=== PATIENT | male | born 1945 | race Caucasian/White ===

== ENCOUNTER 2017-05-28 18:00 | Emergency (ER) | payer MEDICARE, OTHER ==
[2017-05-28 18:23] VITALS: BP 119/79
--- NOTE | 2017-06-05 17:17 | UC ---
Sravan Krueger Thomas, scribed for Vicky Ibrahim DO on 05/28/17 at 4 . Lower Extremity/Ankle HPI - HPI Summary HPI Summary: The pt is a 71 y/o M presenting to [facility] c/o left knee pain s/p an injury 3 weeks ago in which he twisted his knee. The pain is intermittent. At [facility], the pt denies any pain. The pain is aggravated by weight bearing. It is not aggravated by movement. 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 The pain is alleviated sometimes by these treatments. The patient also complains of left knee instability and he has used a cane in the last three days secondary to this instability. The patient has fallen twice due to knee instability. Before the patient fell, he did not have any pain and says my knee gave out. He denies head trauma and LOC from that fall. Pt denies swelling , F/S/C, abd pain, N/V, or any other complaints. 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 - History of Current Complaint Chief Complaint: UCLowerExtremity Stated Complaint: R KNEE INJURY Time Seen by Provider: 05/28/17 20:06 Hx Obtained From: Patient Onset/Duration: Still Present Pain Intensity: 0 Pain Scale Used: 0-10 Numeric Aggravating Factor(s): Other - Knee pain is Alleviating Factor(s): Other - Sometimes alleviated by heat, ice, and ibuprofen - Allergies/Home Medications Allergies/Adverse Reactions: Allergies Allergy/AdvReac Type Severity Reaction Status Date / Time No Known Allergies Allergy Verified 05/28/17 18:23 Home Medications: Home Medications NK [No Home Medications Reported] 05/28/17 [History Confirmed 05/28/17] PMH/Surg Hx/FS Hx/Imm Hx Previously Healthy: No - NEGATIVE: HTN, DM - Surgical History Surgical History: None - Family History Known Family History: Negative: Cardiac Disease, Hypertension, Diabetes - Social History Occupation: Employed Full-time - as a informatics pharmacist Alcohol Use: None Substance Use Type: None Smoking Status (MU): Never Smoked Tobacco Review of Systems Constitutional: Other - NEGATIVE: fever Musculoskeletal: Other: - Intermittent left knee pain, left knee instability, two falls Is Patient Immunocompromised?: No All Other Systems Reviewed And Are Negative: Yes Physical Exam Triage Information Reviewed: Yes Appearance: Well-Appearing, No Pain Distress, Well-Nourished Vital Signs: Initial Vital Signs Temp 98.4 F 05/28/17 18:20 Pulse 82 05/28/17 18:20 Resp 12 05/28/17 18:20 BP 119/79 05/28/17 18:20 Pulse Ox 99 05/28/17 18:20 Vital Signs Reviewed: Yes Eyes: Positive: Conjunctiva Clear. Negative: Discharge ENT: Positive: Hearing grossly normal. Negative: Muffled/hoarse voice Neck exam: Normal Neck: Positive: Supple Respiratory: Positive: Lungs clear, Normal breath sounds, No respiratory distress, No accessory muscle use Cardiovascular Exam: Normal Cardiovascular: Positive: RRR Musculoskeletal Exam: Normal Neurological: Positive: Alert, Muscle Tone Normal Psychological Exam: Normal Psychological: Positive: Age Appropriate Behavior Skin Exam: Normal Skin: Positive: Other - Warm, dry, normal color Lower Extremity Course/Dx - Differential Dx/Diagnosis Provider Diagnoses: knee pain Discharge - Discharge Plan Condition: Stable Disposition: HOME Patient Education Materials: Knee Pain (ED), Knee Immobilizer (ED) Forms: *Work Release Referrals: Lior Yousif MD [Medical Doctor] - As Soon As Possible No Primary Care Phys,NOPCP [Primary Care Provider] - Additional Instructions: Your history and exam is suspicous for possible internal derrangement of the knee. So, you will need follow up with an orthopedic provider to further evaluate your injury. The documentation as recorded by the Sravan hollis Thomas accurately reflects the service I personally performed and the decisions made by , Vicky Ibrahim DO.
== END 2017-05-28 20:40 | disposition home or self-care (01) ==
LOC: UCEAST 18:00
DX: M25.562 Pain in left knee (principal); M23.52 Chronic instability of knee, left knee
CPT/HCPCS: 99202; G0463

== ENCOUNTER 2018-11-20 15:05 | Inpatient (IN) | payer MEDICARE ==
[2018-11-20] MEDS ORDERED: Tetan/Diph/Pertus SYR(Tdap)* 0.5 ML SYR(BOOSTRIX) use SYR IM ONE (15:38)
[2018-11-20] MEDS ORDERED: ED Vancomycin 1 GM/250 ML 1 GM/250 ML PREMIX.SET IVPB ONE (15:38)
[2018-11-20] MEDS ORDERED: ED Piperacillin/Tazobac 3.375 3.375 GM/100 ML PREMIX.SET IVPB ONE (15:38)
--- NOTE | 2018-11-20 15:41 | ED ---
Lower Extremity - HPI Summary HPI Summary: Patient is a 73-year-old who presents emergency department for right ankle injury that occurred 3 weeks ago. Patient states wood fell on to right ankle 3 weeks ago and injured ankle. Patient states he had a cut on his ankle and was unable to walk. Patient believes he broke and made a homemade splint. Patient states he has a bed ridden at home and was unable to find somebody to look after her while he gets medical treatment until today. Patient denies fever, chills, nausea, vomiting or chest pain, shortness of breath. Patient unable to bear any weight on to right leg secondary to right ankle pain. Patient states that wound has progressively got larger. Symptoms are moderate in severity. Touching and moving affected area makes symptoms worse. Nothing makes symptoms better. Denies past medical history. - History of Current Complaint Chief Complaint: EDExtremityLower Stated Complaint: ANKLE PAIN PER EMS Time Seen by Provider: 11/20/18 15:23 Hx Obtained From: Patient Pain Intensity: 3 - Allergies/Home Medications Allergies/Adverse Reactions: Allergies Allergy/AdvReac Type Severity Reaction Status Date / Time No Known Allergies Allergy Verified 11/20/18 15:28 PMH/Surg Hx/FS Hx/Imm Hx Previously Healthy: Yes Endocrine/Hematology History: Denies: Hx Diabetes, Hx Thyroid Disease Cardiovascular History: Denies: Hx Hypertension, Hx Pacemaker/ICD Respiratory History: Denies: Hx Asthma, Hx Chronic Obstructive Pulmonary Disease (COPD) GI History: Denies: Hx Ulcer Sensory History: Denies: Hx Hearing Aid Psychiatric History: Denies: Hx Panic Disorder Infectious Disease History: No Infectious Disease History: Denies: Hx Hepatitis, Hx Human Immunodeficiency Virus (HIV), Traveled Outside the [place] in Last 30 Days - Family History Known Family History: Positive: Non-Contributory - Social History Occupation: Retired Lives: With Family Alcohol Use: None Substance Use Type: Reports: None Smoking Status (MU): Never Smoked Tobacco Review of Systems Constitutional: Negative Negative: Fever, Chills Cardiovascular: Negative Negative: Palpitations, Chest Pain Respiratory: Negative Negative: Shortness Of Breath Gastrointestinal: Negative Negative: Vomiting, Nausea Positive: Other - pain and wound to right ankle Positive: Other - wound right ankle Negative: Weakness, Paresthesia, Numbness All Other Systems Reviewed And Are Negative: Yes Physical Exam Triage Information Reviewed: Yes Vital Signs On Initial Exam: Initial Vitals Temp Pulse Resp BP Pulse Ox 99.4 F 84 18 104/59 97 11/20/18 15:16 11/20/18 15:16 11/20/18 15:16 11/20/18 15:16 11/20/18 15:16 Vital Signs Reviewed: Yes Appearance: Positive: Well-Appearing - Pt. lying in bed in NAD. Sister present. Skin: Positive: Warm, Dry Head/Face: Positive: Normal Head/Face Inspection Eyes: Positive: Normal, EOMI Neck: Positive: Supple Respiratory/Lung Sounds: Positive: Clear to Auscultation, Breath Sounds Present Cardiovascular: Positive: Normal, RRR Musculoskeletal: Positive: Other - Deformity noted to right ankle with roughly 6cm circular wound to medial ankle. Foot is profused with palpable pedial pulse. Neurological: Positive: Normal, CN Intact II-III Psychiatric: Positive: Affect/Mood Appropriate Diagnostics - Vital Signs Vital Signs Temp Pulse Resp BP Pulse Ox 11/20/18 15:16 99.4 F 84 18 104/59 97 - Laboratory Result Diagrams: 11/20/18 16:01 11/20/18 16:01 Lab Statement: Any lab studies that have been ordered have been reviewed, and results considered in the medical decision making process. Lower Extremity Course/Dx - Course Course Of Treatment: Pt. presenting with ankle injury and wound that occurred 3 weeks ago. Low grade fever. Pt. nontoxic appearing. Exam is very concerning for osteo, abscess, open fx. Labs and cultures ordered. Pt. started on IV fluids, vanc, zosyn and pain medication. Will update tetanus. Pending xrays. Xrays show fracture dislocation. 1614: Ortho, Dr. Milan, paged. 1635: Case discussed with Dr. Milan. 1750: Dr. Milan discussed case with Dr. Chapin who is willing to take case. He would like pt. admitted to hospitalist and will see pt. tomorrow. He would also like MRI at some point. Plan discussed with pt. and sister. He is resting more comfortably after pain medication. Case discussed with Dr. Washington and she accepts pt. for admission. - Diagnoses Differential Diagnosis/HQI/PQRI: Positive: Fracture (Open), Infection, Osteomyelitis Provider Diagnoses: Open fracture ankle, bimalleolar Discharge - Sign-Out/Discharge Documenting (check all that apply): Patient Departure Patient Received Moderate/Deep Sedation with Procedure: No - Discharge Plan Condition: Stable Disposition: ADMITTED TO [facility] Referrals: No Primary Care Phys,NOPCP [Primary Care Provider] - - Billing Disposition and Condition Condition: STABLE Disposition: Admitted to [facility]
[2018-11-20] MEDS ORDERED: Morphine 4 MG/ML VIAL (1 ml) 4 MG/ML VIAL IV ONE (15:42)
[2018-11-20] MEDS ORDERED: Ondansetron INJ* 2 MG/ML VIAL IV ONE (15:43)
[2018-11-20] MEDS: NS 0.9% 1000 ML** 1,000 ML IV ONE ×2 (16:08→16:27)
[2018-11-20 16:15] LABS: ABS Basophils 0.1 10^3/ul (0-0.2); ABS Eosinophils 0.1 10^3/ul (0-0.6); ABS Monocytes 0.7 10^3/ul (0-0.8); ABS Neutrophils 11.2 10^3/ul (1.5-7.7); ABS Nucleated RBC 0 10^3/ul; Eosinophil % 0.9 %; Hematocrit 34 % (36-46); Hemoglobin 11.2 g/dL (14.0-18.0); Lymphocyte % 7.3 %; Mean Corpuscular HGB Conc 34 g/dL (31-36); Mean Corpuscular Hemoglobin 34 pg (27-31); Mean Corpuscular Volume 100 fL (80-94); Mean Platelet Volume 7.1 fL (7.4-10.4); Nucleated Red Blood Cells % 0; Platelet Count 676 10^3/uL (150-450); Red Blood Count 3.34 10^6 /uL (4.18-5.48); Red Cell Distribution Width 14 % (10.5-15)
[2018-11-20] MEDS ORDERED: NS 0.9% 1000 ML** 1,000 ML IV ONE (16:15)
[2018-11-20] MEDS: NS 0.9% 1000 ML** 1,000 ML IV.FLUID IV ONE ×3 (16:28→18:07)
[2018-11-20 16:36] LABS: Albumin 3.1 g/dL (3.2-5.2); Albumin/Globulin Ratio 0.8 (1-3); BUN/Creatinine Ratio 26.7 (8-20); C Reactive Protein 91.37 mg/L (<8.01); Calcium 8.7 mg/dL (8.6-10.3); EGFR African American 105.2 (>60); EGFR Non-African American 86.9 (>60); Globulin 3.8 g/dL (2-4); Potassium 3.9 mmol/L (3.5-5.0); Total Bilirubin 0.4 mg/dL (0.2-1.0); Total Protein 6.9 g/dL (6.4-8.9)
[2018-11-20 17:00] LABS: Activated Partial Thrombo Time 32.9 seconds (26.0-36.3); INR 0.99 (0.77-1.02)
--- NOTE | 2018-11-20 18:10 | ADMNOTE ---
Subjective Date of Service: 11/20/18 Interval History: ADMISSION HISTORY AND PHYSICAL EXAM: Allergies Allergy/AdvReac Type Severity Reaction Status Date / Time No Known Allergies Allergy Verified 11/20/18 15:28 Home Medications Medication Instructions Recorded Confirmed Type NK [No Home Medications Reported] 05/28/17 11/20/18 History HPI: The patient was inhis usual state of health until 2-3 weeks ago when he was cutting wood and some wood fell on his R leg causing an open fracture. When later his sister called him and he did not answer the phone she went to see him. He could not get to the phone. She and another sister took care of the patient and his disabled for a while until they could convince the patient to come to the hospital. Family History: Findings - DM, heart disease. Social History: Findings - Never smoked, no alcohol abuse. 2 sons, 2 sisters nearby, one sister is his SDM. Past Medical History: Findings - negative, no surgery, no medical problems Review of Systems - Measurements Intake and Output: Intake and Output Last 24 Hours 11/18/18 11/19/18 11/20/18 11/21/18 06:59 06:59 06:59 06:59 Weight 188 lb - Review of Systems Constitutional Symptoms: Negative: Weight Gain, Weight Loss, Weakness, Fatigue, Fever, Night Sweats, Unexplained Falls, Other Dermatology: Positive: Normal HEENT: Positive: Normal Eyes: Positive: Normal Thyroid: Positive: Normal Pulmonary: Positive: Normal Cardiology: Positive: Normal Gastroenterology: Positive: Normal Genital - Urinary: Positive: Normal Musculoskeletal: Positive: Joint Pain - see hpi Endocrinology: Positive: Normal Hematologic/Lymphatic: Negative: Anemia, Easy Brusing, Hx Leukemia, Hx Lymphoma, Use of Anticoagulant, Use of Antiplatelet Drugs, Other Neurology: Positive: Normal Psychiatry: Positive: Normal Allergic/Immunologic: Negative: Hx Anaphylaxis, Hx Angioedema, Hx Environmental, Hx Seasonal, Athsma, Hx HIV, Immunocompromise, Swollen Glands LymphNodes, Other Objective Active Medications: Enoxaparin Sodium (Lovenox(*)) 40 mg SUBCUT Q24H HANS Piperacillin Sod/Tazobactam (Sod 3.375 gm/ Sodium Chloride) 100 mls @ 25 mls/ hr IVPB Q8H HANS Morphine Sulfate (Morphine 4 Mg/Ml Vial (1 Ml)) 2 mg IV Q2H PRN PRN Reason: PAIN Oxycodone HCl (Roxycodone Tab*) 5 mg PO Q3H PRN PRN Reason: PAIN Pharmacy Consult (Vancomycin Per Pharmacy*) 1 note FOLLOW UP .VANC PER PHARMACY [facility] Vital Signs - 8 hr 11/20/18 11/20/18 11/20/18 15:16 16:07 17:46 Temperature 99.4 F 98.9 F Pulse Rate 84 Respiratory 18 18 Rate Blood Pressure 104/59 (mmHg) O2 Sat by Pulse 97 Oximetry Oxygen Devices in Use Now: None Appearance: Alert, supine on ED stretcher. In fair spirits. Looks comfortable. Eyes: No Scleral Icterus Neck: NL Appearance and Movements; NL JVP, No Thyroid Enlargement, Masses Respiratory: Symmetrical Chest Expansion and Respiratory Effort, Clear to Auscultation, Clear to Percussion Cardiovascular: NL Sounds; No Murmurs; No JVD, RRR, No Edema, - Abdominal: NL Sounds; No Tenderness; No Distention, No Hepatosplenomegaly, - Extremities: No Edema, No Clubbing, Cyanosis, - - R ankjle swollen, 10 cm open wound Skin: No Nodules or Sclerosis Neurological: Alert and Oriented x 3, NL Sensation Result Diagrams: 11/20/18 16:01 11/20/18 16:01 Microbiology and Other Data: Microbiology 11/20/18 16:40 Gram Stain - Final Ankle Right Assess/Plan/Problems-Billing Assessment: - Patient Problems (1) Open fracture Current Visit: Yes Status: Acute Code(s): T14.8XXA - OTHER INJURY OF UNSPECIFIED BODY REGION, INITIAL ENCOUNTER SNOMED Code(s): 955049889 Comment: Right ankle. Dr. Del Toro to consult. Continue vanco, pip/rafi. (2) Macrocytosis Current Visit: Yes Status: Acute Code(s): D75.89 - OTHER SPECIFIED DISEASES OF BLOOD AND BLOOD-FORMING ORGANS SNOMED Code(s): 053702736 Comment: B12 in low normal range (231). Methylmalonic acid level, folate level. requested
[2018-11-20] MEDS ORDERED: Vancomycin per Pharmacy* NOTE FOLLOW UP SCH (19:00)
[2018-11-20] MEDS ORDERED: Piperacillin/Tazobac ADVAN(*) 3.375 GM in NS 0.9% 100 ML* 100 ML IVPB SCH (19:00)
[2018-11-20] MEDS: ZOSYN 3.375 GM Q8H per EXTENDED INFUSION IVPB SCH ×2 (20:57)
[2018-11-20] MEDS: oxyCODONE TAB* 5 MG TAB PO PRN (21:12)
[2018-11-20] MEDS: Enoxaparin(*) 40 MG/0.4 ML SYR SUBCUT SCH (21:13)
[2018-11-21] MEDS: Vancomycin(*) 1,250 MG in NS 0.9% 250 ML* 250 ML IVPB SCH ×2 (01:42→13:14)
[2018-11-21] MEDS: oxyCODONE TAB* 5 MG TAB PO PRN ×3 (02:30→17:00)
[2018-11-21] MEDS: ZOSYN 3.375 GM Q8H per EXTENDED INFUSION IVPB SCH ×6 (04:06→21:49)
[2018-11-21] MEDS: Morphine 4 MG/ML VIAL (1 ml) 4 MG/ML VIAL IV PRN ×2 (11:33→20:57)
[2018-11-21 11:58] LABS: Folate 18.41 ng/mL (>3.99)
--- NOTE | 2018-11-21 17:36 | CONS ---
CONSULTATION REPORT: DATE OF CONSULT: 11/21/18 PRIMARY CARE PROVIDER: None. PHYSICIAN REQUESTING CONSULTATION: Dr. Luis Felipe Putnam. CONSULTING SERVICE: Infectious Disease. ATTENDING PROVIDER: Dr. Jon Torres * (dictated by Shyla Coleman NP). REASON FOR CONSULT: Open fracture with wound culture that is Staph aureus positive by PCR. IMPRESSION: 1. Open right ankle fracture. PCR shows Staph aureus, MRSA negative. He is currently on vancomycin and Zosyn. I suspect this represents an acute osteomyelitis in the setting of an open fracture for a prolonged period of time. He received a tetanus booster in the emergency room. Plan is for external fixation later this week. 2. Macrocytosis. 3. Thrombocytosis. Suspect this could be in the setting of infection. PLAN: Discontinue vancomycin as the MRSA PCR is negative. Continue Zosyn until cultures can be obtained during surgery, at which time we will be able to further narrow his antibiotics. For now, I would like to continue with anaerobic coverage offered by the Zosyn. He will likely need a few weeks of IV antibiotics and further recommendations will be based off culture results. HISTORY OF PRESENT ILLNESS: Mr. Fenton is a 73-year-old male with no significant past medical history, who states that 2 to 3 weeks ago while cutting some wood, he had several large pieces of wood fall hitting the medial aspect of his right lower leg. He was able to get himself into the house, cleaned up the area and was using an ottoman on wheels to get around in his house. He has been unable to ambulate due to the pain. He stayed home to take care of his bedridden . He was finally convinced by family to present to the emergency room for evaluation. While in the emergency room, he was noted to have a wound to his right ankle and was found to have an open right ankle fracture. With concern for possible abscess and an open fracture, he was referred to the hospitalist service for admission. Mr. Fenton had an ankle MRI showing "bimalleolar fracture and posterior dislocation of the talus relative to the tibial plafond. Open wound at the medial aspect exposing the medial malleolus avulsion fracture site corresponding with history of compound fracture. The lateral malleolus and medial malleolus fracture fragments remained aligned with the talus. The anterior and posterior tibiofibular ligaments are torn. There is bone marrow edema at the talus most confluent at the neck without visualized fracture of the talus most consistent with osseous contusion. There is bone marrow edema at the proximal pole of the medial cuneiform without discrete fracture plane, which may represent osseous contusion or potentially reactive edema secondary to degenerative arthropathy. Talocrural joint effusion and extensive superficial and deep soft tissue edema including involvement of the skeletal musculature extending through the lower leg to the proximal segment. No loculated soft tissue plane hematoma or abscess identified". He denies fevers, chills, shortness of breath, muscle pain, rash, diarrhea, urinary symptoms, or recent travel. He reports right ankle discomfort. He describes pins and needles to his right toe since the accident, worse when the leg is touched. He finds that moving the leg or bearing weight makes the pain worse and when the leg is undisturbed, the pain improves. PAST MEDICAL HISTORY: None. PAST SURGICAL HISTORY: None. MEDICATIONS: Home medications: None. Hospital medications: 1. Lovenox 40 mg subcutaneous every 24 hours. 2. Morphine sulfate 2 mg IV every 2 hours as needed for pain. 3. Oxycodone 5 mg by mouth every 3 hours as needed for pain. 4. Zosyn 100 mg IV every 8 hours. 5. Vancomycin 1250 mg IV q.12 hours. ALLERGIES: No known drug allergies. FAMILY HISTORY: Denies family history of recurrent infections, coronary artery disease, diabetes, or cancer. SOCIAL HISTORY: Denies alcohol, tobacco, or recreational drug use. REVIEW OF SYSTEMS: I performed a 10-point review of systems. All the pertinent positives and negatives are mentioned in the history of present illness. The remaining review of systems are negative. PHYSICAL EXAM: Vital Signs: Temperature 98.4, heart rate 72, respiratory rate 16, O2 sat 99% on room air, blood pressure 125/57. General Appearance: Alert, appears to be in no acute distress. HEENT: Normocephalic, atraumatic. ENT: Pupils are equal and reactive to light. Extraocular movements are intact. Mucous membranes are moist. Neck is supple. There is no lymphadenopathy noted. Neurological: Cranial nerves II through XII are grossly intact. Alert and oriented x4. Cardiovascular: Heart rate regular. No murmurs, rubs, or gallops heard. Respiratory: No accessory muscle use. The lungs are clear to auscultation bilaterally. Abdomen: Bowel sounds present. Abdomen is soft, nontender, nondistended. Extremities: There is right dorsal foot edema. Pulses are 1+ and symmetric. Psychological: Calm and cooperative. Skin: No rashes or abnormalities seen on the exposed skin. He has a dressing to his right ankle that is clean, dry, and intact. DIAGNOSTIC STUDIES/LAB DATA: Sodium 138, potassium 3.9, chloride 107, CO2 of 26 , BUN 23, creatinine 0.86, glucose 117. White blood cell count 13, hemoglobin 11.2, hematocrit 34, platelet count 676. CRP 91.37. Right ankle wound culture shows Staph aureus positive, MRSA negative by PCR. Please see impression and recommendations outlined above. Thank you for asking us to see Mr. Fenton in consultation. TIME SPENT: Time spent for this consultation was approximately 30 minutes, greater than half of that was spent with the patient discussing medications, past medical history, the events leading to his arrival today, and performing a physical examination. The case has been reviewed with the attending, Dr. Torres, who agrees with the plan. Reviewed by SHYLA COLEMAN, YARN REWINDER-C 11/24/18 1135 Seen, examined, discussed with Manda Coleman UNEMPLOYMENT EXAMINER I agree with her full note above. Impression/Plan: 1. Open right ankle fracture with soft tissue and wound infection, MSSA by PCR, may be polymicrobial. Stop vancomycin, will continue zosyn, final antibiotics pending full culture results. [id number]/CPS #: [id number] MTDD
--- NOTE | 2018-11-21 18:34 | CONS ---
CONSULTATION REPORT: DATE OF CONSULT: 11/21/18 ATTENDING ORTHOPEDIC PROVIDER: Dr. Trae Del Toro. CHIEF COMPLAINT: Right open ankle fracture and infection. HISTORY OF PRESENT ILLNESS: Mr. Fenton is a 73-year-old male, who presented to the emergency room on 11/20/18 due to an open fracture to his right ankle which occurred 2 to 3 weeks ago. The patient states that he was cutting wood when wood struck his right leg causing an open laceration and fracture. The patient did not seek medical attention until yesterday, 11/20/18, due to needing to care for his bedridden without anyone to assist in care taking. He came in yesterday when he was able to find someone to help care for his . The patient did note that he has had drainage as well as redness around the ankle. He had severe pain of the ankle with inability to bear weight throughout this entire duration. Today, he reports pain of the right ankle with any movement of the right leg whatsoever, there is no radiation of pain. Reports no decrease in sensation distal to the injury with the ability to wiggle his toes. He is unable to move his ankle, however, due to pain. He is able to move both at the hip and knee without pain aside from associated ankle pain with this motion. The patient notes that he has not had any fever or chills. He has had redness and drainage from the ankle. At baseline, the patient walks without an assistive device. Since injury, he has been using a rolling ottoman as a form of knee scooter to get around his home to take care of his . He does not see a PCP and takes no home medications. No reported history of heart attack, stroke, blood clot or blood transfusion. PAST MEDICAL HISTORY: Negative. The patient does not see a primary care provider. PAST SURGICAL HISTORY: No past history of surgeries. FAMILY HISTORY: Significant for diabetes, heart disease. No adverse reactions from anesthesia in the family. SOCIAL HISTORY: Nonsmoker. No drug abuse. REVIEW OF SYSTEMS: General: No fever or chills. No recent illness. HEENT: No head trauma. The patient did not strike his head when he fell. No change in vision or hearing. Cardiac: No history of UT. No chest pain. Respiratory : No shortness of breath. No cough. No history of asthma, COPD, or sleep apnea. Abdomen: No abdominal pain. No nausea, vomiting, diarrhea. Musculoskeletal: Positive for right ankle open fracture. Denies any other orthopedic injuries. Denies any injury to his other extremities with the fall. Neuro: Sensation is noted to be normal in the right foot as well as left lower extremity and bilateral upper extremities. Hematology: No history of blood clot. PHYSICAL EXAM: Vital Signs: Temperature 98.4, pulse rate 74, respiratory rate 16, oxygen saturation 99%, blood pressure 125/57. General: No acute distress. HEENT: Head is normocephalic, atraumatic. Extraocular movements are intact. Mucous membranes are moist. Cardiac: S1, S2. No murmur. Respiratory: Clear to auscultation bilaterally. No wheezes, rales, or rhonchi. Abdomen: Bowel sounds normoactive in all 4 quadrants. Nondistended, soft, nontender. Musculoskeletal: Bilateral upper extremities with skin envelope intact. Flexion and extension of the elbows, wrists, digits intact without pain. Forward flexion of the shoulder intact without pain. Left lower extremity: Skin envelope intact. Flexion and extension of the hip, knee, ankle, and digits without pain. Right lower extremity: Deformity of the ankle. The patient has a 7 x 4 cm laceration over the medial malleolus with a large amount of foul smelling purulence as well as large amount of hair within the wound. There is erythema around this laceration without any streaking proximally. The patient is tender to palpation about the ankle. His foot is edematous, though compressible. He is able to flex and extend his MTPs without any severe pain. The patient is nontender to palpation of the hip, femur, knee, or lower leg until distally where he is tender about the ankle. Neuro: Sensation is intact to light touch distally throughout bilateral upper and lower extremities. Vascular: DP pulse 2+ bilaterally. Capillary refill less than 2 seconds distally on the right lower extremity as well as the left lower extremity. DIAGNOSTIC STUDIES/LAB DATA: Ankle MRI on the right: There is a bimalleolar fracture and posterior dislocation of the talus relative to the tibial plafond, open wound at the medial aspect exposing the medial malleolus avulsion fracture site corresponding with history of compound fracture. Lateral malleolus and medial malleolus fracture fragments remain aligned with the talus. ATFL, calcaneal, fibular, and posterior tibiofibular ligaments appear intact. Anterior and posterior tibiofibular ligaments are torn. Deltoid ligament appears grossly intact. There is some bone marrow edema at the talus most confluent at the neck without visualized fracture of the talus. There is bone marrow edema at the proximal pole of the medial cuneiform without discrete fracture plane. Talocrural joint effusion and extensive superficial and deep soft tissue edema. No loculated soft tissue plane hematoma or abscess is identified. No gross tendon entrapment evident. Microbiology: Right ankle is growing Staph aureus. Final culture results not yet reported. Lab studies: White blood cells 13.0, hemoglobin 11.2, hematocrit 34, platelet count 676. INR 0.99, aPTT 32.9. Sodium 138, potassium 3.9, GFR is 86.9. CRP is 91.37. ASSESSMENT: The patient has a right open ankle fracture dislocation, infected with Staphylococcus aureus and awaiting final wound culture results. PLAN: The patient will remain bedridden, nonweightbearing on the right lower extremity. He will be on a normal diet until night, at 00:01. He will be n.p.o. Tuesday after midnight. He is currently on Lovenox 40 mg subcu q.24 hours. This should be stopped Tuesday, so he does not receive a dose on . Preop labs morning are ordered, CBC, BMP, PT/INR. I have ordered a type and screen to be done non-urgently at his next lab draw. The patient and his family understand that the intended surgical plan is for I& D and ex fix though they understand that there is a possibility that he may need an amputation depending on extent of injury and infection. Case was reviewed with Dr. Trae Del Toro, who will be taking the patient to the OR on . MAI [place] [id number]/[facility] #: [id number] [facility] CENTERMiguel Ángel
--- NOTE | 2018-11-21 20:11 | PN ---
Subjective Date of Service: 11/21/18 Interval History: complains of increase pain. ortho consult pending. MRI ordered for today Family History: Findings - DM, heart disease. Social History: Findings - Never smoked, no alcohol abuse. 2 sons, 2 sisters nearby, one sister is his SDM. Past Medical History: Findings - negative, no surgery, no medical problems Objective Active Medications: Enoxaparin Sodium (Lovenox(*)) 40 mg SUBCUT Q24H [facility]ANS Last Admin: 11/20/18 21:13 Dose: 40 mg Piperacillin Sod/Tazobactam (Sod 3.375 gm/ Sodium Chloride) 100 mls @ 25 mls/ hr IVPB Q8H [facility]ANS Last Admin: 11/21/18 13:32 Dose: 25 mls/hr Morphine Sulfate (Morphine 4 Mg/Ml Vial (1 Ml)) 2 mg IV Q2H PRN PRN Reason: PAIN Last Admin: 11/21/18 11:33 Dose: 2 mg Oxycodone HCl (Roxycodone Tab*) 5 mg PO Q3H PRN PRN Reason: PAIN Last Admin: 11/21/18 17:00 Dose: 5 mg Vital Signs - 8 hr 11/21/18 11/21/18 13:00 17:00 Respiratory 16 16 Rate Oxygen Devices in Use Now: None Appearance: awake dischelved. mild distress from pain Eyes: No Scleral Icterus Respiratory: Symmetrical Chest Expansion and Respiratory Effort, Clear to Auscultation Cardiovascular: NL Sounds; No Murmurs; No JVD, RRR Abdominal: NL Sounds; No Tenderness; No Distention Extremities: - - right ankle in soft estefanía wrap Result Diagrams: 11/20/18 16:01 11/20/18 16:01 Microbiology and Other Data: Microbiology 11/20/18 16:40 Gram Stain - Final Ankle Right Assess/Plan/Problems-Billing Assessment: 73 y/o male admitted for right ankle fracture 2+ weeks old did not seek medical attention at the time of the injury - Patient Problems (1) Wound cellulitis Current Visit: Yes Status: Acute Code(s): L03.90 - CELLULITIS, UNSPECIFIED SNOMED Code(s): 003407741 Comment: - Zosyn Day # 2. Off vanco (2) Macrocytosis Current Visit: Yes Status: Acute Code(s): D75.89 - OTHER SPECIFIED DISEASES OF BLOOD AND BLOOD-FORMING ORGANS SNOMED Code(s): 133524074 Comment: B12 in low normal range (231). Methylmalonic acid level, folate level. requested (3) Open fracture Current Visit: Yes Status: Acute Code(s): T14.8XXA - OTHER INJURY OF UNSPECIFIED BODY REGION, INITIAL ENCOUNTER SNOMED Code(s): 075397022 Comment: - Right ankle. Dr. Del Toro to consult. Continue pip/rafi. - MRI of ankle today - He is a high risk for DVT already given his presentation of ankle fracture 2 weeks ago. I will get US tomorrow before surgery to establish the presence or not of a DVT before the procedure. I have a high suspicion that he may already have DVT (4) DVT prophylaxis Current Visit: Yes Status: Acute Code(s): BLZ8053 - SNOMED Code(s): 180421899 Comment: - lovenox 40 mg SQ daily
[2018-11-21 21:27] LABS: Influenza A Molecular NEGATIVE (Negative); Influenza B Molecular NEGATIVE (Negative)
[2018-11-21] MEDS: Enoxaparin(*) 40 MG/0.4 ML SYR SUBCUT SCH (21:52)
[2018-11-22] MEDS: ZOSYN 3.375 GM Q8H per EXTENDED INFUSION IVPB SCH ×6 (05:02→20:06)
[2018-11-22] MEDS: Morphine 4 MG/ML VIAL (1 ml) 4 MG/ML VIAL IV PRN (05:08)
[2018-11-22 06:16] LABS: ABS Basophils 0.1 10^3/ul (0-0.2); ABS Eosinophils 0.2 10^3/ul (0-0.6); ABS Lymphocytes 1.2 10^3/ul (1.0-4.8); ABS Neutrophils 7.2 10^3/ul (1.5-7.7); ABS Nucleated RBC 0 10^3/ul; Eosinophil % 1.6 %; Hematocrit 28 % (36-46); Hemoglobin 9.5 g/dL (14.0-18.0); Lymphocyte % 12.8 %; Mean Corpuscular HGB Conc 34 g/dL (31-36); Mean Corpuscular Hemoglobin 34 pg (27-31); Mean Corpuscular Volume 100 fL (80-94); Mean Platelet Volume 7.2 fL (7.4-10.4); Nucleated Red Blood Cells % 0; Platelet Count 440 10^3/uL (150-450); Red Blood Count 2.78 10^6 /uL (4.18-5.48); Red Cell Distribution Width 13 % (10.5-15); White Blood Count 9.7 10^3/uL (3.5-10.8)
[2018-11-22 06:37] LABS: BUN/Creatinine Ratio 22.2 (8-20); Calcium 8.3 mg/dL (8.6-10.3); EGFR African American 112.7 (>60); EGFR Non-African American 93.2 (>60); Magnesium 1.8 mg/dL (1.9-2.7); Phosphorus 3.7 mg/dL (2.5-5.0)
[2018-11-22] MEDS: Cyanocobalamin TAB* 500 MCG PO SCH ×2 (09:04→09:53)
[2018-11-22] MEDS: Multivitamins/Minerals TAB PO SCH ×2 (09:04→09:52)
[2018-11-22] MEDS: oxyCODONE TAB* 5 MG TAB PO PRN ×4 (09:55→21:58)
[2018-11-22] MEDS ORDERED: Vancomycin Trough Check NOTE FOLLOW UP ONE (11:30)
[2018-11-22] MEDS ORDERED: Buffered Lidocaine 1% SYRIN* 1 ML/SYRINGE INTRADERM ONE (12:35)
[2018-11-22 12:44] LABS: EGFR African American 108.1 (>60); EGFR Non-African American 89.3 (>60)
[2018-11-22 12:48] LABS: Vancomycin Trough 7.9 mcg/mL
--- NOTE | 2018-11-22 17:09 | PN ---
Subjective Date of Service: 11/22/18 Interval History: patient seen this morning. no events overnight. US of leg negative for DVT. Remains in severe pain with minimal movement of his leg. His MRI from 11/21/18 official report reviewed and bimaleollar fracture and posterior dislocations of the Talus, Open wound at the medial aspect of the maleolus... Scheduled for OR in am. Family History: Findings - DM, heart disease. Social History: Findings - Never smoked, no alcohol abuse. 2 sons, 2 sisters nearby, one sister is his SDM. Past Medical History: Unchanged from Admission - negative, no surgery, no medical problems Objective Active Medications: Cyanocobalamin (Vitamin B12 Tab*) 1,000 mcg PO DAILY [facility] Last Admin: 11/22/18 09:53 Dose: 1,000 mcg Piperacillin Sod/Tazobactam (Sod 3.375 gm/ Sodium Chloride) 100 mls @ 25 mls/ hr IVPB Q8H [facility] Last Admin: 11/22/18 13:17 Dose: 25 mls/hr Lactated Ringer's (Lactated Ringers 1000 Ml Bag*) 1,000 mls @ 125 mls/hr IV PER RATE [facility] Morphine Sulfate (Morphine 4 Mg/Ml Vial (1 Ml)) 2 mg IV Q2H PRN PRN Reason: PAIN Last Admin: 11/22/18 05:08 Dose: 2 mg Multivitamins/Minerals (Theragran/Minerals Tab*) 1 tab PO DAILY [facility] Last Admin: 11/22/18 09:52 Dose: 1 tab Oxycodone HCl (Roxycodone Tab*) 5 mg PO Q3H PRN PRN Reason: PAIN Last Admin: 11/22/18 13:22 Dose: 5 mg Vital Signs - 8 hr 11/22/18 11/22/18 11/22/18 09:55 11:25 13:17 Temperature 98.0 F Pulse Rate 76 Respiratory 17 17 17 Rate Blood Pressure 113/50 (mmHg) O2 Sat by Pulse 96 Oximetry 11/22/18 13:22 Temperature Pulse Rate Respiratory 16 Rate Blood Pressure (mmHg) O2 Sat by Pulse Oximetry Oxygen Devices in Use Now: None Appearance: awake. alert no acute distress Eyes: No Scleral Icterus, - - EOMI Ears/Nose/Mouth/Throat: NL Teeth, Lips, Gums, Mucous Membranes Moist Neck: NL Appearance and Movements; NL JVP, Trachea Midline Respiratory: Symmetrical Chest Expansion and Respiratory Effort, Clear to Auscultation Cardiovascular: NL Sounds; No Murmurs; No JVD, RRR Abdominal: NL Sounds; No Tenderness; No Distention Extremities: - - right lower extremety edema, right ankle in dressing. purulent discharge visible via his dressing. Result Diagrams: 11/22/18 05:41 11/22/18 12:04 Microbiology and Other Data: Microbiology 11/20/18 16:40 Gram Stain - Final Ankle Right Assess/Plan/Problems-Billing Assessment: 73 y/o male admitted for right ankle fracture 2+ weeks old did not seek medical attention at the time of the injury - Patient Problems (1) Wound cellulitis Current Visit: Yes Status: Acute Code(s): L03.90 - CELLULITIS, UNSPECIFIED SNOMED Code(s): 383280415 Comment: - Zosyn Day # 3. Off vanco - ID consult appreciated (2) Macrocytosis Current Visit: Yes Status: Acute Code(s): D75.89 - OTHER SPECIFIED DISEASES OF BLOOD AND BLOOD-FORMING ORGANS SNOMED Code(s): 763103486 Comment: - B12 in low normal range (231). Methylmalonic acid level, folate level. requested - Started B12 po and MVI (3) Open fracture Current Visit: Yes Status: Acute Code(s): T14.8XXA - OTHER INJURY OF UNSPECIFIED BODY REGION, INITIAL ENCOUNTER SNOMED Code(s): 887392904 Comment: - Right ankle. Dr. Del Toro consulted for OR in am. NPO after midnight. Continue pip/rafi. - Us of leg pre-op negative for DVT as I was concnered given his presentation of ankle fracture at home for greater than 2 weeks and sedantary that he could have DVT. however, Us of leg rule out DVT - DVT prophylaxis held today as he will be going to surgery in am (4) DVT prophylaxis Current Visit: Yes Status: Acute Code(s): ATH0299 - SNOMED Code(s): 012986787 Comment: - lovenox 40 mg SQ daily (held today 11/22/18)
[2018-11-22] MEDS ORDERED: NS 0.9% 100 ML* 100 ML ONE (20:25)
[2018-11-22] MEDS: Polyethylene Glycol 3350* 17 GM PACKET PO PRN (20:27)
[2018-11-22] MEDS: Senna TAB PO PRN (20:27)
[2018-11-23] MEDS: ZOSYN 3.375 GM Q8H per EXTENDED INFUSION IVPB SCH ×6 (04:41→20:27)
[2018-11-23] MEDS: Lactated Ringers 1000 ML Bag* 1,000 ML IV SCH ×3 (05:54→18:22)
[2018-11-23 06:17] LABS: ABS Basophils 0.1 10^3/ul (0-0.2); ABS Eosinophils 0.2 10^3/ul (0-0.6); ABS Lymphocytes 1.1 10^3/ul (1.0-4.8); ABS Neutrophils 8.1 10^3/ul (1.5-7.7); ABS Nucleated RBC 0 10^3/ul; Eosinophil % 1.4 %; Hematocrit 31 % (36-46); Hemoglobin 10.7 g/dL (14.0-18.0); Lymphocyte % 10.5 %; Mean Corpuscular HGB Conc 35 g/dL (31-36); Mean Corpuscular Hemoglobin 34 pg (27-31); Mean Corpuscular Volume 99 fL (80-94); Nucleated Red Blood Cells % 0; Platelet Count 435 10^3/uL (150-450); Red Cell Distribution Width 13 % (10.5-15); White Blood Count 10.5 10^3/uL (3.5-10.8)
[2018-11-23 06:23] LABS: INR 1.02 (0.77-1.02)
[2018-11-23 06:36] LABS: Calcium 8.7 mg/dL (8.6-10.3); EGFR Non-African American 95.9 (>60); Potassium 3.8 mmol/L (3.5-5.0)
[2018-11-23] MEDS: oxyCODONE TAB* 5 MG TAB PO PRN ×5 (07:14→23:27)
[2018-11-23] MEDS ORDERED: Bupivacaine 0.5%* 50 ML VIAL ONE (08:28)
[2018-11-23] MEDS ORDERED: Lidocaine 2% PF* 10 ML AMP ONE (08:28)
--- NOTE | 2018-11-23 08:31 | PN ---
Progress Note - Progress Note Date of Service: 11/22/18 SOAP: Subjective: []Pt seen at bedside, his pain is well controlled at rest, right ankle very painful with any movement of the right leg. Denies feeling of fever or chills. Objective: []General: NAD RLE: deformity of right ankle, dressing entirely soaked through with purulent discharge, new dressing placed. 7x4 cm laceration over the medial malleolus with a large amount of purulence, + erythema surrounding the wound. Sensation intact to light touch distally, dp2+. Assessment: []Open infected right ankle fracture dislocation Plan: []NWB NPO, hold chem DVT prophy for OR 11/23/18 Plan for I&D, ex fix, vac placement of right ankle. Patient understands and agreeable. Laboratory Last Values WBC 10.5 10^3/uL (3.5-10.8) 11/23/18 05:56 RBC 3.10 10^6 /uL (4.18-5.48) L 11/23/18 05:56 Hgb 10.7 g/dL (14.0-18.0) L 11/23/18 05:56 Hct 31 % (36-46) L 11/23/18 05:56 MCV 99 fL (80-94) H 11/23/18 05:56 MCH 34 pg (27-31) H 11/23/18 05:56 MCHC 35 g/dL (31-36) 11/23/18 05:56 RDW 13 % (10.5-15) 11/23/18 05:56 Plt Count 435 10^3/uL (150-450) 11/23/18 05:56 MPV 7.0 fL (7.4-10.4) L 11/23/18 05:56 Neut % (Auto) 77.5 % 11/23/18 05:56 Lymph % (Auto) 10.5 % 11/23/18 05:56 Hand % (Auto) 9.6 % 11/23/18 05:56 Eos % (Auto) 1.4 % 11/23/18 05:56 Baso % (Auto) 1.0 % 11/23/18 05:56 Absolute Neuts (auto) 8.1 10^3/ul (1.5-7.7) H 11/23/18 05:56 Absolute Lymphs (auto) 1.1 10^3/ul (1.0-4.8) 11/23/18 05:56 Absolute Monos (auto) 1.0 10^3/ul (0-0.8) H 11/23/18 05:56 Absolute Eos (auto) 0.2 10^3/ul (0-0.6) 11/23/18 05:56 Absolute Basos (auto) 0.1 10^3/ul (0-0.2) 11/23/18 05:56 Absolute Nucleated RBC 0 10^3/ul 11/23/18 05:56 Nucleated RBC % 0 11/23/18 05:56 INR (Anticoag Therapy) 1.02 (0.77-1.02) 11/23/18 05:56 APTT 32.9 seconds (26.0-36.3) 11/20/18 16:01 Sodium 135 mmol/L (135-145) 11/23/18 05:56 Potassium 3.8 mmol/L (3.5-5.0) 11/23/18 05:56 Chloride 103 mmol/L (101-111) 11/23/18 05:56 Carbon Dioxide 25 mmol/L (22-32) 11/23/18 05:56 Anion Gap 7 mmol/L (2-11) 11/23/18 05:56 BUN 15 mg/dL (6-24) 11/23/18 05:56 Creatinine 0.79 mg/dL (0.67-1.17) 11/23/18 05:56 Est GFR ( Amer) 116.0 (>60) 11/23/18 05:56 Est GFR (Non-Af Amer) 95.9 (>60) 11/23/18 05:56 BUN/Creatinine Ratio 19.0 (8-20) 11/23/18 05:56 Glucose 91 mg/dL (70-100) 11/23/18 05:56 Lactic Acid 0.8 mmol/L (0.5-2.0) 11/20/18 16:01 Calcium 8.7 mg/dL (8.6-10.3) 11/23/18 05:56 Phosphorus 3.7 mg/dL (2.5-5.0) 11/22/18 05:41 Magnesium 1.8 mg/dL (1.9-2.7) L 11/22/18 05:41 Total Bilirubin 0.40 mg/dL (0.2-1.0) 11/20/18 16:01 AST 14 U/L (13-39) 11/20/18 16:01 ALT 17 U/L (7-52) 11/20/18 16:01 Alkaline Phosphatase 69 U/L (34-104) 11/20/18 16:01 C-Reactive Protein 91.37 mg/L (<8.01) H 11/20/18 16:01 Total Protein 6.9 g/dL (6.4-8.9) 11/20/18 16:01 Albumin 3.1 g/dL (3.2-5.2) L 11/20/18 16:01 Globulin 3.8 g/dL (2-4) 11/20/18 16:01 Albumin/Globulin Ratio 0.8 (1-3) L 11/20/18 16:01 Vitamin B12 231 pg/mL (180-914) 11/20/18 16:01 Folate 18.41 ng/mL (>3.99) 11/20/18 16:01 Vancomycin Trough 7.9 mcg/mL 11/22/18 12:04 Influenza A (Rapid) Negative (Negative) 11/21/18 21:02 Influenza B (Rapid) Negative (Negative) 11/21/18 21:02 Blood Type A Positive 11/22/18 05:41 Antibody Screen Negative 11/22/18 05:41 Vital Signs Temp 98.3 F 11/23/18 07:38 Pulse 69 11/23/18 07:38 Resp 18 11/23/18 07:50 BP 123/56 11/23/18 07:38 Pulse Ox 95 11/23/18 07:38 Intake & Output 11/22/18 11/23/18 11/23/18 18:59 06:59 18:59 Intake Total 1695 550 Output Total 1650 800 200 Balance 45 -250 -200 Weight 185 lb Intake: IV Fluids 10 NS (0.9%) 10 IVPB 105 ABX - ZOSYN 105 Oral 1580 550 Output: Urine 1650 800 200
[2018-11-23] MEDS ORDERED: Midazolam* 1 MG/ML 2 ML VIAL (2 MG) ONE (08:39)
[2018-11-23] MEDS ORDERED: fentaNYL* 50 MCG/ML 2 ML VIAL (100 MCG VIAL) ONE ×3 (08:39→11:06)
[2018-11-23] MEDS ORDERED: EPHEDrine (Pressors)* 50 MG/ML VIAL ONE (09:48)
[2018-11-23] MEDS ORDERED: Dexamethasone IV* 4 MG/ML 1 ML (4 MG) ONE (09:49)
[2018-11-23] MEDS ORDERED: Lidocaine 2% PF * 5 ML VIAL ONE (09:49)
[2018-11-23] MEDS ORDERED: Propofol* 10 MG/ML 20 ML BTL ONE (09:49)
[2018-11-23] MEDS ORDERED: Ondansetron INJ* 2 MG/ML VIAL ONE (09:49)
[2018-11-23] MEDS ORDERED: ceFAZolin 2 GM in NS PREMIX(*) 2 GM/100 ML BAG IVPB ONE (10:04)
[2018-11-23] MEDS ORDERED: Naloxone* 0.4 MG/ML 1 ML VIAL IV PRN (10:21)
[2018-11-23] MEDS ORDERED: HYDROmorphone INJ1* 1 MG/ML SYRINGE ONE (11:07)
[2018-11-23] MEDS: fentaNYL* 50 MCG/ML 2 ML VIAL (100 MCG VIAL) IV PRN ×4 (11:08→11:25)
[2018-11-23] MEDS: HYDROmorphone INJ1* 1 MG/ML SYRINGE IV PRN ×5 (11:09→11:46)
[2018-11-23] MEDS: Cyanocobalamin TAB* 500 MCG PO SCH (12:36)
[2018-11-23] MEDS: Multivitamins/Minerals TAB PO SCH (12:36)
--- NOTE | 2018-11-23 14:08 | OP ---
Operative Report - Blank - Operative Report Date of Operation: 11/23/18 Note: PATIENT: Sreedhar Fenton DATE OF : 1945 DATE OF SURGERY: 11/23/2018 SURGEON: Trae Del Toro MD [employer]: [place], whos assistance was necessary for positioning, retraction, help with instrumentation, and closure. ANESTHESIOLOGIST: Dr. Saunders PREOPERATIVE DIAGNOSIS: Grade 2 open right ankle fracture-dislocation with infection POSTOPERATIVE DIAGNOSIS: Grade 2 open right ankle fracture-dislocation with infection OPERATION: 1. Right ankle irrigation and debridement 2. Open reduction of right ankle fracture dislocation 3. Placement of right ankle multiplane external fixator 4. Placement of wound VAC ANESTHESIA: General IMPLANTS: Synthes external fixator TOURNIQUET TIME: Less than 2 hours with a well-padded thigh tourniquet at 250mmHg SPECIMENS: Culture swabs to microbiology ESTIMATED BLOOD LOSS: minimal COMPLICATIONS: none STATUS: Stable from the operating room to the recovery room and then back to the hospital floor INDICATIONS FOR PROCEDURE: Sreedhar sustained a right open ankle fracture dislocation 3 weeks ago but did not present to the hospital until this week. The wound was grossly infected. I had a long discussion with him about options, and explained at length that he is at high risk for amputation. He would like to try to salvage the foot if possible. I explained to him that this will be a multistage procedure effort. This is just the first stage. Both operative and non-operative treatment alternatives were reviewed. Further, the nature and risks of surgery were reviewed in careful detail. Our discussions regarding the risks of surgery included, but were not limited to, persistent or worsening infection, wound problems, nerve injury, neuroma, RSD, persistent symptoms, blood clot, failure of the surgery, and even the remote chance of catastrophic complication. DESCRIPTION OF PROCEDURE: The patient was seen in the preoperative holding unit and informed written consent was obtained. The appropriate extremity was marked. The patient was then brought to the operating room and carefully positioned on the operating room table. Anesthesia was induced. All bony prominences were padded with great care. A well-padded thigh tourniquet was placed. A chlorhexidine based pre- scrub was performed followed by a Betadine prep and drape in standard sterile fashion. A surgical safety pause was then conducted in which we confirmed the appropriate patient, extremity, planned procedure, availability of equipment, indication and administration of prophylactic antibiotics, and DVT prophylaxis in the form of a compression boot on the non-surgical extremity. I began by performing a thorough irrigation and debridement of the wound. Prior to irrigating, culture swabs were taken from deep within the ankle joint. The wound measured 9 cm in length by 4 cm in width. It was 6 cm in depth. I sharply debrided grossly infected tissue with a 15 blade scalpel and [place]. As a good deal of infected appearing tissue in the wound, as well as hair. The wound traversed the entire ankle joint to the fibula. The layers debridement included skin, subcutaneous tissue, periosteum, and bone. I then explored the ankle joint. There was full-thickness loss of cartilage on the talar dome. I used a Camejo to shoehorn the talus back under the tibial plafond along with pulling traction, thus performing an open reduction. It was difficult to get this reduced, given that it had been dislocated for 3 weeks. I then placed pins for an external fixator. This included 2 pins along the tibial shaft, one pin through the calcaneus, and one pin into the first metatarsal shaft. The ankle was held manually reduced and the foot was dorsiflexed and the rods for the external fixator were placed and tightened. I then performed one last irrigation of the wound, and placed a wound VAC. This held good suction at 125 mmHg. The patient was then awakened from anesthesia and transferred to the recovery room in stable condition. There were no complications. All needle and sponge counts were correct at the end of the case. ATTESTATION: I attest I was present and scrubbed and performed the critical portions of the procedure myself. POSTOPERATIVE PLAN: The plan is to return to the OR on Tuesday for a repeat irrigation and debridement.
[2018-11-23] MEDS: Morphine 4 MG/ML VIAL (1 ml) 4 MG/ML VIAL IV PRN (15:06)
--- NOTE | 2018-11-23 19:17 | PN ---
Subjective Date of Service: 11/23/18 Interval History: Patient seen post operatively on short stay. He was taking clear liquid diet well. He underwent open reduction and external fixator. wound culture debridment and wound vac placed. Family History: Findings - DM, heart disease. Social History: Findings - Never smoked, no alcohol abuse. 2 sons, 2 sisters nearby, one sister is his SDM. Past Medical History: Unchanged from Admission - negative, no surgery, no medical problems Objective Active Medications: Cyanocobalamin (Vitamin B12 Tab*) 1,000 mcg PO DAILY [facility] Last Admin: 11/23/18 12:36 Dose: 1,000 mcg Piperacillin Sod/Tazobactam (Sod 3.375 gm/ Sodium Chloride) 100 mls @ 25 mls/ hr IVPB Q8H [facility] Last Admin: 11/23/18 12:35 Dose: 25 mls/hr Lactated Ringer's (Lactated Ringers 1000 Ml Bag*) 1,000 mls @ 125 mls/hr IV PER RATE [facility] Last Admin: 11/23/18 18:22 Dose: 125 mls/hr Morphine Sulfate (Morphine 4 Mg/Ml Vial (1 Ml)) 2 mg IV Q2H PRN PRN Reason: PAIN Last Admin: 11/23/18 15:06 Dose: 2 mg Multivitamins/Minerals (Theragran/Minerals Tab*) 1 tab PO DAILY [facility] Last Admin: 11/23/18 12:36 Dose: 1 tab Oxycodone HCl (Roxycodone Tab*) 5 mg PO Q3H PRN PRN Reason: PAIN Last Admin: 11/23/18 15:54 Dose: 5 mg Polyethylene Glycol/Electrolytes (Miralax*) 17 gm PO DAILY PRN PRN Reason: CONSTIPATION Last Admin: 11/22/18 20:27 Dose: 17 gm Senna (Senokot Tab*) 2 tab PO BEDTIME PRN PRN Reason: no DM during day Last Admin: 11/22/18 20:27 Dose: 2 tab Vital Signs - 8 hr 11/23/18 11/23/18 11/23/18 11:13 11:16 11:18 Temperature Pulse Rate 92 Respiratory 14 18 18 Rate Blood Pressure 151/104 (mmHg) O2 Sat by Pulse 96 Oximetry 11/23/18 11/23/18 11/23/18 11:20 11:25 11:26 Temperature Pulse Rate 82 90 Respiratory 14 16 16 Rate Blood Pressure 153/102 148/94 (mmHg) O2 Sat by Pulse 94 96 Oximetry 11/23/18 11/23/18 11/23/18 11:27 11:30 11:40 Temperature Pulse Rate 88 80 Respiratory 15 13 13 Rate Blood Pressure 157/93 (mmHg) O2 Sat by Pulse 98 95 Oximetry 11/23/18 11/23/18 11/23/18 11:45 11:46 12:05 Temperature Pulse Rate 77 92 Respiratory 12 16 Rate Blood Pressure 137/89 142/80 (mmHg) O2 Sat by Pulse 96 96 Oximetry 11/23/18 11/23/18 11/23/18 12:13 12:30 13:17 Temperature 98.6 F 97.6 F Pulse Rate 92 99 Respiratory 16 18 18 Rate Blood Pressure 142/80 143/69 (mmHg) O2 Sat by Pulse 96 97 Oximetry 11/23/18 11/23/18 11/23/18 14:13 15:06 15:10 Temperature 97.8 F Pulse Rate 102 Respiratory 18 18 18 Rate Blood Pressure 131/66 (mmHg) O2 Sat by Pulse 95 Oximetry 11/23/18 11/23/18 11/23/18 15:49 15:54 16:12 Temperature 98.1 F Pulse Rate 90 93 Respiratory 16 18 17 Rate Blood Pressure 140/69 146/82 (mmHg) O2 Sat by Pulse 96 97 Oximetry 11/23/18 11/23/18 11/23/18 16:14 18:24 18:26 Temperature 98.1 F Pulse Rate 89 Respiratory 18 17 18 Rate Blood Pressure 118/70 (mmHg) O2 Sat by Pulse 95 Oximetry Oxygen Devices in Use Now: Nasal Cannula Appearance: awake, alert. no distress Eyes: No Scleral Icterus Ears/Nose/Mouth/Throat: NL Teeth, Lips, Gums, Mucous Membranes Moist Neck: NL Appearance and Movements; NL JVP, Trachea Midline Respiratory: Symmetrical Chest Expansion and Respiratory Effort, Clear to Auscultation Cardiovascular: NL Sounds; No Murmurs; No JVD Abdominal: NL Sounds; No Tenderness; No Distention Lymphatic: No Cervical Adenopathy Result Diagrams: 11/23/18 05:56 11/23/18 05:56 Microbiology and Other Data: Microbiology 11/20/18 16:40 Gram Stain - Final Ankle Right Assess/Plan/Problems-Billing Assessment: 73 y/o male admitted for right ankle fracture 2+ weeks old did not seek medical attention at the time of the injury - Patient Problems (1) Wound cellulitis Current Visit: Yes Status: Acute Code(s): L03.90 - CELLULITIS, UNSPECIFIED SNOMED Code(s): 294467435 Comment: - Zosyn Day # 4. Off vanco - ID consult appreciated. - s/p OREF with repeat culture intra-operatively will continue abx and follow repeat wound culture (2) Macrocytosis Current Visit: Yes Status: Acute Code(s): D75.89 - OTHER SPECIFIED DISEASES OF BLOOD AND BLOOD-FORMING ORGANS SNOMED Code(s): 696363665 Comment: - B12 in low normal range (231). Methylmalonic acid level, folate level. requested - Started B12 po and MVI (3) Open fracture Current Visit: Yes Status: Acute Code(s): T14.8XXA - OTHER INJURY OF UNSPECIFIED BODY REGION, INITIAL ENCOUNTER SNOMED Code(s): 603721555 Comment: - Right ankle. Dr. Del Toro performed open reduction and external fixation - Recultured intraoperatively. I will continue pip/rafi day # 4 - Us of leg pre-op negative for DVT pre-op (4) DVT prophylaxis Current Visit: Yes Status: Acute Code(s): VEP2535 - SNOMED Code(s): 099766471 Comment: - lovenox 40 mg SQ daily (held today 11/22/18 and 11/23/18) - Will visit with Ortho if we can resume DVT prophyslaxis in am
[2018-11-23] MEDS: Senna TAB PO PRN (22:43)
[2018-11-23] MEDS: Polyethylene Glycol 3350* 17 GM PACKET PO PRN (22:43)
[2018-11-24] MEDS: Lactated Ringers 1000 ML Bag* 1,000 ML IV SCH ×3 (02:18→18:13)
[2018-11-24] MEDS: oxyCODONE TAB* 5 MG TAB PO PRN ×5 (02:57→20:29)
[2018-11-24] MEDS: Morphine 4 MG/ML VIAL (1 ml) 4 MG/ML VIAL IV PRN ×4 (03:30→15:39)
[2018-11-24] MEDS: ZOSYN 3.375 GM Q8H per EXTENDED INFUSION IVPB SCH ×6 (04:01→20:24)
[2018-11-24] MEDS: Senna TAB PO PRN (08:39)
[2018-11-24] MEDS: Multivitamins/Minerals TAB PO SCH (08:39)
[2018-11-24] MEDS: Cyanocobalamin TAB* 500 MCG PO SCH (08:40)
[2018-11-24] MEDS: Polyethylene Glycol 3350* 17 GM PACKET PO PRN (08:43)
--- NOTE | 2018-11-24 10:06 | PN ---
Progress Note - Progress Note Date of Service: 11/24/18 SOAP: Subjective: CC: Open right ankle fracture HPI: Mr. Fenton is a 73 yo male with no significant PMH who presented to the emergency room for an open right ankle fracture that occurred 2-3 weeks prior to his presentation. Denies fever, chills, shortness of breath, nausea, vomiting or diarrhea. He is constipated and reports no BM in 7 days. He states that the pain has improved since the ankle was stabilized. He reports "pins and needles" only if the foot is touched. Objective: Vital Signs 11/24/18 11/24/18 11/24/18 07:23 08:00 08:41 Temperature 97.5 F Pulse Rate 67 Respiratory 16 18 18 Rate Blood Pressure 143/56 (mmHg) O2 Sat by Pulse 91 91 Oximetry Physical Exam: General: NAD, sitting up in a chair Neurological: Alert and Oriented x 4 Cardiovascular: Heart rate regular Respiratory: Lung sounds clear bilateral Abdominal: Bowel sounds , ABD slightly firm, generalized tender with palpation and non distended Skin: No rashes seen on the exposed skin, external fixation with KAYLEEN wrap in place Microbiology 11/20/18 16:40 Skin and Soft Tissue MRSA/MSSA (PCR - Final Ankle Right Mrsa Negative S.aureus Positive Gram Stain - Final Wound Culture - Preliminary Staphylococcus Aureus Strep Agalactiae - (Group B) 11/23/18 10:06 Gram Stain - Final Ankle Right 11/20/18 16:01 Aerobic Blood Culture - Preliminary Blood Venous No Growth Day 3 Anaerobic Blood Culture - Preliminary No Growth Day 3 11/20/18 15:36 Aerobic Blood Culture - Preliminary Blood Venous No Growth Day 3 Anaerobic Blood Culture - Preliminary No Growth Day 3 Assessment: 1. Open right ankle fracture. S/P wound debridement, open reduction and external fixation, POD #1. Suspect he has an acute osteomyrlitis based on the length of time he had an open fracture and MRI findings. Wound cultures obtained on admission showing MSSA and Strep Agalactiae (Group B). Preliminary cultures obtained while in the OR showing no organisms in preliminary results. Afebrile and leukocytosis has resolved. Blood cultures with no growth on day 3. 2. Thrombocytosis. Resolved 3. Constipation. Reports no BM for 7 days. 4. Macrocytosis. Started on Vit B12 and multivitamin Plan: Continue Zosyn. Further ABX recommendations pending based on the cultures obtained during surgery 11/23/18. Patient should be placed on a bowel regimen for his constipation.
[2018-11-24] MEDS: Magnesium Hydroxide LIQ* 30 ML UDC PO PRN (10:35)
--- NOTE | 2018-11-24 11:40 | PN ---
Progress Note - Progress Note Date of Service: 11/24/18 SOAP: Subjective: []Patient seen OOB with leg elevated on step stool. Pain is tolerable but at times moderate to severe when up and moving. +constipation. Objective: [] Microbiology 11/23/18 10:06 Anaerobic Culture - Preliminary Wound - Ankle Right 11/20/18 16:40 Skin and Soft Tissue MRSA/MSSA (PCR - Final Ankle Right Mrsa Negative S.aureus Positive Gram Stain - Final Wound Culture - Preliminary Staphylococcus Aureus Strep Agalactiae - (Group B) 11/23/18 10:06 Gram Stain - Final Ankle Right 11/20/18 16:01 Aerobic Blood Culture - Preliminary Blood Venous No Growth Day 3 Anaerobic Blood Culture - Preliminary No Growth Day 3 11/20/18 15:36 Aerobic Blood Culture - Preliminary Blood Venous No Growth Day 3 Anaerobic Blood Culture - Preliminary No Growth Day 3 Vital Signs Temp 97.5 F 11/24/18 07:23 Pulse 67 11/24/18 07:23 Resp 18 11/24/18 10:48 BP 143/56 11/24/18 07:23 Pulse Ox 91 11/24/18 08:00 Intake & Output 11/23/18 11/24/18 11/24/18 18:59 06:59 18:59 Intake Total 3355 1920 1100 Output Total 450 650 600 Balance 2905 1270 500 Intake: IV Fluids 2775 980 1000 ABX - ZOSYN 100 LR 2675 980 1000 IVPB 100 ABX - ZOSYN 100 Oral 580 840 100 Output: Urine 450 650 600 Laboratory Results - last 24 hr 11/20/18 15:49 Methylmalonic Acid 0.40 Left leg KAYLEEN dry and intact Wound vac well sealed and working well toes mild edema with full sensation, slight wiggle, pink and warm Assessment: []s/p ORIF open fracture dislocation with soft tissue infection and osteomyelitis left ankle, external fixation, wound vac placement POD#1 Plan: []PT/OT NWB LLE Wound vac IV Zosyn Lovenox 40 mg QD started for DVT prophylaxis Return to OR Monday 11/27 for repeat I&D
[2018-11-24] MEDS ORDERED: Enoxaparin(*) 40 MG/0.4 ML SYR SUBCUT SCH (12:00)
--- NOTE | 2018-11-24 16:31 | PN ---
Subjective Date of Service: 11/24/18 Interval History: Patient seen awake, alert. complaining of increase constipations. pain is tolerable. ID and Ortho input appreciated. Started lovenox today Family History: Findings - DM, heart disease. Social History: Findings - Never smoked, no alcohol abuse. 2 sons, 2 sisters nearby, one sister is his SDM. Past Medical History: Unchanged from Admission - negative, no surgery, no medical problems Objective Active Medications: Cyanocobalamin (Vitamin B12 Tab*) 1,000 mcg PO DAILY [facility] Last Admin: 11/24/18 08:40 Dose: 1,000 mcg Enoxaparin Sodium (Lovenox(*)) 40 mg SUBCUT Q24H [facility] Last Admin: 11/24/18 13:25 Dose: 40 mg Piperacillin Sod/Tazobactam (Sod 3.375 gm/ Sodium Chloride) 100 mls @ 25 mls/ hr IVPB Q8H [facility] Last Admin: 11/24/18 13:25 Dose: 25 mls/hr Lactated Ringer's (Lactated Ringers 1000 Ml Bag*) 1,000 mls @ 125 mls/hr IV PER RATE [facility] Last Admin: 11/24/18 10:35 Dose: 125 mls/hr Magnesium Hydroxide (Milk Of Magnniles Liq*) 30 ml PO Q6H PRN PRN Reason: CONSTIPATION Morphine Sulfate (Morphine Inj (Syringe))*) 2 mg IV Q2H PRN PRN Reason: PAIN Multivitamins/Minerals (Theragran/Minerals Tab*) 1 tab PO DAILY [facility] Last Admin: 11/24/18 08:39 Dose: 1 tab Oxycodone HCl (Roxycodone Tab*) 5 mg PO Q3H PRN PRN Reason: PAIN Last Admin: 11/24/18 15:38 Dose: 5 mg Polyethylene Glycol/Electrolytes (Miralax*) 17 gm PO DAILY PRN PRN Reason: CONSTIPATION Last Admin: 11/24/18 08:43 Dose: 17 gm Senna (Senokot Tab*) 2 tab PO BEDTIME PRN PRN Reason: no DM during day Last Admin: 11/24/18 08:39 Dose: 2 tab Vital Signs - 8 hr 11/24/18 11/24/18 11/24/18 08:41 08:51 10:35 Temperature Pulse Rate Respiratory 18 18 18 Rate Blood Pressure (mmHg) O2 Sat by Pulse Oximetry 04/12/19 04/12/19 04/12/19 10:48 11:30 13:24 Temperature 97.9 F Pulse Rate 82 Respiratory 18 18 18 Rate Blood Pressure 147/76 (mmHg) O2 Sat by Pulse 95 Oximetry 11/24/18 11/24/18 15:38 15:39 Temperature 98.1 F Pulse Rate 90 Respiratory 18 18 Rate Blood Pressure 154/83 (mmHg) O2 Sat by Pulse 94 Oximetry Oxygen Devices in Use Now: None Appearance: Awake, alert. no acute distress Eyes: No Scleral Icterus, - - EOMI Ears/Nose/Mouth/Throat: NL Teeth, Lips, Gums, Mucous Membranes Moist Neck: NL Appearance and Movements; NL JVP, Trachea Midline Respiratory: Symmetrical Chest Expansion and Respiratory Effort, Clear to Auscultation Cardiovascular: NL Sounds; No Murmurs; No JVD, RRR, No Edema Abdominal: NL Sounds; No Tenderness; No Distention Result Diagrams: 11/23/18 05:56 11/23/18 05:56 Microbiology and Other Data: Microbiology 11/20/18 16:40 Gram Stain - Final Ankle Right Assess/Plan/Problems-Billing Assessment: 73 y/o male admitted for right ankle fracture 2+ weeks old did not seek medical attention at the time of the injury - Patient Problems (1) Wound cellulitis Current Visit: Yes Status: Acute Code(s): L03.90 - CELLULITIS, UNSPECIFIED SNOMED Code(s): 715200249 Comment: - Zosyn Day # 5. Off vanco - ID consult appreciated. - s/p OREF with repeat culture intra-operatively will continue abx and follow repeat wound culture - For OR on Tuesday11/27/14 for further I&D (2) Constipation Current Visit: Yes Status: Acute Code(s): K59.00 - CONSTIPATION, UNSPECIFIED SNOMED Code(s): 74769898 Comment: - Lactulose 30 ml QIS PRN constipations - Miralax and sennkot (3) Macrocytosis Current Visit: Yes Status: Acute Code(s): D75.89 - OTHER SPECIFIED DISEASES OF BLOOD AND BLOOD-FORMING ORGANS SNOMED Code(s): 253859504 Comment: - B12 in low normal range (231). Methylmalonic acid level, folate level. requested - Started B12 po and MVI (4) Open fracture Current Visit: Yes Status: Acute Code(s): T14.8XXA - OTHER INJURY OF UNSPECIFIED BODY REGION, INITIAL ENCOUNTER SNOMED Code(s): 435963408 Comment: - Right ankle. Dr. Del Toro performed open reduction and external fixation - Recultured intraoperatively. I will continue pip/rafi day # 4 - Us of leg pre-op negative for DVT pre-op (5) DVT prophylaxis Current Visit: Yes Status: Acute Code(s): IXD2848 - SNOMED Code(s): 662055871 Comment: - lovenox 40 mg SQ daily (held today 11/22/18 and 11/23/18) - Will visit with Ortho if we can resume DVT prophyslaxis in am
[2018-11-24] MEDS: Morphine INJ* 2 MG/ML 1 ML SYRINGE (TWO MG - NEW SYRINGE VERSION) IV PRN ×2 (18:06→22:24)
[2018-11-24] MEDS ORDERED: Mineral Oil ENEMA* 1 BOTTLE PR ONE (19:57)
[2018-11-25] MEDS: Morphine INJ* 2 MG/ML 1 ML SYRINGE (TWO MG - NEW SYRINGE VERSION) IV PRN ×3 (00:30→18:24)
[2018-11-25] MEDS: oxyCODONE TAB* 5 MG TAB PO PRN ×5 (00:30→17:53)
[2018-11-25] MEDS: Lactated Ringers 1000 ML Bag* 1,000 ML IV SCH ×2 (02:13→14:45)
[2018-11-25] MEDS: ZOSYN 3.375 GM Q8H per EXTENDED INFUSION IVPB SCH ×6 (04:39→21:04)
[2018-11-25 06:21] LABS: Hematocrit 32 % (36-46); Hemoglobin 11.1 g/dL (14.0-18.0); Mean Corpuscular HGB Conc 34 g/dL (31-36); Mean Corpuscular Hemoglobin 34 pg (27-31); Mean Corpuscular Volume 98 fL (80-94); Mean Platelet Volume 7.3 fL (7.4-10.4); Platelet Count 500 10^3/uL (150-450); Red Blood Count 3.28 10^6 /uL (4.18-5.48); Red Cell Distribution Width 14 % (10.5-15); White Blood Count 15.8 10^3/uL (3.5-10.8)
[2018-11-25 06:27] LABS: ABS Basophils 0.2 10^3/ul (0-0.2); ABS Eosinophils 0.1 10^3/ul (0-0.6); ABS Lymphocytes 0.7 10^3/ul (1.0-4.8); ABS Monocytes 1.6 10^3/ul (0-0.8); ABS Neutrophils 13.3 10^3/ul (1.5-7.7); ABS Nucleated RBC 0 10^3/ul; Eosinophil % 0.3 %; Lymphocyte % 4.2 %; Nucleated Red Blood Cells % 0
[2018-11-25 06:29] LABS: BUN/Creatinine Ratio 10.5 (8-20); EGFR African American 50.7 (>60); EGFR Non-African American 41.9 (>60); Magnesium 2.2 mg/dL (1.9-2.7); Phosphorus 4.3 mg/dL (2.5-5.0); Potassium 3.8 mmol/L (3.5-5.0)
--- NOTE | 2018-11-25 10:41 | PN ---
Progress Note - Progress Note Date of Service: 11/25/18 SOAP: Subjective: Patient is doing well. Pain is controlled. Denies N/T, F/C, CP/SOB. Has not has BM Objective: PE- 73y/o WDWN M NAD A&Ox3 LLE- dressing c/d/i, wound vac intact and functioning, knee NT palpation, SILT distally, brisk cap refill toes Vital Signs Temp Pulse Resp BP Pulse Ox 98.6 F 89 18 155/80 92 11/24/18 23:53 11/25/18 00:54 11/25/18 09:10 11/25/18 07:50 11/24/18 23:53 Laboratory Results - last 24 hr 11/25/18 11/25/18 05:58 05:58 WBC 15.8 H RBC 3.28 L Hgb 11.1 L Hct 32 L MCV 98 H MCH 34 H MCHC 34 RDW 14 Plt Count 500 H D MPV 7.3 L Neut % (Auto) 84.5 Lymph % (Auto) 4.2 [place] % (Auto) 10.0 Eos % (Auto) 0.3 Baso % (Auto) 1.0 Absolute Neuts (auto) 13.3 H Absolute Lymphs (auto) 0.7 L Absolute Monos (auto) 1.6 H Absolute Eos (auto) 0.1 Absolute Basos (auto) 0.2 Absolute Nucleated RBC 0 Nucleated RBC % 0 Sodium 133 L Potassium 3.8 Chloride 98 L Carbon Dioxide 26 Anion Gap 9 BUN 17 Creatinine 1.62 H Est GFR ( Amer) 50.7 Est GFR (Non-Af Amer) 41.9 BUN/Creatinine Ratio 10.5 Glucose 140 H Calcium 9.0 Phosphorus 4.3 Magnesium 2.2 Assessment: []s/p ORIF open fracture dislocation with soft tissue infection and osteomyelitis left ankle, external fixation, wound vac placement POD#2 Plan: []PT/OT NWB LLE Wound vac IV Zosyn Lovenox 40 mg QD started for DVT prophylaxis. Will stop 11/26 for surgery Return to OR Monday 11/27 for repeat I&D
[2018-11-25] MEDS: Glycerin ADULT SUPP PR ONE ×2 (10:50→11:53)
[2018-11-25] MEDS: Bisacodyl EC TAB* 5 MG PO ONE ×2 (10:50→14:52)
[2018-11-25] MEDS: Multivitamins/Minerals TAB PO SCH ×2 (10:50→15:03)
[2018-11-25] MEDS: Cyanocobalamin TAB* 500 MCG PO SCH ×2 (10:50→15:03)
[2018-11-25] MEDS ORDERED: Ondansetron INJ* 2 MG/ML VIAL IV PRN (11:11)
[2018-11-25] MEDS: Pantoprazole IV* 40 MG IV SCH ×2 (11:29→20:52)
--- NOTE | 2018-11-25 11:43 | PN ---
Subjective Date of Service: 11/25/18 Interval History: Patient seen this morning, he is complaining of increase abdominal discomfort. He did not want to have breakfast his morning as he was uncomfortable from not having bowel movement despite aggressive bowel regimen, and enema. His exam was significant for irregular rhythm and frequent PVC's on exam. EKG obtained and showed sinus rhythm with frequent PVC's. He was placed on Tele. About Two hours later around 11'sh I was called by nursing staff as the patient did have one episode of vomit which was described as "coffee ground emesis". I am not sure if it was true GI bleed or simply he vomited his coffee and prune juice which he has been getting for bowel regimen. I did place him on clear liquid for now and I started PPI bid. I Will get stat CBC and recheck in 6 hours. If H/H remains stable, than I think his vomit was simply undigested food mixed with prune and coffee contents. I will monitor vitals (on tele) and H/H in 6 hours. Family History: Findings - DM, heart disease. Social History: Findings - Never smoked, no alcohol abuse. 2 sons, 2 sisters nearby, one sister is his SDM. Past Medical History: Unchanged from Admission - negative, no surgery, no medical problems Objective Active Medications: Cyanocobalamin (Vitamin B12 Tab*) 1,000 mcg PO DAILY [facility] Last Admin: 11/24/18 08:40 Dose: 1,000 mcg Piperacillin Sod/Tazobactam (Sod 3.375 gm/ Sodium Chloride) 100 mls @ 25 mls/ hr IVPB Q8H [facility] Last Admin: 11/25/18 04:39 Dose: 25 mls/hr Lactated Ringer's (Lactated Ringers 1000 Ml Bag*) 1,000 mls @ 125 mls/hr IV PER RATE [facility] Last Admin: 11/25/18 02:13 Dose: 125 mls/hr Lactulose (Lactulose*) 30 ml PO QID PRN PRN Reason: CONSTIPATION Last Admin: 11/24/18 18:06 Dose: 30 ml Magnesium Hydroxide (Milk Of Magnesia Liq*) 30 ml PO Q6H PRN PRN Reason: CONSTIPATION Last Admin: 11/24/18 10:35 Dose: 30 ml Morphine Sulfate (Morphine Inj (Syringe))*) 2 mg IV Q2H PRN PRN Reason: PAIN Last Admin: 11/25/18 04:46 Dose: 2 mg Multivitamins/Minerals (Theragran/Minerals Tab*) 1 tab PO DAILY [facility] Last Admin: 11/24/18 08:39 Dose: 1 tab Ondansetron HCl (Zofran Inj*) 4 mg IV Q6H PRN PRN Reason: NAUSEA Last Admin: 11/25/18 11:29 Dose: 4 mg Oxycodone HCl (Roxycodone Tab*) 5 mg PO Q3H PRN PRN Reason: PAIN Last Admin: 11/25/18 09:10 Dose: 5 mg Pantoprazole Sodium (Protonix Iv*) 40 mg IV BID [facility] Last Admin: 11/25/18 11:29 Dose: 40 mg Polyethylene Glycol/Electrolytes (Miralax*) 17 gm PO DAILY PRN PRN Reason: CONSTIPATION Last Admin: 11/24/18 08:43 Dose: 17 gm Senna (Senokot Tab*) 2 tab PO BEDTIME PRN PRN Reason: no DM during day Last Admin: 11/24/18 08:39 Dose: 2 tab Vital Signs - 8 hr 11/25/18 11/25/18 11/25/18 03:43 03:45 04:46 Temperature 98.3 F Pulse Rate 98 71 Respiratory 20 20 18 Rate Blood Pressure 170/85 152/96 (mmHg) O2 Sat by Pulse 90 92 Oximetry 11/25/18 11/25/18 11/25/18 04:47 05:47 06:23 Temperature Pulse Rate Respiratory 18 20 20 Rate Blood Pressure (mmHg) O2 Sat by Pulse Oximetry 11/25/18 11/25/18 11/25/18 07:40 07:50 09:10 Temperature 97.9 F Pulse Rate 46 Respiratory 18 18 Rate Blood Pressure 155/80 (mmHg) O2 Sat by Pulse 93 Oximetry 11/25/18 11:12 Temperature 98.2 F Pulse Rate 50 Respiratory 16 Rate Blood Pressure 159/73 (mmHg) O2 Sat by Pulse 93 Oximetry Oxygen Devices in Use Now: None Appearance: Awake, alert. Uncomfortable from lack of bowel movement Eyes: No Scleral Icterus, - - EOMI Ears/Nose/Mouth/Throat: NL Teeth, Lips, Gums, Mucous Membranes Moist Neck: NL Appearance and Movements; NL JVP, Trachea Midline Respiratory: Symmetrical Chest Expansion and Respiratory Effort, Clear to Auscultation Cardiovascular: NL Sounds; No Murmurs; No JVD Abdominal: NL Sounds; No Tenderness; No Distention Extremities: - - Right lower extremety in external fixations. dressin and wound vac drain in place Neurological: Alert and Oriented x 3 Result Diagrams: 11/25/18 05:58 11/25/18 05:58 Microbiology and Other Data: Microbiology 11/20/18 16:40 Gram Stain - Final Ankle Right Assess/Plan/Problems-Billing Assessment: 73 y/o male admitted for right ankle fracture 2+ weeks old did not seek medical attention at the time of the injury - Patient Problems (1) Wound cellulitis Current Visit: Yes Status: Acute Code(s): L03.90 - CELLULITIS, UNSPECIFIED SNOMED Code(s): 923216267 Comment: - Zosyn Day # 6. Off vanco - ID consult appreciated. - s/p OREF day # 3 (done on 11/23/18) with repeat culture intra-operatively. I will continue abx and follow repeat wound culture from intra op - For OR again on Tuesday11/27/14 for further I&D (2) Constipation Current Visit: Yes Status: Acute Code(s): K59.00 - CONSTIPATION, UNSPECIFIED SNOMED Code(s): 30824329 Comment: - Lactulose 30 ml QID PRN constipations, s/p enema 11/24/18 - Miralax and sennkot - He still does not have BM. - I will get AXR rule out obsructions. I will start dulcolax 20 mg once now and glycerin suppository today (3) Macrocytosis Current Visit: Yes Status: Acute Code(s): D75.89 - OTHER SPECIFIED DISEASES OF BLOOD AND BLOOD-FORMING ORGANS SNOMED Code(s): 221666892 Comment: - B12 in low normal range (231). Methylmalonic acid level, folate level. requested - Started B12 po and MVI (4) Open fracture Current Visit: Yes Status: Acute Code(s): T14.8XXA - OTHER INJURY OF UNSPECIFIED BODY REGION, INITIAL ENCOUNTER SNOMED Code(s): 376619380 Comment: - Right ankle. Dr. Del Toro performed open reduction and external fixation 4/11/19 - Recultured intraoperatively. I will continue pip/rafi day # 5 - Us of leg pre-op negative for DVT pre-op - On lovenox started 11/24/18, I will hold it for today given his vomit (" coffee ground emesis")! until I make sure his h/H stable. Will probably resume later on tonight once I have stable H\\H (5) DVT prophylaxis Current Visit: Yes Status: Acute Code(s): BMG2019 - SNOMED Code(s): 465300891 Comment: - lovenox 40 mg SQ daily (held 11/22/18 and 11/23/18) - Rresumed on 11/24/18 - I will hold it for today given his vomit ("coffee ground emesis")! until I make sure his h/H stable. Will probably resume later on tonight once I have stable H\\H
[2018-11-25 11:48] LABS: ABS Basophils 0.1 10^3/ul (0-0.2); ABS Eosinophils 0 10^3/ul (0-0.6); ABS Lymphocytes 0.5 10^3/ul (1.0-4.8); ABS Monocytes 1.3 10^3/ul (0-0.8); ABS Neutrophils 14.3 10^3/ul (1.5-7.7); ABS Nucleated RBC 0 10^3/ul; Eosinophil % 0.1 %; Hematocrit 32 % (36-46); Mean Corpuscular HGB Conc 34 g/dL (31-36); Mean Corpuscular Hemoglobin 34 pg (27-31); Mean Corpuscular Volume 99 fL (80-94); Mean Platelet Volume 7.1 fL (7.4-10.4); Nucleated Red Blood Cells % 0; Platelet Count 536 10^3/uL (150-450); Red Blood Count 3.28 10^6 /uL (4.18-5.48); Red Cell Distribution Width 13 % (10.5-15); White Blood Count 16.2 10^3/uL (3.5-10.8)
[2018-11-25] MEDS ORDERED: Metoclopramide IV* 5 MG/ML 2 ML VIAL IV ONE (14:51)
[2018-11-25] MEDS ORDERED: Metoclopramide IV* 5 MG/ML 2 ML VIAL ONE (15:05)
[2018-11-25] MEDS: Polyethylene Glycol 3350* 17 GM PACKET PO PRN (17:07)
[2018-11-25] MEDS: Polyethylene Glycol 3350* 17 GM PACKET PO SCH (17:13)
[2018-11-25 18:04] LABS: ABS Basophils 0 10^3/ul (0-0.2); ABS Eosinophils 0 10^3/ul (0-0.6); ABS Lymphocytes 0.6 10^3/ul (1.0-4.8); ABS Monocytes 1.5 10^3/ul (0-0.8); ABS Neutrophils 16.8 10^3/ul (1.5-7.7); ABS Nucleated RBC 0 10^3/ul; Eosinophil % 0.1 %; Hematocrit 33 % (36-46); Hemoglobin 10.9 g/dL (14.0-18.0); Lymphocyte % 3.1 %; Mean Corpuscular HGB Conc 33 g/dL (31-36); Mean Corpuscular Hemoglobin 33 pg (27-31); Mean Corpuscular Volume 101 fL (80-94); Mean Platelet Volume 7.1 fL (7.4-10.4); Nucleated Red Blood Cells % 0.1; Platelet Count 503 10^3/uL (150-450); Red Blood Count 3.26 10^6 /uL (4.18-5.48); Red Cell Distribution Width 14 % (10.5-15); White Blood Count 18.9 10^3/uL (3.5-10.8)
[2018-11-25 18:55] LABS: Urine Appearance Cloudy; Urine Bacteria Absent (Absent); Urine Bilirubin Negative (Negative); Urine Blood 1+ (Negative); Urine Color Yellow; Urine Glucose Negative (Negative); Urine Ketones Negative (Negative); Urine Nitrite Negative (Negative); Urine Protein Negative (Negative); Urine Red Blood Cell 1+(3-5/hpf) (Absent); Urine Specific Gravity 1.012 (1.010-1.030); Urine Urobilinogen Negative (Negative); Urine White Blood Cell Trace(0-5/hpf) (Absent)
[2018-11-25] MEDS ORDERED: Enoxaparin(*) 40 MG/0.4 ML SYR SUBCUT SCH (20:00)
[2018-11-25] MEDS ORDERED: Mineral Oil ENEMA* 1 BOTTLE PR ONE (20:00)
[2018-11-25] MEDS: metroNIDAZOLE IV 500 MG/100ML* 500 MG/100 ML BAG IVPB SCH (20:13)
[2018-11-25] MEDS: Metoclopramide TAB* 10 MG PO SCH (21:06)
[2018-11-26] MEDS: Lactated Ringers 1000 ML Bag* 1,000 ML IV SCH ×3 (00:09→19:38)
[2018-11-26] MEDS: Magnesium Hydroxide LIQ* 30 ML UDC PO PRN (00:12)
[2018-11-26] MEDS: oxyCODONE TAB* 5 MG TAB PO PRN ×3 (01:05→11:31)
[2018-11-26] MEDS: Metoclopramide TAB* 10 MG PO SCH ×3 (04:09→16:39)
[2018-11-26] MEDS: metroNIDAZOLE IV 500 MG/100ML* 500 MG/100 ML BAG IVPB SCH ×3 (04:11→19:40)
[2018-11-26] MEDS: ZOSYN 3.375 GM Q8H per EXTENDED INFUSION IVPB SCH ×6 (04:14→19:57)
[2018-11-26 05:41] LABS: ABS Basophils 0.1 10^3/ul (0-0.2); ABS Eosinophils 0.1 10^3/ul (0-0.6); ABS Lymphocytes 0.8 10^3/ul (1.0-4.8); ABS Monocytes 1.4 10^3/ul (0-0.8); ABS Neutrophils 13.2 10^3/ul (1.5-7.7); ABS Nucleated RBC 0 10^3/ul; Eosinophil % 0.6 %; Hematocrit 28 % (36-46); Hemoglobin 9.6 g/dL (14.0-18.0); Lymphocyte % 5.2 %; Mean Corpuscular HGB Conc 34 g/dL (31-36); Mean Corpuscular Hemoglobin 34 pg (27-31); Mean Corpuscular Volume 99 fL (80-94); Mean Platelet Volume 6.9 fL (7.4-10.4); Nucleated Red Blood Cells % 0; Platelet Count 456 10^3/uL (150-450); Red Blood Count 2.84 10^6 /uL (4.18-5.48); Red Cell Distribution Width 14 % (10.5-15); White Blood Count 15.7 10^3/uL (3.5-10.8)
[2018-11-26 05:58] LABS: BUN/Creatinine Ratio 15.7 (8-20); Calcium 8.2 mg/dL (8.6-10.3); EGFR African American 70.9 (>60); EGFR Non-African American 58.6 (>60); Magnesium 2.2 mg/dL (1.9-2.7); Phosphorus 3.4 mg/dL (2.5-5.0); Potassium 3.6 mmol/L (3.5-5.0)
[2018-11-26] MEDS: Cyanocobalamin TAB* 500 MCG PO SCH (08:37)
[2018-11-26] MEDS: Multivitamins/Minerals TAB PO SCH (08:37)
[2018-11-26] MEDS: Metoprolol Tartrate TAB* 25 MG PO SCH ×2 (08:37→21:56)
[2018-11-26] MEDS: Polyethylene Glycol 3350* 17 GM PACKET PO SCH ×2 (08:38→21:55)
[2018-11-26] MEDS: Pantoprazole IV* 40 MG IV SCH ×2 (08:38→22:07)
--- NOTE | 2018-11-26 10:59 | PN ---
Progress Note - Progress Note Date of Service: 11/26/18 SOAP: Subjective: Pt is doing well. Pain controlled. No BM today with cont stomach discomfort. Denies Cp/SOB, F/C, N/T or calf pain Objective: PE- 73 y/o WDWN M NAD, A&Ox3 LLE- dressing c/d/i, wound vac functioning properly, able F/E toes, brisk cap refill, SILT distally Vital Signs Temp Pulse Resp BP Pulse Ox 98.7 F 88 16 151/74 94 11/26/18 07:50 11/26/18 07:50 11/26/18 10:35 11/26/18 07:50 11/26/18 08:00 Laboratory Results - last 24 hr 11/25/18 11/25/18 11/25/18 11:34 17:56 18:44 WBC 16.2 H 18.9 H RBC 3.28 L 3.26 L Hgb 11.0 L 10.9 L Hct 32 L 33 L MCV 99 H 101 H MCH 34 H 33 H MCHC 34 33 RDW 13 14 Plt Count 536 H 503 H MPV 7.1 L 7.1 L Neut % (Auto) 88.7 88.7 Lymph % (Auto) 3.0 3.1 [place] % (Auto) 7.9 8.0 Eos % (Auto) 0.1 0.1 Baso % (Auto) 0.3 0.1 Absolute Neuts (auto) 14.3 H 16.8 H Absolute Lymphs (auto) 0.5 L 0.6 L Absolute Monos (auto) 1.3 H 1.5 H Absolute Eos (auto) 0 0 Absolute Basos (auto) 0.1 0 Absolute Nucleated RBC 0 0 Nucleated RBC % 0 0.1 Sodium Potassium Chloride Carbon Dioxide Anion Gap BUN Creatinine Est GFR ( Amer) Est GFR (Non-Af Amer) BUN/Creatinine Ratio Glucose Calcium Phosphorus Magnesium Urine Color Yellow Urine Appearance Cloudy Urine pH 5.0 Ur Specific [place] 1.012 Urine Protein Negative Urine Ketones Negative Urine Blood 1+ A Urine Nitrate Negative Urine Bilirubin Negative Urine Urobilinogen Negative Ur Leukocyte Esterase Negative Urine WBC (Auto) Trace(0-5/hpf) Urine RBC (Auto) 1+(3-5/hpf) A Urine Bacteria Absent Urine Glucose Negative 11/26/18 11/26/18 05:30 05:30 WBC 15.7 H RBC 2.84 L Hgb 9.6 L Hct 28 L MCV 99 H MCH 34 H MCHC 34 RDW 14 Plt Count 456 H MPV 6.9 L Neut % (Auto) 84.3 Lymph % (Auto) 5.2 [place] % (Auto) 9.1 Eos % (Auto) 0.6 Baso % (Auto) 0.8 Absolute Neuts (auto) 13.2 H Absolute Lymphs (auto) 0.8 L Absolute Monos (auto) 1.4 H Absolute Eos (auto) 0.1 Absolute Basos (auto) 0.1 Absolute Nucleated RBC 0 Nucleated RBC % 0 Sodium 138 Potassium 3.6 Chloride 103 Carbon Dioxide 29 Anion Gap 6 BUN 19 Creatinine 1.21 H Est GFR ( Amer) 70.9 Est GFR (Non-Af Amer) 58.6 BUN/Creatinine Ratio 15.7 Glucose 133 H Calcium 8.2 L Phosphorus 3.4 Magnesium 2.2 Urine Color Urine Appearance Urine pH Ur Specific [place] Urine Protein Urine Ketones Urine Blood Urine Nitrate Urine Bilirubin Urine Urobilinogen Ur Leukocyte Esterase Urine WBC (Auto) Urine RBC (Auto) Urine Bacteria Urine Glucose Assessment: []s/p ORIF open fracture dislocation with soft tissue infection and osteomyelitis left ankle, external fixation, wound vac placement POD#3 Plan: []PT/OT NWB LLE Wound vac IV Zosyn Lovenox 40 mg QD started for DVT prophylaxis. No dose on 11/27 due to surgery Medicine managing ileus, no BM today yet. NPO after midnight Pending medical clearance for bowels Return to OR Monday 11/27 for repeat I&D.
--- NOTE | 2018-11-26 11:38 | PN ---
Subjective Date of Service: 11/26/18 Interval History: Patient seen this morning. He did have small amount of stool yesterday the size of golf ball as described in the nursing note from overnight. He denies any abdominal pain and his bowel sounds more active today. AXR done this morning and when compared to the AXR from yesterday it seems that his stool burden is near his sigmoid/rectum. No vomit today. Remains on around the clock lactulose and miralax with prune juice, Reglan po around the clock. Will give tap water enema this morning and reassess again in the evening. Also it should be noted that yesterday he did have over 1400 ml of urinary retentions which could have exacerbated his ileus as well. Stern catheter in place and his renal function improving Family History: Findings - DM, heart disease. Social History: Findings - Never smoked, no alcohol abuse. 2 sons, 2 sisters nearby, one sister is his SDM. Past Medical History: Unchanged from Admission - negative, no surgery, no medical problems Objective Active Medications: Cyanocobalamin (Vitamin B12 Tab*) 1,000 mcg PO DAILY [facility] Last Admin: 11/26/18 08:37 Dose: 1,000 mcg Enoxaparin Sodium (Lovenox(*)) 40 mg SUBCUT Q24H [facility] Stop: 11/27/18 00:00 Piperacillin Sod/Tazobactam (Sod 3.375 gm/ Sodium Chloride) 100 mls @ 25 mls/ hr IVPB Q8H [facility] Last Admin: 11/26/18 04:14 Dose: 25 mls/hr Lactated Ringer's (Lactated Ringers 1000 Ml Bag*) 1,000 mls @ 125 mls/hr IV PER RATE [facility] Last Admin: 11/26/18 09:26 Dose: 125 mls/hr Metronidazole/Sodium Chloride (Flagyl 500 Mg Ivpb*) 500 mg in 100 mls @ 100 mls /hr IVPB Q8H [facility] Last Admin: 11/26/18 04:11 Dose: 100 mls/hr Lactulose (Lactulose*) 30 ml PO QID [facility] Last Admin: 11/26/18 08:38 Dose: 30 ml Magnesium Hydroxide (Milk Of Magnesia Liq*) 30 ml PO Q6H PRN PRN Reason: CONSTIPATION Last Admin: 11/26/18 00:12 Dose: 30 ml Metoclopramide HCl (Reglan Tab*) 5 mg PO Q6H [facility] Last Admin: 11/26/18 08:37 Dose: 5 mg Metoprolol Tartrate (Lopressor Tab*) 25 mg PO BID [facility] Last Admin: 11/26/18 08:37 Dose: 25 mg Morphine Sulfate (Morphine Inj (Syringe))*) 2 mg IV Q2H PRN PRN Reason: PAIN Last Admin: 11/25/18 18:24 Dose: 2 mg Multivitamins/Minerals (Theragran/Minerals Tab*) 1 tab PO DAILY [facility] Last Admin: 11/26/18 08:37 Dose: 1 tab Ondansetron HCl (Zofran Inj*) 4 mg IV Q6H PRN PRN Reason: NAUSEA Last Admin: 11/25/18 11:29 Dose: 4 mg Oxycodone HCl (Roxycodone Tab*) 5 mg PO Q3H PRN PRN Reason: PAIN Last Admin: 11/26/18 11:31 Dose: 5 mg Pantoprazole Sodium (Protonix Iv*) 40 mg IV BID [facility] Last Admin: 11/26/18 08:38 Dose: 40 mg Polyethylene Glycol/Electrolytes (Miralax*) 17 gm PO DAILY [facility] Last Admin: 11/26/18 08:38 Dose: 17 gm Senna (Senokot Tab*) 2 tab PO BEDTIME PRN PRN Reason: no DM during day Last Admin: 11/24/18 08:39 Dose: 2 tab Vital Signs - 8 hr 11/26/18 11/26/18 11/26/18 04:05 04:13 07:50 Temperature 98.2 F 98.7 F Pulse Rate 86 88 Respiratory 16 16 16 Rate Blood Pressure 151/76 151/74 (mmHg) O2 Sat by Pulse 94 94 Oximetry 11/26/18 11/26/18 11/26/18 08:00 08:37 10:35 Temperature Pulse Rate Respiratory 18 18 16 Rate Blood Pressure (mmHg) O2 Sat by Pulse 94 Oximetry 11/26/18 11:31 Temperature Pulse Rate Respiratory 18 Rate Blood Pressure (mmHg) O2 Sat by Pulse Oximetry Oxygen Devices in Use Now: None Appearance: awake, no distress. nausea but no vomit Eyes: No Scleral Icterus, - - EOMI Ears/Nose/Mouth/Throat: NL Teeth, Lips, Gums, Mucous Membranes Moist, - - poor oral hygiene Neck: NL Appearance and Movements; NL JVP, - - full riggins Respiratory: Symmetrical Chest Expansion and Respiratory Effort, Clear to Auscultation Cardiovascular: NL Sounds; No Murmurs; No JVD, No Edema Abdominal: NL Sounds; No Tenderness; No Distention, - - bowel sounds present. Extremities: - - LLE in dressing and wound vac in place Result Diagrams: 11/26/18 05:30 11/26/18 05:30 Microbiology and Other Data: Microbiology 11/20/18 16:40 Gram Stain - Final Ankle Right Assess/Plan/Problems-Billing Assessment: 73 y/o male admitted for right ankle fracture 2+ weeks old did not seek medical attention at the time of the injury - Patient Problems (1) Open fracture Current Visit: Yes Status: Acute Code(s): T14.8XXA - OTHER INJURY OF UNSPECIFIED BODY REGION, INITIAL ENCOUNTER SNOMED Code(s): 146175392 Comment: - Right ankle. Dr. Del Toro performed open reduction and external fixation 11/23/18 - Recultured intraoperatively. I will continue pip/rafi day # 6, and wound vac - Us of leg pre-op negative for DVT pre-op - On lovenox started 11/24/18, Will probably after today's dose for OR in am (2) Constipation Current Visit: Yes Status: Acute Code(s): K59.00 - CONSTIPATION, UNSPECIFIED SNOMED Code(s): 32465793 Comment: - Lactulose 30 ml QID changed to around the clock as of 11/25/18, s/ p enema fleet 11/24/18 & 11/25 and will give tap enema today 11/26/18 - Miralax and prune juice daily routine until he has bowel movement - He did have small BM yesterday 11/25/18 less than the size of golf. Will continue the regimen above - AXR suggestive of ileus s/o one dose reglan IV and started him on reglan 5 mg po if does not work will switch to IV (3) Ileus Current Visit: Yes Status: Acute Code(s): K56.7 - ILEUS, UNSPECIFIED SNOMED Code(s): 886574882 Comment: - Lactulose 30 ml QID changed to around the clock as of 11/25/18, s/ p enema fleet 11/24/18 & 11/25 and will give tap enema today 11/26/18 - Miralax and prune juice daily routine until he has bowel movement - He did have small BM yesterday 11/25/18 less than the size of golf. Will continue the regimen above - AXR suggestive of ileus s/o one dose reglan IV and started him on reglan 5 mg po if does not work will switch to IV (4) Urinary retention Current Visit: Yes Status: Acute Code(s): R33.9 - RETENTION OF URINE, UNSPECIFIED SNOMED Code(s): 044532421 Comment: - 1400 ml urinary retention on 11/25/18 - Stern catheter in place with improvment of renal functions - I will start him on flomax 0.4 mg daily and will need to try void trial in few days. will keep the stern catheter in for now (5) Wound cellulitis Current Visit: Yes Status: Acute Code(s): L03.90 - CELLULITIS, UNSPECIFIED SNOMED Code(s): 995976167 Comment: - Zosyn Day # 7. Off vanco - ID consult appreciated. - s/p OREF day # 4 (done on 11/23/18) with repeat culture intra-operatively. I will continue abx and follow repeat wound culture from intra op final result pending as of today - For OR again on Tuesday11/27/14 for further I&D (6) Macrocytosis Current Visit: Yes Status: Acute Code(s): D75.89 - OTHER SPECIFIED DISEASES OF BLOOD AND BLOOD-FORMING ORGANS SNOMED Code(s): 287086312 Comment: - B12 in low normal range (231). Methylmalonic acid level, folate level. requested - Started B12 po and MVI (7) Sinus arrhythmia Current Visit: Yes Status: Resolved Code(s): I49.8 - OTHER SPECIFIED CARDIAC ARRHYTHMIAS SNOMED Code(s): 55406234 Comment: - He did have sinus arrythmia yesterday (11/25/18) Sinus rhytm with PVC's resolved with lopressor 25 mg bid and post stern insertion due to urinary retentions - on tele for another 24 hrs (currently sinus rhythm - Echo in am to assess LV functions (8) Vomiting Current Visit: Yes Status: Resolved Code(s): R11.10 - VOMITING, UNSPECIFIED SNOMED Code(s): 846659087 Comment: - vomitted on 11/25/18 twice, described as coffee ground by staff! ( it should be noted that the patient was taking coffee with prune juice) - I doubht it was true coffee ground. None theless he was changed to clear liquid, started PPI and H/H was stable. - will keep him on clear liquid and continue PPI. Again I believe it was undigested food specifically coffee with prune which would like coffee ground emesis. resolved at this time (9) DVT prophylaxis Current Visit: Yes Status: Acute Code(s): BTS4648 - SNOMED Code(s): 251475627 Comment: - lovenox 40 mg SQ daily (held 11/22/18 and 11/23/18) - Rresumed on 11/24/18 - I will hold it for today given his vomit ("coffee ground emesis")! until I make sure his h/H stable. Will probably resume later on tonight once I have stable H\\H
[2018-11-26] MEDS: Tamsulosin CAP* 0.4 MG PO SCH (12:48)
[2018-11-26] MEDS ORDERED: Glycerin ADULT SUPP PR ONE (16:00)
--- NOTE | 2018-11-26 17:47 | CONS ---
GASTROENTEROLOGY CONSULT: DATE OF CONSULT: 11/26/18 CONSULTING PHYSICIAN: Arsenio Sylvester REASON FOR CONSULT: Ileus with abdominal distention. 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 He stayed at home getting around on his knees until his family convinced him to come in. He has had 1 ankle stabilization operation and is slated to have another tomorrow. In the interim, he has been receiving oxycodone, periodic morphine, MiraLAX and senna. He has become progressively more distended. He has not had a bowel movement in several days. He states at home he has never had any bowel difficulties. He does not use laxatives. His bowel habit has been regular and without bleeding. He has never had a colonoscopy or indeed any abdominal surgery. He clarifies that he has not been receiving care at another hospital. His visit history here since 2003 encompasses just 7 visits prior to this admission. He has not had a primary physician and names going back decades who have been primary practitioners within a 15 to 20 mile radius were specifically questioned. He has had daily attempts at enemas that have not really run in. Virtually, nothing has been evacuated. Abdominal films are showing distention throughout the bowel. PAST MEDICAL HISTORY: 1. Right ankle fracture. 2. Mild macrocytic anemia - on admission MCV 100, Hg 11.2, B12 of 251, EtOH denied, and iron values not available. Platelet count 676 on admission. MEDICATIONS: As an outpatient, none. ALLERGIES: No known to drugs. 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 He has other family in the area. He insists he has not had a primary physician. REVIEW OF SYSTEMS: No prior history of abdominal surgery, abdominal investigations, colonoscopy, seizure, stroke, syncope, cardiac conditions, chest pain, hepatitis, jaundice, prior fractures. His diet at home is unselected and his weight has been steady. He has not used any over-the- counter gastrointestinal remedies. PHYSICAL EXAM: He is an older man with exuberant white hair, rather unkempt and a long riggins such that his face is largely obscured. He is in no acute distress, lying in bed supine. He has apparatus on his right lower leg. HEENT exam shows no icterus. Dentition is fair to poor. He has no adenopathy. His lungs are clear and heart sounds are regular. The abdomen is mildly rounded. Bowel sounds are absent. There is an NG tube and it was placed 20 minutes ago with 1100 cc in the first bottle and 100 in the second. The abdomen is neither firm nor soft. There is no tenderness. He was positioned right side down (his and the nurse's preference) and digital rectal reveals a massive impaction with hard nuggets and a firm plastic-like component. Extensive disimpaction was done to patient tolerance. It was planned to put in glycerin suppository and repeat this process several times through the evening and then tomorrow. This was his first rectal exam he has had. IMPRESSION: Fecal impaction and ileus throughout the gastrointestinal tract. He needs a multi-pronged approach to this. The NG tube clearly was helpful. Minimizing his narcotics would be helpful. Adopting a daily routine whereby he is on one side or the other 20 to 30 minutes at least twice a day for both sides will be helpful. The work of serial disimpactions until his rectum is moderately empty and can accept an enema is to be shared amongst all the staff. Enemas alone at this point are not going to be adequate. Rotating glycerin and Dulcolax suppositories would likely be helpful and is encouraged, but should not be conceived as taking the place of digital disimpactions. Once he is orthopedically stabilized and on a stable regimen, a colonoscopy will be a priority, but he is a long way away from that now. [id number]/[facility] #: [id number] WOLF
[2018-11-26] MEDS ORDERED: Enoxaparin(*) 40 MG/0.4 ML SYR SUBCUT SCH (20:00)
[2018-11-26] MEDS ORDERED: Bisacodyl SUPP* 10 MG SUPP PR SCH (21:00)
--- NOTE | 2018-11-26 21:09 | PN ---
Hospitalist Progress Note Date of Service: 11/26/18 Called to bedside of patient who briefly is a 73 yo M with R ankle fracture awating surgery with recent ileus, SBO, s/p NGT placement today 10/26 who GI recommended manual disimpaction He has rec'd Tap water enema this AM, Suppository, Lactulose x3, Miralax, and Senna -He does not want any further lactulose as it makes him nauseous PE Pleasant man in NAD, AOx4 Belly distended but soft, NT Rectum: good rectal tone, external hemmhorids present, Performed manual disimpaction at bedside, removed roughly golfball sized round fecal ball, firm in rectal vault, pt tolerated the procedure well, minimal stool in vault left that is soft and manuverable Plan -Will hold on lactulose -Miralax tonight -Tap water enema, warm at 5AM -Remains NPO for surgery
[2018-11-27] MEDS: ZOSYN 3.375 GM Q8H per EXTENDED INFUSION IVPB SCH ×6 (04:04→20:57)
[2018-11-27] MEDS: metroNIDAZOLE IV 500 MG/100ML* 500 MG/100 ML BAG IVPB SCH (04:04)
[2018-11-27 06:39] LABS: ABS Basophils 0.1 10^3/ul (0-0.2); ABS Eosinophils 0.2 10^3/ul (0-0.6); ABS Lymphocytes 0.9 10^3/ul (1.0-4.8); ABS Monocytes 1.1 10^3/ul (0-0.8); ABS Neutrophils 13.8 10^3/ul (1.5-7.7); ABS Nucleated RBC 0 10^3/ul; Hematocrit 27 % (36-46); Hemoglobin 8.9 g/dL (14.0-18.0); Lymphocyte % 5.4 %; Mean Corpuscular HGB Conc 33 g/dL (31-36); Mean Corpuscular Hemoglobin 33 pg (27-31); Mean Corpuscular Volume 99 fL (80-94); Mean Platelet Volume 7.6 fL (7.4-10.4); Nucleated Red Blood Cells % 0; Platelet Count 380 10^3/uL (150-450); Red Blood Count 2.69 10^6 /uL (4.18-5.48); Red Cell Distribution Width 13 % (10.5-15)
[2018-11-27 07:01] LABS: Calcium 8.1 mg/dL (8.6-10.3); EGFR African American 108.1 (>60); EGFR Non-African American 89.3 (>60); Phosphorus 2.3 mg/dL (2.5-5.0); Potassium 3.4 mmol/L (3.5-5.0)
[2018-11-27] MEDS: Polyethylene Glycol 3350* 17 GM PACKET PO SCH ×2 (09:04→21:03)
[2018-11-27] MEDS: Pantoprazole IV* 40 MG IV SCH ×2 (09:15→20:52)
[2018-11-27] MEDS: Metoprolol Tartrate TAB* 25 MG PO SCH ×2 (09:15→21:04)
[2018-11-27] MEDS: Cyanocobalamin TAB* 500 MCG PO SCH (09:28)
[2018-11-27] MEDS: Multivitamins/Minerals TAB PO SCH (09:28)
[2018-11-27] MEDS: Tamsulosin CAP* 0.4 MG PO SCH (09:28)
--- NOTE | 2018-11-27 09:58 | PN ---
Progress Note - Progress Note Date of Service: 11/27/18 SOAP: Subjective: CC: Open right ankle fracture HPI: Mr. Fenton is a 73 yo male with no significant PMH who presented to the emergency room for an open right ankle fracture that occurred 2-3 weeks prior to his presentation to the hospital. Denies fever, chills, shortness of breath , nausea, vomiting or diarrhea. He reports moving his bowels yesterday. He states that the pain in his right ankle has improved since the ankle was stabilized. He reports "pins and needles" only if the foot is touched. Per NSG he was suspected to have aspirated over the weekend after vomiting. He had a episode of hypoxia. He also had an NG tube placed, for an ileus. Objective: Vital Signs - 8 hr 11/27/18 11/27/18 03:47 07:15 Temperature 98.6 F 98.2 F Pulse Rate 80 75 Respiratory 18 18 Rate Blood Pressure 154/85 138/66 (mmHg) O2 Sat by Pulse 95 92 Oximetry Physical Exam: General: NAD, laying in bed Neurological: Alert and Oriented x4 Cardiovascular: Heart rate regular Respiratory: Lung sounds clear Abdominal: Bowel sounds hypoactive, ABD soft, non tender and non distended Skin: No rashes seen on the exposed skin. There is an KAYLEEN wrap and external fixator on the right ankle. Laboratory Results - last 24 hr 11/26/18 11/27/18 11/27/18 14:10 05:56 05:56 WBC 16.0 H RBC 2.69 L Hgb 8.9 L Hct 27 L MCV 99 H MCH 33 H MCHC 33 RDW 13 Plt Count 380 MPV 7.6 Neut % (Auto) 86.1 Lymph % (Auto) 5.4 Knott % (Auto) 6.9 Eos % (Auto) 1.0 Baso % (Auto) 0.6 Absolute Neuts (auto) 13.8 H Absolute Lymphs (auto) 0.9 L Absolute Monos (auto) 1.1 H Absolute Eos (auto) 0.2 Absolute Basos (auto) 0.1 Absolute Nucleated RBC 0 Nucleated RBC % 0 Patient Temperature Not Reportable ABG pH 7.46 H ABG pH (Temp Correct) Not Reportable ABG pCO2 39 ABG pCO2 (Temp Corrct Not Reportable ABG pO2 68 L ABG pO2 (Temp Correct Not Reportable ABG HCO3 27.7 ABG O2 Saturation 96.2 ABG Base Excess 3.7 H Respiration Rate Not Reportable O2 Delivery Device oxymask 15 lpm Ventilator Type Not Reportable Vent Mode Not Reportable FiO2 Not Reportable Inspiratory Time Not Reportable PEEP Not Reportable Pressure Support Not Reportable Pressure Control Not Reportable EPAP Not Reportable IPAP Not Reportable BiPAP Not Reportable Sodium 138 Potassium 3.4 L Chloride 102 Carbon Dioxide 28 Anion Gap 8 BUN 16 Creatinine 0.84 Est GFR ( Amer) 108.1 Est GFR (Non-Af Amer) 89.3 BUN/Creatinine Ratio 19.0 Glucose 80 Calcium 8.1 L Phosphorus 2.3 L Magnesium 2.0 Microbiology 11/23/18 10:06 Anaerobic Culture - Final Wound - Ankle Right Fungal Smear - Final 11/23/18 10:06 Gram Stain - Final Ankle Right Wound Culture - Preliminary Staphylococcus Aureus Normal Cynthia 11/20/18 16:01 Aerobic Blood Culture - Final Blood Venous No Growth Day 5 Anaerobic Blood Culture - Final No Growth Day 5 11/20/18 15:36 Aerobic Blood Culture - Final Blood Venous No Growth Day 5 Anaerobic Blood Culture - Final No Growth Day 5 11/20/18 16:40 Skin and Soft Tissue MRSA/MSSA (PCR - Final Ankle Right Mrsa Negative S.aureus Positive Gram Stain - Final Wound Culture - Final Staphylococcus Aureus Strep Agalactiae - (Group B) Normal Cynthia Assessment: 1. Open right ankle fracture. S/P wound debridement, open reduction and external fixation, POD #4. Suspect he has an acute osteomyelitis based on the length of time he had an open fracture and MRI findings. Preliminary wound cultures obtained on admission showing MSSA and Strep Agalactiae (Group B). Preliminary cultures obtained while in the OR showing Staph aureus, and no fungal organisms. Afebrile and continues to have leukocytosis. Blood cultures with no growth on day 5. Plan for return to the OR with orthopedics later today 2. Thrombocytosis. Resolved 3. Fecal impaction and ileus. S/P digital disimpaction and NG tube placement. States that he moved his bowels yesterday 4. Macrocytosis. Started on Vit B12 and multivitamin Plan: Continue Zosyn. Discontinue Flagyl as he has anaerobic coverage with the Zosyn and doesn't require additional anaerobic coverage.
[2018-11-27] MEDS ORDERED: Perflutren Lipid Microsphere* 3 ML VIAL ONE ×3 (11:28→11:34)
--- NOTE | 2018-11-27 12:53 | ECHO ---
Patient: MANDY POLLARD [facility] Rec#: [id number] : 1945 Date: 11/27/2018 Age: 73y Height: 170 cm / 66.9 in Weight: 84 kg / 185.1 lbs Sex: M BSA: 1.96 Room#: 336 Admit Date#: 11/20/2018 Type: Inpatient Referring: LILIBETH Reading: Bryan Camargo DO [employer] Specialist: Francesca Gauthier [facility] Transthoracic Echocardiogram Indication: PVCs BP: 138/66 HR: 83 Rhythm: NSR Findings History: Fractured right ankle, to OR today. No PMHx. Technical Comments: The study was technically limited due to the patient's inability to lay in the left lateral decubitus position. Definity was used to enhance images. Left Ventricle: The left ventricular chamber size is normal. There is a prominent septal knuckle. Global left ventricular wall motion and contractility are within normal limits. There is normal left ventricular systolic function. The estimated ejection fraction is 55-60%. Abnormal left ventricular diastolic function is observed. Left Atrium: The left atrium is mildly dilated. Right Ventricle: The right ventricular chamber size and systolic function are within normal limits. Right Atrium: The right atrium is mildly dilated. Aortic Valve: The aortic valve is trileaflet. There is no evidence of aortic valve thickening. There is a trace of aortic regurgitation. There is no evidence of aortic stenosis. Mitral Valve: The mitral valve leaflets are mildly thickened. There is mild mitral regurgitation. There is no evidence of mitral stenosis. Tricuspid Valve: The tricuspid valve leaflets are normal. There is trace to mild tricuspid regurgitation. There is evidence of mild pulmonary hypertension. There is no tricuspid stenosis. Pulmonic Valve: The pulmonic valve appears normal. There is no evidence of pulmonic regurgitation. There is no pulmonic stenosis. Pericardium: There is no significant pericardial effusion. Aorta: There is mild dilatation of the ascending aorta. There is mild dilatation of the aortic arch. There is mild dilatation of the aortic root. Pulmonary Artery: The main pulmonary artery is not well visualized. Venous: The venous system is not well visualized. Contrast: Definity was used to optimize study. A total of 3 ml used. Intravenous contrast was used to enhance endocardial border definition. Conclusions The left ventricular chamber size is normal. Global left ventricular wall motion and contractility are within normal limits. There is normal left ventricular systolic function. The estimated ejection fraction is 55-60%. The left atrium is mildly dilated. The right ventricular chamber size and systolic function are within normal limits. There is mild mitral regurgitation. There is mild dilatation of the ascending aorta. Definity was used to optimize study. None prior for comparison at time of interpretation Measurements Name Value Normal Range RVIDd (AP) 2D 3.5 cm (0.9 - 2.6) RVDdMajor (2D) 3.2 cm (2.2 - 4.4) RAd ISD 4CH 5.5 cm (3.4 - 4.9) RA (A4C)W 2.8 cm (2.9 - 4.6) IVSd (2D) 0.9 cm (0.6 - 1) LVPWd (2D) 0.7 cm (0.6 - 1) LVIDd (2D) 5.5 cm (3.6 - 5.4) LVIDs (2D) 4.1 cm - LV FS (2D) 25 % (25 - 45) Aortic Annulus 2.5 cm (1.4 - 2.6) Ao root diameter (2D) 3.9 cm (2.1 - 3.5) Ascending Ao 4 cm (2.1 - 3.4) Aortic arch 3.7 cm (1.8 - 3.4) Descending Ao 0.7 cm - LA dimension (AP) 2D 3.9 cm (2.3 - 3.8) LAd ISD 4CH 6.4 cm (2.9 - 5.3) LA ISD 4CH W 4.1 cm (2.5 - 4.5) Name Value Normal Range LA ESV SP 4CH (A/L) 36 ml - LA ESV SP 2CH (A/L) 36 ml - LA ESV BP (A/L) index 36 ml/m2 - Name Value Normal Range MV E-wave Vmax 0.8 m/sec - MV deceleration time 165 msec - MV A-wave Vmax 1.1 m/sec - MV E:A ratio 0.8 ratio - LV septal e' Vmax 0.8 m/sec - LV lateral e' Vmax 0.9 m/sec - LV E:e' septal ratio 10 ratio - LV E:e' lateral ratio 8.89 ratio - Name Value Normal Range AV Vmax 1.5 m/sec - AV VTI 36.9 cm - AV peak gradient 9 mmHg - AV mean gradient 5 mmHg - LVOT Vmax 1.1 m/sec - LVOT VTI 27.6 cm - LVOT peak gradient 5 mmHg - LVOT mean gradient 2 mmHg - Name Value Normal Range MR Vmax 2.7 m/sec - MR VTI 77 cm - Name Value Normal Range TR Vmax 2.8 m/sec - TR peak gradient 32 mmHg - RAP 8 mmHg - RVSP 40 mmHg - Name Value Normal Range PV Vmax 1 m/sec - PV peak gradient 4 mmHg -
[2018-11-27] MEDS ORDERED: fentaNYL* 50 MCG/ML 2 ML VIAL (100 MCG VIAL) ONE (14:14)
[2018-11-27] MEDS ORDERED: Bupivacaine 0.5%* 50 ML VIAL ONE (14:34)
[2018-11-27] MEDS ORDERED: Midazolam* 1 MG/ML 2 ML VIAL (2 MG) ONE (14:35)
[2018-11-27] MEDS ORDERED: Chloroprocaine 2%* 20 ML VIAL ONE (14:43)
[2018-11-27] MEDS ORDERED: fentaNYL* 50 MCG/ML 2 ML VIAL (100 MCG VIAL) IV PRN (14:59)
[2018-11-27] MEDS ORDERED: Acetaminophen IV 1GM/100ML * 1,000 MG/100 ML VIAL IVPB ONE (14:59)
[2018-11-27] MEDS ORDERED: Ketorolac INJ* 30 MG/ML 1 ML VIAL IV PRN (14:59)
[2018-11-27] MEDS ORDERED: Naloxone* 0.4 MG/ML 1 ML VIAL IV PRN (14:59)
[2018-11-27] MEDS ORDERED: Phenylephrine 40 MCG/ML SYRINGE ONE (15:04)
[2018-11-27] MEDS ORDERED: Ketorolac INJ* 30 MG/ML 1 ML VIAL ONE (15:07)
[2018-11-27] MEDS ORDERED: Acetaminophen IV 1GM/100ML * 100 ML ONE (15:07)
[2018-11-27] MEDS: Lactated Ringers 1000 ML Bag* 1,000 ML IV SCH (17:22)
--- NOTE | 2018-11-27 17:40 | PN ---
Subjective Date of Service: 11/27/18 Interval History: Patient had good bowel movement. No vomiting since weekend. He has appetite now. Denies abdominal pain Went back to OR today for further debridement of RT ankle, has external fixation in place. Family History: Unchanged from Admission - DM, heart disease. Social History: Unchanged from Admission - Never smoked, no alcohol abuse. 2 sons, 2 sisters nearby, one sister is his SDM. Past Medical History: Unchanged from Admission - negative, no surgery, no medical problems Objective Active Medications: Cyanocobalamin (Vitamin B12 Tab*) 1,000 mcg PO DAILY [facility] Last Admin: 11/27/18 09:28 Dose: Not Given Enoxaparin Sodium (Lovenox(*)) 40 mg SUBCUT Q24H [facility] Piperacillin Sod/Tazobactam (Sod 3.375 gm/ Sodium Chloride) 100 mls @ 25 mls/ hr IVPB Q8H [facility] Last Admin: 11/27/18 16:45 Dose: Not Given Lactated Ringer's (Lactated Ringers 1000 Ml Bag*) 1,000 mls @ 125 mls/hr IV PER RATE [facility] Last Admin: 11/27/18 17:22 Dose: 125 mls/hr Magnesium Hydroxide (Milk Of Magnniles Liq*) 30 ml PO Q6H PRN PRN Reason: CONSTIPATION Last Admin: 11/26/18 00:12 Dose: 30 ml Metoprolol Tartrate (Lopressor Tab*) 25 mg PO BID [facility] Last Admin: 11/27/18 09:15 Dose: 25 mg Morphine Sulfate (Morphine Inj (Syringe))*) 2 mg IV Q2H PRN PRN Reason: PAIN Last Admin: 11/25/18 18:24 Dose: 2 mg Multivitamins/Minerals (Theragran/Minerals Tab*) 1 tab PO DAILY [facility] Last Admin: 11/27/18 09:28 Dose: Not Given Ondansetron HCl (Zofran Inj*) 4 mg IV Q6H PRN PRN Reason: NAUSEA Last Admin: 11/25/18 11:29 Dose: 4 mg Oxycodone HCl (Roxycodone Tab*) 5 mg PO Q3H PRN PRN Reason: PAIN Last Admin: 11/26/18 11:31 Dose: 5 mg Pantoprazole Sodium (Protonix Iv*) 40 mg IV BID [facility] Last Admin: 11/27/18 09:15 Dose: 40 mg Polyethylene Glycol/Electrolytes (Miralax*) 17 gm PO 0800,2100 [facility] Last Admin: 11/27/18 09:04 Dose: Not Given Senna (Senokot Tab*) 2 tab PO BEDTIME PRN PRN Reason: no DM during day Last Admin: 11/24/18 08:39 Dose: 2 tab Tamsulosin HCl (Flomax Cap*) 0.4 mg PO DAILY [facility] Last Admin: 11/27/18 09:28 Dose: Not Given Vital Signs - 8 hr 11/27/18 11/27/18 11/27/18 15:25 15:30 15:35 Temperature Pulse Rate 55 54 53 Respiratory 15 12 13 Rate Blood Pressure 91/50 100/71 115/75 (mmHg) O2 Sat by Pulse 96 97 98 Oximetry 11/27/18 11/27/18 11/27/18 15:46 16:01 16:47 Temperature 37.0 C Pulse Rate 63 73 64 Respiratory 18 21 16 Rate Blood Pressure 122/61 141/76 154/70 (mmHg) O2 Sat by Pulse 94 96 97 Oximetry Oxygen Devices in Use Now: Nasal Cannula Appearance: alert, no distress Ears/Nose/Mouth/Throat: Clear Oropharnyx Neck: No Thyroid Enlargement, Masses Respiratory: Symmetrical Chest Expansion and Respiratory Effort Cardiovascular: NL Sounds; No Murmurs; No JVD Abdominal: NL Sounds; No Tenderness; No Distention, No Hepatosplenomegaly Extremities: - - RT ankle in bandages, external fixators Lines/Tubes/Other Access: Clean, Dry and Intact Peripheral IV Result Diagrams: 11/27/18 05:56 11/27/18 05:56 Microbiology and Other Data: Microbiology 11/25/18 18:44 Urine Urine Culture - Final No Growth (<1,000 CFU/mL) 11/23/18 10:06 Wound - Ankle Right Anaerobic Culture - Final 11/23/18 10:06 Wound - Ankle Right Fungal Smear - Final 11/23/18 10:06 Ankle Right Gram Stain - Final 11/20/18 16:40 Ankle Right Skin and Soft Tissue MRSA/MSSA (PCR - Final 11/20/18 16:40 Ankle Right Wound Culture - Final Mrsa Negative S.aureus Positive Staphylococcus Aureus Strep Agalactiae - (Group B) Normal Cynthia 11/23/18 10:06 Ankle Right Wound Culture - Preliminary Staphylococcus Aureus Normal Cynthia Assess/Plan/Problems-Billing Assessment: 73 y/o male admitted for right ankle open fracture 2+ weeks old did not seek medical attention at the time of the injury, also had possible SBO. - Patient Problems (1) Open fracture Current Visit: Yes Status: Acute Priority: High Code(s): T14.8XXA - OTHER INJURY OF UNSPECIFIED BODY REGION, INITIAL ENCOUNTER SNOMED Code(s): 959395977 Comment: - Right ankle. Dr. Del Toro performed open reduction and external fixation 11/23/18 - Recultured intraoperatively, growing MSSA. I will continue pip/rafi day # 7, and wound vac, per ID consult recommendations - Returned to OR today for debridement (2) Ileus Current Visit: Yes Status: Acute Priority: Medium Code(s): K56.7 - ILEUS, UNSPECIFIED SNOMED Code(s): 754526426 Comment: - Ileus clinically resolved - Will remove NG tube, try clear liquid diet (3) DVT prophylaxis Current Visit: Yes Status: Acute Priority: Low Code(s): LAE7434 - SNOMED Code(s): 848968656 Comment: - lovenox 40 mg SQ daily restarted (4) Anemia Current Visit: Yes Status: Acute Priority: Medium Code(s): D64.9 - ANEMIA , UNSPECIFIED SNOMED Code(s): 497086605 Comment: -likely multifactorial, due to chronic disease, post-op -B12 low-normal, will check iron studies. Status and Disposition: inpatient
--- NOTE | 2018-11-28 00:10 | OP ---
DATE OF OPERATION: 11/27/18 - ROOM #336 DATE OF : 43. SURGEON: Dr. Antoni Shipman. SALES ENGINEER: Zeinab Archer PA-C. PRE-OP DIAGNOSIS: Grade 3 open ankle fracture dislocation. POST-OP DIAGNOSIS: Grade 3 open ankle fracture dislocation. OPERATIVE PROCEDURE: Debridement of ankle joint and replacement of VAC dressing. DESCRIPTION OF PROCEDURE: The patient was taken to the operating room where spinal anesthetic was used. We removed the VAC dressing from his anteromedial wound, which was approximately 3 cm x 6 cm. The ankle joint itself was visualized through the wound and, with some gentle distraction versus the Ex- Fix frame, we were able to thoroughly irrigate the ankle joint itself. Local cultures were sent, 2 L of saline were used. We then replaced the VAC dressing over the wound and compressive dressing around the external fixator pin sites. [id number]/[facility] #: [id number] MTDD
[2018-11-28] MEDS: oxyCODONE TAB* 5 MG TAB PO PRN ×3 (01:06→21:51)
[2018-11-28] MEDS: Lactated Ringers 1000 ML Bag* 1,000 ML IV SCH ×2 (01:22→09:18)
[2018-11-28] MEDS: ZOSYN 3.375 GM Q8H per EXTENDED INFUSION IVPB SCH ×4 (04:16→12:39)
[2018-11-28 06:47] LABS: ABS Basophils 0.1 10^3/ul (0-0.2); ABS Eosinophils 0.5 10^3/ul (0-0.6); ABS Lymphocytes 1.1 10^3/ul (1.0-4.8); ABS Monocytes 1.1 10^3/ul (0-0.8); ABS Neutrophils 11.3 10^3/ul (1.5-7.7); ABS Nucleated RBC 0 10^3/ul; Eosinophil % 3.6 %; Hematocrit 25 % (36-46); Hemoglobin 8.5 g/dL (14.0-18.0); Lymphocyte % 7.8 %; Mean Corpuscular HGB Conc 34 g/dL (31-36); Mean Corpuscular Hemoglobin 34 pg (27-31); Mean Corpuscular Volume 98 fL (80-94); Mean Platelet Volume 7.5 fL (7.4-10.4); Nucleated Red Blood Cells % 0; Platelet Count 386 10^3/uL (150-450); Red Blood Count 2.54 10^6 /uL (4.18-5.48); Red Cell Distribution Width 14 % (10.5-15); White Blood Count 14.2 10^3/uL (3.5-10.8)
[2018-11-28 07:10] LABS: % Iron Saturation 15 % (15-55); Iron 25 ug/dL (50-212); Total Iron Binding Capacity 171 mcg/dL (250-450); Transferrin 122 mg/dL (203-362)
[2018-11-28] MEDS: Tamsulosin CAP* 0.4 MG PO SCH (08:08)
[2018-11-28] MEDS: Multivitamins/Minerals TAB PO SCH (08:08)
[2018-11-28] MEDS: Polyethylene Glycol 3350* 17 GM PACKET PO SCH ×2 (08:08→21:52)
[2018-11-28] MEDS: Metoprolol Tartrate TAB* 25 MG PO SCH ×2 (08:08→21:54)
[2018-11-28] MEDS: Enoxaparin(*) 40 MG/0.4 ML SYR SUBCUT SCH (08:08)
[2018-11-28] MEDS: Cyanocobalamin TAB* 500 MCG PO SCH (08:08)
[2018-11-28] MEDS: Pantoprazole IV* 40 MG IV SCH ×2 (08:08→21:55)
--- NOTE | 2018-11-28 08:21 | PN ---
Progress Note - Progress Note Date of Service: 11/28/18 SOAP: Subjective: []Pt seen at bedside. Pain is well controlled. Denies fever, chills, CP, SOB, dizziness. Objective: []General: Appears well, NAD RLE: Vac suctioning well, Ex fix in place, dressing CDI. Exposed toes with sensation intact to light touch, capillary refill less than two seconds distally , flexion and extension of MTP intact. No erythema proximal to the dressing Left calf supple and nontender Assessment: [] Grade 3 open Right ankle fracture dislocation POD 1 S/P Debridement of ankle joint and replacement of VAC dressing. Plan: []NWB RLE Continue vac Continue IV zosyn Vital Signs Temp 99.3 F 11/28/18 08:25 Pulse 57 11/28/18 08:25 Resp 16 11/28/18 08:25 BP 136/51 11/28/18 08:25 Pulse Ox 92 11/28/18 08:25 Intake & Output 11/27/18 11/28/18 11/28/18 18:59 06:59 18:59 Intake Total 2200 1652 986 Output Total 375 725 Balance 1825 927 986 Intake: IV Fluids 1880 1202 986 ABX - ZOSYN 105 LR 1780 1077 986 NS (0.9%) 20 NS 100ML, Zosyn 3.375G 100 Oral 320 450 Output: Lopez 375 725 Other: # Bowel Movements 0 Laboratory Last Values WBC 14.2 10^3/uL (3.5-10.8) H 11/28/18 06:06 RBC 2.54 10^6 /uL (4.18-5.48) L 11/28/18 06:06 Hgb 8.5 g/dL (14.0-18.0) L 11/28/18 06:06 Hct 25 % (36-46) L 11/28/18 06:06 MCV 98 fL (80-94) H 11/28/18 06:06 MCH 34 pg (27-31) H 11/28/18 06:06 MCHC 34 g/dL (31-36) 11/28/18 06:06 RDW 14 % (10.5-15) 11/28/18 06:06 Plt Count 386 10^3/uL (150-450) 11/28/18 06:06 MPV 7.5 fL (7.4-10.4) 11/28/18 06:06 Neut % (Auto) 79.9 % 11/28/18 06:06 Lymph % (Auto) 7.8 % 11/28/18 06:06 [place] % (Auto) 7.9 % 11/28/18 06:06 Eos % (Auto) 3.6 % 11/28/18 06:06 Baso % (Auto) 0.8 % 11/28/18 06:06 Absolute Neuts (auto) 11.3 10^3/ul (1.5-7.7) H 11/28/18 06:06 Absolute Lymphs (auto) 1.1 10^3/ul (1.0-4.8) 11/28/18 06:06 Absolute Monos (auto) 1.1 10^3/ul (0-0.8) H 11/28/18 06:06 Absolute Eos (auto) 0.5 10^3/ul (0-0.6) 11/28/18 06:06 Absolute Basos (auto) 0.1 10^3/ul (0-0.2) 11/28/18 06:06 Absolute Nucleated RBC 0 10^3/ul 11/28/18 06:06 Nucleated RBC % 0 11/28/18 06:06 INR (Anticoag Therapy) 1.02 (0.77-1.02) 11/23/18 05:56 APTT 32.9 seconds (26.0-36.3) 11/20/18 16:01 Patient Temperature Not Reportable 11/26/18 14:10 ABG pH 7.46 (7.35-7.45) H 11/26/18 14:10 ABG pH (Temp Correct) Not Reportable 11/26/18 14:10 ABG pCO2 39 mmHg (35-45) 11/26/18 14:10 ABG pCO2 (Temp Corrct Not Reportable 11/26/18 14:10 ABG pO2 68 mmHg (80-100) L 11/26/18 14:10 ABG pO2 (Temp Correct Not Reportable 11/26/18 14:10 ABG HCO3 27.7 mmol/L (19-31) 11/26/18 14:10 ABG O2 Saturation 96.2 % (94.0-98.0) 11/26/18 14:10 ABG Base Excess 3.7 mmol/L (-2.0-2.0) H 11/26/18 14:10 Respiration Rate Not Reportable 11/26/18 14:10 O2 Delivery Device oxymask 15 lpm 11/26/18 14:10 Ventilator Type Not Reportable 11/26/18 14:10 Vent Mode Not Reportable 11/26/18 14:10 FiO2 Not Reportable 11/26/18 14:10 Inspiratory Time Not Reportable 11/26/18 14:10 PEEP Not Reportable 11/26/18 14:10 Pressure Support Not Reportable 11/26/18 14:10 Pressure Control Not Reportable 11/26/18 14:10 EPAP Not Reportable 11/26/18 14:10 IPAP Not Reportable 11/26/18 14:10 BiPAP Not Reportable 11/26/18 14:10 Sodium 138 mmol/L (135-145) 11/27/18 05:56 Potassium 3.4 mmol/L (3.5-5.0) L 11/27/18 05:56 Chloride 102 mmol/L (101-111) 11/27/18 05:56 Carbon Dioxide 28 mmol/L (22-32) 11/27/18 05:56 Anion Gap 8 mmol/L (2-11) 11/27/18 05:56 BUN 16 mg/dL (6-24) 11/27/18 05:56 Creatinine 0.84 mg/dL (0.67-1.17) 11/27/18 05:56 Est GFR ( Amer) 108.1 (>60) 11/27/18 05:56 Est GFR (Non-Af Amer) 89.3 (>60) 11/27/18 05:56 BUN/Creatinine Ratio 19.0 (8-20) 11/27/18 05:56 Glucose 80 mg/dL (70-100) 11/27/18 05:56 Lactic Acid 0.8 mmol/L (0.5-2.0) 11/20/18 16:01 Calcium 8.1 mg/dL (8.6-10.3) L 11/27/18 05:56 Phosphorus 2.3 mg/dL (2.5-5.0) L 11/27/18 05:56 Magnesium 2.0 mg/dL (1.9-2.7) 11/27/18 05:56 Iron 25 ug/dL (50-212) L 11/28/18 06:06 TIBC 171 mcg/dL (250-450) L 11/28/18 06:06 % Saturation 15 % (15-55) 11/28/18 06:06 Unsat Iron Binding < 156 ug/dL 11/28/18 06:06 Transferrin 122 mg/dL (203-362) L 11/28/18 06:06 Total Bilirubin 0.40 mg/dL (0.2-1.0) 11/20/18 16:01 AST 14 U/L (13-39) 11/20/18 16:01 ALT 17 U/L (7-52) 11/20/18 16:01 Alkaline Phosphatase 69 U/L (34-104) 11/20/18 16:01 C-Reactive Protein 91.37 mg/L (<8.01) H 11/20/18 16:01 Total Protein 6.9 g/dL (6.4-8.9) 11/20/18 16:01 Albumin 3.1 g/dL (3.2-5.2) L 11/20/18 16:01 Globulin 3.8 g/dL (2-4) 11/20/18 16:01 Albumin/Globulin Ratio 0.8 (1-3) L 11/20/18 16:01 Vitamin B12 231 pg/mL (180-914) 11/20/18 16:01 Methylmalonic Acid 0.40 nmol/mL (<=0.40) 11/20/18 15:49 Folate 18.41 ng/mL (>3.99) 11/20/18 16:01 Urine Color Yellow 11/25/18 18:44 Urine Appearance Cloudy 11/25/18 18:44 Urine pH 5.0 (5-9) 11/25/18 18:44 Ur Specific [place] 1.012 (1.010-1.030) 11/25/18 18:44 Urine Protein Negative (Negative) 11/25/18 18:44 Urine Ketones Negative (Negative) 11/25/18 18:44 Urine Blood 1+ (Negative) A 11/25/18 18:44 Urine Nitrate Negative (Negative) 11/25/18 18:44 Urine Bilirubin Negative (Negative) 11/25/18 18:44 Urine Urobilinogen Negative (Negative) 11/25/18 18:44 Ur Leukocyte Esterase Negative (Negative) 11/25/18 18:44 Urine WBC (Auto) Trace(0-5/hpf) (Absent) 11/25/18 18:44 Urine RBC (Auto) 1+(3-5/hpf) (Absent) A 11/25/18 18:44 Urine Bacteria Absent (Absent) 11/25/18 18:44 Urine Glucose Negative (Negative) 11/25/18 18:44 Vancomycin Trough 7.9 mcg/mL 11/22/18 12:04 Influenza A (Rapid) Negative (Negative) 11/21/18 21:02 Influenza B (Rapid) Negative (Negative) 11/21/18 21:02 Blood Type A Positive 11/22/18 05:41 Antibody Screen Negative 11/22/18 05:41
--- NOTE | 2018-11-28 14:47 | PN ---
Progress Note - Progress Note Date of Service: 11/28/18 SOAP: Subjective: CC: Open right ankle fracture HPI: Mr. Fenton is a 73 yo male with no significant PMH who presented to the emergency room for an open right ankle fracture that occurred 2-3 weeks prior to his presentation to the hospital. Denies fever, chills, shortness of breath , nausea, vomiting or diarrhea. He reports moving his bowels 2 days ago. He states that the pain in his right ankle has improved since the ankle was stabilized, but the pain is worse if he is sitting up in a chair with the leg down for very long. He reports "pins and needles" only if the foot is touched. Objective: Vital Signs - 8 hr 11/28/18 11/28/18 11/28/18 07:21 08:25 11:42 Temperature 99.3 F 98.6 F Pulse Rate 57 70 Respiratory 16 16 16 Rate Blood Pressure 136/51 111/58 (mmHg) O2 Sat by Pulse 94 92 95 Oximetry Physical Exam: General: NAD, laying in bed Neurological: Alert and Oriented x4 Cardiovascular: Heart rate regular Respiratory: Lung clear bilateral Abdominal: Bowel sounds hypoactive, ABD soft, large and non tender Skin: No rashes seen on the exposed skin. Right ankle external fixator in place with KAYLEEN wrap dressing Laboratory Results - last 24 hr 11/28/18 11/28/18 06:06 06:06 WBC 14.2 H RBC 2.54 L Hgb 8.5 L Hct 25 L MCV 98 H MCH 34 H MCHC 34 RDW 14 Plt Count 386 MPV 7.5 Neut % (Auto) 79.9 Lymph % (Auto) 7.8 [place] % (Auto) 7.9 Eos % (Auto) 3.6 Baso % (Auto) 0.8 Absolute Neuts (auto) 11.3 H Absolute Lymphs (auto) 1.1 Absolute Monos (auto) 1.1 H Absolute Eos (auto) 0.5 Absolute Basos (auto) 0.1 Absolute Nucleated RBC 0 Nucleated RBC % 0 Iron 25 L TIBC 171 L % Saturation 15 Unsat Iron Binding < 156 Transferrin 122 L Microbiology 11/27/18 15:15 Anaerobic Culture - Preliminary Wound 11/23/18 10:06 Gram Stain - Final Ankle Right Wound Culture - Preliminary Staphylococcus Aureus Normal Cynthia 11/27/18 15:15 Gram Stain - Final Ankle Right 11/25/18 18:44 Urine Culture - Final Urine No Growth (<1,000 CFU/mL) 11/23/18 10:06 Anaerobic Culture - Final Wound - Ankle Right Fungal Smear - Final 11/20/18 16:01 Aerobic Blood Culture - Final Blood Venous No Growth Day 5 Anaerobic Blood Culture - Final No Growth Day 5 11/20/18 15:36 Aerobic Blood Culture - Final Blood Venous No Growth Day 5 Anaerobic Blood Culture - Final No Growth Day 5 11/20/18 16:40 Skin and Soft Tissue MRSA/MSSA (PCR - Final Ankle Right Mrsa Negative S.aureus Positive Gram Stain - Final Wound Culture - Final Staphylococcus Aureus Strep Agalactiae - (Group B) Normal Cynthia Assessment: 1. Open right ankle fracture. S/P wound debridement, open reduction and external fixation, POD #4. S/P debridement of ankle joint and replacement of VAC dressing, POD #1. Suspect he has an acute osteomyelitis based on the length of time he had an open fracture and MRI findings. Preliminary wound cultures obtained on admission showing MSSA and Strep Agalactiae (Group B). Preliminary cultures obtained while in the OR on 11/23/18 showing Staph aureus, and no fungal organisms. Repeat cultures obtained yesterday in surgery, pending. Afebrile and continues to have leukocytosis. Blood cultures with no growth on day 5. 2. Thrombocytosis. Resolved 3. Fecal impaction and ileus. S/P digital disimpaction and NG tube placement. Resolved 4. Macrocytosis. Started on Vit B12 and multivitamin Plan: Discontinue Zosyn. Start Ancef 2gm IV q8h
[2018-11-28] MEDS: Morphine INJ* 2 MG/ML 1 ML SYRINGE (TWO MG - NEW SYRINGE VERSION) IV PRN (14:55)
[2018-11-28] MEDS: ceFAZolin VIAL(*) 2 GM in NS 0.9% 100 ML* 100 ML IVPB SCH (16:30)
--- NOTE | 2018-11-28 18:37 | PN ---
Subjective Date of Service: 11/28/18 Interval History: Patient has no new complaints. RT ankle has some pain. No BM in 2 days, but eating well. Family History: Unchanged from Admission - DM, heart disease. Social History: Unchanged from Admission - Never smoked, no alcohol abuse. 2 sons, 2 sisters nearby, one sister is his SDM. Past Medical History: Unchanged from Admission - negative, no surgery, no medical problems Objective Active Medications: Cyanocobalamin (Vitamin B12 Tab*) 1,000 mcg PO DAILY [facility] Last Admin: 11/28/18 08:08 Dose: 1,000 mcg Docusate Sodium (Colace Cap*) 100 mg PO BID [facility] Enoxaparin Sodium (Lovenox(*)) 40 mg SUBCUT Q24H [facility] Last Admin: 11/28/18 08:08 Dose: 40 mg Lactated Ringer's (Lactated Ringers 1000 Ml Bag*) 1,000 mls @ 125 mls/hr IV PER RATE [facility] Last Admin: 11/28/18 09:18 Dose: 125 mls/hr Cefazolin Sodium 2 gm/ Sodium (Chloride) 100 mls @ 200 mls/hr IVPB Q8H [facility] Last Admin: 11/28/18 16:30 Dose: 200 mls/hr Magnesium Hydroxide (Milk Of Magnesia Liq*) 30 ml PO Q6H PRN PRN Reason: CONSTIPATION Last Admin: 11/26/18 00:12 Dose: 30 ml Metoprolol Tartrate (Lopressor Tab*) 25 mg PO BID [facility] Last Admin: 11/28/18 08:08 Dose: 25 mg Morphine Sulfate (Morphine Inj (Syringe))*) 2 mg IV Q2H PRN PRN Reason: PAIN Last Admin: 11/28/18 14:55 Dose: 2 mg Multivitamins/Minerals (Theragran/Minerals Tab*) 1 tab PO DAILY [facility] Last Admin: 11/28/18 08:08 Dose: 1 tab Ondansetron HCl (Zofran Inj*) 4 mg IV Q6H PRN PRN Reason: NAUSEA Last Admin: 11/25/18 11:29 Dose: 4 mg Oxycodone HCl (Roxycodone Tab*) 5 mg PO Q3H PRN PRN Reason: PAIN Last Admin: 11/28/18 12:43 Dose: 5 mg Pantoprazole Sodium (Protonix Iv*) 40 mg IV BID [facility] Last Admin: 11/28/18 08:08 Dose: 40 mg Polyethylene Glycol/Electrolytes (Miralax*) 17 gm PO 0800,2100 [facility] Last Admin: 11/28/18 08:08 Dose: 17 gm Senna (Senokot Tab*) 2 tab PO BEDTIME PRN PRN Reason: no DM during day Last Admin: 11/24/18 08:39 Dose: 2 tab Tamsulosin HCl (Flomax Cap*) 0.4 mg PO DAILY [facility] Last Admin: 11/28/18 08:08 Dose: 0.4 mg Vital Signs - 8 hr 11/28/18 11/28/18 11/28/18 11:42 12:43 14:55 Temperature 37.0 C Pulse Rate 70 Respiratory 16 20 18 Rate Blood Pressure 111/58 (mmHg) O2 Sat by Pulse 95 Oximetry 11/28/18 11/28/18 11/28/18 15:31 16:00 16:15 Temperature 36.7 C Pulse Rate 68 Respiratory 18 16 Rate Blood Pressure 121/52 (mmHg) O2 Sat by Pulse 97 97 Oximetry Oxygen Devices in Use Now: None Appearance: alert, no distress Ears/Nose/Mouth/Throat: NL Teeth, Lips, Gums Neck: No Thyroid Enlargement, Masses Respiratory: Symmetrical Chest Expansion and Respiratory Effort Cardiovascular: NL Sounds; No Murmurs; No JVD Abdominal: NL Sounds; No Tenderness; No Distention Extremities: - - RT ankle in external fixator Neurological: Alert and Oriented x 3 Lines/Tubes/Other Access: Clean, Dry and Intact Peripheral IV Nutrition: Taking PO's Result Diagrams: 11/28/18 06:06 11/27/18 05:56 Additional Lab and Data: Laboratory Tests 11/28/18 06:06 Iron 25 L TIBC 171 L % Saturation 15 Unsat Iron Binding < 156 Transferrin 122 L Microbiology and Other Data: Microbiology 11/27/18 15:15 Ankle Right Gram Stain - Final 11/25/18 18:44 Urine Urine Culture - Final No Growth (<1,000 CFU/mL) 11/23/18 10:06 Wound - Ankle Right Anaerobic Culture - Final 11/23/18 10:06 Wound - Ankle Right Fungal Smear - Final 11/20/18 16:40 Ankle Right Skin and Soft Tissue MRSA/MSSA (PCR - Final 11/20/18 16:40 Ankle Right Wound Culture - Final Mrsa Negative S.aureus Positive Staphylococcus Aureus Strep Agalactiae - (Group B) Normal Cynthia 11/27/18 15:15 Wound Anaerobic Culture - Preliminary Assess/Plan/Problems-Billing Assessment: 73 y/o male admitted for right ankle open fracture 2+ weeks old did not seek medical attention at the time of the injury, also had possible SBO. - Patient Problems (1) Open fracture Current Visit: Yes Status: Acute Priority: High Code(s): T14.8XXA - OTHER INJURY OF UNSPECIFIED BODY REGION, INITIAL ENCOUNTER SNOMED Code(s): 844776893 Comment: - Right ankle. Dr. Del Toro performed open reduction and external fixation 11/23/18 - Recultured intraoperatively, growing MSSA. On cefazolin per ID consult recommendations - Returned to OR yesterday for debridement, may need further debridement (2) Ileus Current Visit: Yes Status: Acute Priority: Medium Code(s): K56.7 - ILEUS, UNSPECIFIED SNOMED Code(s): 417122998 Comment: - Ileus clinically resolved - tolerating full diet - increased bowel regimen (3) DVT prophylaxis Current Visit: Yes Status: Acute Priority: Low Code(s): FNR9911 - SNOMED Code(s): 162888769 Comment: - lovenox 40 mg SQ daily restarted (4) Anemia Current Visit: Yes Status: Acute Priority: Medium Code(s): D64.9 - ANEMIA , UNSPECIFIED SNOMED Code(s): 661792583 Comment: -likely multifactorial, due to chronic disease, post-op -B12 low-normal, on supplement -iron studies show chronic disease Status and Disposition: inpatient
[2018-11-28] MEDS: Senna TAB PO PRN (21:53)
[2018-11-28] MEDS: Docusate CAP* 100 MG PO SCH (21:54)
[2018-11-29] MEDS: ceFAZolin VIAL(*) 2 GM in NS 0.9% 100 ML* 100 ML IVPB SCH ×3 (00:28→18:17)
[2018-11-29] MEDS: oxyCODONE TAB* 5 MG TAB PO PRN ×4 (01:03→23:59)
[2018-11-29 07:32] LABS: BUN/Creatinine Ratio 14.9 (8-20); Calcium 7.8 mg/dL (8.6-10.3); EGFR African American 125.1 (>60); EGFR Non-African American 103.4 (>60); Potassium 3.4 mmol/L (3.5-5.0)
[2018-11-29] MEDS: Polyethylene Glycol 3350* 17 GM PACKET PO SCH ×2 (11:44→21:23)
[2018-11-29] MEDS: Metoprolol Tartrate TAB* 25 MG PO SCH ×2 (11:45→21:23)
[2018-11-29] MEDS: Docusate CAP* 100 MG PO SCH ×2 (11:45→19:37)
[2018-11-29] MEDS: Enoxaparin(*) 40 MG/0.4 ML SYR SUBCUT SCH (11:45)
[2018-11-29] MEDS: Cyanocobalamin TAB* 500 MCG PO SCH (11:45)
[2018-11-29] MEDS: Tamsulosin CAP* 0.4 MG PO SCH (11:45)
[2018-11-29] MEDS: Multivitamins/Minerals TAB PO SCH (11:45)
[2018-11-29] MEDS: Pantoprazole IV* 40 MG IV SCH ×2 (11:45→21:23)
--- NOTE | 2018-11-29 16:11 | PN ---
Progress Note - Progress Note Date of Service: 11/29/18 SOAP: Subjective: []Pt seen at bedside. He is feeling well, pain is well controlled. Denies fever , chills, CP, SOB, dizziness, nausea. Objective: []General: Appears well, NAD RLE: Vac suctioning well, Ex fix in place, dressing CDI. Exposed toes with sensation intact to light touch, capillary refill less than two seconds distally , flexion and extension of MTP intact. No erythema proximal to the dressing Left calf supple and nontender Assessment: [] Grade 3 open Right ankle fracture dislocation POD 2 S/P Debridement of ankle joint and replacement of VAC dressing. Plan: []NWB RLE Continue vac cultures from right ankle have now Group S strep, MSSA, MRSA, enterococcus -- ID changed abx to vanco back to OR tomorrow with Dr Del Toro for I&D, vac change Vital Signs Temp 98.4 F 11/29/18 15:31 Pulse 73 11/29/18 15:31 Resp 16 11/29/18 15:36 BP 145/77 11/29/18 15:31 Pulse Ox 93 11/29/18 15:31 Intake & Output 11/28/18 11/29/18 11/29/18 18:59 06:59 18:59 Intake Total 1576 640 540 Output Total 350 1300 2500 Balance 1226 -660 -1960 Intake: IV Fluids 986 140 110 ABX - CEFAZOLIN 120 110 LR 986 NS (0.9%) 20 Oral 590 500 430 Output: Lopez 350 1300 2500 Other: Date of Last Bowel 11/28/18 Movement # Bowel Movements 1 1 Estimated Stool Amount Small Large Laboratory Last Values WBC 14.2 10^3/uL (3.5-10.8) H 11/28/18 06:06 RBC 2.54 10^6 /uL (4.18-5.48) L 11/28/18 06:06 Hgb 8.5 g/dL (14.0-18.0) L 11/28/18 06:06 Hct 25 % (36-46) L 11/28/18 06:06 MCV 98 fL (80-94) H 11/28/18 06:06 MCH 34 pg (27-31) H 11/28/18 06:06 MCHC 34 g/dL (31-36) 11/28/18 06:06 RDW 14 % (10.5-15) 11/28/18 06:06 Plt Count 386 10^3/uL (150-450) 11/28/18 06:06 MPV 7.5 fL (7.4-10.4) 11/28/18 06:06 Neut % (Auto) 79.9 % 11/28/18 06:06 Lymph % (Auto) 7.8 % 11/28/18 06:06 [place] % (Auto) 7.9 % 11/28/18 06:06 Eos % (Auto) 3.6 % 11/28/18 06:06 Baso % (Auto) 0.8 % 11/28/18 06:06 Absolute Neuts (auto) 11.3 10^3/ul (1.5-7.7) H 11/28/18 06:06 Absolute Lymphs (auto) 1.1 10^3/ul (1.0-4.8) 11/28/18 06:06 Absolute Monos (auto) 1.1 10^3/ul (0-0.8) H 11/28/18 06:06 Absolute Eos (auto) 0.5 10^3/ul (0-0.6) 11/28/18 06:06 Absolute Basos (auto) 0.1 10^3/ul (0-0.2) 11/28/18 06:06 Absolute Nucleated RBC 0 10^3/ul 11/28/18 06:06 Nucleated RBC % 0 11/28/18 06:06 INR (Anticoag Therapy) 1.02 (0.77-1.02) 11/23/18 05:56 APTT 32.9 seconds (26.0-36.3) 11/20/18 16:01 Patient Temperature Not Reportable 11/26/18 14:10 ABG pH 7.46 (7.35-7.45) H 11/26/18 14:10 ABG pH (Temp Correct) Not Reportable 11/26/18 14:10 ABG pCO2 39 mmHg (35-45) 11/26/18 14:10 ABG pCO2 (Temp Corrct Not Reportable 11/26/18 14:10 ABG pO2 68 mmHg (80-100) L 11/26/18 14:10 ABG pO2 (Temp Correct Not Reportable 11/26/18 14:10 ABG HCO3 27.7 mmol/L (19-31) 11/26/18 14:10 ABG O2 Saturation 96.2 % (94.0-98.0) 11/26/18 14:10 ABG Base Excess 3.7 mmol/L (-2.0-2.0) H 11/26/18 14:10 Respiration Rate Not Reportable 11/26/18 14:10 O2 Delivery Device oxymask 15 lpm 11/26/18 14:10 Ventilator Type Not Reportable 11/26/18 14:10 Vent Mode Not Reportable 11/26/18 14:10 FiO2 Not Reportable 11/26/18 14:10 Inspiratory Time Not Reportable 11/26/18 14:10 PEEP Not Reportable 11/26/18 14:10 Pressure Support Not Reportable 11/26/18 14:10 Pressure Control Not Reportable 11/26/18 14:10 EPAP Not Reportable 11/26/18 14:10 IPAP Not Reportable 11/26/18 14:10 BiPAP Not Reportable 11/26/18 14:10 Sodium 136 mmol/L (135-145) 11/29/18 06:55 Potassium 3.4 mmol/L (3.5-5.0) L 11/29/18 06:55 Chloride 105 mmol/L (101-111) 11/29/18 06:55 Carbon Dioxide 26 mmol/L (22-32) 11/29/18 06:55 Anion Gap 5 mmol/L (2-11) 11/29/18 06:55 BUN 11 mg/dL (6-24) 11/29/18 06:55 Creatinine 0.74 mg/dL (0.67-1.17) 11/29/18 06:55 Est GFR ( Amer) 125.1 (>60) 11/29/18 06:55 Est GFR (Non-Af Amer) 103.4 (>60) 11/29/18 06:55 BUN/Creatinine Ratio 14.9 (8-20) 11/29/18 06:55 Glucose 94 mg/dL (70-100) 11/29/18 06:55 Lactic Acid 0.8 mmol/L (0.5-2.0) 11/20/18 16:01 Calcium 7.8 mg/dL (8.6-10.3) L 11/29/18 06:55 Phosphorus 2.3 mg/dL (2.5-5.0) L 11/27/18 05:56 Magnesium 2.0 mg/dL (1.9-2.7) 11/27/18 05:56 Iron 25 ug/dL (50-212) L 11/28/18 06:06 TIBC 171 mcg/dL (250-450) L 11/28/18 06:06 % Saturation 15 % (15-55) 11/28/18 06:06 Unsat Iron Binding < 156 ug/dL 11/28/18 06:06 Transferrin 122 mg/dL (203-362) L 11/28/18 06:06 Total Bilirubin 0.40 mg/dL (0.2-1.0) 11/20/18 16:01 AST 14 U/L (13-39) 11/20/18 16:01 ALT 17 U/L (7-52) 11/20/18 16:01 Alkaline Phosphatase 69 U/L (34-104) 11/20/18 16:01 C-Reactive Protein 91.37 mg/L (<8.01) H 11/20/18 16:01 Total Protein 6.9 g/dL (6.4-8.9) 11/20/18 16:01 Albumin 3.1 g/dL (3.2-5.2) L 11/20/18 16:01 Globulin 3.8 g/dL (2-4) 11/20/18 16:01 Albumin/Globulin Ratio 0.8 (1-3) L 11/20/18 16:01 Vitamin B12 231 pg/mL (180-914) 11/20/18 16:01 Methylmalonic Acid 0.40 nmol/mL (<=0.40) 11/20/18 15:49 Folate 18.41 ng/mL (>3.99) 11/20/18 16:01 Urine Color Yellow 11/25/18 18:44 Urine Appearance Cloudy 11/25/18 18:44 Urine pH 5.0 (5-9) 11/25/18 18:44 Ur Specific [place] 1.012 (1.010-1.030) 11/25/18 18:44 Urine Protein Negative (Negative) 11/25/18 18:44 Urine Ketones Negative (Negative) 11/25/18 18:44 Urine Blood 1+ (Negative) A 11/25/18 18:44 Urine Nitrate Negative (Negative) 11/25/18 18:44 Urine Bilirubin Negative (Negative) 11/25/18 18:44 Urine Urobilinogen Negative (Negative) 11/25/18 18:44 Ur Leukocyte Esterase Negative (Negative) 11/25/18 18:44 Urine WBC (Auto) Trace(0-5/hpf) (Absent) 11/25/18 18:44 Urine RBC (Auto) 1+(3-5/hpf) (Absent) A 11/25/18 18:44 Urine Bacteria Absent (Absent) 11/25/18 18:44 Urine Glucose Negative (Negative) 11/25/18 18:44 Vancomycin Trough 7.9 mcg/mL 11/22/18 12:04 Influenza A (Rapid) Negative (Negative) 11/21/18 21:02 Influenza B (Rapid) Negative (Negative) 11/21/18 21:02 Blood Type A Positive 11/22/18 05:41 Antibody Screen Negative 11/22/18 05:41
[2018-11-29] MEDS ORDERED: Vancomycin(*) 1,500 MG in NS 0.9% 250 ML* 250 ML IVPB SCH (18:00)
[2018-11-29] MEDS ORDERED: Vancomycin per Pharmacy* NOTE FOLLOW UP SCH (18:00)
--- NOTE | 2018-11-29 20:21 | PN ---
Subjective Date of Service: 11/29/18 Interval History: Patient has no new complaints. Eating well, had good BM this morning. Minimal pain in RT ankle Family History: Unchanged from Admission - DM, heart disease. Social History: Unchanged from Admission - Never smoked, no alcohol abuse. 2 sons, 2 sisters nearby, one sister is his SDM. Past Medical History: Unchanged from Admission - negative, no surgery, no medical problems Objective Active Medications: Cyanocobalamin (Vitamin B12 Tab*) 1,000 mcg PO DAILY [facility] Last Admin: 11/29/18 11:45 Dose: 1,000 mcg Docusate Sodium (Colace Cap*) 100 mg PO BID [facility] Last Admin: 11/29/18 19:37 Dose: 100 mg Enoxaparin Sodium (Lovenox(*)) 40 mg SUBCUT Q24H [facility] Last Admin: 11/29/18 11:45 Dose: 40 mg Lactated Ringer's (Lactated Ringers 1000 Ml Bag*) 1,000 mls @ 125 mls/hr IV PER RATE [facility] Last Admin: 11/28/18 09:18 Dose: 125 mls/hr Vancomycin HCl 1,500 mg/ (Sodium Chloride) 250 mls @ 166.667 mls/hr IVPB ONCE [facility]; Protocol Last Admin: 11/29/18 18:17 Dose: 166.667 mls/hr Magnesium Hydroxide (Milk Of Magnniles Liq*) 30 ml PO Q6H PRN PRN Reason: CONSTIPATION Last Admin: 11/26/18 00:12 Dose: 30 ml Metoprolol Tartrate (Lopressor Tab*) 25 mg PO BID [facility] Last Admin: 11/29/18 11:45 Dose: 25 mg Morphine Sulfate (Morphine Inj (Syringe))*) 2 mg IV Q2H PRN PRN Reason: PAIN Last Admin: 11/28/18 14:55 Dose: 2 mg Multivitamins/Minerals (Theragran/Minerals Tab*) 1 tab PO DAILY [facility] Last Admin: 11/29/18 11:45 Dose: 1 tab Ondansetron HCl (Zofran Inj*) 4 mg IV Q6H PRN PRN Reason: NAUSEA Last Admin: 11/25/18 11:29 Dose: 4 mg Oxycodone HCl (Roxycodone Tab*) 5 mg PO Q3H PRN PRN Reason: PAIN Last Admin: 11/29/18 19:37 Dose: 5 mg Pantoprazole Sodium (Protonix Iv*) 40 mg IV BID [facility] Last Admin: 11/29/18 11:45 Dose: 40 mg Polyethylene Glycol/Electrolytes (Miralax*) 17 gm PO 0800,2100 [facility] Last Admin: 11/29/18 11:44 Dose: 17 gm Senna (Senokot Tab*) 2 tab PO BEDTIME PRN PRN Reason: no DM during day Last Admin: 11/28/18 21:53 Dose: 2 tab Tamsulosin HCl (Flomax Cap*) 0.4 mg PO DAILY [facility] Last Admin: 11/29/18 11:45 Dose: 0.4 mg Vital Signs - 8 hr 11/29/18 11/29/18 11/29/18 15:25 15:31 15:36 Temperature 36.9 C 36.9 C Pulse Rate 73 73 Respiratory 16 16 16 Rate Blood Pressure 145/77 145/77 (mmHg) O2 Sat by Pulse 93 93 Oximetry 11/29/18 11/29/18 11/29/18 16:00 19:31 19:37 Temperature 37.0 C Pulse Rate 69 Respiratory 16 16 Rate Blood Pressure 144/72 (mmHg) O2 Sat by Pulse 93 94 Oximetry Oxygen Devices in Use Now: None Appearance: alert, no distress Respiratory: Clear to Auscultation Cardiovascular: NL Sounds; No Murmurs; No JVD Abdominal: NL Sounds; No Tenderness; No Distention Extremities: - - RT ankle in external fixator Lines/Tubes/Other Access: Clean, Dry and Intact Peripheral IV Result Diagrams: 11/28/18 06:06 11/29/18 06:55 Microbiology and Other Data: Microbiology 11/27/18 15:15 Ankle Right Gram Stain - Final 11/25/18 18:44 Urine Urine Culture - Final No Growth (<1,000 CFU/mL) 11/23/18 10:06 Wound - Ankle Right Anaerobic Culture - Final 11/23/18 10:06 Wound - Ankle Right Fungal Smear - Final 11/23/18 10:06 Ankle Right Gram Stain - Final 11/23/18 10:06 Ankle Right Wound Culture - Final MRSA Normal Cynthia 11/27/18 15:15 Wound Anaerobic Culture - Preliminary 11/27/18 15:15 Ankle Right Wound Culture - Preliminary Enterococcus Faecalis Assess/Plan/Problems-Billing Assessment: 73 y/o male admitted for right ankle open fracture 2+ weeks old did not seek medical attention at the time of the injury, also had possible SBO, now resolved - Patient Problems (1) Open fracture Current Visit: Yes Status: Acute Priority: High Code(s): T14.8XXA - OTHER INJURY OF UNSPECIFIED BODY REGION, INITIAL ENCOUNTER SNOMED Code(s): 399242010 Comment: - Right ankle. Dr. Del Toro performed open reduction and external fixation 11/23/18 - Recultured intraoperatively, growing MRSA, On vanco per ID consult recommendations - Return to OR tomorrow for 3rd debridement (2) Ileus Current Visit: Yes Status: Acute Priority: Medium Code(s): K56.7 - ILEUS, UNSPECIFIED SNOMED Code(s): 145113655 Comment: - Ileus clinically resolved - tolerating full diet - bowel regimen effective (3) DVT prophylaxis Current Visit: Yes Status: Acute Priority: Low Code(s): CCR9299 - SNOMED Code(s): 103895329 Comment: - lovenox 40 mg SQ daily restarted (4) Anemia Current Visit: Yes Status: Acute Priority: Medium Code(s): D64.9 - ANEMIA , UNSPECIFIED SNOMED Code(s): 145839012 Comment: -likely multifactorial, due to chronic disease, post-op -B12 low-normal, on supplement -iron studies show chronic disease Status and Disposition: inpatient
[2018-11-29] MEDS: Morphine INJ* 2 MG/ML 1 ML SYRINGE (TWO MG - NEW SYRINGE VERSION) IV PRN (21:23)
[2018-11-30] MEDS: Vancomycin(*) 1,000 MG in NS 0.9% 250 ML* 250 ML IVPB SCH ×3 (04:44→19:52)
[2018-11-30] MEDS: Docusate CAP* 100 MG PO SCH ×2 (07:58→21:52)
[2018-11-30] MEDS: Pantoprazole IV* 40 MG IV SCH ×2 (07:58→21:52)
[2018-11-30] MEDS: Multivitamins/Minerals TAB PO SCH (07:59)
[2018-11-30] MEDS: Cyanocobalamin TAB* 500 MCG PO SCH (07:59)
[2018-11-30] MEDS: Metoprolol Tartrate TAB* 25 MG PO SCH ×2 (07:59→21:52)
[2018-11-30] MEDS: oxyCODONE TAB* 5 MG TAB PO PRN ×2 (07:59→21:54)
[2018-11-30] MEDS: Tamsulosin CAP* 0.4 MG PO SCH (07:59)
[2018-11-30] MEDS: Polyethylene Glycol 3350* 17 GM PACKET PO SCH ×2 (08:00→21:52)
[2018-11-30] MEDS: Enoxaparin(*) 40 MG/0.4 ML SYR SUBCUT SCH (08:00)
[2018-11-30] MEDS ORDERED: Ondansetron INJ* 2 MG/ML VIAL ONE (11:51)
[2018-11-30] MEDS ORDERED: Lidocaine 2% PF * 5 ML VIAL ONE ×2 (11:51→13:32)
[2018-11-30] MEDS ORDERED: Propofol* 10 MG/ML 20 ML BTL ONE ×2 (11:51→14:43)
[2018-11-30] MEDS ORDERED: fentaNYL* 50 MCG/ML 2 ML VIAL (100 MCG VIAL) ONE (11:51)
[2018-11-30] MEDS ORDERED: Midazolam* 1 MG/ML 5 ML VIAL (5 MG) ONE ×2 (11:52→14:17)
[2018-11-30] MEDS ORDERED: Buffered Lidocaine 1% SYRIN* 1 ML/SYRINGE INTRADERM ONE (12:46)
[2018-11-30] MEDS ORDERED: Lactated Ringers 1000 ML Bag* 1,000 ML IV SCH (13:00)
[2018-11-30] MEDS ORDERED: Bupivacaine 0.5%* 50 ML VIAL ONE (13:32)
[2018-11-30] MEDS ORDERED: KETAMINE HCL* 50 MG/ML 10 ML VIAL ONE (14:23)
[2018-11-30] MEDS ORDERED: Naloxone* 0.4 MG/ML 1 ML VIAL IV PRN (15:27)
[2018-11-30] MEDS ORDERED: Ondansetron INJ* 2 MG/ML VIAL IV PRN (15:27)
[2018-11-30] MEDS ORDERED: fentaNYL* 50 MCG/ML 2 ML VIAL (100 MCG VIAL) IV PRN (15:27)
--- NOTE | 2018-11-30 16:14 | OP ---
Operative Report - Blank - Operative Report Date of Operation: 11/30/18 Note: PATIENT: Sreedhar Fenton DATE OF : 1945 DATE OF SURGERY: 11/30/2018 SURGEON: Trae Del Toro MD LENDING CONSULTANT: MAI Grove, whos assistance was necessary for positioning, retraction, help with instrumentation, and closure. ANESTHESIOLOGIST: Dr. Saravia PREOPERATIVE DIAGNOSIS: Infected, open right ankle fracture dislocation s/p external fixation and I&D x2 POSTOPERATIVE DIAGNOSIS: Infected, open right ankle fracture dislocation OPERATION: Right ankle irrigation and debridement and placement of wound VAC ANESTHESIA: MAC IMPLANTS: none TOURNIQUET TIME: none SPECIMENS: none ESTIMATED BLOOD LOSS: minimal COMPLICATIONS: none STATUS: Stable from the operating room to the recovery room and then back to the hospital floor. INDICATIONS FOR PROCEDURE: Sreedhar is a patient that had an open right ankle fracture dislocation 3 weeks prior to presentation. One week ago I performed an open reduction of the ankle and placement of an external fixator. I also performed a thorough irrigation and debridement and placed a wound VAC. 3 days ago, my colleague Dr. Shipman, performed a repeat irrigation and debridement and changed the wound VAC. The nature and risks of surgery were again reviewed in careful detail. DESCRIPTION OF PROCEDURE: The patient was seen in the preoperative holding unit and informed written consent was obtained. The appropriate extremity was marked. The patient was then brought to the operating room and carefully positioned on the operating room table. Anesthesia was induced. All bony prominences were padded with great care. A chlorhexidine based pre-scrub was performed followed by a betadine prep and drape in standard sterile fashion. A surgical safety pause was then conducted in which we confirmed the appropriate patient, extremity, planned procedure, availability of equipment, indication and administration of antibiotics, and DVT prophylaxis in the form of a compression boot on the non- surgical extremity. I started by removing the wound VAC. The wound measured 5.5 cm in length by 3 cm in width. The depth was 5 mm. Overall, the quality of the tissue is much improved from a week ago. There was some good granulation tissue starting to form at the base of the wound. There was some nonviable-appearing tissue anteriorly at the wound, which was sharply debrided with a 15 blade scalpel. This included the skin, subcutaneous, fascial, and periosteal/bone layer. The rest of the tissue looked quite good, so the wound was thoroughly irrigated with 3 L of normal saline. I used the fluoroscopy to confirm reduction of the ankle. I then placed a wound VAC, which held good suction and 125 mmHg. The patient was then awakened from anesthesia and transferred to the recovery room in stable condition. There were no complications. All needle and sponge counts were correct at the end of the case. ATTESTATION: I attest I was present and scrubbed and performed the critical portions of the procedure myself. POSTOPERATIVE PLAN: He will be admitted back to the hospital floor and antibiotics will continue per infectious disease. We will plan on a repeat irrigation and debridement and wound VAC change on Tuesday.
[2018-11-30] MEDS ORDERED: Vancomycin Trough Check NOTE FOLLOW UP ONE (18:00)
--- NOTE | 2018-11-30 18:06 | PN ---
Subjective Date of Service: 11/30/18 Interval History: Patient's in ICU last night. He is doing OK, went back to OR today. Was told some new healthy tissue is filling in RT ankle. Denies pain. Family History: Unchanged from Admission - DM, heart disease. Social History: Unchanged from Admission - Never smoked, no alcohol abuse. 2 sons, 2 sisters nearby, one sister is his SDM. Past Medical History: Unchanged from Admission - negative, no surgery, no medical problems Objective Active Medications: Cyanocobalamin (Vitamin B12 Tab*) 1,000 mcg PO DAILY [facility] Last Admin: 11/30/18 07:59 Dose: 1,000 mcg Docusate Sodium (Colace Cap*) 100 mg PO BID [facility] Last Admin: 11/30/18 07:58 Dose: 100 mg Enoxaparin Sodium (Lovenox(*)) 40 mg SUBCUT Q24H [facility] Last Admin: 11/30/18 08:00 Dose: Not Given Lactated Ringer's (Lactated Ringers 1000 Ml Bag*) 1,000 mls @ 125 mls/hr IV PER RATE [facility] Last Admin: 11/28/18 09:18 Dose: 125 mls/hr Vancomycin HCl 1,000 mg/ (Sodium Chloride) 250 mls @ 166.667 mls/hr IVPB Q8H [facility] Last Admin: 11/30/18 13:00 Dose: 166.667 mls/hr Lactated Ringer's (Lactated Ringers 1000 Ml Bag*) 1,000 mls @ 125 mls/hr IV PER RATE [facility] Magnesium Hydroxide (Milk Of Magnesia Liq*) 30 ml PO Q6H PRN PRN Reason: CONSTIPATION Last Admin: 11/26/18 00:12 Dose: 30 ml Metoprolol Tartrate (Lopressor Tab*) 25 mg PO BID [facility] Last Admin: 11/30/18 07:59 Dose: 25 mg Morphine Sulfate (Morphine Inj (Syringe))*) 2 mg IV Q2H PRN PRN Reason: PAIN Last Admin: 11/29/18 21:23 Dose: 2 mg Multivitamins/Minerals (Theragran/Minerals Tab*) 1 tab PO DAILY [facility] Last Admin: 11/30/18 07:59 Dose: 1 tab Ondansetron HCl (Zofran Inj*) 4 mg IV Q6H PRN PRN Reason: NAUSEA Last Admin: 11/25/18 11:29 Dose: 4 mg Oxycodone HCl (Roxycodone Tab*) 5 mg PO Q3H PRN PRN Reason: PAIN Last Admin: 11/30/18 07:59 Dose: 5 mg Pantoprazole Sodium (Protonix Iv*) 40 mg IV BID [facility] Last Admin: 11/30/18 07:58 Dose: 40 mg Pharmacy Consult (Vancomycin Per Pharmacy*) 1 note FOLLOW UP .VANC PER PHARMACY [facility] Polyethylene Glycol/Electrolytes (Miralax*) 17 gm PO 0800,2100 [facility] Last Admin: 11/30/18 08:00 Dose: Not Given Senna (Senokot Tab*) 2 tab PO BEDTIME PRN PRN Reason: no DM during day Last Admin: 11/28/18 21:53 Dose: 2 tab Tamsulosin HCl (Flomax Cap*) 0.4 mg PO DAILY [facility] Last Admin: 11/30/18 07:59 Dose: 0.4 mg Vital Signs - 8 hr 11/30/18 11/30/18 11/30/18 15:31 15:36 15:41 Temperature Pulse Rate 55 56 55 Respiratory Rate Blood Pressure 129/73 117/70 148/71 (mmHg) O2 Sat by Pulse 100 100 100 Oximetry 11/30/18 11/30/18 11/30/18 15:46 16:00 16:10 Temperature 36.6 C Pulse Rate 57 57 Respiratory 15 Rate Blood Pressure 153/91 155/60 (mmHg) O2 Sat by Pulse 99 93 93 Oximetry 11/30/18 11/30/18 17:07 17:49 Temperature 36.9 C Pulse Rate 70 Respiratory 16 15 Rate Blood Pressure 167/89 (mmHg) O2 Sat by Pulse 93 Oximetry Oxygen Devices in Use Now: None Appearance: alert, no distress Neck: Trachea Midline Respiratory: Clear to Auscultation Cardiovascular: NL Sounds; No Murmurs; No JVD Neurological: Alert and Oriented x 3 Lines/Tubes/Other Access: Clean, Dry and Intact Peripheral IV Nutrition: Taking PO's Result Diagrams: 11/28/18 06:06 11/29/18 06:55 Microbiology and Other Data: Microbiology 11/27/18 15:15 Ankle Right Gram Stain - Final 11/23/18 10:06 Wound - Ankle Right Anaerobic Culture - Final 11/23/18 10:06 Wound - Ankle Right Fungal Smear - Final 11/23/18 10:06 Ankle Right Gram Stain - Final 11/23/18 10:06 Ankle Right Wound Culture - Final MRSA Normal Cynthia 11/27/18 15:15 Wound Anaerobic Culture - Preliminary 11/27/18 15:15 Ankle Right Wound Culture - Preliminary Enterococcus Faecalis Assess/Plan/Problems-Billing Assessment: 73 y/o male admitted for right ankle open fracture 2+ weeks old did not seek medical attention at the time of the injury, also had possible SBO, now resolved - Patient Problems (1) Open fracture Current Visit: Yes Status: Acute Priority: High Code(s): T14.8XXA - OTHER INJURY OF UNSPECIFIED BODY REGION, INITIAL ENCOUNTER SNOMED Code(s): 504977008 Comment: - Right ankle. Dr. Del Toro performed open reduction and external fixation 11/23/18 - Recultured intraoperatively, growing MRSA, and enterococcus - On vanco per ID consult recommendations - Returned to OR today for 3rd debridement, has 4th planned next week. - Continue wound vac (2) Ileus Current Visit: Yes Status: Acute Priority: Medium Code(s): K56.7 - ILEUS, UNSPECIFIED SNOMED Code(s): 291071078 Comment: - Ileus clinically resolved - tolerating full diet - bowel regimen effective (3) DVT prophylaxis Current Visit: Yes Status: Acute Priority: Low Code(s): VVA7497 - SNOMED Code(s): 672283064 Comment: - lovenox 40 mg SQ daily restarted (4) Anemia Current Visit: Yes Status: Acute Priority: Medium Code(s): D64.9 - ANEMIA , UNSPECIFIED SNOMED Code(s): 182107960 Comment: -likely multifactorial, due to chronic disease, post-op -B12 low-normal, on supplement -iron studies show chronic disease (5) Hypokalemia Current Visit: Yes Status: Acute Priority: Medium Code(s): E87.6 - HYPOKALEMIA SNOMED Code(s): 26645149 Comment: Will supplement orally and recheck Status and Disposition: inpatient
[2018-11-30] MEDS: Potassium Chlor TAB* 10 MEQ TAB.ER PO SCH (21:52)
[2018-12-01] MEDS: oxyCODONE TAB* 5 MG TAB PO PRN ×4 (00:45→21:13)
[2018-12-01] MEDS: Morphine INJ* 2 MG/ML 1 ML SYRINGE (TWO MG - NEW SYRINGE VERSION) IV PRN (02:47)
[2018-12-01] MEDS: Vancomycin(*) 1,000 MG in NS 0.9% 250 ML* 250 ML IVPB SCH ×3 (02:47→18:57)
[2018-12-01 07:13] LABS: ABS Basophils 0.1 10^3/ul (0-0.2); ABS Eosinophils 0.4 10^3/ul (0-0.6); ABS Lymphocytes 1.5 10^3/ul (1.0-4.8); ABS Neutrophils 8.5 10^3/ul (1.5-7.7); ABS Nucleated RBC 0 10^3/ul; Eosinophil % 3.6 %; Hematocrit 28 % (36-46); Hemoglobin 9.5 g/dL (14.0-18.0); Lymphocyte % 12.9 %; Mean Corpuscular HGB Conc 35 g/dL (31-36); Mean Corpuscular Hemoglobin 34 pg (27-31); Mean Corpuscular Volume 99 fL (80-94); Mean Platelet Volume 7.5 fL (7.4-10.4); Nucleated Red Blood Cells % 0; Platelet Count 395 10^3/uL (150-450); Red Blood Count 2.79 10^6 /uL (4.18-5.48); Red Cell Distribution Width 14 % (10.5-15); White Blood Count 11.5 10^3/uL (3.5-10.8)
[2018-12-01 07:47] LABS: BUN/Creatinine Ratio 18.1 (8-20); C Reactive Protein 83.52 mg/L (<8.01); Calcium 7.9 mg/dL (8.6-10.3); EGFR African American 109.6 (>60); EGFR Non-African American 90.6 (>60); Magnesium 1.7 mg/dL (1.9-2.7)
[2018-12-01] MEDS: Polyethylene Glycol 3350* 17 GM PACKET PO SCH ×2 (08:54→21:13)
[2018-12-01] MEDS: Enoxaparin(*) 40 MG/0.4 ML SYR SUBCUT SCH (08:54)
[2018-12-01] MEDS: Docusate CAP* 100 MG PO SCH ×2 (08:54→21:12)
[2018-12-01] MEDS: Multivitamins/Minerals TAB PO SCH (08:54)
[2018-12-01] MEDS: Pantoprazole IV* 40 MG IV SCH ×2 (08:54→21:13)
[2018-12-01] MEDS: Metoprolol Tartrate TAB* 25 MG PO SCH ×2 (08:54→21:13)
[2018-12-01] MEDS: Cyanocobalamin TAB* 500 MCG PO SCH (08:55)
[2018-12-01] MEDS: Potassium Chlor TAB* 10 MEQ TAB.ER PO SCH ×2 (08:55→21:13)
[2018-12-01] MEDS: Tamsulosin CAP* 0.4 MG PO SCH (08:55)
--- NOTE | 2018-12-01 10:23 | PN ---
Progress Note - Progress Note Date of Service: 12/01/18 SOAP: Subjective: []Patient seen at bedside, pain managed. Wound vac working. No new complaints. Objective: [] Vital Signs Temp 98.4 F 12/01/18 08:00 Pulse 63 12/01/18 08:00 Resp 18 12/01/18 08:54 BP 140/75 12/01/18 08:00 Pulse Ox 98 12/01/18 08:00 Intake & Output 11/30/18 12/01/18 12/01/18 18:59 06:59 18:59 Intake Total 1100 1210 Output Total 1000 1000 0 Balance 100 210 0 Weight 184 lb 15.485 oz Intake: IV Fluids 500 610 ABX - VANCOMYCIN 560 LR 500 NS (0.9%) 50 Oral 600 600 Output: Lopez 1000 1000 0 Other: # Bowel Movements 1 Estimated Stool Amount Small Laboratory Results - last 24 hr 11/30/18 12/01/18 12/01/18 17:47 06:42 06:42 WBC 11.5 H RBC 2.79 L Hgb 9.5 L Hct 28 L MCV 99 H MCH 34 H MCHC 35 RDW 14 Plt Count 395 MPV 7.5 Neut % (Auto) 74.0 Lymph % (Auto) 12.9 Bertie % (Auto) 8.4 Eos % (Auto) 3.6 Baso % (Auto) 1.1 Absolute Neuts (auto) 8.5 H Absolute Lymphs (auto) 1.5 Absolute Monos (auto) 1.0 H Absolute Eos (auto) 0.4 Absolute Basos (auto) 0.1 Absolute Nucleated RBC 0 Nucleated RBC % 0 Sodium 137 Potassium 4.0 Chloride 106 Carbon Dioxide 24 Anion Gap 7 BUN 15 Creatinine 0.83 Est GFR ( Amer) 109.6 Est GFR (Non-Af Amer) 90.6 BUN/Creatinine Ratio 18.1 Glucose 104 H Calcium 7.9 L Magnesium 1.7 L C-Reactive Protein 83.52 H Vancomycin Trough 19.1 right leg wound dressings are dry, wound vac working well toes with edema, slight movement sensation intact Assessment: []s/p Ex fix open ankle fx, multiple debridements and wound vac change for infected ankle, last done, 11/30/18 Plan: []NWB RLE Wound vac- probable return to OR Tuesday [facility]
--- NOTE | 2018-12-01 14:03 | PN ---
Progress Note - Progress Note Date of Service: 12/01/18 SOAP: Subjective: CC: Open right ankle fracture HPI: Mr. Fenton is a 73 yo male with no significant PMH who presented to the emergency room for an open right ankle fracture that occurred 2-3 weeks prior to his presentation to the hospital. Denies fever, chills, shortness of breath , nausea, vomiting or diarrhea. He states that he has not moved his bowels in a few days, but doesn't feel constipated. Objective: Vital Signs 12/01/18 12/01/18 12/01/18 08:00 08:54 11:30 Temperature 98.4 F 98.6 F Pulse Rate 63 64 Respiratory 18 18 18 Rate Blood Pressure 140/75 156/70 (mmHg) O2 Sat by Pulse 98 94 Oximetry Physical Exam: General: NAD, laying in bed Neurological: Alert and Oriented x4 Cardiovascular: Heart rate regular Respiratory: Lung sounds clear Abdominal: Bowel sounds hypoactive, ABD soft, non tender and non distended Skin: No rashes seen, KAYLEEN wrap and external fixator in place to the right LE Laboratory Last Values WBC 11.5 10^3/uL (3.5-10.8) H 12/01/18 06:42 RBC 2.79 10^6 /uL (4.18-5.48) L 12/01/18 06:42 Hgb 9.5 g/dL (14.0-18.0) L 12/01/18 06:42 Hct 28 % (36-46) L 12/01/18 06:42 MCV 99 fL (80-94) H 12/01/18 06:42 MCH 34 pg (27-31) H 12/01/18 06:42 MCHC 35 g/dL (31-36) 12/01/18 06:42 RDW 14 % (10.5-15) 12/01/18 06:42 Plt Count 395 10^3/uL (150-450) 12/01/18 06:42 MPV 7.5 fL (7.4-10.4) 12/01/18 06:42 Neut % (Auto) 74.0 % 12/01/18 06:42 Lymph % (Auto) 12.9 % 12/01/18 06:42 Tyler % (Auto) 8.4 % 12/01/18 06:42 Eos % (Auto) 3.6 % 12/01/18 06:42 Baso % (Auto) 1.1 % 12/01/18 06:42 Absolute Neuts (auto) 8.5 10^3/ul (1.5-7.7) H 12/01/18 06:42 Absolute Lymphs (auto) 1.5 10^3/ul (1.0-4.8) 12/01/18 06:42 Absolute Monos (auto) 1.0 10^3/ul (0-0.8) H 12/01/18 06:42 Absolute Eos (auto) 0.4 10^3/ul (0-0.6) 12/01/18 06:42 Absolute Basos (auto) 0.1 10^3/ul (0-0.2) 12/01/18 06:42 Absolute Nucleated RBC 0 10^3/ul 12/01/18 06:42 Nucleated RBC % 0 12/01/18 06:42 INR (Anticoag Therapy) 1.02 (0.77-1.02) 11/23/18 05:56 APTT 32.9 seconds (26.0-36.3) 11/20/18 16:01 Patient Temperature Not Reportable 11/26/18 14:10 ABG pH 7.46 (7.35-7.45) H 11/26/18 14:10 ABG pH (Temp Correct) Not Reportable 11/26/18 14:10 ABG pCO2 39 mmHg (35-45) 11/26/18 14:10 ABG pCO2 (Temp Corrct Not Reportable 11/26/18 14:10 ABG pO2 68 mmHg (80-100) L 11/26/18 14:10 ABG pO2 (Temp Correct Not Reportable 11/26/18 14:10 ABG HCO3 27.7 mmol/L (19-31) 11/26/18 14:10 ABG O2 Saturation 96.2 % (94.0-98.0) 11/26/18 14:10 ABG Base Excess 3.7 mmol/L (-2.0-2.0) H 11/26/18 14:10 Respiration Rate Not Reportable 11/26/18 14:10 O2 Delivery Device oxymask 15 lpm 11/26/18 14:10 Ventilator Type Not Reportable 11/26/18 14:10 Vent Mode Not Reportable 11/26/18 14:10 FiO2 Not Reportable 11/26/18 14:10 Inspiratory Time Not Reportable 11/26/18 14:10 PEEP Not Reportable 11/26/18 14:10 Pressure Support Not Reportable 11/26/18 14:10 Pressure Control Not Reportable 11/26/18 14:10 EPAP Not Reportable 11/26/18 14:10 IPAP Not Reportable 11/26/18 14:10 BiPAP Not Reportable 11/26/18 14:10 Sodium 137 mmol/L (135-145) 12/01/18 06:42 Potassium 4.0 mmol/L (3.5-5.0) 12/01/18 06:42 Chloride 106 mmol/L (101-111) 12/01/18 06:42 Carbon Dioxide 24 mmol/L (22-32) 12/01/18 06:42 Anion Gap 7 mmol/L (2-11) 12/01/18 06:42 BUN 15 mg/dL (6-24) 12/01/18 06:42 Creatinine 0.83 mg/dL (0.67-1.17) 12/01/18 06:42 Est GFR ( Amer) 109.6 (>60) 12/01/18 06:42 Est GFR (Non-Af Amer) 90.6 (>60) 12/01/18 06:42 BUN/Creatinine Ratio 18.1 (8-20) 12/01/18 06:42 Glucose 104 mg/dL (70-100) H 12/01/18 06:42 Lactic Acid 0.8 mmol/L (0.5-2.0) 11/20/18 16:01 Calcium 7.9 mg/dL (8.6-10.3) L 12/01/18 06:42 Phosphorus 2.3 mg/dL (2.5-5.0) L 11/27/18 05:56 Magnesium 1.7 mg/dL (1.9-2.7) L 12/01/18 06:42 Iron 25 ug/dL (50-212) L 11/28/18 06:06 TIBC 171 mcg/dL (250-450) L 11/28/18 06:06 % Saturation 15 % (15-55) 11/28/18 06:06 Unsat Iron Binding < 156 ug/dL 11/28/18 06:06 Transferrin 122 mg/dL (203-362) L 11/28/18 06:06 Total Bilirubin 0.40 mg/dL (0.2-1.0) 11/20/18 16:01 AST 14 U/L (13-39) 11/20/18 16:01 ALT 17 U/L (7-52) 11/20/18 16:01 Alkaline Phosphatase 69 U/L (34-104) 11/20/18 16:01 C-Reactive Protein 83.52 mg/L (<8.01) H 12/01/18 06:42 Total Protein 6.9 g/dL (6.4-8.9) 11/20/18 16:01 Albumin 3.1 g/dL (3.2-5.2) L 11/20/18 16:01 Globulin 3.8 g/dL (2-4) 11/20/18 16:01 Albumin/Globulin Ratio 0.8 (1-3) L 11/20/18 16:01 Vitamin B12 231 pg/mL (180-914) 11/20/18 16:01 Methylmalonic Acid 0.40 nmol/mL (<=0.40) 11/20/18 15:49 Folate 18.41 ng/mL (>3.99) 11/20/18 16:01 Urine Color Yellow 11/25/18 18:44 Urine Appearance Cloudy 11/25/18 18:44 Urine pH 5.0 (5-9) 11/25/18 18:44 Ur Specific Hardwick 1.012 (1.010-1.030) 11/25/18 18:44 Urine Protein Negative (Negative) 11/25/18 18:44 Urine Ketones Negative (Negative) 11/25/18 18:44 Urine Blood 1+ (Negative) A 11/25/18 18:44 Urine Nitrate Negative (Negative) 11/25/18 18:44 Urine Bilirubin Negative (Negative) 11/25/18 18:44 Urine Urobilinogen Negative (Negative) 11/25/18 18:44 Ur Leukocyte Esterase Negative (Negative) 11/25/18 18:44 Urine WBC (Auto) Trace(0-5/hpf) (Absent) 11/25/18 18:44 Urine RBC (Auto) 1+(3-5/hpf) (Absent) A 11/25/18 18:44 Urine Bacteria Absent (Absent) 11/25/18 18:44 Urine Glucose Negative (Negative) 11/25/18 18:44 Vancomycin Trough 19.1 mcg/mL 11/30/18 17:47 Influenza A (Rapid) Negative (Negative) 11/21/18 21:02 Influenza B (Rapid) Negative (Negative) 11/21/18 21:02 Blood Type A Positive 11/22/18 05:41 Antibody Screen Negative 11/22/18 05:41 Microbiology 11/27/18 15:15 Anaerobic Culture - Final Wound 11/27/18 15:15 Gram Stain - Final Ankle Right Wound Culture - Final Enterococcus Faecalis 11/23/18 10:06 Gram Stain - Final Ankle Right Wound Culture - Final MRSA Normal Cynthia 11/25/18 18:44 Urine Culture - Final Urine No Growth (<1,000 CFU/mL) 11/23/18 10:06 Anaerobic Culture - Final Wound - Ankle Right Fungal Smear - Final 11/20/18 16:01 Aerobic Blood Culture - Final Blood Venous No Growth Day 5 Anaerobic Blood Culture - Final No Growth Day 5 11/20/18 15:36 Aerobic Blood Culture - Final Blood Venous No Growth Day 5 Anaerobic Blood Culture - Final No Growth Day 5 11/20/18 16:40 Skin and Soft Tissue MRSA/MSSA (PCR - Final Ankle Right Mrsa Negative S.aureus Positive Gram Stain - Final Wound Culture - Final Staphylococcus Aureus Strep Agalactiae - (Group B) Normal Cynthia Assessment: 1. Open right ankle fracture. S/P wound debridement, open reduction and external fixation, POD #8. S/P debridement of ankle joint and replacement of VAC dressing, POD #4. S/P wound debridement and wound vac dressing change, POD # 1. Suspect he has an acute osteomyelitis based on the length of time he had an open fracture and MRI findings. Wound cultures obtained on admission showing MSSA and Strep Agalactiae (Group B). Wound cultures obtained while in the OR on 11/23/18 showing MRSA, and no fungal organisms. Repeat cultures obtained 11/27/18 in surgery, showing Enterococcus Faecalis. Afebrile and continues to have leukocytosis, but improving. Blood cultures with no growth on day 5. 2. Thrombocytosis. Resolved 3. Fecal impaction and ileus. S/P digital disimpaction and NG tube placement, NG removed. Resolved 4. Macrocytosis. Started on Vit B12 and multivitamin Plan: Continue Vancomycin. Vanco trough goal 15-20. Will require a total of 4 weeks of IV ABX. Should have weekly labs: CBC, CMP, CRP.
[2018-12-01] MEDS ORDERED: Lactated Ringers 1000 ML Bag* 1,000 ML IV SCH (18:45)
--- NOTE | 2018-12-01 18:56 | PN ---
Subjective Date of Service: 12/01/18 Interval History: Pain control OK, Appetite OK. No bowel c/o. No new c/o. Family History: Unchanged from Admission - DM, heart disease. Social History: Unchanged from Admission - Never smoked, no alcohol abuse. 2 sons, 2 sisters nearby, one sister is his SDM. Past Medical History: Unchanged from Admission - negative, no surgery, no medical problems Objective Active Medications: Cyanocobalamin (Vitamin B12 Tab*) 1,000 mcg PO DAILY [facility] Last Admin: 12/01/18 08:55 Dose: 1,000 mcg Docusate Sodium (Colace Cap*) 100 mg PO BID [facility] Last Admin: 12/01/18 08:54 Dose: 100 mg Enoxaparin Sodium (Lovenox(*)) 40 mg SUBCUT Q24H [facility] Last Admin: 12/01/18 08:54 Dose: 40 mg Vancomycin HCl 1,000 mg/ (Sodium Chloride) 250 mls @ 166.667 mls/hr IVPB Q8H [facility] Last Admin: 12/01/18 10:30 Dose: 166.667 mls/hr Lactated Ringer's (Lactated Ringers 1000 Ml Bag*) 1,000 mls @ 60 mls/hr IV PER RATE [facility] Magnesium Hydroxide (Milk Of Magnniles Liq*) 30 ml PO Q6H PRN PRN Reason: CONSTIPATION Last Admin: 11/26/18 00:12 Dose: 30 ml Magnesium Oxide (Magox 400 Tab*) 400 mg PO DAILY [facility] Metoprolol Tartrate (Lopressor Tab*) 25 mg PO BID [facility] Last Admin: 12/01/18 08:54 Dose: 25 mg Multivitamins/Minerals (Theragran/Minerals Tab*) 1 tab PO DAILY [facility] Last Admin: 12/01/18 08:54 Dose: 1 tab Ondansetron HCl (Zofran Inj*) 4 mg IV Q6H PRN PRN Reason: NAUSEA Last Admin: 11/25/18 11:29 Dose: 4 mg Oxycodone HCl (Roxycodone Tab*) 5 mg PO Q3H PRN PRN Reason: PAIN Last Admin: 12/01/18 15:08 Dose: 5 mg Pantoprazole Sodium (Protonix Iv*) 40 mg IV BID [facility] Last Admin: 12/01/18 08:54 Dose: 40 mg Pharmacy Consult (Vancomycin Per Pharmacy*) 1 note FOLLOW UP .VANC PER PHARMACY [facility] Polyethylene Glycol/Electrolytes (Miralax*) 17 gm PO 0800,2100 [facility] Last Admin: 12/01/18 08:54 Dose: 17 gm Potassium Chloride (Klor Con Er Tab*) 10 meq PO BID [facility] Last Admin: 12/01/18 08:55 Dose: 10 meq Senna (Senokot Tab*) 2 tab PO BEDTIME PRN PRN Reason: no DM during day Last Admin: 11/28/18 21:53 Dose: 2 tab Tamsulosin HCl (Flomax Cap*) 0.4 mg PO DAILY [facility] Last Admin: 12/01/18 08:55 Dose: 0.4 mg Vital Signs - 8 hr 12/01/18 12/01/18 12/01/18 11:30 15:08 15:33 Temperature 98.6 F 98.3 F Pulse Rate 64 67 Respiratory 18 18 20 Rate Blood Pressure 156/70 154/74 (mmHg) O2 Sat by Pulse 94 92 Oximetry 12/01/18 12/01/18 16:00 17:04 Temperature Pulse Rate Respiratory 18 Rate Blood Pressure (mmHg) O2 Sat by Pulse 92 Oximetry Oxygen Devices in Use Now: None Appearance: Alert, partly up in bed. Neutral affect, looks comfortable. Eyes: No Scleral Icterus Extremities: No Clubbing, Cyanosis, - - R leg in external fixation device, wrapped. Skin: No Rash or Ulcers, No Nodules or Sclerosis Neurological: Alert and Oriented x 3, NL Sensation Result Diagrams: 12/01/18 06:42 12/01/18 06:42 Additional Lab and Data: Laboratory Tests 11/28/18 06:06 Iron 25 L TIBC 171 L % Saturation 15 Unsat Iron Binding < 156 Transferrin 122 L Microbiology and Other Data: Microbiology 11/27/18 15:15 Ankle Right Gram Stain - Final 11/23/18 10:06 Wound - Ankle Right Anaerobic Culture - Final 11/23/18 10:06 Wound - Ankle Right Fungal Smear - Final 11/23/18 10:06 Ankle Right Gram Stain - Final 11/23/18 10:06 Ankle Right Wound Culture - Final MRSA Normal Cynthia 11/27/18 15:15 Wound Anaerobic Culture - Preliminary 11/27/18 15:15 Ankle Right Wound Culture - Preliminary Enterococcus Faecalis Assess/Plan/Problems-Billing Assessment: 73 y/o male admitted for right ankle open fracture 2+ weeks old did not seek medical attention at the time of the injury, also had possible SBO, now resolved - Patient Problems (1) Open fracture Current Visit: Yes Status: Acute Priority: High Code(s): T14.8XXA - OTHER INJURY OF UNSPECIFIED BODY REGION, INITIAL ENCOUNTER SNOMED Code(s): 038211025 Comment: - Right ankle. Dr. Del Toro performed open reduction and external fixation 11/23/18 - Recultured intraoperatively, growing MRSA, and enterococcus - On vanco per ID consult recommendations - Returned to OR 11/30 for 3rd debridement, has 4th planned depending on C&S(?). - Continue wound vac (2) Macrocytosis Current Visit: Yes Status: Acute Code(s): D75.89 - OTHER SPECIFIED DISEASES OF BLOOD AND BLOOD-FORMING ORGANS SNOMED Code(s): 033955696 Comment: - B12 in low normal range (231). Methylmalonic acid level borderline, continue B12 po. Status and Disposition: inpatient
[2018-12-01] MEDS: Magnesium Oxide TAB* 400 MG PO SCH (21:12)
[2018-12-02] MEDS: oxyCODONE TAB* 5 MG TAB PO PRN ×3 (00:11→20:39)
[2018-12-02] MEDS: Vancomycin(*) 1,000 MG in NS 0.9% 250 ML* 250 ML IVPB SCH ×3 (02:09→18:32)
[2018-12-02] MEDS: Potassium Chlor TAB* 10 MEQ TAB.ER PO SCH (09:00)
[2018-12-02] MEDS: Metoprolol Tartrate TAB* 25 MG PO SCH ×2 (09:00→20:39)
[2018-12-02] MEDS: Cyanocobalamin TAB* 500 MCG PO SCH (09:01)
[2018-12-02] MEDS: Tamsulosin CAP* 0.4 MG PO SCH (09:01)
[2018-12-02] MEDS: Docusate CAP* 100 MG PO SCH ×2 (09:01→20:39)
[2018-12-02] MEDS: Magnesium Oxide TAB* 400 MG PO SCH (09:01)
[2018-12-02] MEDS: Polyethylene Glycol 3350* 17 GM PACKET PO SCH ×2 (09:02→20:39)
[2018-12-02] MEDS: Pantoprazole IV* 40 MG IV SCH (09:03)
[2018-12-02] MEDS: Enoxaparin(*) 40 MG/0.4 ML SYR SUBCUT SCH (09:06)
--- NOTE | 2018-12-02 15:05 | PN ---
Subjective Date of Service: 12/02/18 Interval History: Pain control good. Appetite OK. No bowel c/o, drinks prune juice. OOB several hours today so far. Family History: Unchanged from Admission - DM, heart disease. Social History: Unchanged from Admission - Never smoked, no alcohol abuse. 2 sons, 2 sisters nearby, one sister is his SDM. Past Medical History: Unchanged from Admission - negative, no surgery, no medical problems Objective Active Medications: Cyanocobalamin (Vitamin B12 Tab*) 1,000 mcg PO DAILY [facility] Last Admin: 12/02/18 09:01 Dose: 1,000 mcg Docusate Sodium (Colace Cap*) 100 mg PO BID [facility] Last Admin: 12/02/18 09:01 Dose: 100 mg Enoxaparin Sodium (Lovenox(*)) 40 mg SUBCUT Q24H [facility] Last Admin: 12/02/18 09:06 Dose: 40 mg Vancomycin HCl 1,000 mg/ (Sodium Chloride) 250 mls @ 166.667 mls/hr IVPB Q8H [facility] Last Admin: 12/02/18 09:07 Dose: 166.667 mls/hr Lactated Ringer's (Lactated Ringers 1000 Ml Bag*) 1,000 mls @ 60 mls/hr IV PER RATE [facility] Magnesium Hydroxide (Milk Of Magnesia Liq*) 30 ml PO Q6H PRN PRN Reason: CONSTIPATION Last Admin: 11/26/18 00:12 Dose: 30 ml Magnesium Oxide (Magox 400 Tab*) 400 mg PO DAILY [facility] Last Admin: 12/02/18 09:01 Dose: 400 mg Metoprolol Tartrate (Lopressor Tab*) 25 mg PO BID [facility] Last Admin: 12/02/18 09:00 Dose: 25 mg Ondansetron HCl (Zofran Inj*) 4 mg IV Q6H PRN PRN Reason: NAUSEA Last Admin: 11/25/18 11:29 Dose: 4 mg Oxycodone HCl (Roxycodone Tab*) 5 mg PO Q3H PRN PRN Reason: PAIN Last Admin: 12/02/18 13:48 Dose: 5 mg Pharmacy Consult (Vancomycin Per Pharmacy*) 1 note FOLLOW UP .VANC PER PHARMACY [facility] Pharmacy Profile Note (Vancomycin Trough Check) 1 note FOLLOW UP ONCE ONE Stop: 12/04/18 09:31 Polyethylene Glycol/Electrolytes (Miralax*) 17 gm PO 0800,2100 [facility] Last Admin: 12/02/18 09:02 Dose: 17 gm Potassium Chloride (Klor Con Er Tab*) 10 meq PO DAILY [facility] Senna (Senokot Tab*) 2 tab PO BEDTIME PRN PRN Reason: no DM during day Last Admin: 11/28/18 21:53 Dose: 2 tab Tamsulosin HCl (Flomax Cap*) 0.4 mg PO DAILY [facility] Last Admin: 12/02/18 09:01 Dose: 0.4 mg Vital Signs - 8 hr 12/02/18 12/02/18 12/02/18 07:44 09:14 11:13 Temperature 97.4 F 98.5 F Pulse Rate 60 62 Respiratory 18 18 18 Rate Blood Pressure 160/70 161/72 (mmHg) O2 Sat by Pulse 95 95 93 Oximetry 12/02/18 13:48 Temperature Pulse Rate Respiratory 16 Rate Blood Pressure (mmHg) O2 Sat by Pulse Oximetry Oxygen Devices in Use Now: None Appearance: Alert partly up in bed. In good spirits. Looks comfortable. Eyes: No Scleral Icterus Extremities: No Edema, No Clubbing, Cyanosis, - Skin: No Rash or Ulcers, No Nodules or Sclerosis, - Neurological: Alert and Oriented x 3, NL Sensation Result Diagrams: 12/01/18 06:42 12/01/18 06:42 Additional Lab and Data: Laboratory Tests 11/28/18 06:06 Iron 25 L TIBC 171 L % Saturation 15 Unsat Iron Binding < 156 Transferrin 122 L Microbiology and Other Data: Microbiology 11/27/18 15:15 Ankle Right Gram Stain - Final 11/23/18 10:06 Wound - Ankle Right Anaerobic Culture - Final 11/23/18 10:06 Wound - Ankle Right Fungal Smear - Final 11/23/18 10:06 Ankle Right Gram Stain - Final 11/23/18 10:06 Ankle Right Wound Culture - Final MRSA Normal Cynthia 11/27/18 15:15 Wound Anaerobic Culture - Preliminary 11/27/18 15:15 Ankle Right Wound Culture - Preliminary Enterococcus Faecalis Assess/Plan/Problems-Billing Assessment: 73 y/o male admitted for right ankle open fracture 2+ weeks old did not seek medical attention at the time of the injury, also had possible SBO, now resolved - Patient Problems (1) Open fracture Current Visit: Yes Status: Acute Priority: High Code(s): T14.8XXA - OTHER INJURY OF UNSPECIFIED BODY REGION, INITIAL ENCOUNTER SNOMED Code(s): 587663003 Comment: - Right ankle. Dr. Del Toro performed open reduction and external fixation 11/23/18 - Recultured intraoperatively, growing MRSA, and enterococcus - On vanco per ID consult recommendations - Returned to OR 11/30 for 3rd debridement, has 4th planned depending on C&S(?). - Continue wound vac (2) Macrocytosis Current Visit: Yes Status: Acute Code(s): D75.89 - OTHER SPECIFIED DISEASES OF BLOOD AND BLOOD-FORMING ORGANS SNOMED Code(s): 609315131 Comment: - B12 in low normal range (231). Methylmalonic acid level borderline, continue B12 po. Status and Disposition: inpatient
--- NOTE | 2018-12-02 15:13 | PN ---
Subjective Date of Service: 12/02/18 Interval History: See earlier note today. Family History: Unchanged from Admission - DM, heart disease. Social History: Unchanged from Admission - Never smoked, no alcohol abuse. 2 sons, 2 sisters nearby, one sister is his SDM. Past Medical History: Unchanged from Admission - negative, no surgery, no medical problems Objective Active Medications: Cyanocobalamin (Vitamin B12 Tab*) 1,000 mcg PO DAILY [facility] Last Admin: 12/02/18 09:01 Dose: 1,000 mcg Docusate Sodium (Colace Cap*) 100 mg PO BID [facility] Last Admin: 12/02/18 09:01 Dose: 100 mg Enoxaparin Sodium (Lovenox(*)) 40 mg SUBCUT Q24H [facility] Last Admin: 12/02/18 09:06 Dose: 40 mg Vancomycin HCl 1,000 mg/ (Sodium Chloride) 250 mls @ 166.667 mls/hr IVPB Q8H [facility] Last Admin: 12/02/18 09:07 Dose: 166.667 mls/hr Lactated Ringer's (Lactated Ringers 1000 Ml Bag*) 1,000 mls @ 60 mls/hr IV PER RATE [facility] Magnesium Hydroxide (Milk Of Magnesia Liq*) 30 ml PO Q6H PRN PRN Reason: CONSTIPATION Last Admin: 11/26/18 00:12 Dose: 30 ml Magnesium Oxide (Magox 400 Tab*) 400 mg PO DAILY [facility] Last Admin: 12/02/18 09:01 Dose: 400 mg Metoprolol Tartrate (Lopressor Tab*) 25 mg PO BID [facility] Last Admin: 12/02/18 09:00 Dose: 25 mg Ondansetron HCl (Zofran Inj*) 4 mg IV Q6H PRN PRN Reason: NAUSEA Last Admin: 11/25/18 11:29 Dose: 4 mg Oxycodone HCl (Roxycodone Tab*) 5 mg PO Q3H PRN PRN Reason: PAIN Last Admin: 12/02/18 13:48 Dose: 5 mg Pharmacy Consult (Vancomycin Per Pharmacy*) 1 note FOLLOW UP .VANC PER PHARMACY [facility] Pharmacy Profile Note (Vancomycin Trough Check) 1 note FOLLOW UP ONCE ONE Stop: 12/04/18 09:31 Polyethylene Glycol/Electrolytes (Miralax*) 17 gm PO 0800,2100 [facility] Last Admin: 12/02/18 09:02 Dose: 17 gm Potassium Chloride (Klor Con Er Tab*) 10 meq PO DAILY [facility] Senna (Senokot Tab*) 2 tab PO BEDTIME PRN PRN Reason: no DM during day Last Admin: 11/28/18 21:53 Dose: 2 tab Tamsulosin HCl (Flomax Cap*) 0.4 mg PO DAILY [facility] Last Admin: 12/02/18 09:01 Dose: 0.4 mg Vital Signs - 8 hr 12/02/18 12/02/18 12/02/18 07:44 09:14 11:13 Temperature 97.4 F 98.5 F Pulse Rate 60 62 Respiratory 18 18 18 Rate Blood Pressure 160/70 161/72 (mmHg) O2 Sat by Pulse 95 95 93 Oximetry 12/02/18 13:48 Temperature Pulse Rate Respiratory 16 Rate Blood Pressure (mmHg) O2 Sat by Pulse Oximetry Oxygen Devices in Use Now: None Result Diagrams: 12/01/18 06:42 12/01/18 06:42 Additional Lab and Data: Laboratory Tests 11/28/18 06:06 Iron 25 L TIBC 171 L % Saturation 15 Unsat Iron Binding < 156 Transferrin 122 L Microbiology and Other Data: Microbiology 11/27/18 15:15 Ankle Right Gram Stain - Final 11/23/18 10:06 Wound - Ankle Right Anaerobic Culture - Final 11/23/18 10:06 Wound - Ankle Right Fungal Smear - Final 11/23/18 10:06 Ankle Right Gram Stain - Final 11/23/18 10:06 Ankle Right Wound Culture - Final MRSA Normal Cynthia 11/27/18 15:15 Wound Anaerobic Culture - Preliminary 11/27/18 15:15 Ankle Right Wound Culture - Preliminary Enterococcus Faecalis Assess/Plan/Problems-Billing Assessment: 73 y/o male admitted for right ankle open fracture 2+ weeks old did not seek medical attention at the time of the injury, also had possible SBO, now resolved - Patient Problems (1) Open fracture Current Visit: Yes Status: Acute Priority: High Code(s): T14.8XXA - OTHER INJURY OF UNSPECIFIED BODY REGION, INITIAL ENCOUNTER SNOMED Code(s): 822907993 Comment: - Right ankle. Dr. Del Toro performed open reduction and external fixation 11/23/18 - Recultured intraoperatively, growing MRSA, and enterococcus - On vanco per ID consult recommendations - Returned to OR 11/30 for 3rd debridement, has 4th planned depending on C&S(?). - Continue wound vac (2) Macrocytosis Current Visit: Yes Status: Acute Code(s): D75.89 - OTHER SPECIFIED DISEASES OF BLOOD AND BLOOD-FORMING ORGANS SNOMED Code(s): 547872074 Comment: - B12 in low normal range (231). Methylmalonic acid level borderline, continue B12 po. (3) Urinary retention Current Visit: Yes Status: Acute Code(s): R33.9 - RETENTION OF URINE, UNSPECIFIED SNOMED Code(s): 507890771 Comment: - 1400 ml urinary retention on 11/25/18 - Lopez catheter placd 11/25 with improvment of renal function. Started on tamsulosin 0.4 mg daily 11/26. Voiding trial 12/03. Status and Disposition: inpatient
[2018-12-03] MEDS: Vancomycin(*) 1,000 MG in NS 0.9% 250 ML* 250 ML IVPB SCH ×3 (01:54→18:04)
[2018-12-03] MEDS: oxyCODONE TAB* 5 MG TAB PO PRN ×3 (04:22→19:38)
[2018-12-03] MEDS: Enoxaparin(*) 40 MG/0.4 ML SYR SUBCUT SCH (09:14)
[2018-12-03] MEDS: Magnesium Oxide TAB* 400 MG PO SCH (09:15)
[2018-12-03] MEDS: Metoprolol Tartrate TAB* 25 MG PO SCH ×2 (09:15→21:35)
[2018-12-03] MEDS: Cyanocobalamin TAB* 500 MCG PO SCH (09:15)
[2018-12-03] MEDS: Docusate CAP* 100 MG PO SCH ×2 (09:15→21:35)
[2018-12-03] MEDS: Tamsulosin CAP* 0.4 MG PO SCH (09:15)
[2018-12-03] MEDS: Polyethylene Glycol 3350* 17 GM PACKET PO SCH ×2 (09:15→21:35)
[2018-12-03] MEDS: Potassium Chlor TAB* 10 MEQ TAB.ER PO SCH (09:15)
[2018-12-04] MEDS: Vancomycin(*) 1,000 MG in NS 0.9% 250 ML* 250 ML IVPB SCH ×2 (02:36→11:26)
[2018-12-04] MEDS: oxyCODONE TAB* 5 MG TAB PO PRN ×3 (04:16→21:59)
[2018-12-04 05:44] LABS: ABS Basophils 0.2 10^3/ul (0-0.2); ABS Eosinophils 0.4 10^3/ul (0-0.6); ABS Lymphocytes 1.7 10^3/ul (1.0-4.8); ABS Monocytes 1.2 10^3/ul (0-0.8); ABS Neutrophils 6.9 10^3/ul (1.5-7.7); ABS Nucleated RBC 0 10^3/ul; Eosinophil % 3.7 %; Hematocrit 27 % (36-46); Hemoglobin 9.3 g/dL (14.0-18.0); Lymphocyte % 16.5 %; Mean Corpuscular HGB Conc 34 g/dL (31-36); Mean Corpuscular Hemoglobin 34 pg (27-31); Mean Corpuscular Volume 99 fL (80-94); Mean Platelet Volume 7.1 fL (7.4-10.4); Nucleated Red Blood Cells % 0; Platelet Count 434 10^3/uL (150-450); Red Blood Count 2.75 10^6 /uL (4.18-5.48); Red Cell Distribution Width 14 % (10.5-15); White Blood Count 10.4 10^3/uL (3.5-10.8)
[2018-12-04 06:20] LABS: Albumin 2.8 g/dL (3.2-5.2); Albumin/Globulin Ratio 0.8 (1-3); BUN/Creatinine Ratio 19.7 (8-20); C Reactive Protein 37.25 mg/L (<8.01); Calcium 8.3 mg/dL (8.6-10.3); EGFR African American 121.3 (>60); EGFR Non-African American 100.3 (>60); Globulin 3.3 g/dL (2-4); Potassium 3.9 mmol/L (3.5-5.0); Total Bilirubin 0.3 mg/dL (0.2-1.0); Total Protein 6.1 g/dL (6.4-8.9)
[2018-12-04] MEDS: Polyethylene Glycol 3350* 17 GM PACKET PO SCH ×2 (08:15→22:00)
[2018-12-04] MEDS: Enoxaparin(*) 40 MG/0.4 ML SYR SUBCUT SCH (08:57)
[2018-12-04] MEDS: Potassium Chlor TAB* 10 MEQ TAB.ER PO SCH (08:57)
[2018-12-04] MEDS: Tamsulosin CAP* 0.4 MG PO SCH (08:57)
[2018-12-04] MEDS: Docusate CAP* 100 MG PO SCH ×2 (08:57→21:59)
[2018-12-04] MEDS: Cyanocobalamin TAB* 500 MCG PO SCH (08:57)
[2018-12-04] MEDS: Magnesium Oxide TAB* 400 MG PO SCH (08:58)
[2018-12-04] MEDS ORDERED: Vancomycin Trough Check NOTE FOLLOW UP ONE (09:30)
[2018-12-04] MEDS: Metoprolol Tartrate TAB* 25 MG PO SCH ×2 (10:15→21:59)
--- NOTE | 2018-12-04 11:09 | PN ---
Progress Note - Progress Note Date of Service: 12/04/18 SOAP: Subjective: CC: Open right ankle fracture HPI: Mr. Fenton is a 73 yo male with no significant PMH who presented to the emergency room for an open right ankle fracture that occurred 2-3 weeks prior to his presentation to the hospital. Denies fever, chills, shortness of breath , nausea, vomiting, diarrhea, or constipation. Right LE pain is controlled. Objective: Vital Signs 12/04/18 12/04/18 08:33 10:15 Temperature 97.9 F Pulse Rate 63 Respiratory 16 16 Rate Blood Pressure 155/80 (mmHg) O2 Sat by Pulse 94 Oximetry Physical Exam: General: NAD, sitting up in a chair Neurological: Alert and Oriented x3 HEENT: No thrush Cardiovascular: Heart rte regular Respiratory: Lungs clear Abdominal: Bowel sounds present; ABD soft, non tender, non distended Skin: No rash, KAYLEEN wrap to the right LE Laboratory Last Values WBC 10.4 10^3/uL (3.5-10.8) 12/04/18 05:18 RBC 2.75 10^6 /uL (4.18-5.48) L 12/04/18 05:18 Hgb 9.3 g/dL (14.0-18.0) L 12/04/18 05:18 Hct 27 % (36-46) L 12/04/18 05:18 MCV 99 fL (80-94) H 12/04/18 05:18 MCH 34 pg (27-31) H 12/04/18 05:18 MCHC 34 g/dL (31-36) 12/04/18 05:18 RDW 14 % (10.5-15) 12/04/18 05:18 Plt Count 434 10^3/uL (150-450) 12/04/18 05:18 MPV 7.1 fL (7.4-10.4) L 12/04/18 05:18 Neut % (Auto) 66.6 % 12/04/18 05:18 Lymph % (Auto) 16.5 % 12/04/18 05:18 Kane % (Auto) 11.1 % 12/04/18 05:18 Eos % (Auto) 3.7 % 12/04/18 05:18 Baso % (Auto) 2.1 % 12/04/18 05:18 Absolute Neuts (auto) 6.9 10^3/ul (1.5-7.7) 12/04/18 05:18 Absolute Lymphs (auto) 1.7 10^3/ul (1.0-4.8) 12/04/18 05:18 Absolute Monos (auto) 1.2 10^3/ul (0-0.8) H 12/04/18 05:18 Absolute Eos (auto) 0.4 10^3/ul (0-0.6) 12/04/18 05:18 Absolute Basos (auto) 0.2 10^3/ul (0-0.2) 12/04/18 05:18 Absolute Nucleated RBC 0 10^3/ul 12/04/18 05:18 Nucleated RBC % 0 12/04/18 05:18 INR (Anticoag Therapy) 1.02 (0.77-1.02) 11/23/18 05:56 APTT 32.9 seconds (26.0-36.3) 11/20/18 16:01 Patient Temperature Not Reportable 11/26/18 14:10 ABG pH 7.46 (7.35-7.45) H 11/26/18 14:10 ABG pH (Temp Correct) Not Reportable 11/26/18 14:10 ABG pCO2 39 mmHg (35-45) 11/26/18 14:10 ABG pCO2 (Temp Corrct Not Reportable 11/26/18 14:10 ABG pO2 68 mmHg (80-100) L 11/26/18 14:10 ABG pO2 (Temp Correct Not Reportable 11/26/18 14:10 ABG HCO3 27.7 mmol/L (19-31) 11/26/18 14:10 ABG O2 Saturation 96.2 % (94.0-98.0) 11/26/18 14:10 ABG Base Excess 3.7 mmol/L (-2.0-2.0) H 11/26/18 14:10 Respiration Rate Not Reportable 11/26/18 14:10 O2 Delivery Device oxymask 15 lpm 11/26/18 14:10 Ventilator Type Not Reportable 11/26/18 14:10 Vent Mode Not Reportable 11/26/18 14:10 FiO2 Not Reportable 11/26/18 14:10 Inspiratory Time Not Reportable 11/26/18 14:10 PEEP Not Reportable 11/26/18 14:10 Pressure Support Not Reportable 11/26/18 14:10 Pressure Control Not Reportable 11/26/18 14:10 EPAP Not Reportable 11/26/18 14:10 IPAP Not Reportable 11/26/18 14:10 BiPAP Not Reportable 11/26/18 14:10 Sodium 137 mmol/L (135-145) 12/04/18 05:18 Potassium 3.9 mmol/L (3.5-5.0) 12/04/18 05:18 Chloride 106 mmol/L (101-111) 12/04/18 05:18 Carbon Dioxide 24 mmol/L (22-32) 12/04/18 05:18 Anion Gap 7 mmol/L (2-11) 12/04/18 05:18 BUN 15 mg/dL (6-24) 12/04/18 05:18 Creatinine 0.76 mg/dL (0.67-1.17) 12/04/18 05:18 Est GFR ( Amer) 121.3 (>60) 12/04/18 05:18 Est GFR (Non-Af Amer) 100.3 (>60) 12/04/18 05:18 BUN/Creatinine Ratio 19.7 (8-20) 12/04/18 05:18 Glucose 91 mg/dL (70-100) 12/04/18 05:18 Lactic Acid 0.8 mmol/L (0.5-2.0) 11/20/18 16:01 Calcium 8.3 mg/dL (8.6-10.3) L 12/04/18 05:18 Phosphorus 2.3 mg/dL (2.5-5.0) L 11/27/18 05:56 Magnesium 1.7 mg/dL (1.9-2.7) L 12/01/18 06:42 Iron 25 ug/dL (50-212) L 11/28/18 06:06 TIBC 171 mcg/dL (250-450) L 11/28/18 06:06 % Saturation 15 % (15-55) 11/28/18 06:06 Unsat Iron Binding < 156 ug/dL 11/28/18 06:06 Transferrin 122 mg/dL (203-362) L 11/28/18 06:06 Total Bilirubin 0.30 mg/dL (0.2-1.0) 12/04/18 05:18 AST 12 U/L (13-39) L 12/04/18 05:18 ALT 10 U/L (7-52) 12/04/18 05:18 Alkaline Phosphatase 62 U/L (34-104) 12/04/18 05:18 C-Reactive Protein 37.25 mg/L (<8.01) H 12/04/18 05:18 Total Protein 6.1 g/dL (6.4-8.9) L 12/04/18 05:18 Albumin 2.8 g/dL (3.2-5.2) L 12/04/18 05:18 Globulin 3.3 g/dL (2-4) 12/04/18 05:18 Albumin/Globulin Ratio 0.8 (1-3) L 12/04/18 05:18 Vitamin B12 231 pg/mL (180-914) 11/20/18 16:01 Methylmalonic Acid 0.40 nmol/mL (<=0.40) 11/20/18 15:49 Folate 18.41 ng/mL (>3.99) 11/20/18 16:01 Urine Color Yellow 11/25/18 18:44 Urine Appearance Cloudy 11/25/18 18:44 Urine pH 5.0 (5-9) 11/25/18 18:44 Ur Specific [place] 1.012 (1.010-1.030) 11/25/18 18:44 Urine Protein Negative (Negative) 11/25/18 18:44 Urine Ketones Negative (Negative) 11/25/18 18:44 Urine Blood 1+ (Negative) A 11/25/18 18:44 Urine Nitrate Negative (Negative) 11/25/18 18:44 Urine Bilirubin Negative (Negative) 11/25/18 18:44 Urine Urobilinogen Negative (Negative) 11/25/18 18:44 Ur Leukocyte Esterase Negative (Negative) 11/25/18 18:44 Urine WBC (Auto) Trace(0-5/hpf) (Absent) 11/25/18 18:44 Urine RBC (Auto) 1+(3-5/hpf) (Absent) A 11/25/18 18:44 Urine Bacteria Absent (Absent) 11/25/18 18:44 Urine Glucose Negative (Negative) 11/25/18 18:44 Vancomycin Trough 26.9 mcg/mL 12/04/18 09:36 Influenza A (Rapid) Negative (Negative) 11/21/18 21:02 Influenza B (Rapid) Negative (Negative) 11/21/18 21:02 Blood Type A Positive 11/22/18 05:41 Antibody Screen Negative 11/22/18 05:41 Microbiology 11/27/18 15:15 Anaerobic Culture - Final Wound 11/27/18 15:15 Gram Stain - Final Ankle Right Wound Culture - Final Enterococcus Faecalis 11/23/18 10:06 Gram Stain - Final Ankle Right Wound Culture - Final MRSA Normal Cynthia 11/25/18 18:44 Urine Culture - Final Urine No Growth (<1,000 CFU/mL) 11/23/18 10:06 Anaerobic Culture - Final Wound - Ankle Right Fungal Smear - Final 11/20/18 16:01 Aerobic Blood Culture - Final Blood Venous No Growth Day 5 Anaerobic Blood Culture - Final No Growth Day 5 11/20/18 15:36 Aerobic Blood Culture - Final Blood Venous No Growth Day 5 Anaerobic Blood Culture - Final No Growth Day 5 11/20/18 16:40 Skin and Soft Tissue MRSA/MSSA (PCR - Final Ankle Right Mrsa Negative S.aureus Positive Gram Stain - Final Wound Culture - Final Staphylococcus Aureus Strep Agalactiae - (Group B) Normal Cynthia Assessment: 1. Open right ankle fracture with acute osteomyelitis. S/P wound debridement, open reduction and external fixation, POD #11. S/P debridement of ankle joint and replacement of VAC dressing, POD #7. S/P wound debridement and wound vac dressing change, POD #4. Acute osteomyelitis based on the length of time he had an open fracture and MRI findings. Wound cultures obtained on admission showing MSSA and Strep Agalactiae (Group B). Wound cultures obtained while in the OR on 11/23/18 showing MRSA, and no fungal organisms. Repeat cultures obtained 11/27/18 in surgery, showing Enterococcus Faecalis. Afebrile, leukocytosis has resolved, CRP is trending down. Blood cultures with no growth on day 5. 2. Thrombocytosis. Resolved 3. Macrocytosis. Started on Vit B12 and multivitamin Plan: Continue Vancomycin. Vanco trough goal 15-20. Will require a total of 4 weeks of IV ABX. Should have weekly labs: CBC, CMP, CRP.
[2018-12-04] MEDS ORDERED: Midazolam* 1 MG/ML 5 ML VIAL (5 MG) ONE (14:06)
[2018-12-04] MEDS ORDERED: fentaNYL* 50 MCG/ML 2 ML VIAL (100 MCG VIAL) ONE (14:06)
[2018-12-04] MEDS ORDERED: Propofol* 10 MG/ML 20 ML BTL ONE (14:11)
[2018-12-04] MEDS ORDERED: Naloxone* 0.4 MG/ML 1 ML VIAL IV PRN (14:28)
--- NOTE | 2018-12-04 17:06 | PN ---
Subjective Date of Service: 12/03/18 Interval History: Uncomfortable with full bladder, unable to void. Family History: Unchanged from Admission - DM, heart disease. Social History: Unchanged from Admission - Never smoked, no alcohol abuse. 2 sons, 2 sisters nearby, one sister is his SDM. Past Medical History: Unchanged from Admission - negative, no surgery, no medical problems Objective Active Medications: Cyanocobalamin (Vitamin B12 Tab*) 1,000 mcg PO DAILY [facility] Last Admin: 12/04/18 08:57 Dose: Not Given Docusate Sodium (Colace Cap*) 100 mg PO BID [facility] Last Admin: 12/04/18 08:57 Dose: Not Given Enoxaparin Sodium (Lovenox(*)) 40 mg SUBCUT Q24H [facility] Last Admin: 12/04/18 08:57 Dose: Not Given Vancomycin HCl 1,000 mg/ (Sodium Chloride) 250 mls @ 166.667 mls/hr IVPB Q12H [facility] Magnesium Hydroxide (Milk Of Magnniles Liq*) 30 ml PO Q6H PRN PRN Reason: CONSTIPATION Last Admin: 11/26/18 00:12 Dose: 30 ml Magnesium Oxide (Magox 400 Tab*) 400 mg PO DAILY [facility] Last Admin: 12/04/18 08:58 Dose: Not Given Metoprolol Tartrate (Lopressor Tab*) 25 mg PO BID [facility] Last Admin: 12/04/18 10:15 Dose: 25 mg Ondansetron HCl (Zofran Inj*) 4 mg IV Q6H PRN PRN Reason: NAUSEA Last Admin: 11/25/18 11:29 Dose: 4 mg Oxycodone HCl (Roxycodone Tab*) 5 mg PO Q3H PRN PRN Reason: PAIN Last Admin: 12/04/18 10:15 Dose: 5 mg Pharmacy Consult (Vancomycin Per Pharmacy*) 1 note FOLLOW UP .VANC PER PHARMACY [facility] Pharmacy Profile Note (Vancomycin Trough Check) 1 note FOLLOW UP 1130 ONE Stop: 12/06/18 11:31 Polyethylene Glycol/Electrolytes (Miralax*) 17 gm PO 0800,2100 [facility] Last Admin: 12/04/18 08:15 Dose: Not Given Potassium Chloride (Klor Con Er Tab*) 10 meq PO DAILY [facility] Last Admin: 12/04/18 08:57 Dose: Not Given Senna (Senokot Tab*) 2 tab PO BEDTIME PRN PRN Reason: no DM during day Last Admin: 11/28/18 21:53 Dose: 2 tab Tamsulosin HCl (Flomax Cap*) 0.4 mg PO DAILY [facility] Last Admin: 12/04/18 08:57 Dose: Not Given Vital Signs - 8 hr 12/04/18 12/04/18 12/04/18 10:15 12:30 12:45 Temperature 97.6 F Pulse Rate 53 Respiratory 16 16 16 Rate Blood Pressure 145/75 (mmHg) O2 Sat by Pulse 96 Oximetry 12/04/18 12/04/18 12/04/18 14:30 14:34 14:35 Temperature 97.7 F Pulse Rate 54 56 55 Respiratory Rate Blood Pressure 124/65 119/78 (mmHg) O2 Sat by Pulse 92 98 100 Oximetry 12/04/18 12/04/18 12/04/18 14:40 14:44 14:46 Temperature Pulse Rate 53 54 54 Respiratory Rate Blood Pressure 146/72 146/72 143/79 (mmHg) O2 Sat by Pulse 99 100 100 Oximetry 12/04/18 12/04/18 12/04/18 14:51 15:00 15:25 Temperature 97.5 F Pulse Rate 54 52 57 Respiratory 16 Rate Blood Pressure 117/72 128/72 130/78 (mmHg) O2 Sat by Pulse 100 98 97 Oximetry 12/04/18 16:25 Temperature 97.7 F Pulse Rate 56 Respiratory 15 Rate Blood Pressure 128/63 (mmHg) O2 Sat by Pulse 96 Oximetry Oxygen Devices in Use Now: None Appearance: Supine in bed, being prepped for Lopez. Eyes: No Scleral Icterus Neurological: Alert and Oriented x 3, NL Sensation Result Diagrams: 12/04/18 05:18 12/04/18 05:18 Additional Lab and Data: Laboratory Tests 11/28/18 06:06 Iron 25 L TIBC 171 L % Saturation 15 Unsat Iron Binding < 156 Transferrin 122 L Microbiology and Other Data: Microbiology 11/27/18 15:15 Ankle Right Gram Stain - Final 11/23/18 10:06 Wound - Ankle Right Anaerobic Culture - Final 11/23/18 10:06 Wound - Ankle Right Fungal Smear - Final 11/23/18 10:06 Ankle Right Gram Stain - Final 11/23/18 10:06 Ankle Right Wound Culture - Final MRSA Normal Cynthia 11/27/18 15:15 Wound Anaerobic Culture - Preliminary 11/27/18 15:15 Ankle Right Wound Culture - Preliminary Enterococcus Faecalis Assess/Plan/Problems-Billing Assessment: 73 y/o male admitted for right ankle open fracture 2+ weeks old did not seek medical attention at the time of the injury, also had possible SBO, now resolved - Patient Problems (1) Open fracture Current Visit: Yes Status: Acute Priority: High Code(s): T14.8XXA - OTHER INJURY OF UNSPECIFIED BODY REGION, INITIAL ENCOUNTER SNOMED Code(s): 442222426 Comment: - Right ankle. Dr. Del Toro performed open reduction and external fixation 11/23/18 - Recultured intraoperatively, growing MRSA, and enterococcus - On vanco per ID consult recommendations - Returned to OR 11/30 for 3rd debridement, has 4th planned depending on C&S(?). - Continue wound vac (2) Macrocytosis Current Visit: Yes Status: Acute Code(s): D75.89 - OTHER SPECIFIED DISEASES OF BLOOD AND BLOOD-FORMING ORGANS SNOMED Code(s): 093714637 Comment: - B12 in low normal range (231). Methylmalonic acid level borderline, continue B12 po. (3) Urinary retention Current Visit: Yes Status: Acute Code(s): R33.9 - RETENTION OF URINE, UNSPECIFIED SNOMED Code(s): 974362952 Comment: - 1400 ml urinary retention on 11/25/18 - Lopez catheter placd 11/25 with improvment of renal function. Started on tamsulosin 0.4 mg daily 11/26. Voiding trial 12/03, had 711 ml in bladder and unable to void, Lopez inserted. Status and Disposition: inpatient
--- NOTE | 2018-12-04 17:15 | PN ---
Subjective Date of Service: 12/04/18 Interval History: Pain control OK. Appetite OK. Gets in a chair every day. Family History: Unchanged from Admission - DM, heart disease. Social History: Unchanged from Admission - Never smoked, no alcohol abuse. 2 sons, 2 sisters nearby, one sister is his SDM. Past Medical History: Unchanged from Admission - negative, no surgery, no medical problems Objective Active Medications: Cyanocobalamin (Vitamin B12 Tab*) 1,000 mcg PO DAILY [facility] Last Admin: 12/04/18 08:57 Dose: Not Given Docusate Sodium (Colace Cap*) 100 mg PO BID [facility] Last Admin: 12/04/18 08:57 Dose: Not Given Enoxaparin Sodium (Lovenox(*)) 40 mg SUBCUT Q24H [facility] Last Admin: 12/04/18 08:57 Dose: Not Given Vancomycin HCl 1,000 mg/ (Sodium Chloride) 250 mls @ 166.667 mls/hr IVPB Q12H [facility] Magnesium Hydroxide (Milk Of Magnesia Liq*) 30 ml PO Q6H PRN PRN Reason: CONSTIPATION Last Admin: 11/26/18 00:12 Dose: 30 ml Magnesium Oxide (Magox 400 Tab*) 400 mg PO DAILY [facility] Last Admin: 12/04/18 08:58 Dose: Not Given Metoprolol Tartrate (Lopressor Tab*) 25 mg PO BID [facility] Last Admin: 12/04/18 10:15 Dose: 25 mg Ondansetron HCl (Zofran Inj*) 4 mg IV Q6H PRN PRN Reason: NAUSEA Last Admin: 11/25/18 11:29 Dose: 4 mg Oxycodone HCl (Roxycodone Tab*) 5 mg PO Q3H PRN PRN Reason: PAIN Last Admin: 12/04/18 10:15 Dose: 5 mg Pharmacy Consult (Vancomycin Per Pharmacy*) 1 note FOLLOW UP .VANC PER PHARMACY [facility] Pharmacy Profile Note (Vancomycin Trough Check) 1 note FOLLOW UP 1130 ONE Stop: 12/06/18 11:31 Polyethylene Glycol/Electrolytes (Miralax*) 17 gm PO 0800,2100 [facility] Last Admin: 12/04/18 08:15 Dose: Not Given Potassium Chloride (Klor Con Er Tab*) 10 meq PO DAILY [facility] Last Admin: 12/04/18 08:57 Dose: Not Given Senna (Senokot Tab*) 2 tab PO BEDTIME PRN PRN Reason: no DM during day Last Admin: 11/28/18 21:53 Dose: 2 tab Tamsulosin HCl (Flomax Cap*) 0.4 mg PO DAILY [facility] Last Admin: 12/04/18 08:57 Dose: Not Given Vital Signs - 8 hr 12/04/18 12/04/18 12/04/18 10:15 12:30 12:45 Temperature 97.6 F Pulse Rate 53 Respiratory 16 16 16 Rate Blood Pressure 145/75 (mmHg) O2 Sat by Pulse 96 Oximetry 12/04/18 12/04/18 12/04/18 14:30 14:34 14:35 Temperature 97.7 F Pulse Rate 54 56 55 Respiratory Rate Blood Pressure 124/65 119/78 (mmHg) O2 Sat by Pulse 92 98 100 Oximetry 12/04/18 12/04/18 12/04/18 14:40 14:44 14:46 Temperature Pulse Rate 53 54 54 Respiratory Rate Blood Pressure 146/72 146/72 143/79 (mmHg) O2 Sat by Pulse 99 100 100 Oximetry 12/04/18 12/04/18 12/04/18 14:51 15:00 15:25 Temperature 97.5 F Pulse Rate 54 52 57 Respiratory 16 Rate Blood Pressure 117/72 128/72 130/78 (mmHg) O2 Sat by Pulse 100 98 97 Oximetry 12/04/18 16:25 Temperature 97.7 F Pulse Rate 56 Respiratory 15 Rate Blood Pressure 128/63 (mmHg) O2 Sat by Pulse 96 Oximetry Oxygen Devices in Use Now: None Appearance: Alert, partly up in bed. Eyes: No Scleral Icterus Extremities: No Edema, No Clubbing, Cyanosis, - - External fixator in place Skin: No Rash or Ulcers, No Nodules or Sclerosis, - Neurological: Alert and Oriented x 3, NL Sensation Result Diagrams: 12/04/18 05:18 12/04/18 05:18 Additional Lab and Data: Laboratory Tests 11/28/18 06:06 Iron 25 L TIBC 171 L % Saturation 15 Unsat Iron Binding < 156 Transferrin 122 L Microbiology and Other Data: Microbiology 11/27/18 15:15 Ankle Right Gram Stain - Final 11/23/18 10:06 Wound - Ankle Right Anaerobic Culture - Final 11/23/18 10:06 Wound - Ankle Right Fungal Smear - Final 11/23/18 10:06 Ankle Right Gram Stain - Final 11/23/18 10:06 Ankle Right Wound Culture - Final MRSA Normal Cynthia 11/27/18 15:15 Wound Anaerobic Culture - Preliminary 11/27/18 15:15 Ankle Right Wound Culture - Preliminary Enterococcus Faecalis Assess/Plan/Problems-Billing Assessment: 73 y/o male admitted for right ankle open fracture 2+ weeks old did not seek medical attention at the time of the injury, also had possible SBO, now resolved - Patient Problems (1) Open fracture Current Visit: Yes Status: Acute Priority: High Code(s): T14.8XXA - OTHER INJURY OF UNSPECIFIED BODY REGION, INITIAL ENCOUNTER SNOMED Code(s): 083236519 Comment: - Right ankle. Dr. Del Toro performed open reduction, external fixation 11/23/18 - Recultured intraoperatively, growing MRSA, and enterococcus - Returned to OR 11/30 for 3rd debridement, has 4th 12/04. - Continue wound vac, vanco Needs CBC, CMP, CRP every Tuesday while on antibiotics. (2) Macrocytosis Current Visit: Yes Status: Acute Code(s): D75.89 - OTHER SPECIFIED DISEASES OF BLOOD AND BLOOD-FORMING ORGANS SNOMED Code(s): 110677873 Comment: - B12 in low normal range (231). Methylmalonic acid level borderline, continue B12 po. (3) Urinary retention Current Visit: Yes Status: Acute Code(s): R33.9 - RETENTION OF URINE, UNSPECIFIED SNOMED Code(s): 525865198 Comment: - 1400 ml urinary retention on 11/25/18 - Lopez catheter placd 11/25 with improvment of renal function. Started on tamsulosin 0.4 mg daily 11/26. Voiding trial 12/03, had 711 ml in bladder and unable to void, Lopez inserted. Status and Disposition: inpatient
[2018-12-04] MEDS ORDERED: Morphine INJ* 2 MG/ML 1 ML SYRINGE (TWO MG - NEW SYRINGE VERSION) IV ONE (21:52)
[2018-12-04] MEDS ORDERED: oxyCODONE TAB* 5 MG TAB ONE (21:55)
[2018-12-04] MEDS ORDERED: Morphine INJ* 2 MG/ML 1 ML SYRINGE (TWO MG - NEW SYRINGE VERSION) ONE (21:56)
[2018-12-05] MEDS: Vancomycin(*) 1,000 MG in NS 0.9% 250 ML* 250 ML IVPB SCH ×3 (00:58→23:57)
--- NOTE | 2018-12-05 01:45 | OP ---
DATE OF OPERATION: 12/04/18 - ROOM #[id number] DATE OF : 43 ATTENDING SURGEON: Dr. Antoni Shipman. COLLAR POINTER: Zeinab Archer PA-C PRE-OP DIAGNOSIS: Open fracture dislocation, right tibiotalar joint. POST-OP DIAGNOSIS: Open fracture dislocation, right tibiotalar joint. OPERATIVE PROCEDURE: VAC negative pressure dressing change. DESCRIPTION OF PROCEDURE: The patient was taken to the operating room where we removed the bandage and the VAC dressing. The patient had an unusual amount of discomfort during the beginning of this and so significant IV sedation was provided. I do not think this would be possible to do at bedside given the unusual amount of pain that the patient experienced during just the beginning portion of removing the dressing. The wound itself was L-shaped. There is a straight medial defect, 2 x 4 cm in size, and there is a cavity tracking over the anterior portion of the wound, probably 3 cm deep. Two different pieces of VAC dressing were placed into these 2 separate wounds, sealed with a superficial adhesive bandage and hooked up to the suction at 120 mm. The wound looked very clean. There was no drainage, no purulence. [id number]/[facility] #: [id number] MTDMiguel Ángel
[2018-12-05] MEDS: oxyCODONE TAB* 5 MG TAB PO PRN ×4 (04:32→21:27)
[2018-12-05] MEDS: Cyanocobalamin TAB* 500 MCG PO SCH (08:26)
[2018-12-05] MEDS: Metoprolol Tartrate TAB* 25 MG PO SCH ×2 (08:26→21:34)
[2018-12-05] MEDS: Tamsulosin CAP* 0.4 MG PO SCH (08:26)
[2018-12-05] MEDS: Polyethylene Glycol 3350* 17 GM PACKET PO SCH ×3 (08:26→21:30)
[2018-12-05] MEDS: Potassium Chlor TAB* 10 MEQ TAB.ER PO SCH (08:26)
[2018-12-05] MEDS: Docusate CAP* 100 MG PO SCH ×2 (08:26→21:33)
[2018-12-05] MEDS: Magnesium Oxide TAB* 400 MG PO SCH (08:26)
[2018-12-05] MEDS: Enoxaparin(*) 40 MG/0.4 ML SYR SUBCUT SCH (08:27)
[2018-12-05] MEDS ORDERED: Acetaminophen TAB* 325 MG PO PRN (09:38)
--- NOTE | 2018-12-05 09:42 | PN ---
Progress Note - Progress Note Date of Service: 12/05/18 SOAP: Subjective: CC: Open right ankle fracture with acute osteomyelitis HPI: Mr. Fenton is a 73 yo male with no significant PMH who presented to the emergency room for an open right ankle fracture that occurred 2-3 weeks prior to his presentation to the hospital. Denies fever, chills, shortness of breath , nausea, vomiting, diarrhea, or constipation. Reports 6/10 Right LE pain. Objective: Vital Signs - 8 hr 12/05/18 12/05/18 12/05/18 04:03 04:04 04:32 Respiratory 18 18 18 Rate Blood Pressure (mmHg) 12/05/18 12/05/18 04:38 08:00 Respiratory 18 Rate Blood Pressure 125/65 (mmHg) Physical Exam: General: NAD, laying in bed Neurological: Alert and Oriented HEENT: No thrush Cardiovascular: Heart rate regular Respiratory: Lung sounds clear Abdominal: Bowel sounds; ABD soft, non tender, and non distended Skin: No rash, KAYLEEN wrap to the right LE with external fixator Laboratory Results - last 24 hr 12/04/18 09:36 Vancomycin Trough 26.9 Microbiology 12/03/18 17:25 Urine Culture - Final Urine No Growth (<1,000 CFU/mL) 11/23/18 10:06 Anaerobic Culture - Final Wound - Ankle Right Fungal Smear - Final Fungal Culture - Preliminary 11/27/18 15:15 Anaerobic Culture - Final Wound 11/27/18 15:15 Gram Stain - Final Ankle Right Wound Culture - Final Enterococcus Faecalis 11/23/18 10:06 Gram Stain - Final Ankle Right Wound Culture - Final MRSA Normal Cynthia 11/25/18 18:44 Urine Culture - Final Urine No Growth (<1,000 CFU/mL) 11/20/18 16:01 Aerobic Blood Culture - Final Blood Venous No Growth Day 5 Anaerobic Blood Culture - Final No Growth Day 5 11/20/18 15:36 Aerobic Blood Culture - Final Blood Venous No Growth Day 5 Anaerobic Blood Culture - Final No Growth Day 5 11/20/18 16:40 Skin and Soft Tissue MRSA/MSSA (PCR - Final Ankle Right Mrsa Negative S.aureus Positive Gram Stain - Final Wound Culture - Final Staphylococcus Aureus Strep Agalactiae - (Group B) Normal Cynthia Assessment: 1. Open right ankle fracture with acute osteomyelitis. S/P wound debridement, open reduction and external fixation, POD #12. S/P debridement of ankle joint and replacement of VAC dressing, POD #8. S/P wound debridement and wound vac dressing change, POD #5. S/P wound debridement and wound vac change, POD #1. Acute osteomyelitis based on the length of time he had an open fracture and MRI findings. Wound cultures obtained on admission showing MSSA and Strep Agalactiae (Group B). Wound cultures obtained while in the OR on 11/23/18 showing MRSA, and no fungal organisms. Repeat cultures obtained 11/27/18 in surgery, showing Enterococcus Faecalis. Afebrile, leukocytosis has resolved, CRP is trending down. Blood cultures with no growth on day 5. Plan: Continue Vancomycin, vanco trough goal 15-20. Will require a total of 4 weeks of IV ABX, day 08/11. Should have weekly labs: CBC, CMP, CRP.
--- NOTE | 2018-12-05 13:46 | PN ---
Progress Note - Progress Note Date of Service: 12/05/18 SOAP: Subjective: []Pt seen at bedside. He feels well without fever, chills, CP, SOB, dizziness or nausea. Objective: []General: Appears well, NAD RLE: Vac suctioning well, Ex fix in place, dressing CDI, no surrounding erythema. Exposed toes with sensation intact to light touch, capillary refill less than two seconds distally, flexion and extension of MTP intact. Left calf supple and nontender Assessment: [] Grade 3 open Right ankle fracture dislocation with ex fix and vac placement with Q 3 day vac changes. Currently POD 1 S/P vac change 12/04 Plan: []NWB RLE Continue vac Continue vanco Continue lovenox for DVT prophy Vital Signs Temp 97.6 F 12/05/18 11:41 Pulse 64 12/05/18 11:41 Resp 18 12/05/18 13:07 BP 155/60 12/05/18 11:41 Pulse Ox 95 12/04/18 23:47 Intake & Output 12/04/18 12/05/18 12/05/18 18:59 06:59 18:59 Intake Total 150 1030 520 Output Total 2350 900 Balance -2200 130 520 Intake: IV Fluids 150 LR 150 Oral 1030 520 Output: Lopez 2350 900 Other: # Bowel Movements 0 1 Estimated Stool Amount Large Laboratory Last Values WBC 10.4 10^3/uL (3.5-10.8) 12/04/18 05:18 RBC 2.75 10^6 /uL (4.18-5.48) L 12/04/18 05:18 Hgb 9.3 g/dL (14.0-18.0) L 12/04/18 05:18 Hct 27 % (36-46) L 12/04/18 05:18 MCV 99 fL (80-94) H 12/04/18 05:18 MCH 34 pg (27-31) H 12/04/18 05:18 MCHC 34 g/dL (31-36) 12/04/18 05:18 RDW 14 % (10.5-15) 12/04/18 05:18 Plt Count 434 10^3/uL (150-450) 12/04/18 05:18 MPV 7.1 fL (7.4-10.4) L 12/04/18 05:18 Neut % (Auto) 66.6 % 12/04/18 05:18 Lymph % (Auto) 16.5 % 12/04/18 05:18 [place] % (Auto) 11.1 % 12/04/18 05:18 Eos % (Auto) 3.7 % 12/04/18 05:18 Baso % (Auto) 2.1 % 12/04/18 05:18 Absolute Neuts (auto) 6.9 10^3/ul (1.5-7.7) 12/04/18 05:18 Absolute Lymphs (auto) 1.7 10^3/ul (1.0-4.8) 12/04/18 05:18 Absolute Monos (auto) 1.2 10^3/ul (0-0.8) H 12/04/18 05:18 Absolute Eos (auto) 0.4 10^3/ul (0-0.6) 12/04/18 05:18 Absolute Basos (auto) 0.2 10^3/ul (0-0.2) 12/04/18 05:18 Absolute Nucleated RBC 0 10^3/ul 12/04/18 05:18 Nucleated RBC % 0 12/04/18 05:18 INR (Anticoag Therapy) 1.02 (0.77-1.02) 11/23/18 05:56 APTT 32.9 seconds (26.0-36.3) 11/20/18 16:01 Patient Temperature Not Reportable 11/26/18 14:10 ABG pH 7.46 (7.35-7.45) H 11/26/18 14:10 ABG pH (Temp Correct) Not Reportable 11/26/18 14:10 ABG pCO2 39 mmHg (35-45) 11/26/18 14:10 ABG pCO2 (Temp Corrct Not Reportable 11/26/18 14:10 ABG pO2 68 mmHg (80-100) L 11/26/18 14:10 ABG pO2 (Temp Correct Not Reportable 11/26/18 14:10 ABG HCO3 27.7 mmol/L (19-31) 11/26/18 14:10 ABG O2 Saturation 96.2 % (94.0-98.0) 11/26/18 14:10 ABG Base Excess 3.7 mmol/L (-2.0-2.0) H 11/26/18 14:10 Respiration Rate Not Reportable 11/26/18 14:10 O2 Delivery Device oxymask 15 lpm 11/26/18 14:10 Ventilator Type Not Reportable 11/26/18 14:10 Vent Mode Not Reportable 11/26/18 14:10 FiO2 Not Reportable 11/26/18 14:10 Inspiratory Time Not Reportable 11/26/18 14:10 PEEP Not Reportable 11/26/18 14:10 Pressure Support Not Reportable 11/26/18 14:10 Pressure Control Not Reportable 11/26/18 14:10 EPAP Not Reportable 11/26/18 14:10 IPAP Not Reportable 11/26/18 14:10 BiPAP Not Reportable 11/26/18 14:10 Sodium 137 mmol/L (135-145) 12/04/18 05:18 Potassium 3.9 mmol/L (3.5-5.0) 12/04/18 05:18 Chloride 106 mmol/L (101-111) 12/04/18 05:18 Carbon Dioxide 24 mmol/L (22-32) 12/04/18 05:18 Anion Gap 7 mmol/L (2-11) 12/04/18 05:18 BUN 15 mg/dL (6-24) 12/04/18 05:18 Creatinine 0.76 mg/dL (0.67-1.17) 12/04/18 05:18 Est GFR ( Amer) 121.3 (>60) 12/04/18 05:18 Est GFR (Non-Af Amer) 100.3 (>60) 12/04/18 05:18 BUN/Creatinine Ratio 19.7 (8-20) 12/04/18 05:18 Glucose 91 mg/dL (70-100) 12/04/18 05:18 Lactic Acid 0.8 mmol/L (0.5-2.0) 11/20/18 16:01 Calcium 8.3 mg/dL (8.6-10.3) L 12/04/18 05:18 Phosphorus 2.3 mg/dL (2.5-5.0) L 11/27/18 05:56 Magnesium 1.7 mg/dL (1.9-2.7) L 12/01/18 06:42 Iron 25 ug/dL (50-212) L 11/28/18 06:06 TIBC 171 mcg/dL (250-450) L 11/28/18 06:06 % Saturation 15 % (15-55) 11/28/18 06:06 Unsat Iron Binding < 156 ug/dL 11/28/18 06:06 Transferrin 122 mg/dL (203-362) L 11/28/18 06:06 Total Bilirubin 0.30 mg/dL (0.2-1.0) 12/04/18 05:18 AST 12 U/L (13-39) L 12/04/18 05:18 ALT 10 U/L (7-52) 12/04/18 05:18 Alkaline Phosphatase 62 U/L (34-104) 12/04/18 05:18 C-Reactive Protein 37.25 mg/L (<8.01) H 12/04/18 05:18 Total Protein 6.1 g/dL (6.4-8.9) L 12/04/18 05:18 Albumin 2.8 g/dL (3.2-5.2) L 12/04/18 05:18 Globulin 3.3 g/dL (2-4) 12/04/18 05:18 Albumin/Globulin Ratio 0.8 (1-3) L 12/04/18 05:18 Vitamin B12 231 pg/mL (180-914) 11/20/18 16:01 Methylmalonic Acid 0.40 nmol/mL (<=0.40) 11/20/18 15:49 Folate 18.41 ng/mL (>3.99) 11/20/18 16:01 Urine Color Yellow 11/25/18 18:44 Urine Appearance Cloudy 11/25/18 18:44 Urine pH 5.0 (5-9) 11/25/18 18:44 Ur Specific [place] 1.012 (1.010-1.030) 11/25/18 18:44 Urine Protein Negative (Negative) 11/25/18 18:44 Urine Ketones Negative (Negative) 11/25/18 18:44 Urine Blood 1+ (Negative) A 11/25/18 18:44 Urine Nitrate Negative (Negative) 11/25/18 18:44 Urine Bilirubin Negative (Negative) 11/25/18 18:44 Urine Urobilinogen Negative (Negative) 11/25/18 18:44 Ur Leukocyte Esterase Negative (Negative) 11/25/18 18:44 Urine WBC (Auto) Trace(0-5/hpf) (Absent) 11/25/18 18:44 Urine RBC (Auto) 1+(3-5/hpf) (Absent) A 11/25/18 18:44 Urine Bacteria Absent (Absent) 11/25/18 18:44 Urine Glucose Negative (Negative) 11/25/18 18:44 Vancomycin Trough 26.9 mcg/mL 12/04/18 09:36 Influenza A (Rapid) Negative (Negative) 11/21/18 21:02 Influenza B (Rapid) Negative (Negative) 11/21/18 21:02 Blood Type A Positive 11/22/18 05:41 Antibody Screen Negative 11/22/18 05:41
--- NOTE | 2018-12-05 21:03 | PN ---
Subjective Interval History: s/p VAC negative pressure dressing change in OR yesterday pt denies pain. sitting in chair and eating without issues. Family History: Unchanged from Admission - DM, heart disease. Social History: Unchanged from Admission - Never smoked, no alcohol abuse. 2 sons, 2 sisters nearby, one sister is his SDM. Past Medical History: Unchanged from Admission - negative, no surgery, no medical problems Objective Active Medications: Acetaminophen (Tylenol Tab*) 650 mg PO Q4H PRN PRN Reason: FEVER/PAIN Cyanocobalamin (Vitamin B12 Tab*) 1,000 mcg PO DAILY [facility] Last Admin: 12/05/18 08:26 Dose: 1,000 mcg Enoxaparin Sodium (Lovenox(*)) 40 mg SUBCUT Q24H [facility] Last Admin: 12/05/18 08:27 Dose: 40 mg Vancomycin HCl 1,000 mg/ (Sodium Chloride) 250 mls @ 166.667 mls/hr IVPB Q12H [facility] Last Admin: 12/05/18 12:24 Dose: 166.667 mls/hr Magnesium Oxide (Magox 400 Tab*) 400 mg PO DAILY [facility] Last Admin: 12/05/18 08:26 Dose: 400 mg Metoprolol Succinate (Toprol Xl Tab*) 50 mg PO BEDTIME [facility] Ondansetron HCl (Zofran Inj*) 4 mg IV Q6H PRN PRN Reason: NAUSEA Last Admin: 11/25/18 11:29 Dose: 4 mg Oxycodone HCl (Roxycodone Tab*) 5 mg PO Q6H PRN PRN Reason: PAIN Last Admin: 12/05/18 04:32 Dose: 5 mg Oxycodone HCl (Roxycodone Tab*) 10 mg PO Q4H PRN PRN Reason: PAIN - SEVERE Last Admin: 12/05/18 14:11 Dose: 10 mg Pharmacy Consult (Vancomycin Per Pharmacy*) 1 note FOLLOW UP .VANC PER PHARMACY [facility] Pharmacy Profile Note (Vancomycin Trough Check) 1 note FOLLOW UP 1130 ONE Stop: 12/06/18 11:31 Polyethylene Glycol/Electrolytes (Miralax*) 17 gm PO 0800,2100 [facility] Last Admin: 12/05/18 08:26 Dose: 17 gm Potassium Chloride (Klor Con Er Tab*) 10 meq PO DAILY [facility] Last Admin: 12/05/18 08:26 Dose: 10 meq Senna (Senokot Tab*) 2 tab PO BEDTIME PRN PRN Reason: no DM during day Last Admin: 11/28/18 21:53 Dose: 2 tab Tamsulosin HCl (Flomax Cap*) 0.4 mg PO DAILY [facility] Last Admin: 12/05/18 08:26 Dose: 0.4 mg Vital Signs - 8 hr 12/05/18 12/05/18 12/05/18 13:07 14:11 15:22 Temperature 98.0 F Pulse Rate 70 Respiratory 18 18 16 Rate Blood Pressure 132/68 (mmHg) O2 Sat by Pulse 96 Oximetry 12/05/18 12/05/18 12/05/18 16:00 18:08 19:28 Temperature Pulse Rate Respiratory 18 18 Rate Blood Pressure (mmHg) O2 Sat by Pulse 96 Oximetry 12/05/18 20:40 Temperature 98.0 F Pulse Rate 68 Respiratory 18 Rate Blood Pressure 138/76 (mmHg) O2 Sat by Pulse 94 Oximetry Oxygen Devices in Use Now: None Ears/Nose/Mouth/Throat: Mucous Membranes Moist Respiratory: Clear to Auscultation Cardiovascular: RRR Abdominal: NL Sounds; No Tenderness; No Distention Extremities: - - right ankle with bandage c/d/i with external hardware and vac Result Diagrams: 12/04/18 05:18 12/04/18 05:18 Additional Lab and Data: Laboratory Tests 11/28/18 06:06 Iron 25 L TIBC 171 L % Saturation 15 Unsat Iron Binding < 156 Transferrin 122 L Microbiology and Other Data: Microbiology 11/27/18 15:15 Ankle Right Gram Stain - Final 11/23/18 10:06 Wound - Ankle Right Anaerobic Culture - Final 11/23/18 10:06 Wound - Ankle Right Fungal Smear - Final 11/23/18 10:06 Ankle Right Gram Stain - Final 11/23/18 10:06 Ankle Right Wound Culture - Final MRSA Normal Cynthia 11/27/18 15:15 Wound Anaerobic Culture - Preliminary 11/27/18 15:15 Ankle Right Wound Culture - Preliminary Enterococcus Faecalis Assess/Plan/Problems-Billing Assessment: 73 y/o male admitted for right ankle open fracture 2+ weeks old did not seek medical attention at the time of the injury, also had possible SBO, now resolved - Patient Problems (1) Open fracture Current Visit: Yes Status: Acute Priority: High Code(s): T14.8XXA - OTHER INJURY OF UNSPECIFIED BODY REGION, INITIAL ENCOUNTER SNOMED Code(s): 926534735 Comment: - Right ankle. Dr. Del Toro performed open reduction, external fixation 11/23/18 - Recultured intraoperatively, growing MRSA, and enterococcus - Returned to OR 11/30 for 3rd debridement, has 4th 12/04. - Continue wound vac, vanco Needs CBC, CMP, CRP every Tuesday while on antibiotics. (2) Urinary retention Current Visit: Yes Status: Acute Code(s): R33.9 - RETENTION OF URINE, UNSPECIFIED SNOMED Code(s): 857983802 Comment: - 1400 ml urinary retention on 11/25/18 - Lopez catheter placd 11/25 with improvment of renal function. Started on tamsulosin 0.4 mg daily 11/26. Voiding trial 12/03, had 711 ml in bladder and unable to void, Lopez inserted. Need to continue bladder training. (3) Macrocytosis Current Visit: Yes Status: Acute Code(s): D75.89 - OTHER SPECIFIED DISEASES OF BLOOD AND BLOOD-FORMING ORGANS SNOMED Code(s): 048692135 Comment: - B12 in low normal range (231). Methylmalonic acid level borderline, continue B12 po. Status and Disposition: inpatient
[2018-12-05] MEDS: Metoprolol Succinate XL TAB* 50 MG PO SCH (21:27)
[2018-12-06] MEDS: oxyCODONE TAB* 5 MG TAB PO PRN ×4 (01:29→20:22)
[2018-12-06 08:02] LABS: BUN/Creatinine Ratio 23.9 (8-20); Calcium 8.6 mg/dL (8.6-10.3); EGFR African American 97.3 (>60); EGFR Non-African American 80.4 (>60); Potassium 4.5 mmol/L (3.5-5.0)
[2018-12-06] MEDS: Enoxaparin(*) 40 MG/0.4 ML SYR SUBCUT SCH (08:06)
[2018-12-06] MEDS: Potassium Chlor TAB* 10 MEQ TAB.ER PO SCH (08:07)
[2018-12-06] MEDS: Polyethylene Glycol 3350* 17 GM PACKET PO SCH ×2 (08:07→20:28)
[2018-12-06] MEDS: Magnesium Oxide TAB* 400 MG PO SCH (08:07)
[2018-12-06] MEDS: Tamsulosin CAP* 0.4 MG PO SCH (08:07)
[2018-12-06] MEDS: Cyanocobalamin TAB* 500 MCG PO SCH (08:07)
--- NOTE | 2018-12-06 09:14 | PN ---
Progress Note - Progress Note Date of Service: 12/06/18 SOAP: Subjective: CC: Open right ankle fracture with acute osteomyelitis HPI: Mr. Fenton is a 73 yo male with no significant PMH who presented to the emergency room for an open right ankle fracture that occurred 2-3 weeks prior to his presentation to the hospital. Denies fever, chills, shortness of breath , nausea, vomiting, diarrhea, or constipation. Reports moving his bowels yesterday. Objective: Vital Signs 12/06/18 08:20 Temperature 97.2 F Pulse Rate 57 Respiratory 16 Rate Blood Pressure 155/75 (mmHg) O2 Sat by Pulse 96 Oximetry Physical Exam: General: NAD, laying in bed Neurological: Alert and Oriented HEENT: No thrush Cardiovascular: Heart rate regular Respiratory: Lung clear, bilateral Abdominal: Bowel sounds present; ABD soft, non tender and non distended Skin: No rash, KAYLEEN wrap to right LE intact with external fixator Laboratory Last Values WBC 10.4 10^3/uL (3.5-10.8) 12/04/18 05:18 RBC 2.75 10^6 /uL (4.18-5.48) L 12/04/18 05:18 Hgb 9.3 g/dL (14.0-18.0) L 12/04/18 05:18 Hct 27 % (36-46) L 12/04/18 05:18 MCV 99 fL (80-94) H 12/04/18 05:18 MCH 34 pg (27-31) H 12/04/18 05:18 MCHC 34 g/dL (31-36) 12/04/18 05:18 RDW 14 % (10.5-15) 12/04/18 05:18 Plt Count 434 10^3/uL (150-450) 12/04/18 05:18 MPV 7.1 fL (7.4-10.4) L 12/04/18 05:18 Neut % (Auto) 66.6 % 12/04/18 05:18 Lymph % (Auto) 16.5 % 12/04/18 05:18 [place] % (Auto) 11.1 % 12/04/18 05:18 Eos % (Auto) 3.7 % 12/04/18 05:18 Baso % (Auto) 2.1 % 12/04/18 05:18 Absolute Neuts (auto) 6.9 10^3/ul (1.5-7.7) 12/04/18 05:18 Absolute Lymphs (auto) 1.7 10^3/ul (1.0-4.8) 12/04/18 05:18 Absolute Monos (auto) 1.2 10^3/ul (0-0.8) H 12/04/18 05:18 Absolute Eos (auto) 0.4 10^3/ul (0-0.6) 12/04/18 05:18 Absolute Basos (auto) 0.2 10^3/ul (0-0.2) 12/04/18 05:18 Absolute Nucleated RBC 0 10^3/ul 12/04/18 05:18 Nucleated RBC % 0 12/04/18 05:18 INR (Anticoag Therapy) 1.02 (0.77-1.02) 11/23/18 05:56 APTT 32.9 seconds (26.0-36.3) 11/20/18 16:01 Patient Temperature Not Reportable 11/26/18 14:10 ABG pH 7.46 (7.35-7.45) H 11/26/18 14:10 ABG pH (Temp Correct) Not Reportable 11/26/18 14:10 ABG pCO2 39 mmHg (35-45) 11/26/18 14:10 ABG pCO2 (Temp Corrct Not Reportable 11/26/18 14:10 ABG pO2 68 mmHg (80-100) L 11/26/18 14:10 ABG pO2 (Temp Correct Not Reportable 11/26/18 14:10 ABG HCO3 27.7 mmol/L (19-31) 11/26/18 14:10 ABG O2 Saturation 96.2 % (94.0-98.0) 11/26/18 14:10 ABG Base Excess 3.7 mmol/L (-2.0-2.0) H 11/26/18 14:10 Respiration Rate Not Reportable 11/26/18 14:10 O2 Delivery Device oxymask 15 lpm 11/26/18 14:10 Ventilator Type Not Reportable 11/26/18 14:10 Vent Mode Not Reportable 11/26/18 14:10 FiO2 Not Reportable 11/26/18 14:10 Inspiratory Time Not Reportable 11/26/18 14:10 PEEP Not Reportable 11/26/18 14:10 Pressure Support Not Reportable 11/26/18 14:10 Pressure Control Not Reportable 11/26/18 14:10 EPAP Not Reportable 11/26/18 14:10 IPAP Not Reportable 11/26/18 14:10 BiPAP Not Reportable 11/26/18 14:10 Sodium 139 mmol/L (135-145) 12/06/18 07:03 Potassium 4.5 mmol/L (3.5-5.0) 12/06/18 07:03 Chloride 109 mmol/L (101-111) 12/06/18 07:03 Carbon Dioxide 26 mmol/L (22-32) 12/06/18 07:03 Anion Gap 4 mmol/L (2-11) 12/06/18 07:03 BUN 22 mg/dL (6-24) 12/06/18 07:03 Creatinine 0.92 mg/dL (0.67-1.17) 12/06/18 07:03 Est GFR ( Amer) 97.3 (>60) 12/06/18 07:03 Est GFR (Non-Af Amer) 80.4 (>60) 12/06/18 07:03 BUN/Creatinine Ratio 23.9 (8-20) H 12/06/18 07:03 Glucose 94 mg/dL (70-100) 12/06/18 07:03 Lactic Acid 0.8 mmol/L (0.5-2.0) 11/20/18 16:01 Calcium 8.6 mg/dL (8.6-10.3) 12/06/18 07:03 Phosphorus 2.3 mg/dL (2.5-5.0) L 11/27/18 05:56 Magnesium 2.0 mg/dL (1.9-2.7) 12/06/18 07:03 Iron 25 ug/dL (50-212) L 11/28/18 06:06 TIBC 171 mcg/dL (250-450) L 11/28/18 06:06 % Saturation 15 % (15-55) 11/28/18 06:06 Unsat Iron Binding < 156 ug/dL 11/28/18 06:06 Transferrin 122 mg/dL (203-362) L 11/28/18 06:06 Total Bilirubin 0.30 mg/dL (0.2-1.0) 12/04/18 05:18 AST 12 U/L (13-39) L 12/04/18 05:18 ALT 10 U/L (7-52) 12/04/18 05:18 Alkaline Phosphatase 62 U/L (34-104) 12/04/18 05:18 C-Reactive Protein 37.25 mg/L (<8.01) H 12/04/18 05:18 Total Protein 6.1 g/dL (6.4-8.9) L 12/04/18 05:18 Albumin 2.8 g/dL (3.2-5.2) L 12/04/18 05:18 Globulin 3.3 g/dL (2-4) 12/04/18 05:18 Albumin/Globulin Ratio 0.8 (1-3) L 12/04/18 05:18 Vitamin B12 231 pg/mL (180-914) 11/20/18 16:01 Methylmalonic Acid 0.40 nmol/mL (<=0.40) 11/20/18 15:49 Folate 18.41 ng/mL (>3.99) 11/20/18 16:01 Urine Color Yellow 11/25/18 18:44 Urine Appearance Cloudy 11/25/18 18:44 Urine pH 5.0 (5-9) 11/25/18 18:44 Ur Specific [place] 1.012 (1.010-1.030) 11/25/18 18:44 Urine Protein Negative (Negative) 11/25/18 18:44 Urine Ketones Negative (Negative) 11/25/18 18:44 Urine Blood 1+ (Negative) A 11/25/18 18:44 Urine Nitrate Negative (Negative) 11/25/18 18:44 Urine Bilirubin Negative (Negative) 11/25/18 18:44 Urine Urobilinogen Negative (Negative) 11/25/18 18:44 Ur Leukocyte Esterase Negative (Negative) 11/25/18 18:44 Urine WBC (Auto) Trace(0-5/hpf) (Absent) 11/25/18 18:44 Urine RBC (Auto) 1+(3-5/hpf) (Absent) A 11/25/18 18:44 Urine Bacteria Absent (Absent) 11/25/18 18:44 Urine Glucose Negative (Negative) 11/25/18 18:44 Vancomycin Trough 26.9 mcg/mL 12/04/18 09:36 Influenza A (Rapid) Negative (Negative) 11/21/18 21:02 Influenza B (Rapid) Negative (Negative) 11/21/18 21:02 Blood Type A Positive 11/22/18 05:41 Antibody Screen Negative 11/22/18 05:41 Microbiology 12/03/18 17:25 Urine Culture - Final Urine No Growth (<1,000 CFU/mL) 11/23/18 10:06 Anaerobic Culture - Final Wound - Ankle Right Fungal Smear - Final Fungal Culture - Preliminary 11/27/18 15:15 Anaerobic Culture - Final Wound 11/27/18 15:15 Gram Stain - Final Ankle Right Wound Culture - Final Enterococcus Faecalis 11/23/18 10:06 Gram Stain - Final Ankle Right Wound Culture - Final MRSA Normal Cynthia 11/25/18 18:44 Urine Culture - Final Urine No Growth (<1,000 CFU/mL) 11/20/18 16:01 Aerobic Blood Culture - Final Blood Venous No Growth Day 5 Anaerobic Blood Culture - Final No Growth Day 5 11/20/18 15:36 Aerobic Blood Culture - Final Blood Venous No Growth Day 5 Anaerobic Blood Culture - Final No Growth Day 5 11/20/18 16:40 Skin and Soft Tissue MRSA/MSSA (PCR - Final Ankle Right Mrsa Negative S.aureus Positive Gram Stain - Final Wound Culture - Final Staphylococcus Aureus Strep Agalactiae - (Group B) Normal Cynthia Assessment: 1. Open right ankle fracture with acute osteomyelitis. S/P wound debridement, open reduction and external fixation, POD #13. S/P debridement of ankle joint and replacement of VAC dressing, POD #9. S/P wound debridement and wound vac dressing change, on 11/30 and 12/04. Per Orthopedics there are plans for another wound vac change in the OR in the AM. Acute osteomyelitis based on the length of time he had an open fracture and MRI findings. Wound cultures obtained on admission showing MSSA and Strep Agalactiae (Group B). Wound cultures obtained while in the OR on 11/23/18 showing MRSA, and no fungal organisms. Repeat cultures obtained 11/27/18 in surgery, showing Enterococcus Faecalis. Afebrile, leukocytosis has resolved, CRP is trending down. Blood cultures with no growth on day 5. Plan: Continue Vancomycin, vanco trough goal 15-20. Will require a total of 4 weeks of IV ABX, day 1328. Should have weekly labs: CBC, CMP, CRP.
[2018-12-06] MEDS ORDERED: Vancomycin Trough Check NOTE FOLLOW UP ONE (11:30)
[2018-12-06] MEDS: Vancomycin(*) 1,000 MG in NS 0.9% 250 ML* 250 ML IVPB SCH (13:13)
--- NOTE | 2018-12-06 13:35 | PN ---
Progress Note - Progress Note Date of Service: 12/06/18 SOAP: Subjective: []Pt seen at bedside. He feels well. Denies fever, chills, CP, SOB, dizziness. Objective: [] General: Appears well, NAD RLE: Vac suctioning well, Ex fix in place, dressing CDI, no surrounding erythema. Exposed toes with sensation intact to light touch, capillary refill less than two seconds distally, flexion and extension of MTP intact. Left calf supple and nontender Assessment: [] Grade 3 open Right ankle fracture dislocation with ex fix and vac placement with Q 3 day vac changes. Currently POD 2 S/P vac change 12/04 Plan: []NWB RLE Continue vac Continue vanco Continue lovenox for DVT prophy OR w Dr Del Toro . NPO at midnight and no lovenox 12/07 Vital Signs Temp 97.9 F 12/06/18 11:58 Pulse 63 12/06/18 11:58 Resp 15 12/06/18 11:58 BP 124/53 12/06/18 11:58 Pulse Ox 94 12/06/18 11:58 Intake & Output 12/05/18 12/06/18 12/06/18 18:59 06:59 18:59 Intake Total 1000 600 600 Output Total 550 800 Balance 450 -200 600 Intake: Oral 1000 600 600 Output: Lopez 550 800 Other: # Bowel Movements 1 0 Estimated Stool Amount Large Laboratory Last Values WBC 10.4 10^3/uL (3.5-10.8) 12/04/18 05:18 RBC 2.75 10^6 /uL (4.18-5.48) L 12/04/18 05:18 Hgb 9.3 g/dL (14.0-18.0) L 12/04/18 05:18 Hct 27 % (36-46) L 12/04/18 05:18 MCV 99 fL (80-94) H 12/04/18 05:18 MCH 34 pg (27-31) H 12/04/18 05:18 MCHC 34 g/dL (31-36) 12/04/18 05:18 RDW 14 % (10.5-15) 12/04/18 05:18 Plt Count 434 10^3/uL (150-450) 12/04/18 05:18 MPV 7.1 fL (7.4-10.4) L 12/04/18 05:18 Neut % (Auto) 66.6 % 12/04/18 05:18 Lymph % (Auto) 16.5 % 12/04/18 05:18 [place] % (Auto) 11.1 % 12/04/18 05:18 Eos % (Auto) 3.7 % 12/04/18 05:18 Baso % (Auto) 2.1 % 12/04/18 05:18 Absolute Neuts (auto) 6.9 10^3/ul (1.5-7.7) 12/04/18 05:18 Absolute Lymphs (auto) 1.7 10^3/ul (1.0-4.8) 12/04/18 05:18 Absolute Monos (auto) 1.2 10^3/ul (0-0.8) H 12/04/18 05:18 Absolute Eos (auto) 0.4 10^3/ul (0-0.6) 12/04/18 05:18 Absolute Basos (auto) 0.2 10^3/ul (0-0.2) 12/04/18 05:18 Absolute Nucleated RBC 0 10^3/ul 12/04/18 05:18 Nucleated RBC % 0 12/04/18 05:18 INR (Anticoag Therapy) 1.02 (0.77-1.02) 11/23/18 05:56 APTT 32.9 seconds (26.0-36.3) 11/20/18 16:01 Patient Temperature Not Reportable 11/26/18 14:10 ABG pH 7.46 (7.35-7.45) H 11/26/18 14:10 ABG pH (Temp Correct) Not Reportable 11/26/18 14:10 ABG pCO2 39 mmHg (35-45) 11/26/18 14:10 ABG pCO2 (Temp Corrct Not Reportable 11/26/18 14:10 ABG pO2 68 mmHg (80-100) L 11/26/18 14:10 ABG pO2 (Temp Correct Not Reportable 11/26/18 14:10 ABG HCO3 27.7 mmol/L (19-31) 11/26/18 14:10 ABG O2 Saturation 96.2 % (94.0-98.0) 11/26/18 14:10 ABG Base Excess 3.7 mmol/L (-2.0-2.0) H 11/26/18 14:10 Respiration Rate Not Reportable 11/26/18 14:10 O2 Delivery Device oxymask 15 lpm 11/26/18 14:10 Ventilator Type Not Reportable 11/26/18 14:10 Vent Mode Not Reportable 11/26/18 14:10 FiO2 Not Reportable 11/26/18 14:10 Inspiratory Time Not Reportable 11/26/18 14:10 PEEP Not Reportable 11/26/18 14:10 Pressure Support Not Reportable 11/26/18 14:10 Pressure Control Not Reportable 11/26/18 14:10 EPAP Not Reportable 11/26/18 14:10 IPAP Not Reportable 11/26/18 14:10 BiPAP Not Reportable 11/26/18 14:10 Sodium 139 mmol/L (135-145) 12/06/18 07:03 Potassium 4.5 mmol/L (3.5-5.0) 12/06/18 07:03 Chloride 109 mmol/L (101-111) 12/06/18 07:03 Carbon Dioxide 26 mmol/L (22-32) 12/06/18 07:03 Anion Gap 4 mmol/L (2-11) 12/06/18 07:03 BUN 22 mg/dL (6-24) 12/06/18 07:03 Creatinine 0.92 mg/dL (0.67-1.17) 12/06/18 07:03 Est GFR ( Amer) 97.3 (>60) 12/06/18 07:03 Est GFR (Non-Af Amer) 80.4 (>60) 12/06/18 07:03 BUN/Creatinine Ratio 23.9 (8-20) H 12/06/18 07:03 Glucose 94 mg/dL (70-100) 12/06/18 07:03 Lactic Acid 0.8 mmol/L (0.5-2.0) 11/20/18 16:01 Calcium 8.6 mg/dL (8.6-10.3) 12/06/18 07:03 Phosphorus 2.3 mg/dL (2.5-5.0) L 11/27/18 05:56 Magnesium 2.0 mg/dL (1.9-2.7) 12/06/18 07:03 Iron 25 ug/dL (50-212) L 11/28/18 06:06 TIBC 171 mcg/dL (250-450) L 11/28/18 06:06 % Saturation 15 % (15-55) 11/28/18 06:06 Unsat Iron Binding < 156 ug/dL 11/28/18 06:06 Transferrin 122 mg/dL (203-362) L 11/28/18 06:06 Total Bilirubin 0.30 mg/dL (0.2-1.0) 12/04/18 05:18 AST 12 U/L (13-39) L 12/04/18 05:18 ALT 10 U/L (7-52) 12/04/18 05:18 Alkaline Phosphatase 62 U/L (34-104) 12/04/18 05:18 C-Reactive Protein 37.25 mg/L (<8.01) H 12/04/18 05:18 Total Protein 6.1 g/dL (6.4-8.9) L 12/04/18 05:18 Albumin 2.8 g/dL (3.2-5.2) L 12/04/18 05:18 Globulin 3.3 g/dL (2-4) 12/04/18 05:18 Albumin/Globulin Ratio 0.8 (1-3) L 12/04/18 05:18 Vitamin B12 231 pg/mL (180-914) 11/20/18 16:01 Methylmalonic Acid 0.40 nmol/mL (<=0.40) 11/20/18 15:49 Folate 18.41 ng/mL (>3.99) 11/20/18 16:01 Urine Color Yellow 11/25/18 18:44 Urine Appearance Cloudy 11/25/18 18:44 Urine pH 5.0 (5-9) 11/25/18 18:44 Ur Specific [place] 1.012 (1.010-1.030) 11/25/18 18:44 Urine Protein Negative (Negative) 11/25/18 18:44 Urine Ketones Negative (Negative) 11/25/18 18:44 Urine Blood 1+ (Negative) A 11/25/18 18:44 Urine Nitrate Negative (Negative) 11/25/18 18:44 Urine Bilirubin Negative (Negative) 11/25/18 18:44 Urine Urobilinogen Negative (Negative) 11/25/18 18:44 Ur Leukocyte Esterase Negative (Negative) 11/25/18 18:44 Urine WBC (Auto) Trace(0-5/hpf) (Absent) 11/25/18 18:44 Urine RBC (Auto) 1+(3-5/hpf) (Absent) A 11/25/18 18:44 Urine Bacteria Absent (Absent) 11/25/18 18:44 Urine Glucose Negative (Negative) 11/25/18 18:44 Vancomycin Trough 15.5 mcg/mL 12/06/18 11:43 Influenza A (Rapid) Negative (Negative) 11/21/18 21:02 Influenza B (Rapid) Negative (Negative) 11/21/18 21:02 Blood Type A Positive 11/22/18 05:41 Antibody Screen Negative 11/22/18 05:41
[2018-12-06] MEDS ORDERED: Buffered Lidocaine 1% SYRIN* 1 ML/SYRINGE INTRADERM ONE (15:42)
[2018-12-06] MEDS: Metoprolol Succinate XL TAB* 50 MG PO SCH (20:22)
--- NOTE | 2018-12-06 20:28 | PN ---
Subjective Date of Service: 12/06/18 Interval History: Attempting bladder training to wean patient off Lopez. Reports BM yesterday. Denies pain. Family History: Unchanged from Admission - DM, heart disease. Social History: Unchanged from Admission - Never smoked, no alcohol abuse. 2 sons, 2 sisters nearby, one sister is his SDM. Past Medical History: Unchanged from Admission - negative, no surgery, no medical problems Objective Active Medications: Acetaminophen (Tylenol Tab*) 650 mg PO Q4H PRN PRN Reason: FEVER/PAIN Cyanocobalamin (Vitamin B12 Tab*) 1,000 mcg PO DAILY [facility] Last Admin: 12/06/18 08:07 Dose: 1,000 mcg Enoxaparin Sodium (Lovenox(*)) 40 mg SUBCUT Q24H [facility] Last Admin: 12/06/18 08:06 Dose: 40 mg Vancomycin HCl 1,000 mg/ (Sodium Chloride) 250 mls @ 166.667 mls/hr IVPB Q12H [facility] Last Admin: 12/06/18 13:13 Dose: 166.667 mls/hr Lactated Ringer's (Lactated Ringers 1000 Ml Bag*) 1,000 mls @ 125 mls/hr IV PER RATE [facility] Magnesium Oxide (Magox 400 Tab*) 400 mg PO DAILY [facility] Last Admin: 12/06/18 08:07 Dose: 400 mg Metoprolol Succinate (Toprol Xl Tab*) 50 mg PO BEDTIME [facility] Last Admin: 12/06/18 20:22 Dose: 50 mg Ondansetron HCl (Zofran Inj*) 4 mg IV Q6H PRN PRN Reason: NAUSEA Last Admin: 11/25/18 11:29 Dose: 4 mg Oxycodone HCl (Roxycodone Tab*) 5 mg PO Q6H PRN PRN Reason: PAIN Last Admin: 12/05/18 04:32 Dose: 5 mg Oxycodone HCl (Roxycodone Tab*) 10 mg PO Q4H PRN PRN Reason: PAIN - SEVERE Last Admin: 12/06/18 20:22 Dose: 10 mg Pharmacy Consult (Vancomycin Per Pharmacy*) 1 note FOLLOW UP .VANC PER PHARMACY [facility] Polyethylene Glycol/Electrolytes (Miralax*) 17 gm PO 0800,2100 [facility] Last Admin: 12/06/18 08:07 Dose: 17 gm Potassium Chloride (Klor Con Er Tab*) 10 meq PO DAILY [facility] Last Admin: 12/06/18 08:07 Dose: 10 meq Senna (Senokot Tab*) 2 tab PO BEDTIME PRN PRN Reason: no DM during day Last Admin: 11/28/18 21:53 Dose: 2 tab Tamsulosin HCl (Flomax Cap*) 0.4 mg PO DAILY [facility] Last Admin: 12/06/18 08:07 Dose: 0.4 mg Vital Signs - 8 hr 12/06/18 12/06/18 12/06/18 16:00 16:11 16:23 Temperature 98.0 F Pulse Rate 72 Respiratory 20 20 Rate Blood Pressure 143/65 (mmHg) O2 Sat by Pulse 97 97 Oximetry 12/06/18 20:22 Temperature Pulse Rate Respiratory 18 Rate Blood Pressure (mmHg) O2 Sat by Pulse Oximetry Oxygen Devices in Use Now: None Result Diagrams: 12/04/18 05:18 12/06/18 07:03 Additional Lab and Data: Laboratory Tests 11/28/18 06:06 Iron 25 L TIBC 171 L % Saturation 15 Unsat Iron Binding < 156 Transferrin 122 L Microbiology and Other Data: Microbiology 11/27/18 15:15 Ankle Right Gram Stain - Final 11/23/18 10:06 Wound - Ankle Right Anaerobic Culture - Final 11/23/18 10:06 Wound - Ankle Right Fungal Smear - Final 11/23/18 10:06 Ankle Right Gram Stain - Final 11/23/18 10:06 Ankle Right Wound Culture - Final MRSA Normal Cynthia 11/27/18 15:15 Wound Anaerobic Culture - Preliminary 11/27/18 15:15 Ankle Right Wound Culture - Preliminary Enterococcus Faecalis Assess/Plan/Problems-Billing Assessment: 73M admitted for right ankle open fracture 2+ weeks old, did not seek medical attention at the time of the injury, also had possible SBO, now resolved. Getting q3d VAC changes while on IV vancomycin. - Patient Problems (1) Open fracture Comment: - Right ankle. Dr. Del Toro performed open reduction, external fixation 11/23/18. Recultured intraoperatively, growing MRSA, and enterococcus. Returned to OR 11/30 for 3rd debridement, has 4th 12/04. - Continue wound vac, vanco Needs CBC, CMP, CRP every Tuesday while on antibiotics. (2) Urinary retention Comment: 1400 ml urinary retention on 11/25/18. Lopez catheter placd 4/13 with improvment of renal function, so started on tamsulosin. Voiding trial 12/03, had 711 ml in bladder and unable to void, Lopez inserted. - Need to continue bladder training. (3) Macrocytosis Comment: - B12 in low normal range (231). Methylmalonic acid level borderline, continue B12 po. Status and Disposition: inpatient - likely rehab when surgical issue resolves.
[2018-12-07] MEDS ORDERED: Morphine INJ* 2 MG/ML 1 ML SYRINGE (TWO MG - NEW SYRINGE VERSION) ONE (00:20)
[2018-12-07] MEDS: Vancomycin(*) 1,000 MG in NS 0.9% 250 ML* 250 ML IVPB SCH ×2 (00:26→11:49)
[2018-12-07] MEDS: Morphine INJ* 2 MG/ML 1 ML SYRINGE (TWO MG - NEW SYRINGE VERSION) IV PRN ×3 (05:51→20:57)
[2018-12-07] MEDS ORDERED: Lactated Ringers 1000 ML Bag* 1,000 ML IV SCH (06:00)
[2018-12-07] MEDS: Polyethylene Glycol 3350* 17 GM PACKET PO SCH ×4 (06:45→20:52)
[2018-12-07] MEDS: Cyanocobalamin TAB* 500 MCG PO SCH ×3 (08:23→13:38)
[2018-12-07] MEDS: Tamsulosin CAP* 0.4 MG PO SCH ×3 (08:23→13:39)
[2018-12-07] MEDS: Magnesium Oxide TAB* 400 MG PO SCH ×3 (08:23→13:39)
[2018-12-07] MEDS: Potassium Chlor TAB* 10 MEQ TAB.ER PO SCH ×3 (08:23→13:38)
[2018-12-07] MEDS: Enoxaparin(*) 40 MG/0.4 ML SYR SUBCUT SCH ×2 (09:12→13:39)
[2018-12-07] MEDS ORDERED: Lidocain 1% EPI 1:100,000 * 30 ML MDV ONE (10:13)
[2018-12-07] MEDS: oxyCODONE TAB* 5 MG TAB PO PRN ×3 (13:39→21:44)
[2018-12-07] MEDS: Metoprolol Succinate XL TAB* 50 MG PO SCH (20:52)
--- NOTE | 2018-12-07 21:45 | PN ---
Subjective Date of Service: 12/07/18 Interval History: Bladder training continues. Pt underwent schedule wound vac change at bedside today. Denied complaints to me before the procedure. Family History: Unchanged from Admission - DM, heart disease. Social History: Unchanged from Admission - Never smoked, no alcohol abuse. 2 sons, 2 sisters nearby, one sister is his SDM. Past Medical History: Unchanged from Admission - negative, no surgery, no medical problems Objective Active Medications: Acetaminophen (Tylenol Tab*) 650 mg PO Q4H PRN PRN Reason: FEVER/PAIN Cyanocobalamin (Vitamin B12 Tab*) 1,000 mcg PO DAILY [facility] Last Admin: 12/07/18 13:38 Dose: 1,000 mcg Enoxaparin Sodium (Lovenox(*)) 40 mg SUBCUT Q24H [facility] Last Admin: 12/07/18 13:39 Dose: 40 mg Vancomycin HCl 1,000 mg/ (Sodium Chloride) 250 mls @ 166.667 mls/hr IVPB Q12H [facility] Last Admin: 12/07/18 11:49 Dose: 166.667 mls/hr Magnesium Oxide (Magox 400 Tab*) 400 mg PO DAILY [facility] Last Admin: 12/07/18 13:39 Dose: 400 mg Metoprolol Succinate (Toprol Xl Tab*) 50 mg PO BEDTIME [facility] Last Admin: 12/07/18 20:52 Dose: 50 mg Morphine Sulfate (Morphine Inj (Syringe))*) 2 mg IV Q4H PRN PRN Reason: PAIN - MILD Last Admin: 12/07/18 20:57 Dose: 2 mg Ondansetron HCl (Zofran Inj*) 4 mg IV Q6H PRN PRN Reason: NAUSEA Last Admin: 11/25/18 11:29 Dose: 4 mg Oxycodone HCl (Roxycodone Tab*) 5 mg PO Q6H PRN PRN Reason: PAIN Last Admin: 12/05/18 04:32 Dose: 5 mg Oxycodone HCl (Roxycodone Tab*) 10 mg PO Q4H PRN PRN Reason: PAIN - SEVERE Last Admin: 12/07/18 17:51 Dose: 10 mg Pharmacy Consult (Vancomycin Per Pharmacy*) 1 note FOLLOW UP .VANC PER PHARMACY [facility] Pharmacy Profile Note (Vancomycin Trough Check) 1 note FOLLOW UP 1130 ONE Stop: 12/08/18 11:31 Polyethylene Glycol/Electrolytes (Miralax*) 17 gm PO 0800,2100 [facility] Last Admin: 12/07/18 20:52 Dose: 17 gm Potassium Chloride (Klor Con Er Tab*) 10 meq PO DAILY [facility] Last Admin: 12/07/18 13:38 Dose: 10 meq Senna (Senokot Tab*) 2 tab PO BEDTIME PRN PRN Reason: no DM during day Last Admin: 11/28/18 21:53 Dose: 2 tab Tamsulosin HCl (Flomax Cap*) 0.4 mg PO DAILY [facility] Last Admin: 12/07/18 13:39 Dose: 0.4 mg Vital Signs - 8 hr 12/07/18 12/07/18 12/07/18 15:43 16:00 16:22 Temperature 97.6 F Pulse Rate 71 Respiratory 18 16 Rate Blood Pressure 110/62 (mmHg) O2 Sat by Pulse 96 96 Oximetry 12/07/18 12/07/18 12/07/18 17:51 20:37 20:57 Temperature 98.3 F Pulse Rate 65 Respiratory 18 16 18 Rate Blood Pressure 150/64 (mmHg) O2 Sat by Pulse 96 Oximetry 12/07/18 12/07/18 21:05 21:09 Temperature Pulse Rate Respiratory 16 16 Rate Blood Pressure (mmHg) O2 Sat by Pulse Oximetry Oxygen Devices in Use Now: None Ears/Nose/Mouth/Throat: Mucous Membranes Moist Respiratory: Clear to Auscultation Cardiovascular: RRR Extremities: - - vac with suction on RLE under c/d/i bandage with external fixation in place Neurological: Alert and Oriented x 3 Result Diagrams: 12/04/18 05:18 12/06/18 07:03 Additional Lab and Data: Laboratory Tests 11/28/18 06:06 Iron 25 L TIBC 171 L % Saturation 15 Unsat Iron Binding < 156 Transferrin 122 L Microbiology and Other Data: Microbiology 11/27/18 15:15 Ankle Right Gram Stain - Final 11/23/18 10:06 Wound - Ankle Right Anaerobic Culture - Final 11/23/18 10:06 Wound - Ankle Right Fungal Smear - Final 11/23/18 10:06 Ankle Right Gram Stain - Final 11/23/18 10:06 Ankle Right Wound Culture - Final MRSA Normal Cynthia 11/27/18 15:15 Wound Anaerobic Culture - Preliminary 11/27/18 15:15 Ankle Right Wound Culture - Preliminary Enterococcus Faecalis Assess/Plan/Problems-Billing Assessment: 73M admitted for right ankle open fracture 2+ weeks old, did not seek medical attention at the time of the injury, also had possible SBO, now resolved. Getting q3d VAC changes while on IV vancomycin. - Patient Problems (1) Open fracture Comment: - Right ankle. Dr. Del Toro performed open reduction, external fixation 11/23/18. Recultured intraoperatively, growing MRSA, and enterococcus. Returned to OR 11/30 for and 12/04. - Continue wound vac, vanco Needs CBC, CMP, CRP every Tuesday while on antibiotics. (2) Urinary retention Comment: 1400 ml urinary retention on 11/25/18. Lopez catheter placd 11/25 with improvment of renal function, so started on tamsulosin. Voiding trial 12/03, had 711 ml in bladder and unable to void, Lopez inserted. - Need to continue bladder training. (3) Macrocytosis Comment: - B12 in low normal range (231). Methylmalonic acid level borderline, continue B12 po. Status and Disposition: inpatient - likely rehab when surgical issue resolves.
[2018-12-08] MEDS: Vancomycin(*) 1,000 MG in NS 0.9% 250 ML* 250 ML IVPB SCH ×3 (00:07→23:55)
[2018-12-08] MEDS: oxyCODONE TAB* 5 MG TAB PO PRN ×3 (03:59→20:54)
--- NOTE | 2018-12-08 08:58 | PN ---
Progress Note - Progress Note Date of Service: 12/08/18 SOAP: Subjective: CC: Open right ankle fracture with acute osteomyelitis HPI: Mr. Fenton is a 73 yo male with no significant PMH who presented to the emergency room for an open right ankle fracture that occurred 2-3 weeks prior to his presentation to the hospital. He states that he is doing well and has no concerns or questions. Denies fever, chills, shortness of breath, nausea, vomiting, diarrhea, or constipation. Reports moving his bowels yesterday. He felt like the wound vac dressing change at bedside went well yesterday. Objective: Vital Signs - 8 hr 12/08/18 12/08/18 12/08/18 03:59 04:00 04:31 Temperature 97.9 F Pulse Rate 60 Respiratory 18 18 18 Rate Blood Pressure 132/52 (mmHg) O2 Sat by Pulse 96 Oximetry 12/08/18 08:42 Temperature 97.9 F Pulse Rate 54 Respiratory 16 Rate Blood Pressure 155/75 (mmHg) O2 Sat by Pulse 93 Oximetry Physical Exam: General: NAD, laying in bed Neurological: Alert and Oriented HEENT: No thrush Cardiovascular: Heart rate regular Respiratory: Lung sounds clear bilateral Abdominal: Bowel sounds present; ABD soft, non tender and non distended Skin: No rash, KAYLEEN wrap and external fixator in place to the right ankle Laboratory Last Values WBC 10.4 10^3/uL (3.5-10.8) 12/04/18 05:18 RBC 2.75 10^6 /uL (4.18-5.48) L 12/04/18 05:18 Hgb 9.3 g/dL (14.0-18.0) L 12/04/18 05:18 Hct 27 % (36-46) L 12/04/18 05:18 MCV 99 fL (80-94) H 12/04/18 05:18 MCH 34 pg (27-31) H 12/04/18 05:18 MCHC 34 g/dL (31-36) 12/04/18 05:18 RDW 14 % (10.5-15) 12/04/18 05:18 Plt Count 434 10^3/uL (150-450) 12/04/18 05:18 MPV 7.1 fL (7.4-10.4) L 12/04/18 05:18 Neut % (Auto) 66.6 % 12/04/18 05:18 Lymph % (Auto) 16.5 % 12/04/18 05:18 Wallace % (Auto) 11.1 % 12/04/18 05:18 Eos % (Auto) 3.7 % 12/04/18 05:18 Baso % (Auto) 2.1 % 12/04/18 05:18 Absolute Neuts (auto) 6.9 10^3/ul (1.5-7.7) 12/04/18 05:18 Absolute Lymphs (auto) 1.7 10^3/ul (1.0-4.8) 12/04/18 05:18 Absolute Monos (auto) 1.2 10^3/ul (0-0.8) H 12/04/18 05:18 Absolute Eos (auto) 0.4 10^3/ul (0-0.6) 12/04/18 05:18 Absolute Basos (auto) 0.2 10^3/ul (0-0.2) 12/04/18 05:18 Absolute Nucleated RBC 0 10^3/ul 12/04/18 05:18 Nucleated RBC % 0 12/04/18 05:18 INR (Anticoag Therapy) 1.02 (0.77-1.02) 11/23/18 05:56 APTT 32.9 seconds (26.0-36.3) 11/20/18 16:01 Patient Temperature Not Reportable 11/26/18 14:10 ABG pH 7.46 (7.35-7.45) H 11/26/18 14:10 ABG pH (Temp Correct) Not Reportable 11/26/18 14:10 ABG pCO2 39 mmHg (35-45) 11/26/18 14:10 ABG pCO2 (Temp Corrct Not Reportable 11/26/18 14:10 ABG pO2 68 mmHg (80-100) L 11/26/18 14:10 ABG pO2 (Temp Correct Not Reportable 11/26/18 14:10 ABG HCO3 27.7 mmol/L (19-31) 11/26/18 14:10 ABG O2 Saturation 96.2 % (94.0-98.0) 11/26/18 14:10 ABG Base Excess 3.7 mmol/L (-2.0-2.0) H 11/26/18 14:10 Respiration Rate Not Reportable 11/26/18 14:10 O2 Delivery Device oxymask 15 lpm 11/26/18 14:10 Ventilator Type Not Reportable 11/26/18 14:10 Vent Mode Not Reportable 11/26/18 14:10 FiO2 Not Reportable 11/26/18 14:10 Inspiratory Time Not Reportable 11/26/18 14:10 PEEP Not Reportable 11/26/18 14:10 Pressure Support Not Reportable 11/26/18 14:10 Pressure Control Not Reportable 11/26/18 14:10 EPAP Not Reportable 11/26/18 14:10 IPAP Not Reportable 11/26/18 14:10 BiPAP Not Reportable 11/26/18 14:10 Sodium 139 mmol/L (135-145) 12/06/18 07:03 Potassium 4.5 mmol/L (3.5-5.0) 12/06/18 07:03 Chloride 109 mmol/L (101-111) 12/06/18 07:03 Carbon Dioxide 26 mmol/L (22-32) 12/06/18 07:03 Anion Gap 4 mmol/L (2-11) 12/06/18 07:03 BUN 22 mg/dL (6-24) 12/06/18 07:03 Creatinine 0.92 mg/dL (0.67-1.17) 12/06/18 07:03 Est GFR ( Amer) 97.3 (>60) 12/06/18 07:03 Est GFR (Non-Af Amer) 80.4 (>60) 12/06/18 07:03 BUN/Creatinine Ratio 23.9 (8-20) H 12/06/18 07:03 Glucose 94 mg/dL (70-100) 12/06/18 07:03 Lactic Acid 0.8 mmol/L (0.5-2.0) 11/20/18 16:01 Calcium 8.6 mg/dL (8.6-10.3) 12/06/18 07:03 Phosphorus 2.3 mg/dL (2.5-5.0) L 11/27/18 05:56 Magnesium 2.0 mg/dL (1.9-2.7) 12/06/18 07:03 Iron 25 ug/dL (50-212) L 11/28/18 06:06 TIBC 171 mcg/dL (250-450) L 11/28/18 06:06 % Saturation 15 % (15-55) 11/28/18 06:06 Unsat Iron Binding < 156 ug/dL 11/28/18 06:06 Transferrin 122 mg/dL (203-362) L 11/28/18 06:06 Total Bilirubin 0.30 mg/dL (0.2-1.0) 12/04/18 05:18 AST 12 U/L (13-39) L 12/04/18 05:18 ALT 10 U/L (7-52) 12/04/18 05:18 Alkaline Phosphatase 62 U/L (34-104) 12/04/18 05:18 C-Reactive Protein 37.25 mg/L (<8.01) H 12/04/18 05:18 Total Protein 6.1 g/dL (6.4-8.9) L 12/04/18 05:18 Albumin 2.8 g/dL (3.2-5.2) L 12/04/18 05:18 Globulin 3.3 g/dL (2-4) 12/04/18 05:18 Albumin/Globulin Ratio 0.8 (1-3) L 12/04/18 05:18 Vitamin B12 231 pg/mL (180-914) 11/20/18 16:01 Methylmalonic Acid 0.40 nmol/mL (<=0.40) 11/20/18 15:49 Folate 18.41 ng/mL (>3.99) 11/20/18 16:01 Urine Color Yellow 11/25/18 18:44 Urine Appearance Cloudy 11/25/18 18:44 Urine pH 5.0 (5-9) 11/25/18 18:44 Ur Specific [place] 1.012 (1.010-1.030) 11/25/18 18:44 Urine Protein Negative (Negative) 11/25/18 18:44 Urine Ketones Negative (Negative) 11/25/18 18:44 Urine Blood 1+ (Negative) A 11/25/18 18:44 Urine Nitrate Negative (Negative) 11/25/18 18:44 Urine Bilirubin Negative (Negative) 11/25/18 18:44 Urine Urobilinogen Negative (Negative) 11/25/18 18:44 Ur Leukocyte Esterase Negative (Negative) 11/25/18 18:44 Urine WBC (Auto) Trace(0-5/hpf) (Absent) 11/25/18 18:44 Urine RBC (Auto) 1+(3-5/hpf) (Absent) A 11/25/18 18:44 Urine Bacteria Absent (Absent) 11/25/18 18:44 Urine Glucose Negative (Negative) 11/25/18 18:44 Vancomycin Trough 15.5 mcg/mL 12/06/18 11:43 Influenza A (Rapid) Negative (Negative) 11/21/18 21:02 Influenza B (Rapid) Negative (Negative) 11/21/18 21:02 Blood Type A Positive 11/22/18 05:41 Antibody Screen Negative 11/22/18 05:41 Microbiology 12/03/18 17:25 Urine Culture - Final Urine No Growth (<1,000 CFU/mL) 11/23/18 10:06 Anaerobic Culture - Final Wound - Ankle Right Fungal Smear - Final Fungal Culture - Preliminary 11/27/18 15:15 Anaerobic Culture - Final Wound 11/27/18 15:15 Gram Stain - Final Ankle Right Wound Culture - Final Enterococcus Faecalis 11/23/18 10:06 Gram Stain - Final Ankle Right Wound Culture - Final MRSA Normal Cynthia 11/25/18 18:44 Urine Culture - Final Urine No Growth (<1,000 CFU/mL) 11/20/18 16:01 Aerobic Blood Culture - Final Blood Venous No Growth Day 5 Anaerobic Blood Culture - Final No Growth Day 5 11/20/18 15:36 Aerobic Blood Culture - Final Blood Venous No Growth Day 5 Anaerobic Blood Culture - Final No Growth Day 5 11/20/18 16:40 Skin and Soft Tissue MRSA/MSSA (PCR - Final Ankle Right Mrsa Negative S.aureus Positive Gram Stain - Final Wound Culture - Final Staphylococcus Aureus Strep Agalactiae - (Group B) Normal Cynthia Assessment: 1. Open right ankle fracture with acute osteomyelitis. Acute osteomyelitis based on the length of time he had an open fracture and MRI findings. S/P wound debridement, open reduction and external fixation, POD #15. S/P debridement of ankle joint and replacement of VAC dressing, POD #11. S/P wound debridement and wound vac dressing change, on 11/30 and 12/04. S/P wound vac dressing change at bedside on 12/07. Wound cultures obtained on admission showing MSSA and Strep Agalactiae (Group B). Wound cultures obtained while in the OR on 11/23/18 showing MRSA, and no fungal organisms. Repeat cultures obtained 11/27/18 in surgery, showing Enterococcus Faecalis. Afebrile, and no leukocytosis, CRP is trending down. Blood cultures with no growth on day 5. Plan: Continue Vancomycin, vanco trough goal 15-20. Will require a total of 4 weeks of IV ABX, day . Should have weekly labs: CBC, CMP, CRP.
[2018-12-08] MEDS: Polyethylene Glycol 3350* 17 GM PACKET PO SCH ×2 (09:27→20:06)
[2018-12-08] MEDS: Potassium Chlor TAB* 10 MEQ TAB.ER PO SCH (09:28)
[2018-12-08] MEDS: Cyanocobalamin TAB* 500 MCG PO SCH (09:28)
[2018-12-08] MEDS: Magnesium Oxide TAB* 400 MG PO SCH (09:28)
[2018-12-08] MEDS: Tamsulosin CAP* 0.4 MG PO SCH (09:28)
[2018-12-08] MEDS: Enoxaparin(*) 40 MG/0.4 ML SYR SUBCUT SCH (09:30)
--- NOTE | 2018-12-08 09:55 | PN ---
Subjective Date of Service: 12/08/18 Interval History: Pain well controlled. Reports BM yesterday Discussed taking 5mg oxycodone instead of 10mg oxycodone doses but he is resistant for now Has no new requests or needs. Family History: Unchanged from Admission - DM, heart disease. Social History: Unchanged from Admission - Never smoked, no alcohol abuse. 2 sons, 2 sisters nearby, one sister is his SDM. Past Medical History: Unchanged from Admission - negative, no surgery, no medical problems Objective Active Medications: Acetaminophen (Tylenol Tab*) 650 mg PO Q4H PRN PRN Reason: FEVER/PAIN Cyanocobalamin (Vitamin B12 Tab*) 1,000 mcg PO DAILY [facility] Last Admin: 12/08/18 09:28 Dose: 1,000 mcg Enoxaparin Sodium (Lovenox(*)) 40 mg SUBCUT Q24H [facility] Last Admin: 12/08/18 09:30 Dose: 40 mg Vancomycin HCl 1,000 mg/ (Sodium Chloride) 250 mls @ 166.667 mls/hr IVPB Q12H [facility] Last Admin: 12/08/18 00:07 Dose: 166.667 mls/hr Magnesium Oxide (Magox 400 Tab*) 400 mg PO DAILY [facility] Last Admin: 12/08/18 09:28 Dose: 400 mg Metoprolol Succinate (Toprol Xl Tab*) 50 mg PO BEDTIME [facility] Last Admin: 12/07/18 20:52 Dose: 50 mg Morphine Sulfate (Morphine Inj (Syringe))*) 2 mg IV Q4H PRN PRN Reason: PAIN - MILD Last Admin: 12/07/18 20:57 Dose: 2 mg Ondansetron HCl (Zofran Inj*) 4 mg IV Q6H PRN PRN Reason: NAUSEA Last Admin: 11/25/18 11:29 Dose: 4 mg Oxycodone HCl (Roxycodone Tab*) 5 mg PO Q6H PRN PRN Reason: PAIN Last Admin: 12/05/18 04:32 Dose: 5 mg Oxycodone HCl (Roxycodone Tab*) 10 mg PO Q4H PRN PRN Reason: PAIN - SEVERE Last Admin: 12/08/18 03:59 Dose: 10 mg Pharmacy Consult (Vancomycin Per Pharmacy*) 1 note FOLLOW UP .VANC PER PHARMACY [facility] Pharmacy Profile Note (Vancomycin Trough Check) 1 note FOLLOW UP 1130 ONE Stop: 12/08/18 11:31 Polyethylene Glycol/Electrolytes (Miralax*) 17 gm PO 0800,2100 [facility] Last Admin: 12/08/18 09:27 Dose: 17 gm Potassium Chloride (Klor Con Er Tab*) 10 meq PO DAILY [facility] Last Admin: 12/08/18 09:28 Dose: 10 meq Senna (Senokot Tab*) 2 tab PO BEDTIME PRN PRN Reason: no DM during day Last Admin: 11/28/18 21:53 Dose: 2 tab Tamsulosin HCl (Flomax Cap*) 0.4 mg PO DAILY [facility] Last Admin: 12/08/18 09:28 Dose: 0.4 mg Vital Signs - 8 hr 12/08/18 12/08/18 12/08/18 03:59 04:00 04:31 Temperature 97.9 F Pulse Rate 60 Respiratory 18 18 18 Rate Blood Pressure 132/52 (mmHg) O2 Sat by Pulse 96 Oximetry 12/08/18 08:42 Temperature 97.9 F Pulse Rate 54 Respiratory 16 Rate Blood Pressure 155/75 (mmHg) O2 Sat by Pulse 93 Oximetry Oxygen Devices in Use Now: None Appearance: lying on left, NAD Eyes: No Scleral Icterus, PERRLA Ears/Nose/Mouth/Throat: NL Teeth, Lips, Gums, Clear Oropharnyx Neck: NL Appearance and Movements; NL JVP, Trachea Midline Respiratory: Symmetrical Chest Expansion and Respiratory Effort, - - trace rales left upper 3/4 to apex Cardiovascular: NL Sounds; No Murmurs; No JVD, RRR Abdominal: NL Sounds; No Tenderness; No Distention, No Hepatosplenomegaly Lymphatic: No Cervical Adenopathy Extremities: - - right ankle wrapped over wound vac, external fixation in place , toes TTP, warm Result Diagrams: 12/04/18 05:18 12/06/18 07:03 Additional Lab and Data: Laboratory Tests 11/28/18 06:06 Iron 25 L TIBC 171 L % Saturation 15 Unsat Iron Binding < 156 Transferrin 122 L Microbiology and Other Data: Microbiology 11/27/18 15:15 Ankle Right Gram Stain - Final 11/23/18 10:06 Wound - Ankle Right Anaerobic Culture - Final 11/23/18 10:06 Wound - Ankle Right Fungal Smear - Final 11/23/18 10:06 Ankle Right Gram Stain - Final 11/23/18 10:06 Ankle Right Wound Culture - Final MRSA Normal Cynthia 11/27/18 15:15 Wound Anaerobic Culture - Preliminary 11/27/18 15:15 Ankle Right Wound Culture - Preliminary Enterococcus Faecalis Assess/Plan/Problems-Billing Assessment: 73M admitted for right ankle open fracture 2+ weeks old, did not seek medical attention at the time of the injury, also had possible SBO, now resolved. Getting q3d VAC changes while on IV vancomycin. - Patient Problems (1) Open fracture Comment: - Right ankle. Dr. Del Toro performed open reduction, external fixation 11/23/18. Recultured intraoperatively, growing MRSA, and enterococcus. Returned to OR 11/30 for and 4th 12/04. - Continue wound vac -Continue Vancomycin -WBC and CRP down trending Needs CBC, CMP, CRP every Tuesday while on antibiotics. (2) Urinary retention Comment: 1400 ml urinary retention on 11/25/18. Lopez catheter placd 11/25 with improvment of renal function, so started on tamsulosin. Voiding trial 12/03, had 711 ml in bladder and unable to void, Lopez inserted. - Continuing bladder training. (3) Macrocytosis Comment: -MCV 100 - B12 in low normal range (231). Methylmalonic acid level borderline - continue B12 po. (4) DVT prophylaxis Comment: lovenox Status and Disposition: inpatient - likely rehab when surgical issue resolves.
[2018-12-08] MEDS ORDERED: Vancomycin Trough Check NOTE FOLLOW UP ONE (11:30)
--- NOTE | 2018-12-08 12:11 | PN ---
Progress Note - Progress Note Date of Service: 12/08/18 SOAP: Subjective: []Patient seen OOB in chair. Leg elevated on stool. Offers minimal complaints of pain. No new complaints. Objective: []General: Appears well, NAD RLE: Vac suctioning well, Ex fix in place, dressing CDI, no surrounding erythema. Exposed toes with sensation intact to light touch, capillary refill less than two seconds distally, flexion and extension of MTP intact. Left calf supple and nontender Vital Signs Temp 97.9 F 12/08/18 08:42 Pulse 54 12/08/18 08:42 Resp 18 12/08/18 09:30 BP 155/75 12/08/18 08:42 Pulse Ox 93 12/08/18 08:42 Intake & Output 12/07/18 12/08/18 12/08/18 18:59 06:59 18:59 Intake Total 843 600 240 Output Total 2950 1525 Balance -2107 -925 240 Intake: IV Fluids 593 LR 593 IVPB 250 ABX - VANCOMYCIN 250 Oral 600 240 Output: Urine 775 350 Lopez 2175 1175 Other: # Bowel Movements 0 Assessment: []Grade 3 open Right ankle fracture dislocation with ex fix and vac placement with Q 3 day vac changes. Currently POD 1 S/P bedside vac change 12/07 Plan: [] []NWB RLE Continue vac Continue vanco Continue lovenox for DVT prophy Bedside VAC change monday 12/11
[2018-12-08 12:16] LABS: Vancomycin Trough 16.7 mcg/mL
[2018-12-08 12:33] LABS: EGFR African American 105.2 (>60); EGFR Non-African American 86.9 (>60)
[2018-12-08] MEDS: Metoprolol Succinate XL TAB* 50 MG PO SCH (20:06)
[2018-12-09] MEDS: Cyanocobalamin TAB* 500 MCG PO SCH (09:29)
[2018-12-09] MEDS: Polyethylene Glycol 3350* 17 GM PACKET PO SCH ×2 (09:29→20:55)
[2018-12-09] MEDS: Enoxaparin(*) 40 MG/0.4 ML SYR SUBCUT SCH (09:30)
[2018-12-09] MEDS: Potassium Chlor TAB* 10 MEQ TAB.ER PO SCH (09:31)
[2018-12-09] MEDS: Magnesium Oxide TAB* 400 MG PO SCH (09:31)
[2018-12-09] MEDS: oxyCODONE TAB* 5 MG TAB PO PRN ×2 (09:31→20:58)
[2018-12-09] MEDS: Tamsulosin CAP* 0.4 MG PO SCH (09:31)
--- NOTE | 2018-12-09 10:24 | PN ---
Progress Note - Progress Note Date of Service: 12/09/18 SOAP: Subjective: [Pt reports no pain issues. Denies CP, SOB, nausea, dizziness. Ate breakfast.] Objective: [A and O x 3, NAD Vac suctioning well. Ex fix in place, dressing C/D/I. Exposed toes with sensation intact to light touch. able to wiggle. Vital Signs: Temp Pulse Resp BP Pulse Ox 97.4 F 62 18 155/75 95 12/09/18 08:22 12/09/18 08:17 12/09/18 09:31 12/09/18 08:17 12/09/18 08:17 Laboratory Results - last 24 hr 12/08/18 11:29 BUN 17 Creatinine 0.86 Est GFR ( Amer) 105.2 Est GFR (Non-Af Amer) 86.9 Vancomycin Trough 16.7 ] Assessment: [Open R ankle fx/disloc with ex fix and vac placement with q 3 days vac changes. Currently POD 2 s/p bedside vac change 12/07/18] Plan: [NWM R LE Continue vac - bedside vac change Monday 12/11 Continue Vanco Con't lovenox for DVT proph]
[2018-12-09] MEDS: Vancomycin(*) 1,000 MG in NS 0.9% 250 ML* 250 ML IVPB SCH (11:47)
[2018-12-09] MEDS: Morphine INJ* 2 MG/ML 1 ML SYRINGE (TWO MG - NEW SYRINGE VERSION) IV PRN (11:52)
--- NOTE | 2018-12-09 19:28 | PN ---
Subjective Date of Service: 12/09/18 Interval History: Pain well controlled Still not willing to try lower dose narcotics No complaints Denies SOB/CP Family History: Unchanged from Admission - DM, heart disease. Social History: Unchanged from Admission - Never smoked, no alcohol abuse. 2 sons, 2 sisters nearby, one sister is his SDM. Past Medical History: Unchanged from Admission - negative, no surgery, no medical problems Objective Active Medications: Acetaminophen (Tylenol Tab*) 650 mg PO Q4H PRN PRN Reason: FEVER/PAIN Last Admin: 12/09/18 11:51 Dose: 650 mg Cyanocobalamin (Vitamin B12 Tab*) 1,000 mcg PO DAILY [facility] [place] Last Admin: 12/09/18 09:29 Dose: 1,000 mcg Enoxaparin Sodium (Lovenox(*)) 40 mg SUBCUT Q24H [facility] [place] Last Admin: 12/09/18 09:30 Dose: 40 mg Vancomycin HCl 1,000 mg/ (Sodium Chloride) 250 mls @ 166.667 mls/hr IVPB Q12H [facility] [place] Last Admin: 12/09/18 11:47 Dose: 166.667 mls/hr Magnesium Oxide (Magox 400 Tab*) 400 mg PO DAILY [facility] [place] Last Admin: 12/09/18 09:31 Dose: 400 mg Metoprolol Succinate (Toprol Xl Tab*) 50 mg PO BEDTIME [facility] [place] Last Admin: 12/08/18 20:06 Dose: 50 mg Morphine Sulfate (Morphine Inj (Syringe))*) 2 mg IV Q4H PRN PRN Reason: PAIN - MILD Last Admin: 12/09/18 11:52 Dose: 2 mg Ondansetron HCl (Zofran Inj*) 4 mg IV Q6H PRN PRN Reason: NAUSEA Last Admin: 11/25/18 11:29 Dose: 4 mg Oxycodone HCl (Roxycodone Tab*) 5 mg PO Q6H PRN PRN Reason: PAIN Last Admin: 12/09/18 09:31 Dose: 5 mg Oxycodone HCl (Roxycodone Tab*) 10 mg PO Q4H PRN PRN Reason: PAIN - SEVERE Last Admin: 12/08/18 20:54 Dose: 10 mg Pharmacy Consult (Vancomycin Per Pharmacy*) 1 note FOLLOW UP .VANC PER PHARMACY [facility] Pharmacy Profile Note (Vancomycin Trough Check) 1 note FOLLOW UP 1130 ONE Stop: 12/11/18 11:31 Polyethylene Glycol/Electrolytes (Miralax*) 17 gm PO 0800,2100 [facility] [place] Last Admin: 12/09/18 09:29 Dose: 17 gm Potassium Chloride (Klor Con Er Tab*) 10 meq PO DAILY [facility] [place] Last Admin: 12/09/18 09:31 Dose: 10 meq Senna (Senokot Tab*) 2 tab PO BEDTIME PRN PRN Reason: no DM during day Last Admin: 11/28/18 21:53 Dose: 2 tab Tamsulosin HCl (Flomax Cap*) 0.4 mg PO DAILY [facility] [place] Last Admin: 12/09/18 09:31 Dose: 0.4 mg Vital Signs - 8 hr 12/09/18 12/09/18 12/09/18 11:47 11:52 12:20 Temperature 98.5 F Pulse Rate 65 Respiratory 18 18 16 Rate Blood Pressure 125/59 (mmHg) O2 Sat by Pulse 95 Oximetry 12/09/18 12/09/18 12/09/18 16:00 16:02 17:16 Temperature 98.2 F Pulse Rate 66 Respiratory 18 18 Rate Blood Pressure 139/68 (mmHg) O2 Sat by Pulse 95 96 Oximetry Oxygen Devices in Use Now: None Appearance: NAD Eyes: No Scleral Icterus, PERRLA Ears/Nose/Mouth/Throat: NL Teeth, Lips, Gums, Clear Oropharnyx Neck: NL Appearance and Movements; NL JVP Respiratory: Symmetrical Chest Expansion and Respiratory Effort, Clear to Auscultation Cardiovascular: NL Sounds; No Murmurs; No JVD, RRR Abdominal: NL Sounds; No Tenderness; No Distention Extremities: No Edema, - - right ankle wrapped, wound vac in place, external fixation Neurological: Alert and Oriented x 3 Result Diagrams: 12/04/18 05:18 12/08/18 11:29 Additional Lab and Data: Laboratory Tests 11/28/18 06:06 Iron 25 L TIBC 171 L % Saturation 15 Unsat Iron Binding < 156 Transferrin 122 L Microbiology and Other Data: Microbiology 11/27/18 15:15 Ankle Right Gram Stain - Final 11/23/18 10:06 Wound - Ankle Right Anaerobic Culture - Final 11/23/18 10:06 Wound - Ankle Right Fungal Smear - Final 11/23/18 10:06 Ankle Right Gram Stain - Final 11/23/18 10:06 Ankle Right Wound Culture - Final MRSA Normal Cynthia 11/27/18 15:15 Wound Anaerobic Culture - Preliminary 11/27/18 15:15 Ankle Right Wound Culture - Preliminary Enterococcus Faecalis Assess/Plan/Problems-Billing Assessment: 73M admitted for right ankle open fracture 2+ weeks old, did not seek medical attention at the time of the injury, also had possible SBO, now resolved. Getting q3d VAC changes while on IV vancomycin. - Patient Problems (1) Open fracture Comment: - Right ankle. Dr. Del Toro performed open reduction, external fixation 11/23/18. Recultured intraoperatively, growing MRSA, and enterococcus. Returned to OR 11/30 for 3rd and 4th 12/04. - Continue wound vac - next change 12/11 -Continue Vancomycin -WBC and CRP down trending Needs CBC, CMP, CRP every Tuesday while on antibiotics. (2) Urinary retention Comment: 1400 ml urinary retention on 11/25/18. Lopez catheter placd 11/25 with improvment of renal function, so started on tamsulosin. Voiding trial 12/03, had 711 ml in bladder and unable to void, Lopez inserted. - Continuing bladder training. (3) Macrocytosis Comment: -MCV 100 - B12 in low normal range (231). Methylmalonic acid level borderline - continue B12 po. (4) DVT prophylaxis Comment: lovenox Status and Disposition: inpatient - likely rehab when surgical issue resolves.
[2018-12-09] MEDS: Metoprolol Succinate XL TAB* 50 MG PO SCH (20:54)
[2018-12-10] MEDS: Vancomycin(*) 1,000 MG in NS 0.9% 250 ML* 250 ML IVPB SCH ×2 (00:46→13:00)
[2018-12-10] MEDS: oxyCODONE TAB* 5 MG TAB PO PRN ×4 (00:56→21:39)
[2018-12-10] MEDS: Polyethylene Glycol 3350* 17 GM PACKET PO SCH ×2 (08:12→20:20)
[2018-12-10] MEDS: Cyanocobalamin TAB* 500 MCG PO SCH (08:12)
[2018-12-10] MEDS: Magnesium Oxide TAB* 400 MG PO SCH (08:13)
[2018-12-10] MEDS: Enoxaparin(*) 40 MG/0.4 ML SYR SUBCUT SCH (08:13)
[2018-12-10] MEDS: Potassium Chlor TAB* 10 MEQ TAB.ER PO SCH (08:13)
[2018-12-10] MEDS: Tamsulosin CAP* 0.4 MG PO SCH (08:14)
--- NOTE | 2018-12-10 14:26 | PN ---
Subjective Date of Service: 12/10/18 Interval History: No complaints BM yesterday OOB to chair yesterday Pain well controlled No SOB Family History: Unchanged from Admission - DM, heart disease. Social History: Unchanged from Admission - Never smoked, no alcohol abuse. 2 sons, 2 sisters nearby, one sister is his SDM. Past Medical History: Unchanged from Admission - negative, no surgery, no medical problems Objective Active Medications: Acetaminophen (Tylenol Tab*) 650 mg PO Q4H PRN PRN Reason: FEVER/PAIN Last Admin: 12/09/18 11:51 Dose: 650 mg Cyanocobalamin (Vitamin B12 Tab*) 1,000 mcg PO DAILY [facility] Last Admin: 12/10/18 08:12 Dose: 1,000 mcg Enoxaparin Sodium (Lovenox(*)) 40 mg SUBCUT Q24H [facility] Last Admin: 12/10/18 08:13 Dose: 40 mg Vancomycin HCl 1,000 mg/ (Sodium Chloride) 250 mls @ 166.667 mls/hr IVPB Q12H [facility] Last Admin: 12/10/18 13:00 Dose: 166.667 mls/hr Magnesium Oxide (Magox 400 Tab*) 400 mg PO DAILY [facility] Last Admin: 12/10/18 08:13 Dose: 400 mg Metoprolol Succinate (Toprol Xl Tab*) 50 mg PO BEDTIME [facility] Last Admin: 12/09/18 20:54 Dose: 50 mg Morphine Sulfate (Morphine Inj (Syringe))*) 2 mg IV Q4H PRN PRN Reason: PAIN - MILD Last Admin: 12/09/18 11:52 Dose: 2 mg Ondansetron HCl (Zofran Inj*) 4 mg IV Q6H PRN PRN Reason: NAUSEA Last Admin: 11/25/18 11:29 Dose: 4 mg Oxycodone HCl (Roxycodone Tab*) 5 mg PO Q6H PRN PRN Reason: PAIN Last Admin: 12/09/18 09:31 Dose: 5 mg Oxycodone HCl (Roxycodone Tab*) 10 mg PO Q4H PRN PRN Reason: PAIN - SEVERE Last Admin: 12/10/18 08:14 Dose: 10 mg Pharmacy Consult (Vancomycin Per Pharmacy*) 1 note FOLLOW UP .VANC PER PHARMACY [facility] Pharmacy Profile Note (Vancomycin Trough Check) 1 note FOLLOW UP 1130 ONE Stop: 12/11/18 11:31 Polyethylene Glycol/Electrolytes (Miralax*) 17 gm PO 0800,2100 [facility] Last Admin: 12/10/18 08:12 Dose: 17 gm Potassium Chloride (Klor Con Er Tab*) 10 meq PO DAILY [facility] Last Admin: 12/10/18 08:13 Dose: 10 meq Senna (Senokot Tab*) 2 tab PO BEDTIME PRN PRN Reason: no DM during day Last Admin: 11/28/18 21:53 Dose: 2 tab Tamsulosin HCl (Flomax Cap*) 0.4 mg PO DAILY [facility] Last Admin: 12/10/18 08:14 Dose: 0.4 mg Vital Signs - 8 hr 12/10/18 12/10/18 12/10/18 08:00 08:14 11:43 Temperature 98.1 F Pulse Rate 64 Respiratory 18 18 16 Rate Blood Pressure 117/45 (mmHg) O2 Sat by Pulse 95 96 Oximetry Oxygen Devices in Use Now: None Appearance: NAD Eyes: No Scleral Icterus, PERRLA Ears/Nose/Mouth/Throat: NL Teeth, Lips, Gums, Clear Oropharnyx Neck: NL Appearance and Movements; NL JVP, Trachea Midline Respiratory: Symmetrical Chest Expansion and Respiratory Effort, Clear to Auscultation Cardiovascular: NL Sounds; No Murmurs; No JVD, RRR Abdominal: NL Sounds; No Tenderness; No Distention, No Hepatosplenomegaly Lymphatic: No Cervical Adenopathy Extremities: No Edema, - - right ankle external fixation and wound vac Neurological: Alert and Oriented x 3 Result Diagrams: 12/04/18 05:18 12/08/18 11:29 Additional Lab and Data: Laboratory Tests 11/28/18 06:06 Iron 25 L TIBC 171 L % Saturation 15 Unsat Iron Binding < 156 Transferrin 122 L Microbiology and Other Data: Microbiology 11/27/18 15:15 Ankle Right Gram Stain - Final 11/23/18 10:06 Wound - Ankle Right Anaerobic Culture - Final 11/23/18 10:06 Wound - Ankle Right Fungal Smear - Final 11/23/18 10:06 Ankle Right Gram Stain - Final 11/23/18 10:06 Ankle Right Wound Culture - Final MRSA Normal Cynthia 11/27/18 15:15 Wound Anaerobic Culture - Preliminary 11/27/18 15:15 Ankle Right Wound Culture - Preliminary Enterococcus Faecalis Assess/Plan/Problems-Billing Assessment: 73M admitted for right ankle open fracture 2+ weeks old, did not seek medical attention at the time of the injury, also had possible SBO, now resolved. Getting q3d VAC changes while on IV vancomycin. - Patient Problems (1) Open fracture Comment: - Right ankle. Dr. Del Toro performed open reduction, external fixation 11/23/18. Recultured intraoperatively, growing MRSA, and enterococcus. Returned to OR 11/30 for 3rd and 4th 12/04. - Continue wound vac - next change 12/11 -Continue Vancomycin -WBC and CRP down trending Needs CBC, CMP, CRP every Tuesday while on antibiotics. (2) Urinary retention Comment: 1400 ml urinary retention on 11/25/18. Lopez catheter placd 11/25 with improvment of renal function, so started on tamsulosin. Voiding trial 12/03, had 711 ml in bladder and unable to void, Lopez inserted. - Continuing bladder training. -Discussed repeat voiding trial again with pt - he would like to wait until Tuesday after wound vac change (3) Macrocytosis Comment: -MCV 100 - B12 in low normal range (231). Methylmalonic acid level borderline - continue B12 po. (4) DVT prophylaxis Comment: lovenox Status and Disposition: inpatient - likely rehab when surgical issue resolves.
[2018-12-10] MEDS: Metoprolol Succinate XL TAB* 50 MG PO SCH (20:21)
[2018-12-11] MEDS: Vancomycin(*) 1,000 MG in NS 0.9% 250 ML* 250 ML IVPB SCH ×2 (00:58→13:27)
[2018-12-11] MEDS: oxyCODONE TAB* 5 MG TAB PO PRN (05:44)
[2018-12-11 06:07] LABS: ABS Basophils 0.2 10^3/ul (0-0.2); ABS Eosinophils 0.5 10^3/ul (0-0.6); ABS Lymphocytes 1.2 10^3/ul (1.0-4.8); ABS Nucleated RBC 0 10^3/ul; Eosinophil % 6.3 %; Hematocrit 31 % (36-46); Hemoglobin 10.4 g/dL (14.0-18.0); Lymphocyte % 15.4 %; Mean Corpuscular HGB Conc 34 g/dL (31-36); Mean Corpuscular Hemoglobin 33 pg (27-31); Mean Corpuscular Volume 97 fL (80-94); Mean Platelet Volume 6.8 fL (7.4-10.4); Nucleated Red Blood Cells % 0; Platelet Count 458 10^3/uL (150-450); Red Blood Count 3.15 10^6 /uL (4.18-5.48); Red Cell Distribution Width 14 % (10.5-15)
[2018-12-11 06:24] LABS: Albumin 3.3 g/dL (3.2-5.2); Albumin/Globulin Ratio 0.9 (1-3); BUN/Creatinine Ratio 24.5 (8-20); C Reactive Protein 22.21 mg/L (<8.01); Calcium 9.2 mg/dL (8.6-10.3); EGFR African American 94.9 (>60); EGFR Non-African American 78.4 (>60); Globulin 3.7 g/dL (2-4); Potassium 4.3 mmol/L (3.5-5.0); Total Bilirubin 0.3 mg/dL (0.2-1.0)
[2018-12-11] MEDS: Enoxaparin(*) 40 MG/0.4 ML SYR SUBCUT SCH (08:16)
[2018-12-11] MEDS: Polyethylene Glycol 3350* 17 GM PACKET PO SCH (08:16)
[2018-12-11] MEDS: Tamsulosin CAP* 0.4 MG PO SCH (08:17)
[2018-12-11] MEDS: Magnesium Oxide TAB* 400 MG PO SCH (08:17)
[2018-12-11] MEDS: Potassium Chlor TAB* 10 MEQ TAB.ER PO SCH (08:17)
[2018-12-11] MEDS: Cyanocobalamin TAB* 500 MCG PO SCH (08:17)
--- NOTE | 2018-12-11 09:07 | PN ---
Progress Note - Progress Note Date of Service: 12/11/18 SOAP: Subjective: CC: Open right ankle fracture with acute osteomyelitis HPI: Mr. Fenton is a 73 yo male with no significant PMH who presented to the emergency room for an open right ankle fracture that occurred 2-3 weeks prior to his presentation to the hospital. Denies fever, chills, shortness of breath , nausea, vomiting, diarrhea, or constipation. He states that he is doing well and has no concerns or questions. He is anxious about getting home. Plans for wound vac dressing change at bedside later today. Objective: Vital Signs - 8 hr 12/11/18 12/11/18 12/11/18 03:25 05:44 05:55 Temperature 97.8 F Pulse Rate 58 Respiratory 16 18 18 Rate Blood Pressure 142/68 (mmHg) O2 Sat by Pulse 96 Oximetry 12/11/18 08:00 Temperature 98 F Pulse Rate 59 Respiratory 20 Rate Blood Pressure 141/69 (mmHg) O2 Sat by Pulse 97 Oximetry Physical Exam: General: NAD, laying in bed HEENT: No thrush Neurological: Alert and Oriented x 4 Cardiovascular: Respiratory: Lungs clear bilateral Abdominal: Bowel sounds present; ABD soft, non tender and non distended Skin: No rashes, KAYLEEN wrap and external fixator in place to the right LE Laboratory Results - last 24 hr 12/11/18 12/11/18 05:49 05:49 WBC 8.0 RBC 3.15 L Hgb 10.4 L Hct 31 L MCV 97 H MCH 33 H MCHC 34 RDW 14 Plt Count 458 H MPV 6.8 L Neut % (Auto) 62.5 Lymph % (Auto) 15.4 [place] % (Auto) 13.0 Eos % (Auto) 6.3 Baso % (Auto) 2.8 Absolute Neuts (auto) 5.0 Absolute Lymphs (auto) 1.2 Absolute Monos (auto) 1.0 H Absolute Eos (auto) 0.5 Absolute Basos (auto) 0.2 Absolute Nucleated RBC 0 Nucleated RBC % 0 Sodium 136 Potassium 4.3 Chloride 103 Carbon Dioxide 27 Anion Gap 6 BUN 23 Creatinine 0.94 Est GFR ( Amer) 94.9 Est GFR (Non-Af Amer) 78.4 BUN/Creatinine Ratio 24.5 H Glucose 91 Calcium 9.2 Total Bilirubin 0.30 AST 13 ALT 11 Alkaline Phosphatase 56 C-Reactive Protein 22.21 H Total Protein 7.0 Albumin 3.3 Globulin 3.7 Albumin/Globulin Ratio 0.9 L Microbiology 12/03/18 17:25 Urine Culture - Final Urine No Growth (<1,000 CFU/mL) 11/23/18 10:06 Anaerobic Culture - Final Wound - Ankle Right Fungal Smear - Final Fungal Culture - Preliminary 11/27/18 15:15 Anaerobic Culture - Final Wound 11/27/18 15:15 Gram Stain - Final Ankle Right Wound Culture - Final Enterococcus Faecalis 11/23/18 10:06 Gram Stain - Final Ankle Right Wound Culture - Final MRSA Normal Cynthia 11/25/18 18:44 Urine Culture - Final Urine No Growth (<1,000 CFU/mL) 11/20/18 16:01 Aerobic Blood Culture - Final Blood Venous No Growth Day 5 Anaerobic Blood Culture - Final No Growth Day 5 11/20/18 15:36 Aerobic Blood Culture - Final Blood Venous No Growth Day 5 Anaerobic Blood Culture - Final No Growth Day 5 11/20/18 16:40 Skin and Soft Tissue MRSA/MSSA (PCR - Final Ankle Right Mrsa Negative S.aureus Positive Gram Stain - Final Wound Culture - Final Staphylococcus Aureus Strep Agalactiae - (Group B) Normal Cynthia Assessment: 1. Open right ankle fracture with acute osteomyelitis. Acute osteomyelitis based on the length of time he had an open fracture and MRI findings. S/P wound debridement, open reduction and external fixation, on 11/23/18. S/P debridement of ankle joint and replacement of VAC dressing, on 11/27/18. S/P wound debridement and wound vac dressing change, on 11/30 and 12/04. S/P wound vac dressing change at bedside on 12/07. Wound cultures obtained on admission showing MSSA and Strep Agalactiae (Group B). Wound cultures obtained while in the OR on 11/23/18 showing MRSA, and no fungal organisms. Repeat cultures obtained 11/27/18 in surgery, showing Enterococcus Faecalis. Afebrile, and no leukocytosis, CRP is trending down. Blood cultures with no growth on day 5. Plan: Continue Vancomycin, vanco trough goal 15-20. Will require a total of 4 weeks of IV ABX, day 1828. Should have weekly labs: CBC, CMP, CRP.
[2018-12-11] MEDS ORDERED: Vancomycin Trough Check NOTE FOLLOW UP ONE (11:30)
[2018-12-11 12:04] VITALS: BP 139/52
[2018-12-11] MEDS ORDERED: Morphine INJ* 2 MG/ML 1 ML SYRINGE (TWO MG - NEW SYRINGE VERSION) IV PRN (12:16)
[2018-12-11] MEDS ORDERED: Morphine 4 MG/ML VIAL (1 ml) 4 MG/ML VIAL ONE (12:32)
--- NOTE | 2018-12-11 13:50 | PN ---
Progress Note - Progress Note Date of Service: 12/11/18 SOAP: Subjective: []Pt seen at bedside. He feels well. Denies CP, SOB, dizziness, nausea, fever or chills. Objective: []General: NAD RLE: Right ankle dressing CDI, vac suctioning well. 5cc 2% lido inject into vac sponge, Vac change tolerated well by patient. Wound is with bleeding and granulation tissue no purulence, no erythema or maceration surrounding. Pin sites clean, dry, no erythema or drainage. Xeroform and gauze applied. DP2+, sensation intact to light touch distally, able to flex and extend MTPs. Calves supple and nontender without erythema or edema. Assessment: [][Open R ankle fx/disloc with ex fix and vac placement with q 3 days vac changes. bedside vac change 12/11/18] Plan: [NWB R LE Continue vac - bedside vac change Monday 12/11, continue Q3 days Continue Vanco Con't lovenox for DVT proph Okay for DC from ortho standpoint, anticipate swing and ortho will change vac Q [address] ankle ordered Vital Signs Temp 98.1 F 12/11/18 12:00 Pulse 61 12/11/18 12:00 Resp 16 12/11/18 12:34 BP 139/52 12/11/18 12:00 Pulse Ox 97 12/11/18 12:00 Intake & Output 12/10/18 12/11/18 12/11/18 18:59 06:59 18:59 Intake Total 1000 615 480 Output Total 1300 2650 Balance -300 -5 480 Intake: IV Fluids 275 ABX - VANCOMYCIN 275 Oral 1000 340 480 Output: Lopez 1300 2650 Laboratory Last Values WBC 8.0 10^3/uL (3.5-10.8) 12/11/18 05:49 RBC 3.15 10^6 /uL (4.18-5.48) L 12/11/18 05:49 Hgb 10.4 g/dL (14.0-18.0) L 12/11/18 05:49 Hct 31 % (36-46) L 12/11/18 05:49 MCV 97 fL (80-94) H 12/11/18 05:49 MCH 33 pg (27-31) H 12/11/18 05:49 MCHC 34 g/dL (31-36) 12/11/18 05:49 RDW 14 % (10.5-15) 12/11/18 05:49 Plt Count 458 10^3/uL (150-450) H 12/11/18 05:49 MPV 6.8 fL (7.4-10.4) L 12/11/18 05:49 Neut % (Auto) 62.5 % 12/11/18 05:49 Lymph % (Auto) 15.4 % 12/11/18 05:49 [place] % (Auto) 13.0 % 12/11/18 05:49 Eos % (Auto) 6.3 % 12/11/18 05:49 Baso % (Auto) 2.8 % 12/11/18 05:49 Absolute Neuts (auto) 5.0 10^3/ul (1.5-7.7) 12/11/18 05:49 Absolute Lymphs (auto) 1.2 10^3/ul (1.0-4.8) 12/11/18 05:49 Absolute Monos (auto) 1.0 10^3/ul (0-0.8) H 12/11/18 05:49 Absolute Eos (auto) 0.5 10^3/ul (0-0.6) 12/11/18 05:49 Absolute Basos (auto) 0.2 10^3/ul (0-0.2) 12/11/18 05:49 Absolute Nucleated RBC 0 10^3/ul 12/11/18 05:49 Nucleated RBC % 0 12/11/18 05:49 INR (Anticoag Therapy) 1.02 (0.77-1.02) 11/23/18 05:56 APTT 32.9 seconds (26.0-36.3) 11/20/18 16:01 Patient Temperature Not Reportable 11/26/18 14:10 ABG pH 7.46 (7.35-7.45) H 11/26/18 14:10 ABG pH (Temp Correct) Not Reportable 11/26/18 14:10 ABG pCO2 39 mmHg (35-45) 11/26/18 14:10 ABG pCO2 (Temp Corrct Not Reportable 11/26/18 14:10 ABG pO2 68 mmHg (80-100) L 11/26/18 14:10 ABG pO2 (Temp Correct Not Reportable 11/26/18 14:10 ABG HCO3 27.7 mmol/L (19-31) 11/26/18 14:10 ABG O2 Saturation 96.2 % (94.0-98.0) 11/26/18 14:10 ABG Base Excess 3.7 mmol/L (-2.0-2.0) H 11/26/18 14:10 Respiration Rate Not Reportable 11/26/18 14:10 O2 Delivery Device oxymask 15 lpm 11/26/18 14:10 Ventilator Type Not Reportable 11/26/18 14:10 Vent Mode Not Reportable 11/26/18 14:10 FiO2 Not Reportable 11/26/18 14:10 Inspiratory Time Not Reportable 11/26/18 14:10 PEEP Not Reportable 11/26/18 14:10 Pressure Support Not Reportable 11/26/18 14:10 Pressure Control Not Reportable 11/26/18 14:10 EPAP Not Reportable 11/26/18 14:10 IPAP Not Reportable 11/26/18 14:10 BiPAP Not Reportable 11/26/18 14:10 Sodium 136 mmol/L (135-145) 12/11/18 05:49 Potassium 4.3 mmol/L (3.5-5.0) 12/11/18 05:49 Chloride 103 mmol/L (101-111) 12/11/18 05:49 Carbon Dioxide 27 mmol/L (22-32) 12/11/18 05:49 Anion Gap 6 mmol/L (2-11) 12/11/18 05:49 BUN 23 mg/dL (6-24) 12/11/18 05:49 Creatinine 0.94 mg/dL (0.67-1.17) 12/11/18 05:49 Est GFR ( Amer) 94.9 (>60) 12/11/18 05:49 Est GFR (Non-Af Amer) 78.4 (>60) 12/11/18 05:49 BUN/Creatinine Ratio 24.5 (8-20) H 12/11/18 05:49 Glucose 91 mg/dL (70-100) 12/11/18 05:49 Lactic Acid 0.8 mmol/L (0.5-2.0) 11/20/18 16:01 Calcium 9.2 mg/dL (8.6-10.3) 12/11/18 05:49 Phosphorus 2.3 mg/dL (2.5-5.0) L 11/27/18 05:56 Magnesium 2.0 mg/dL (1.9-2.7) 12/06/18 07:03 Iron 25 ug/dL (50-212) L 11/28/18 06:06 TIBC 171 mcg/dL (250-450) L 11/28/18 06:06 % Saturation 15 % (15-55) 11/28/18 06:06 Unsat Iron Binding < 156 ug/dL 11/28/18 06:06 Transferrin 122 mg/dL (203-362) L 11/28/18 06:06 Total Bilirubin 0.30 mg/dL (0.2-1.0) 12/11/18 05:49 AST 13 U/L (13-39) 12/11/18 05:49 ALT 11 U/L (7-52) 12/11/18 05:49 Alkaline Phosphatase 56 U/L (34-104) 12/11/18 05:49 C-Reactive Protein 22.21 mg/L (<8.01) H 12/11/18 05:49 Total Protein 7.0 g/dL (6.4-8.9) 12/11/18 05:49 Albumin 3.3 g/dL (3.2-5.2) 12/11/18 05:49 Globulin 3.7 g/dL (2-4) 12/11/18 05:49 Albumin/Globulin Ratio 0.9 (1-3) L 12/11/18 05:49 Vitamin B12 231 pg/mL (180-914) 11/20/18 16:01 Methylmalonic Acid 0.40 nmol/mL (<=0.40) 11/20/18 15:49 Folate 18.41 ng/mL (>3.99) 11/20/18 16:01 Urine Color Yellow 11/25/18 18:44 Urine Appearance Cloudy 11/25/18 18:44 Urine pH 5.0 (5-9) 11/25/18 18:44 Ur Specific [place] 1.012 (1.010-1.030) 11/25/18 18:44 Urine Protein Negative (Negative) 11/25/18 18:44 Urine Ketones Negative (Negative) 11/25/18 18:44 Urine Blood 1+ (Negative) A 11/25/18 18:44 Urine Nitrate Negative (Negative) 11/25/18 18:44 Urine Bilirubin Negative (Negative) 11/25/18 18:44 Urine Urobilinogen Negative (Negative) 11/25/18 18:44 Ur Leukocyte Esterase Negative (Negative) 11/25/18 18:44 Urine WBC (Auto) Trace(0-5/hpf) (Absent) 11/25/18 18:44 Urine RBC (Auto) 1+(3-5/hpf) (Absent) A 11/25/18 18:44 Urine Bacteria Absent (Absent) 11/25/18 18:44 Urine Glucose Negative (Negative) 11/25/18 18:44 Vancomycin Trough 18.0 mcg/mL 12/11/18 12:15 Influenza A (Rapid) Negative (Negative) 11/21/18 21:02 Influenza B (Rapid) Negative (Negative) 11/21/18 21:02 Blood Type A Positive 11/22/18 05:41 Antibody Screen Negative 11/22/18 05:41
--- NOTE | 2018-12-11 17:29 | DS ---
DISCHARGE SUMMARY: DATE OF ADMISSION: 11/20/18 DATE OF DISCHARGE: To swing bed status, 12/11/18. PRIMARY CARE PROVIDER: None. PRINCIPAL DIAGNOSES: 1. Open fracture of the right ankle with infected wound, positive for methicillin- resistant Staphylococcus aureus and Enterococcus faecalis. 2. Urinary retention. SECONDARY DIAGNOSES: 1. Anemia. 2. Hypertension. DISCHARGE MEDICATIONS: To swin. Tylenol 650 mg p.o. q.4 hours p.r.n. pain. 2. Vitamin B12 1000 mcg p.o. daily. 3. Lovenox 40 mg subcutaneously daily. 4. Magnesium oxide 400 mg p.o. daily. 5. Metoprolol XL 50 mg p.o. q.h.s. 6. Oxycodone 10 mg p.o. q.4 hours p.r.n. pain. 7. Vancomycin 1 g IV q.12 hours. 8. Flomax 0.4 mg p.o. daily. 9. Senokot 2 tabs p.o. q.h.s. p.r.n. constipation. 10. Potassium chloride 10 mEq p.o. daily. 11. MiraLAX 17 g p.o. twice daily. HOSPITAL COURSE: Mr. Fenton is a 73-year-old male, who presented to the emergency room on 11/20/18 after his sister had called him and he did not answer the phone. She found him and he was unable to get to the phone. She and another sister took care of the patient and his disabled for a while until they were able to convince him to come to the hospital. The injury occurred approximately 2 to 3 weeks prior to admission when he was cutting wood and some wood fell on his right leg causing an open fracture. The patient was seen in consultation by Orthopedics, who recommended bedrest and nonweightbearing status for the right lower extremity. The plan was to have the patient go to the OR on , 11/23/18. The plan initially was to I and D and externally fixate the fracture though it was explained to the patient and the family that he may need an amputation depending on the extent of injury and infection. The patient was also seen in consultation by Dr. Torres. At the time of Dr. Torres's consultation, wound culture had already come back positive for staph. Initially, it was recommended that the patient continue with just on Zosyn. The patient was ultimately taken to the OR on 11/23/18 where the patient underwent right ankle irrigation and debridement, open reduction of the right ankle fracture dislocation, placement of a right ankle multiplane external fixator and placement of a wound VAC. On 11/25/18, the patient was noted to have irregular heart rate. He ultimately was found to be in sinus rhythm with frequent PVCs. He underwent transthoracic echocardiogram, which revealed normal left ventricular chamber size, global left ventricular wall motion and contractility to be within normal limits, and EF of 55% to 60%. The patient was taken back to the OR on 11/27/18 where he underwent debridement of the ankle joint and replacement of the VAC dressing. The patient had a third trip to the OR on 11/30/18 where he again underwent right ankle irrigation and debridement and placement of wound VAC. The patient has been doing well in terms of pain within the right ankle. He continues to be nonweightbearing. He developed severe constipation, which was ultimately resolved at this point. The patient was taken back to the OR on 12/04/18 for a fourth time again for a VAC dressing change. The patient has also developed urinary retention during the course of hospitalization. He failed a voiding trial on 12/03/18. Bladder training is ongoing. We will attempt another voiding trial tomorrow. At this point, all of the acute medical issues have settled down. The patient needs 10 more days of IV vancomycin as his wound culture from a later OR visit came up positive for MRSA and then Enterococcus faecalis. Today, 12/11/18, is day #18 of 28. The patient will have 10 more days of vancomycin. He will need a weekly CBC, CMP, and CRP as well as vanco trough. A discussion was had with the patient and his son about converting to swing bed status and they were in agreement. Ultimately, we will need to determine how long the wound VAC will need to be placed and when the external fixator can come off. The patient did have a lower extremity CT obtained on 12/11/18 prior to my visit and the results of this were pending at the time of this dictation. This discharge summary will also act as the admitting H and P for the patient's new swing bed account. TIME SPENT: Thirty-five minutes was spent discharging this patient to swing bed status. [id number]/[facility] #: [id number] WOLF
== END 2018-12-11 14:42 | disposition swing bed (61) | DRG 493 ==
LOC: ED 15:05 → SSU 18:00
PROVIDERS: ADMIT Internal Medicine; ATTEND Hospitalist
PROC: 0QHG05Z Insertion of External Fixation Device into Right Tibia, Open Approach (ICD-10-PCS; 2018-11-23)
PROC: 0QSG04Z Reposition Right Tibia with Internal Fixation Device, Open Approach (ICD-10-PCS; principal; 2018-11-23 12:30)
PROC: 0T9B70Z Drainage of Bladder with Drainage Device, Via Natural or Artificial Opening (ICD-10-PCS; 2018-11-25)
PROC: 0SBF0ZZ Excision of Right Ankle Joint, Open Approach (ICD-10-PCS; 2018-11-27)
PROC: 0QBG0ZZ Excision of Right Tibia, Open Approach (ICD-10-PCS; 2018-11-30)
PROC: 2W1LX6Z Compression of Right Lower Extremity using Pressure Dressing (ICD-10-PCS; 2018-12-04)
DX: S82.841B Displaced bimalleolar fracture of right lower leg, initial encounter for open fracture type I or II (principal); K56.7 Ileus, unspecified; L03.115 Cellulitis of right lower limb; M86.171 Other acute osteomyelitis, right ankle and foot; S82.841C Displaced bimalleolar fracture of right lower leg, initial encounter for open fracture type IIIA, IIIB, or IIIC; W20.8XXA Other cause of strike by thrown, projected or falling object, initial encounter; B95.62 Methicillin resistant Staphylococcus aureus infection as the cause of diseases classified elsewhere; D47.3 Essential (hemorrhagic) thrombocythemia; D53.9 Nutritional anemia, unspecified; K56.41 Fecal impaction; B95.1 Streptococcus, group B, as the cause of diseases classified elsewhere; D63.8 Anemia in other chronic diseases classified elsewhere; R33.9 Retention of urine, unspecified; R11.10 Vomiting, unspecified; I49.8 Other specified cardiac arrhythmias; E87.6 Hypokalemia; B95.2 Enterococcus as the cause of diseases classified elsewhere; Y92.9 Unspecified place or not applicable; Z83.3 Family history of diabetes mellitus; Z82.49 Family history of ischemic heart disease and other diseases of the circulatory system; Z23 Encounter for immunization; B95.61 Methicillin susceptible Staphylococcus aureus infection as the cause of diseases classified elsewhere; I49.3 Ventricular premature depolarization
CPT/HCPCS: 36415; 36600; 71045; 71046; 74018; 74019; 74176; 76000; 80048; 80053; 80202; 81003; 81015; 82565; 82607; 82746; 82803; 83540; 83550; 83605; 83735; 83921; 84100; 84520; 85025; 85610; 85730; 86140; 86850; 86900; 86901; 87040; 87070; 87073; 87077; 87086; 87102; 87186; 87205; 87640; 87641; 90715; 93005; 93306; 93970; 99284; A9270-GY; C1713; C1776; C8929; G8978-GP-CL; G8979-GP-CI; G8987-GO-CK; G8987-GO-CM; G8988-GO-CI; J0690; J1100; J1170; J1650; J1885; J2001; J2250; J2270; J2400; J2405; J2543; J2704; J2765; J3010; J3370; J3490

== ENCOUNTER 2018-12-11 11:36 | Inpatient (IN) | payer MEDICARE ==
--- OUTSIDE RECORDS SUMMARY | 2018-12-11 14:47 | XMS REPORT | Continuity of Care Document ---
:1945 External Reference #:[id number] Author Name Monalisa Sadler Care Team Providers Name Role Phone Patient's Choice Primary Care Physician Unavailable Payers Date Identification Numbers Payment Provider Subscriber Effective: 2017 Policy Number: [id number] Medicare Sreedhar Fenton PayID: [id number] [address] [place] [address] Expires: 2017 Policy Number: [id number] [employer] Sreedhar Fenton Group Number: [id number] [address] PayID: [id number] [place] [address] Advance Directives Description No Information Available Problems Date Description Provider Status Onset: 11/23/2018 Open bimalleolar fracture Trae Del Toro MD Active Onset: 06/01/2017 Current tear of lateral cartilage AND/OR Maggi Velasco M.D. Active meniscus of knee Onset: 06/01/2017 Localized, primary osteoarthritis Maggi Velasco M.D. 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 ETOH Use Denies alcohol use Tobacco Use Start: Unknown Patient has never smoked Smoking Status Reviewed: 07/18/17 Patient has never smoked Exercise Type/Frequency Exercises sporadically Allergies, Adverse Reactions, Alerts Description No Known Drug Allergies Medications Medication Date Status Form Strength Qnty SIG Indications Ordering Provider No Active Active Unknown Medications 017 No Active Hx Unknown Medications 017 - 017 Naproxen Hx Tablets 500mg 60tabs 1 tablet M25.561 Maggi 017 - with food Lilian Velasco by mouth 017 twice a day Medications Administered in Office Medication Date Status Form Strength Qnty SIG Indications Ordering Provider Depomedrol Administered Injection Maggi 40MG 017 Lilian Velasco Depomedrol Administered Injection Rei 80MG Chrissy Garrett M.D. Immunizations Description No Information Available Vital Signs Date Vital Result Comment 07/18/2017 1:26pm Height 67 inches 5'7" Weight 175.00 lb Heart Rate 75 /min BP Systolic 140 mmHg BP Diastolic 75 mmHg Body Temperature 97.1 F BMI (Body Mass Index) 27.4 kg/m2 06/20/2017 1:41pm Height 66.5 inches 5'6.50" Weight 180.00 lb Heart Rate 75 /min BP Systolic 157 mmHg BP Diastolic 68 mmHg Pain Level 4 BMI (Body Mass Index) 28.6 kg/m2 06/01/2017 9:18am Height 66.5 inches 5'6.50" Weight 182.00 lb Heart Rate 84 /min BP Systolic 162 mmHg BP Diastolic 85 mmHg BMI (Body Mass Index) 28.9 kg/m2 Results Description No Information Available Procedures Date Code Description Status 11/23/2018 70458 Negative Pressure Wound Therapy Less Than 50 Square CM Completed 11/23/2018 98736 Negative Pressure Wound Therapy Less Than 50 Square CM Completed 11/23/2018 51162 Apply Multiplane Completed 11/23/2018 10369 Apply Multiplane Completed 11/23/2018 62919 Debridement,Bone,Epidermis/Dermis/Tissue/Muscle, Addtl 20 Completed SQ CM 11/23/2018 53119 Debridement,Bone,Epidermis/Dermis/Tissue/Muscle, Addtl 20 Completed SQ CM 11/23/2018 88185 Debridement Tissue/Muscle/Bone Completed 11/23/2018 37573 Debridement Tissue/Muscle/Bone Completed 06/01/2017 67652 Inject/Drain Joint/Bursa Major W/O US Completed 11/03/2012 83690 Rad Shoulder Comp, Min. 2 Views Completed 11/03/2012 Inject/Drain Joint/Bursa Major W/O US Completed 11/03/2012 Inject/Drain Joint/Bursa Small W/O US Completed Encounters Type Date Location Provider Dx Diagnosis Office Visit 07/18/2017 Orthopedic Maggi Velasco M25.561 Pain in right 1:15p [facility] knee M25.461 Effusion, right knee M17.11 Unilateral primary osteoarthritis, right knee S83.261D Prph tear of lat mensc, current injury, right knee, subs Office Visit 06/20/2017 1:30p [facility]opedic [facility] Maggi Velasco, M25.561 Pain in right Of Kassandra.Ysabel Quintana knee M25.461 Effusion, right knee M17.11 Unilateral primary osteoarthritis, right knee S83.261D Prph tear of lat mensc, current injury, right knee, subs Office Visit 06/01/2017 8:15a [facility] Maggi Velasco, M25.561 Pain in right Of Kassandra.Ysabel Quintana knee M25.461 Effusion, right knee M17.11 Unilateral primary osteoarthritis, right knee S83.261A Prph tear of lat mensc, current injury, right knee, init Office Visit 11/03/2012 8:30a Orthopedic Rei Garrett, 716.81 Arthropathy Other Services Of [facility] Plan of Treatment 07/18/2017 - Maggi Velasco M.D.M25.561 Pain in right kneeFollow up:Follow up: As rwgzlcS64.461 Effusion, right kneeM17.11 Unilateral primary osteoarthritis, right kneeS83.261D Peripheral tear of lateral meniscus, current injury, right knee, subsequent encounter
[2018-12-11] MEDS ORDERED: Morphine INJ* 2 MG/ML 1 ML SYRINGE (TWO MG - NEW SYRINGE VERSION) IV PRN (14:57)
[2018-12-11] MEDS ORDERED: Vancomycin per Pharmacy* NOTE FOLLOW UP PRN (15:56)
[2018-12-11] MEDS: Polyethylene Glycol 3350* 17 GM PACKET PO SCH (20:56)
[2018-12-11] MEDS: oxyCODONE TAB* 5 MG TAB PO PRN (20:56)
[2018-12-11] MEDS: Metoprolol Succinate XL TAB* 50 MG PO SCH (20:56)
[2018-12-12] MEDS: oxyCODONE TAB* 5 MG TAB PO PRN ×4 (01:46→20:50)
[2018-12-12] MEDS: Senna TAB PO PRN (01:46)
[2018-12-12] MEDS: Vancomycin(*) 1,000 MG in NS 0.9% 250 ML* 250 ML IVPB SCH ×2 (01:46→15:30)
[2018-12-12] MEDS: Polyethylene Glycol 3350* 17 GM PACKET PO SCH ×2 (07:54→20:50)
[2018-12-12] MEDS: Cyanocobalamin TAB* 500 MCG PO SCH (07:54)
[2018-12-12] MEDS: Tamsulosin CAP* 0.4 MG PO SCH (07:55)
[2018-12-12] MEDS: Enoxaparin(*) 40 MG/0.4 ML SYR SUBCUT SCH (07:55)
[2018-12-12] MEDS: Potassium Chlor TAB* 10 MEQ TAB.ER PO SCH (07:55)
[2018-12-12] MEDS: Magnesium Oxide TAB* 400 MG PO SCH (07:55)
--- NOTE | 2018-12-12 08:25 | PN ---
Progress Note - Progress Note Date of Service: 12/12/18 SOAP: Subjective: CC: Open right ankle fracture with acute osteomyelitis HPI: Mr. Fenton is a 73 yo male with no significant PMH who presented to the emergency room on 11/20/18 for an open right ankle fracture that occurred 2-3 weeks prior to his presentation to the hospital. Denies fever, chills, shortness of breath, nausea, vomiting, or diarrhea. No BM for 2 days, he is drinking prune juice today. He states that he is doing well and has no concerns or questions. He is anxious about getting home. Tolerated wound vac dressing change at bedside well yesterday. Objective: Vital Signs - 8 hr 12/12/18 12/12/18 12/12/18 01:46 03:45 07:55 Temperature 96.1 F Pulse Rate 62 Respiratory 20 16 18 Rate Blood Pressure 134/76 (mmHg) O2 Sat by Pulse 94 Oximetry 12/12/18 08:00 Temperature 97.6 F Pulse Rate 65 Respiratory 17 Rate Blood Pressure 140/56 (mmHg) O2 Sat by Pulse 96 Oximetry Physical Exam: General: NAD, laying in bed Neurological: Alert and Oriented x 3 HEENT: No thrush, moist MM Cardiovascular: Heart rate regular Respiratory: Lung sounds clear bilateral Abdominal: Bowel sounds present; ABD soft, non tender and non distended Skin: External fixator and dressing in place to the right LE. Assessment: 1. Open right ankle fracture with acute osteomyelitis. Acute osteomyelitis based on the length of time he had an open fracture and MRI findings. S/P wound debridement, open reduction and external fixation, on 11/23/18. S/P debridement of ankle joint and replacement of VAC dressing, on 11/27/18. S/P wound debridement and wound vac dressing change, on 11/30/18 and 12/04/18. S/P wound vac dressing change at bedside on 12/07/18. Wound cultures obtained on admission showing MSSA and Strep Agalactiae (Group B). Wound cultures obtained while in the OR on 11/23/18 showing MRSA, and no fungal organisms. Repeat cultures obtained 11/27/18 in surgery, showing Enterococcus Faecalis. Afebrile, and no leukocytosis, CRP is trending down on last labs that were drawn. Blood cultures with no growth on day 5. Plan: Continue Vancomycin, vanco trough goal 15-20. Will require a total of 4 weeks of IV ABX, day . Should have weekly labs: CBC, CMP, CRP. If external hardware still in place at 4 weeks of vancomycin, will need to be continued on vancomycin until the external hardware is removed.
[2018-12-12] MEDS: Metoprolol Succinate XL TAB* 50 MG PO SCH (20:50)
[2018-12-13] MEDS: Vancomycin(*) 1,000 MG in NS 0.9% 250 ML* 250 ML IVPB SCH ×2 (03:10→16:40)
[2018-12-13] MEDS: Enoxaparin(*) 40 MG/0.4 ML SYR SUBCUT SCH (08:12)
[2018-12-13] MEDS: Polyethylene Glycol 3350* 17 GM PACKET PO SCH ×2 (08:13→21:26)
[2018-12-13] MEDS: Cyanocobalamin TAB* 500 MCG PO SCH (08:13)
[2018-12-13] MEDS: Potassium Chlor TAB* 10 MEQ TAB.ER PO SCH (08:13)
[2018-12-13] MEDS: Tamsulosin CAP* 0.4 MG PO SCH (08:13)
[2018-12-13] MEDS: Magnesium Oxide TAB* 400 MG PO SCH (08:13)
[2018-12-13] MEDS: oxyCODONE TAB* 5 MG TAB PO PRN ×2 (10:40→21:28)
[2018-12-13] MEDS: Metoprolol Succinate XL TAB* 50 MG PO SCH (21:26)
[2018-12-14] MEDS: Vancomycin(*) 1,000 MG in NS 0.9% 250 ML* 250 ML IVPB SCH ×2 (03:17→15:25)
[2018-12-14] MEDS: Potassium Chlor TAB* 10 MEQ TAB.ER PO SCH (08:21)
[2018-12-14] MEDS: Magnesium Oxide TAB* 400 MG PO SCH (08:21)
[2018-12-14] MEDS: Cyanocobalamin TAB* 500 MCG PO SCH (08:21)
[2018-12-14] MEDS: Tamsulosin CAP* 0.4 MG PO SCH (08:22)
[2018-12-14] MEDS: oxyCODONE TAB* 5 MG TAB PO PRN ×3 (08:22→20:54)
[2018-12-14] MEDS: Enoxaparin(*) 40 MG/0.4 ML SYR SUBCUT SCH (08:22)
[2018-12-14] MEDS: Polyethylene Glycol 3350* 17 GM PACKET PO SCH ×2 (08:22→20:53)
--- NOTE | 2018-12-14 16:51 | PN ---
Progress Note - Progress Note Date of Service: 12/14/18 Note: I saw Miguel today for a VAC change. The wound is looking great. Healthy granulation tissue throughout. A 5 cm long by 17 mm in length. No surrounding erythema. Wound VAC was placed and has good suction. All of the pin sites look good, without any evidence of infection, or loosening. I redressed the pin sites. Xeroform, gauze, Kerlix and an Rick wrap. We will continue with wound VAC changes every 3 days. Trae Del Toro MD
[2018-12-14] MEDS: Metoprolol Succinate XL TAB* 50 MG PO SCH (20:54)
[2018-12-15] MEDS: Vancomycin(*) 1,000 MG in NS 0.9% 250 ML* 250 ML IVPB SCH ×2 (03:57→16:36)
[2018-12-15] MEDS: oxyCODONE TAB* 5 MG TAB PO PRN ×3 (04:03→19:44)
[2018-12-15] MEDS: Polyethylene Glycol 3350* 17 GM PACKET PO SCH ×2 (09:48→19:44)
[2018-12-15] MEDS: Enoxaparin(*) 40 MG/0.4 ML SYR SUBCUT SCH (09:48)
[2018-12-15] MEDS: Magnesium Oxide TAB* 400 MG PO SCH (09:49)
[2018-12-15] MEDS: Cyanocobalamin TAB* 500 MCG PO SCH (09:49)
[2018-12-15] MEDS: Tamsulosin CAP* 0.4 MG PO SCH (09:49)
[2018-12-15] MEDS: Potassium Chlor TAB* 10 MEQ TAB.ER PO SCH (09:49)
[2018-12-15] MEDS: Metoprolol Succinate XL TAB* 50 MG PO SCH (19:45)
[2018-12-16] MEDS: Vancomycin(*) 750 MG in NS 0.9% 250 ML* 250 ML IVPB SCH ×2 (04:22→17:20)
[2018-12-16] MEDS: oxyCODONE TAB* 5 MG TAB PO PRN ×4 (04:23→19:43)
[2018-12-16] MEDS: Potassium Chlor TAB* 10 MEQ TAB.ER PO SCH (08:06)
[2018-12-16] MEDS: Tamsulosin CAP* 0.4 MG PO SCH (08:06)
[2018-12-16] MEDS: Magnesium Oxide TAB* 400 MG PO SCH (08:06)
[2018-12-16] MEDS: Polyethylene Glycol 3350* 17 GM PACKET PO SCH ×2 (08:06→19:44)
[2018-12-16] MEDS: Cyanocobalamin TAB* 500 MCG PO SCH (08:06)
[2018-12-16] MEDS: Enoxaparin(*) 40 MG/0.4 ML SYR SUBCUT SCH (08:06)
[2018-12-16] MEDS: Metoprolol Succinate XL TAB* 50 MG PO SCH (19:43)
[2018-12-17] MEDS: oxyCODONE TAB* 5 MG TAB PO PRN ×5 (01:33→22:05)
[2018-12-17] MEDS: Vancomycin(*) 750 MG in NS 0.9% 250 ML* 250 ML IVPB SCH ×2 (05:25→17:41)
[2018-12-17] MEDS: Polyethylene Glycol 3350* 17 GM PACKET PO SCH ×2 (09:38→22:04)
[2018-12-17] MEDS: Magnesium Oxide TAB* 400 MG PO SCH (09:38)
[2018-12-17] MEDS: Cyanocobalamin TAB* 500 MCG PO SCH (09:38)
[2018-12-17] MEDS: Potassium Chlor TAB* 10 MEQ TAB.ER PO SCH (09:38)
[2018-12-17] MEDS: Tamsulosin CAP* 0.4 MG PO SCH (09:39)
[2018-12-17] MEDS: Acetaminophen TAB* 325 MG PO PRN ×3 (09:39→22:05)
[2018-12-17] MEDS: Enoxaparin(*) 40 MG/0.4 ML SYR SUBCUT SCH (09:39)
--- NOTE | 2018-12-17 11:29 | PN ---
Progress Note - Progress Note Date of Service: 12/17/18 SOAP: Subjective: Pt seen at bedside for right ankle open fx, s/p ex fix application and wound vac. Doing well, pain improving. Denies f/c. Objective: Vital Signs: Temp Pulse Resp BP Pulse Ox 98.2 F 55 16 130/55 97 12/17/18 07:44 12/17/18 07:44 12/17/18 09:40 12/17/18 07:44 12/17/18 07:44 Gen: A&Ox3, NAD at rest laying in bed RLE: Wound VAC removed, good granulation tissue to base and improving in size. Approximately 5cm long x 2cm wide x 2cm deep at anterior portion. No purulent drainage. +f/e at MTPs, N/V intact Assessment: Right ankle open fx with wound VAC Plan: New VAC applied, plan for new VAC change Wed or Thurs Cont pain medication as needed Cont PT/OT, NWB RLE
[2018-12-17] MEDS: Metoprolol Succinate XL TAB* 50 MG PO SCH (22:04)
[2018-12-18] MEDS ORDERED: Vancomycin Trough Check NOTE FOLLOW UP ONE (06:00)
[2018-12-18 06:10] LABS: EGFR African American 85.4 (>60); EGFR Non-African American 70.6 (>60)
[2018-12-18] MEDS: Polyethylene Glycol 3350* 17 GM PACKET PO SCH ×2 (08:15→20:27)
[2018-12-18] MEDS: Potassium Chlor TAB* 10 MEQ TAB.ER PO SCH (08:15)
[2018-12-18] MEDS: oxyCODONE TAB* 5 MG TAB PO PRN ×4 (08:16→22:17)
[2018-12-18] MEDS: Tamsulosin CAP* 0.4 MG PO SCH (08:16)
[2018-12-18] MEDS: Enoxaparin(*) 40 MG/0.4 ML SYR SUBCUT SCH (08:16)
[2018-12-18] MEDS: Magnesium Oxide TAB* 400 MG PO SCH (08:16)
[2018-12-18] MEDS: Cyanocobalamin TAB* 500 MCG PO SCH (08:16)
--- NOTE | 2018-12-18 08:29 | PN ---
Progress Note - Progress Note Date of Service: 12/18/18 SOAP: Subjective: CC: Right ankle infection, S/P open fracture HPI: Mr. Fenton is a 73 yo male with no significant PMH who presented to the emergency room on 11/20/18 for an open right ankle fracture that occurred 2-3 weeks prior to his presentation to the hospital. Denies fever, chills, shortness of breath, nausea, vomiting, or diarrhea. He states that he is doing well and has no concerns or questions. He is anxious about getting home. Tolerated wound vac dressing changes at bedside. Plan for PICC line placement today. Objective: Vital Signs - 8 hr 12/18/18 12/18/18 08:06 08:16 Temperature 96.8 F Pulse Rate 58 Respiratory 19 18 Rate Blood Pressure 130/61 (mmHg) O2 Sat by Pulse 99 Oximetry Physical Exam: General: NAD, sitting up on the side of the bed Neurological: Alert and Oriented x4 HEENT: No thrush, MM moist Cardiovascular: Heart rate regular Respiratory: Lung sounds clear Abdominal: Bowel sounds present; ABD soft, non tender and non distended Skin: External fixator and wound vac in place to right ankle. No rash Laboratory Results - last 24 hr 12/18/18 05:28 BUN 23 Creatinine 1.03 Est GFR ( Amer) 85.4 Est GFR (Non-Af Amer) 70.6 Assessment: 1. Open right ankle fracture with acute osteomyelitis. S/P wound debridement, open reduction and external fixation, on 11/23/18. S/P debridement of ankle joint and replacement of VAC dressing, on 11/27/18. Wound cultures obtained on admission showing MSSA and Strep Agalactiae (Group B). Wound cultures obtained while in the OR on 11/23/18 showing MRSA, and no fungal organisms. Repeat cultures obtained 11/27/18 in surgery, showing Enterococcus Faecalis. Afebrile. Plan: Continue Vancomycin, vanco trough goal 15-20. Plan for 4 weeks of IV ABX, day 25 28. He will require a longer course of antibiotics if the external fixator remains in place. Should obtain weekly labs: CBC, CMP, CRP. Vanco trough/dosing per pharmacy.
[2018-12-18 09:21] LABS: Vancomycin Trough 16.3 mcg/mL
[2018-12-18] MEDS: Vancomycin(*) 750 MG in NS 0.9% 250 ML* 250 ML IVPB SCH ×4 (09:39→22:15)
[2018-12-18] MEDS: Acetaminophen TAB* 325 MG PO PRN ×3 (09:48→18:28)
--- NOTE | 2018-12-18 15:34 | PN ---
Subjective Date of Service: 12/18/18 Interval History: Pt feels well. His toes on R are very sensitive to touch-not new Objective Active Medications: Acetaminophen (Tylenol Tab*) 650 mg PO Q4H PRN PRN Reason: FEVER/PAIN Last Admin: 12/18/18 14:29 Dose: 650 mg Cyanocobalamin (Vitamin B12 Tab*) 1,000 mcg PO DAILY [facility] Last Admin: 12/18/18 08:16 Dose: 1,000 mcg Enoxaparin Sodium (Lovenox(*)) 40 mg SUBCUT Q24H [facility] Last Admin: 12/18/18 08:16 Dose: 40 mg Vancomycin HCl 750 mg/ Sodium (Chloride) 250 mls @ 166.667 mls/hr IVPB 1000, 2200 [facility] Last Admin: 12/18/18 10:10 Dose: 166.667 mls/hr Magnesium Oxide (Magox 400 Tab*) 400 mg PO DAILY [facility] Last Admin: 12/18/18 08:16 Dose: 400 mg Metoprolol Succinate (Toprol Xl Tab*) 50 mg PO BEDTIME [facility] Last Admin: 12/17/18 22:04 Dose: 50 mg Oxycodone HCl (Roxycodone Tab*) 10 mg PO Q4H PRN PRN Reason: PAIN SEVERE Last Admin: 12/18/18 12:02 Dose: 10 mg Pharmacy Consult (Vancomycin Per Pharmacy*) 1 note FOLLOW UP . PRN PRN Reason: PER PROTOCOL Pharmacy Profile Note (Vancomycin Trough Check) 1 note FOLLOW UP ONCE ONE Stop: 12/21/18 09:31 Polyethylene Glycol/Electrolytes (Miralax*) 17 gm PO 0800,2100 [facility] Last Admin: 12/18/18 08:15 Dose: 17 gm Potassium Chloride (Klor Con Er Tab*) 10 meq PO DAILY [facility] Last Admin: 12/18/18 08:15 Dose: 10 meq Senna (Senokot Tab*) 2 tab PO BEDTIME PRN PRN Reason: NO DAYTIME BOWEL MOVEMENT Last Admin: 12/12/18 01:46 Dose: 2 tab Tamsulosin HCl (Flomax Cap*) 0.4 mg PO DAILY [facility] Last Admin: 12/18/18 08:16 Dose: 0.4 mg Vital Signs - 8 hr 12/18/18 12/18/18 12/18/18 08:00 08:06 08:16 Temperature 96.8 F Pulse Rate 58 Respiratory 18 19 18 Rate Blood Pressure 130/61 (mmHg) O2 Sat by Pulse 99 Oximetry 12/18/18 12/18/18 12/18/18 10:43 12:02 14:26 Temperature Pulse Rate Respiratory 18 18 18 Rate Blood Pressure (mmHg) O2 Sat by Pulse Oximetry Oxygen Devices in Use Now: None Appearance: 73 yo M in nAD, AAOx3 Eyes: No Scleral Icterus, PERRLA Ears/Nose/Mouth/Throat: NL Teeth, Lips, Gums, Mucous Membranes Moist Neck: NL Appearance and Movements; NL JVP, Trachea Midline Respiratory: Symmetrical Chest Expansion and Respiratory Effort Cardiovascular: NL Sounds; No Murmurs; No JVD, RRR Abdominal: NL Sounds; No Tenderness; No Distention Lymphatic: No Cervical Adenopathy Extremities: No Edema, No Clubbing, Cyanosis Skin: No Nodules or Sclerosis, - - R ankle with external hardware in place, VAC dressing and KAYLEEN bandages in place-dressings not removed, toes pink and warm on eval Neurological: Alert and Oriented x 3, NL Muscle Strength and Tone Result Diagrams: 12/18/18 05:28 Assess/Plan/Problems-Billing Assessment: 73M admitted for right ankle open fracture 2+ weeks old, did not seek medical attention at the time of the injury, also had possible SBO, now resolved. Getting q3d VAC changes while on IV vancomycin. Has external hardware in place. Placed on SWING on 12/11/18 - Patient Problems (1) Open fracture Comment: - Right ankle. Dr. Del Toro performed open reduction, external fixation 11/23/18. Recultured intraoperatively, growing MRSA, and enterococcus. Returned to OR 11/30 for and 4th 12/04. - Continue wound vac -as per ortho -Continue Vancomycin -WBC and CRP down trending Needs CBC, CMP, CRP weekly while on antibiotics. ID following (2) Macrocytosis Comment: -MCV 100 - B12 in low normal range (231). Methylmalonic acid level borderline - continue B12 po. (3) DVT prophylaxis Comment: lovenox
[2018-12-18] MEDS: Metoprolol Succinate XL TAB* 50 MG PO SCH (20:27)
[2018-12-19] MEDS: oxyCODONE TAB* 5 MG TAB PO PRN ×4 (06:08→20:24)
[2018-12-19 06:53] LABS: ABS Basophils 0.2 10^3/ul (0-0.2); ABS Eosinophils 0.6 10^3/ul (0-0.6); ABS Lymphocytes 1.1 10^3/ul (1.0-4.8); ABS Monocytes 0.9 10^3/ul (0-0.8); ABS Neutrophils 3.4 10^3/ul (1.5-7.7); Eosinophil % 9.1 %; Hematocrit 31 % (42-52); Hemoglobin 10.3 g/dL (14.0-18.0); Lymphocyte % 18.1 %; Mean Corpuscular HGB Conc 34 g/dL (31-36); Mean Corpuscular Hemoglobin 32 pg (27-31); Mean Corpuscular Volume 96 fL (80-94); Mean Platelet Volume 7.2 fL (7.4-10.4); Platelet Count 297 10^3/uL (150-450); Red Cell Distribution Width 14 % (10.5-15); White Blood Count 6.1 10^3/uL (3.5-10.8)
[2018-12-19 07:09] LABS: Albumin 3.5 g/dL (3.2-5.2); Albumin/Globulin Ratio 0.9 (1-3); BUN/Creatinine Ratio 26.4 (8-20); C Reactive Protein 25.9 mg/L (<8.01); Calcium 9.3 mg/dL (8.6-10.3); EGFR African American 82.6 (>60); EGFR Non-African American 68.3 (>60); Globulin 3.7 g/dL (2-4); Potassium 4.3 mmol/L (3.5-5.0); Total Bilirubin 0.4 mg/dL (0.2-1.0); Total Protein 7.2 g/dL (6.4-8.9)
[2018-12-19] MEDS: Tamsulosin CAP* 0.4 MG PO SCH (09:10)
[2018-12-19] MEDS: Magnesium Oxide TAB* 400 MG PO SCH (09:10)
[2018-12-19] MEDS: Potassium Chlor TAB* 10 MEQ TAB.ER PO SCH (09:10)
[2018-12-19] MEDS: Polyethylene Glycol 3350* 17 GM PACKET PO SCH ×2 (09:10→20:23)
[2018-12-19] MEDS: Cyanocobalamin TAB* 500 MCG PO SCH (09:11)
[2018-12-19] MEDS: Enoxaparin(*) 40 MG/0.4 ML SYR SUBCUT SCH (09:14)
[2018-12-19] MEDS: Acetaminophen TAB* 325 MG PO PRN ×3 (10:50→20:24)
[2018-12-19] MEDS: Vancomycin(*) 750 MG in NS 0.9% 250 ML* 250 ML IVPB SCH ×2 (10:50→21:39)
[2018-12-19] MEDS: Metoprolol Succinate XL TAB* 50 MG PO SCH (20:24)
[2018-12-20] MEDS: Enoxaparin(*) 40 MG/0.4 ML SYR SUBCUT SCH (09:37)
[2018-12-20] MEDS: Tamsulosin CAP* 0.4 MG PO SCH (09:37)
[2018-12-20] MEDS: Polyethylene Glycol 3350* 17 GM PACKET PO SCH ×2 (09:37→21:24)
[2018-12-20] MEDS: oxyCODONE TAB* 5 MG TAB PO PRN ×4 (09:37→22:24)
[2018-12-20] MEDS: Cyanocobalamin TAB* 500 MCG PO SCH (09:38)
[2018-12-20] MEDS: Magnesium Oxide TAB* 400 MG PO SCH (09:38)
[2018-12-20] MEDS: Potassium Chlor TAB* 10 MEQ TAB.ER PO SCH (09:38)
[2018-12-20] MEDS: Vancomycin(*) 750 MG in NS 0.9% 250 ML* 250 ML IVPB SCH ×2 (09:39→21:32)
[2018-12-20] MEDS: Acetaminophen TAB* 325 MG PO PRN ×3 (11:20→22:27)
[2018-12-20] MEDS: Morphine INJ* 2 MG/ML 1 ML SYRINGE (TWO MG - NEW SYRINGE VERSION) IV PRN (12:47)
--- NOTE | 2018-12-20 14:04 | PN ---
Progress Note - Progress Note Date of Service: 12/20/18 SOAP: Subjective: []Pt seen at bedside today. Denies any complaints, pain of RLE is well controlled. No report of fever, chills, CP, SOB, dizziness or nausea. Objective: []General: Laying comfortably in bed, NAD RLE: 5cc 1% lidocaine inject into sponge. Wound VAC removed, good granulation tissue at base without any purulence, no erythema surrounding. Measured at 5 cm long x 1.7 cm wide x 2cm deep at deepest anterior portion. New vac placed, good suction achieved. Pin sites CDI without erythema, redressed with xeroform, 4x4s. +flexion and extension at MTPs, N/V intact distally Assessment: Right ankle open fracture with ex fix and wound VAC Plan: New VAC applied, plan VAC change q 3 days Cont pain medication as needed, on tylenol and oxycodone. Used 1mg IV morphine prior to vac change today, patient tolerated well. Cont PT/OT, NWB RLE On lovenox for DVT prophy On vanco per ID Vital Signs Temp 98.0 F 12/20/18 07:46 Pulse 18 12/20/18 09:55 Resp 16 12/20/18 14:02 BP 147/66 12/20/18 07:46 Pulse Ox 96 12/20/18 07:46 Intake & Output 12/19/18 12/20/18 12/20/18 18:59 06:59 18:59 Intake Total 1200 0 1080 Output Total 530 1750 Balance 670 -1750 1080 Intake: Oral 1200 0 1080 Output: Lopez 530 1750 Laboratory Last Values WBC 6.1 10^3/uL (3.5-10.8) 12/19/18 06:00 RBC 3.20 10^6 /uL (4.18-5.48) L 12/19/18 06:00 Hgb 10.3 g/dL (14.0-18.0) L 12/19/18 06:00 Hct 31 % (42-52) L 12/19/18 06:00 MCV 96 fL (80-94) H 12/19/18 06:00 MCH 32 pg (27-31) H 12/19/18 06:00 MCHC 34 g/dL (31-36) 12/19/18 06:00 RDW 14 % (10.5-15) 12/19/18 06:00 Plt Count 297 10^3/uL (150-450) 12/19/18 06:00 MPV 7.2 fL (7.4-10.4) L 12/19/18 06:00 Neut % (Auto) 55.1 % 12/19/18 06:00 Lymph % (Auto) 18.1 % 12/19/18 06:00 [place] % (Auto) 14.6 % 12/19/18 06:00 Eos % (Auto) 9.1 % 12/19/18 06:00 Baso % (Auto) 3.1 % 12/19/18 06:00 Absolute Neuts (auto) 3.4 10^3/ul (1.5-7.7) 12/19/18 06:00 Absolute Lymphs (auto) 1.1 10^3/ul (1.0-4.8) 12/19/18 06:00 Absolute Monos (auto) 0.9 10^3/ul (0-0.8) H 12/19/18 06:00 Absolute Eos (auto) 0.6 10^3/ul (0-0.6) 12/19/18 06:00 Absolute Basos (auto) 0.2 10^3/ul (0-0.2) 12/19/18 06:00 Absolute Nucleated RBC 0.0 10^3/ul 12/19/18 06:00 Nucleated RBC % 0.0 12/19/18 06:00 Sodium 135 mmol/L (135-145) 12/19/18 06:00 Potassium 4.3 mmol/L (3.5-5.0) 12/19/18 06:00 Chloride 102 mmol/L (101-111) 12/19/18 06:00 Carbon Dioxide 27 mmol/L (22-32) 12/19/18 06:00 Anion Gap 6 mmol/L (2-11) 12/19/18 06:00 BUN 28 mg/dL (6-24) H 12/19/18 06:00 Creatinine 1.06 mg/dL (0.67-1.17) 12/19/18 06:00 Est GFR ( Amer) 82.6 (>60) 12/19/18 06:00 Est GFR (Non-Af Amer) 68.3 (>60) 12/19/18 06:00 BUN/Creatinine Ratio 26.4 (8-20) H 12/19/18 06:00 Glucose 82 mg/dL (70-100) 12/19/18 06:00 Calcium 9.3 mg/dL (8.6-10.3) 12/19/18 06:00 Total Bilirubin 0.40 mg/dL (0.2-1.0) 12/19/18 06:00 AST 13 U/L (13-39) 12/19/18 06:00 ALT 12 U/L (7-52) 12/19/18 06:00 Alkaline Phosphatase 59 U/L (34-104) 12/19/18 06:00 C-Reactive Protein 25.90 mg/L (<8.01) H 12/19/18 06:00 Total Protein 7.2 g/dL (6.4-8.9) 12/19/18 06:00 Albumin 3.5 g/dL (3.2-5.2) 12/19/18 06:00 Globulin 3.7 g/dL (2-4) 12/19/18 06:00 Albumin/Globulin Ratio 0.9 (1-3) L 12/19/18 06:00 Vancomycin Trough 16.3 mcg/mL 12/18/18 05:28
[2018-12-20] MEDS: Metoprolol Succinate XL TAB* 50 MG PO SCH (21:24)
[2018-12-21] MEDS: oxyCODONE TAB* 5 MG TAB PO PRN ×2 (05:09→21:55)
[2018-12-21] MEDS: Enoxaparin(*) 40 MG/0.4 ML SYR SUBCUT SCH (08:39)
[2018-12-21] MEDS: Cyanocobalamin TAB* 500 MCG PO SCH (08:39)
[2018-12-21] MEDS: Tamsulosin CAP* 0.4 MG PO SCH (08:39)
[2018-12-21] MEDS: Potassium Chlor TAB* 10 MEQ TAB.ER PO SCH (08:39)
[2018-12-21] MEDS: Polyethylene Glycol 3350* 17 GM PACKET PO SCH ×2 (08:39→22:26)
[2018-12-21] MEDS: Magnesium Oxide TAB* 400 MG PO SCH (08:39)
[2018-12-21] MEDS ORDERED: Vancomycin Trough Check NOTE FOLLOW UP ONE (09:30)
[2018-12-21 09:36] LABS: EGFR African American 84.5 (>60); EGFR Non-African American 69.8 (>60)
[2018-12-21] MEDS: Vancomycin(*) 750 MG in NS 0.9% 250 ML* 250 ML IVPB SCH ×2 (10:29→21:58)
[2018-12-21] MEDS: Metoprolol Succinate XL TAB* 50 MG PO SCH (21:55)
[2018-12-21] MEDS: Acetaminophen TAB* 325 MG PO PRN (21:55)
--- NOTE | 2018-12-22 09:20 | PN ---
Progress Note - Progress Note Date of Service: 12/22/18 SOAP: Subjective: CC: Right ankle infection after an open fracture, S/P debridement and placement of external fixator. HPI: Mr. Fenton is a 73 yo male with no significant PMH who presented to the emergency room on 11/20/18 for an open right ankle fracture that occurred 2-3 weeks prior to his presentation to the hospital. Denies fever, chills, shortness of breath, nausea, vomiting, or diarrhea. He states that he is doing well and has no concerns or questions. Objective: Vital Signs - 8 hr 12/22/18 12/22/18 12/22/18 10:06 11:14 11:26 Temperature 98.0 F Pulse Rate 61 Respiratory 16 20 20 Rate Blood Pressure 126/68 (mmHg) O2 Sat by Pulse 97 Oximetry Physical Exam: General: NAD, laying in bed Neurological: Alert and Oriented x 4 HEENT: No thrush, moist MM Cardiovascular: Heart rate regular Respiratory: Lung sounds clear Abdominal: Bowel sounds present; ABD soft, non tender and non distended Skin: No rash, KAYLEEN wrap, wound vac and external fixator in place to the right LE Laboratory Last Values WBC 6.1 10^3/uL (3.5-10.8) 12/19/18 06:00 RBC 3.20 10^6 /uL (4.18-5.48) L 12/19/18 06:00 Hgb 10.3 g/dL (14.0-18.0) L 12/19/18 06:00 Hct 31 % (42-52) L 12/19/18 06:00 MCV 96 fL (80-94) H 12/19/18 06:00 MCH 32 pg (27-31) H 12/19/18 06:00 MCHC 34 g/dL (31-36) 12/19/18 06:00 RDW 14 % (10.5-15) 12/19/18 06:00 Plt Count 297 10^3/uL (150-450) 12/19/18 06:00 MPV 7.2 fL (7.4-10.4) L 12/19/18 06:00 Neut % (Auto) 55.1 % 12/19/18 06:00 Lymph % (Auto) 18.1 % 12/19/18 06:00 [place] % (Auto) 14.6 % 12/19/18 06:00 Eos % (Auto) 9.1 % 12/19/18 06:00 Baso % (Auto) 3.1 % 12/19/18 06:00 Absolute Neuts (auto) 3.4 10^3/ul (1.5-7.7) 12/19/18 06:00 Absolute Lymphs (auto) 1.1 10^3/ul (1.0-4.8) 12/19/18 06:00 Absolute Monos (auto) 0.9 10^3/ul (0-0.8) H 12/19/18 06:00 Absolute Eos (auto) 0.6 10^3/ul (0-0.6) 12/19/18 06:00 Absolute Basos (auto) 0.2 10^3/ul (0-0.2) 12/19/18 06:00 Absolute Nucleated RBC 0.0 10^3/ul 12/19/18 06:00 Nucleated RBC % 0.0 12/19/18 06:00 Sodium 135 mmol/L (135-145) 12/19/18 06:00 Potassium 4.3 mmol/L (3.5-5.0) 12/19/18 06:00 Chloride 102 mmol/L (101-111) 12/19/18 06:00 Carbon Dioxide 27 mmol/L (22-32) 12/19/18 06:00 Anion Gap 6 mmol/L (2-11) 12/19/18 06:00 BUN 24 mg/dL (6-24) 12/21/18 08:49 Creatinine 1.04 mg/dL (0.67-1.17) 12/21/18 08:49 Est GFR ( Amer) 84.5 (>60) 12/21/18 08:49 Est GFR (Non-Af Amer) 69.8 (>60) 12/21/18 08:49 BUN/Creatinine Ratio 26.4 (8-20) H 12/19/18 06:00 Glucose 82 mg/dL (70-100) 12/19/18 06:00 Calcium 9.3 mg/dL (8.6-10.3) 12/19/18 06:00 Total Bilirubin 0.40 mg/dL (0.2-1.0) 12/19/18 06:00 AST 13 U/L (13-39) 12/19/18 06:00 ALT 12 U/L (7-52) 12/19/18 06:00 Alkaline Phosphatase 59 U/L (34-104) 12/19/18 06:00 C-Reactive Protein 25.90 mg/L (<8.01) H 12/19/18 06:00 Total Protein 7.2 g/dL (6.4-8.9) 12/19/18 06:00 Albumin 3.5 g/dL (3.2-5.2) 12/19/18 06:00 Globulin 3.7 g/dL (2-4) 12/19/18 06:00 Albumin/Globulin Ratio 0.9 (1-3) L 12/19/18 06:00 Vancomycin Trough 16.4 mcg/mL 12/21/18 08:49 Assessment: 1. Open right ankle fracture with acute osteomyelitis. S/P wound debridement, open reduction and external fixation, on 11/23/18. S/P debridement of ankle joint and replacement of VAC dressing, on 11/27/18. Wound cultures obtained on admission showing MSSA and Strep Agalactiae (Group B). Wound cultures obtained while in the OR on 11/23/18 showing MRSA, and no fungal organisms. Repeat cultures obtained 11/27/18 in surgery, showing Enterococcus Faecalis. Afebrile. No leukocytosis. CRP is trending down. Plan: Completed a 28 day course of Vancomycin on 12/21/18. Discontinue Vancomycin and start Augmentin 500 mg PO BID, continue Augmentin while external hardware is in place.
[2018-12-22] MEDS: oxyCODONE TAB* 5 MG TAB PO PRN ×2 (10:06→20:24)
[2018-12-22] MEDS: Vancomycin(*) 750 MG in NS 0.9% 250 ML* 250 ML IVPB SCH (10:06)
[2018-12-22] MEDS: Potassium Chlor TAB* 10 MEQ TAB.ER PO SCH (10:06)
[2018-12-22] MEDS: Enoxaparin(*) 40 MG/0.4 ML SYR SUBCUT SCH (10:07)
[2018-12-22] MEDS: Polyethylene Glycol 3350* 17 GM PACKET PO SCH ×2 (10:07→20:25)
[2018-12-22] MEDS: Cyanocobalamin TAB* 500 MCG PO SCH (10:07)
[2018-12-22] MEDS: Magnesium Oxide TAB* 400 MG PO SCH (10:07)
[2018-12-22] MEDS: Tamsulosin CAP* 0.4 MG PO SCH (10:07)
[2018-12-22] MEDS: Metoprolol Succinate XL TAB* 50 MG PO SCH (20:23)
[2018-12-22] MEDS: Amoxicillin/Clavulanate TAB* 500 MG PO SCH (20:24)
[2018-12-23] MEDS: Magnesium Oxide TAB* 400 MG PO SCH (07:53)
[2018-12-23] MEDS: Polyethylene Glycol 3350* 17 GM PACKET PO SCH ×2 (07:53→21:46)
[2018-12-23] MEDS: Potassium Chlor TAB* 10 MEQ TAB.ER PO SCH (07:53)
[2018-12-23] MEDS: Amoxicillin/Clavulanate TAB* 500 MG PO SCH ×2 (07:53→21:39)
[2018-12-23] MEDS: Acetaminophen TAB* 325 MG PO PRN ×2 (07:53→18:34)
[2018-12-23] MEDS: Tamsulosin CAP* 0.4 MG PO SCH (07:53)
[2018-12-23] MEDS: Cyanocobalamin TAB* 500 MCG PO SCH (07:53)
[2018-12-23] MEDS: Enoxaparin(*) 40 MG/0.4 ML SYR SUBCUT SCH (07:56)
[2018-12-23] MEDS ORDERED: Morphine INJ* 2 MG/ML 1 ML SYRINGE (TWO MG - NEW SYRINGE VERSION) IV ONE (12:41)
[2018-12-23] MEDS ORDERED: Morphine INJ* 2 MG/ML 1 ML SYRINGE (TWO MG - NEW SYRINGE VERSION) ONE (12:42)
--- NOTE | 2018-12-23 12:53 | PN ---
Progress Note - Progress Note Date of Service: 12/23/18 SOAP: Subjective: Pt seen at bedside. No complaint of pain. Denies CP, SOB. Vital Signs: Temp Pulse Resp BP Pulse Ox 98.0 F 55 20 125/54 97 12/23/18 06:10 12/23/18 06:10 12/23/18 09:37 12/23/18 06:10 12/23/18 06:10 Laboratory Last Values WBC 6.1 10^3/uL (3.5-10.8) 12/19/18 06:00 RBC 3.20 10^6 /uL (4.18-5.48) L 12/19/18 06:00 Hgb 10.3 g/dL (14.0-18.0) L 12/19/18 06:00 Hct 31 % (42-52) L 12/19/18 06:00 MCV 96 fL (80-94) H 12/19/18 06:00 MCH 32 pg (27-31) H 12/19/18 06:00 MCHC 34 g/dL (31-36) 12/19/18 06:00 RDW 14 % (10.5-15) 12/19/18 06:00 Plt Count 297 10^3/uL (150-450) 12/19/18 06:00 MPV 7.2 fL (7.4-10.4) L 12/19/18 06:00 Neut % (Auto) 55.1 % 12/19/18 06:00 Lymph % (Auto) 18.1 % 12/19/18 06:00 [place] % (Auto) 14.6 % 12/19/18 06:00 Eos % (Auto) 9.1 % 12/19/18 06:00 Baso % (Auto) 3.1 % 12/19/18 06:00 Absolute Neuts (auto) 3.4 10^3/ul (1.5-7.7) 12/19/18 06:00 Absolute Lymphs (auto) 1.1 10^3/ul (1.0-4.8) 12/19/18 06:00 Absolute Monos (auto) 0.9 10^3/ul (0-0.8) H 12/19/18 06:00 Absolute Eos (auto) 0.6 10^3/ul (0-0.6) 12/19/18 06:00 Absolute Basos (auto) 0.2 10^3/ul (0-0.2) 12/19/18 06:00 Absolute Nucleated RBC 0.0 10^3/ul 12/19/18 06:00 Nucleated RBC % 0.0 12/19/18 06:00 Sodium 135 mmol/L (135-145) 12/19/18 06:00 Potassium 4.3 mmol/L (3.5-5.0) 12/19/18 06:00 Chloride 102 mmol/L (101-111) 12/19/18 06:00 Carbon Dioxide 27 mmol/L (22-32) 12/19/18 06:00 Anion Gap 6 mmol/L (2-11) 12/19/18 06:00 BUN 24 mg/dL (6-24) 12/21/18 08:49 Creatinine 1.04 mg/dL (0.67-1.17) 12/21/18 08:49 Est GFR ( Amer) 84.5 (>60) 12/21/18 08:49 Est GFR (Non-Af Amer) 69.8 (>60) 12/21/18 08:49 BUN/Creatinine Ratio 26.4 (8-20) H 12/19/18 06:00 Glucose 82 mg/dL (70-100) 12/19/18 06:00 Calcium 9.3 mg/dL (8.6-10.3) 12/19/18 06:00 Total Bilirubin 0.40 mg/dL (0.2-1.0) 12/19/18 06:00 AST 13 U/L (13-39) 12/19/18 06:00 ALT 12 U/L (7-52) 12/19/18 06:00 Alkaline Phosphatase 59 U/L (34-104) 12/19/18 06:00 C-Reactive Protein 25.90 mg/L (<8.01) H 12/19/18 06:00 Total Protein 7.2 g/dL (6.4-8.9) 12/19/18 06:00 Albumin 3.5 g/dL (3.2-5.2) 12/19/18 06:00 Globulin 3.7 g/dL (2-4) 12/19/18 06:00 Albumin/Globulin Ratio 0.9 (1-3) L 12/19/18 06:00 Vancomycin Trough 16.4 mcg/mL 12/21/18 08:49 Objective: A&O x3, NAD Wound vac intact on RLE. 5cc 1% lidocaine injected into sponge. Wound vac was removed. There was good granulation tissue at the base without purulence. No erythema. New vac applied. Good suction achieved. Pin sites C/D/I without drainage. redressed with xeroform, 4x4's, gauze, kerlex and Rick bandage. NVI distally. Assessment: Right ankle open fracture with ex fix and wound vac Plan: Wound vac changed. Morphine 1mg was given prior to vac change. Pt tolerated well. Wound vac changes q 3 days NWB RLE Lovenox for DVT prophylaxis Continue Vanco per ID
[2018-12-23] MEDS: Metoprolol Succinate XL TAB* 50 MG PO SCH (21:39)
[2018-12-23] MEDS: oxyCODONE TAB* 5 MG TAB PO PRN (21:39)
[2018-12-24] MEDS: Acetaminophen TAB* 325 MG PO PRN (08:06)
[2018-12-24] MEDS: Tamsulosin CAP* 0.4 MG PO SCH (08:06)
[2018-12-24] MEDS: Enoxaparin(*) 40 MG/0.4 ML SYR SUBCUT SCH (08:06)
[2018-12-24] MEDS: Polyethylene Glycol 3350* 17 GM PACKET PO SCH ×2 (08:06→21:23)
[2018-12-24] MEDS: Magnesium Oxide TAB* 400 MG PO SCH (08:06)
[2018-12-24] MEDS: Amoxicillin/Clavulanate TAB* 500 MG PO SCH ×2 (08:06→21:21)
[2018-12-24] MEDS: Cyanocobalamin TAB* 500 MCG PO SCH (08:06)
[2018-12-24] MEDS: Potassium Chlor TAB* 10 MEQ TAB.ER PO SCH (08:06)
[2018-12-24] MEDS: oxyCODONE TAB* 5 MG TAB PO PRN ×2 (14:51→21:21)
[2018-12-24] MEDS: Metoprolol Succinate XL TAB* 50 MG PO SCH (21:22)
[2018-12-25 05:58] LABS: EGFR African American 90.5 (>60); EGFR Non-African American 74.8 (>60)
[2018-12-25] MEDS: Amoxicillin/Clavulanate TAB* 500 MG PO SCH ×2 (09:19→21:20)
[2018-12-25] MEDS: Enoxaparin(*) 40 MG/0.4 ML SYR SUBCUT SCH (09:20)
[2018-12-25] MEDS: Potassium Chlor TAB* 10 MEQ TAB.ER PO SCH (09:20)
[2018-12-25] MEDS: Cyanocobalamin TAB* 500 MCG PO SCH (09:20)
[2018-12-25] MEDS: Tamsulosin CAP* 0.4 MG PO SCH (09:20)
[2018-12-25] MEDS: Magnesium Oxide TAB* 400 MG PO SCH (09:20)
[2018-12-25] MEDS: Polyethylene Glycol 3350* 17 GM PACKET PO SCH ×2 (09:21→21:21)
[2018-12-25] MEDS ORDERED: Vancomycin Trough Check NOTE FOLLOW UP ONE (09:30)
--- NOTE | 2018-12-25 15:00 | PN ---
Progress Note - Progress Note Date of Service: 12/25/18 SOAP: Subjective: C: Right ankle infection after an open fracture, S/P debridement and placement of external fixator. HPI: Mr. Fenton is a 73 yo male with no significant PMH who presented to the emergency room on 11/20/18 for an open right ankle fracture that occurred 2-3 weeks prior to his presentation to the hospital. Denies fever, chills, shortness of breath, nausea, vomiting, or diarrhea. He states that he is doing well and has no concerns or questions. Eating and drinking well. Continued to have an indwelling urinary catheter for urinary retention. Objective: Vital Signs - 8 hr 12/25/18 08:00 Respiratory 18 Rate Physical Exam: General: NAD, sitting up on the side of the bed Neurological: Alert and oriented x 4 HEENT: No thrush Cardiovascular: Heart rate regular Respiratory: Lung sounds clear Abdominal: Bowel sounds present; ABD soft, non tender an non distended Skin: No rash, external fixator to right LE in place with KAYLEEN wrap Laboratory Last Values WBC 6.1 10^3/uL (3.5-10.8) 12/19/18 06:00 RBC 3.20 10^6 /uL (4.18-5.48) L 12/19/18 06:00 Hgb 10.3 g/dL (14.0-18.0) L 12/19/18 06:00 Hct 31 % (42-52) L 12/19/18 06:00 MCV 96 fL (80-94) H 12/19/18 06:00 MCH 32 pg (27-31) H 12/19/18 06:00 MCHC 34 g/dL (31-36) 12/19/18 06:00 RDW 14 % (10.5-15) 12/19/18 06:00 Plt Count 297 10^3/uL (150-450) 12/19/18 06:00 MPV 7.2 fL (7.4-10.4) L 12/19/18 06:00 Neut % (Auto) 55.1 % 12/19/18 06:00 Lymph % (Auto) 18.1 % 12/19/18 06:00 [place] % (Auto) 14.6 % 12/19/18 06:00 Eos % (Auto) 9.1 % 12/19/18 06:00 Baso % (Auto) 3.1 % 12/19/18 06:00 Absolute Neuts (auto) 3.4 10^3/ul (1.5-7.7) 12/19/18 06:00 Absolute Lymphs (auto) 1.1 10^3/ul (1.0-4.8) 12/19/18 06:00 Absolute Monos (auto) 0.9 10^3/ul (0-0.8) H 12/19/18 06:00 Absolute Eos (auto) 0.6 10^3/ul (0-0.6) 12/19/18 06:00 Absolute Basos (auto) 0.2 10^3/ul (0-0.2) 12/19/18 06:00 Absolute Nucleated RBC 0.0 10^3/ul 12/19/18 06:00 Nucleated RBC % 0.0 12/19/18 06:00 Sodium 135 mmol/L (135-145) 12/19/18 06:00 Potassium 4.3 mmol/L (3.5-5.0) 12/19/18 06:00 Chloride 102 mmol/L (101-111) 12/19/18 06:00 Carbon Dioxide 27 mmol/L (22-32) 12/19/18 06:00 Anion Gap 6 mmol/L (2-11) 12/19/18 06:00 BUN 23 mg/dL (6-24) 12/25/18 05:34 Creatinine 0.98 mg/dL (0.67-1.17) 12/25/18 05:34 Est GFR ( Amer) 90.5 (>60) 12/25/18 05:34 Est GFR (Non-Af Amer) 74.8 (>60) 12/25/18 05:34 BUN/Creatinine Ratio 26.4 (8-20) H 12/19/18 06:00 Glucose 82 mg/dL (70-100) 12/19/18 06:00 Calcium 9.3 mg/dL (8.6-10.3) 12/19/18 06:00 Total Bilirubin 0.40 mg/dL (0.2-1.0) 12/19/18 06:00 AST 13 U/L (13-39) 12/19/18 06:00 ALT 12 U/L (7-52) 12/19/18 06:00 Alkaline Phosphatase 59 U/L (34-104) 12/19/18 06:00 C-Reactive Protein 25.90 mg/L (<8.01) H 12/19/18 06:00 Total Protein 7.2 g/dL (6.4-8.9) 12/19/18 06:00 Albumin 3.5 g/dL (3.2-5.2) 12/19/18 06:00 Globulin 3.7 g/dL (2-4) 12/19/18 06:00 Albumin/Globulin Ratio 0.9 (1-3) L 12/19/18 06:00 Vancomycin Trough 16.4 mcg/mL 12/21/18 08:49 Assessment: 1. Open right ankle fracture with acute osteomyelitis. Wound cultures obtained on admission showing MSSA and Strep Agalactiae (Group B). S/P wound debridement , open reduction and external fixation placement, on 11/23/18. Wound cultures obtained while in the OR on 11/23/18 showing MRSA, and no fungal organisms. S/P debridement of ankle joint and replacement of VAC dressing, on 11/27/18. Repeat cultures obtained 11/27/18 in surgery, showing Enterococcus Faecalis. Afebrile. No leukocytosis. CRP is trending down. 2. Urinary retention. Continues to have an indwelling urinary catheter. Plan: Completed a 28 day course of Vancomycin on 12/21/18. Continue Augmentin 500 mg PO BID, continue abx while external hardware is in place.
[2018-12-25] MEDS: oxyCODONE TAB* 5 MG TAB PO PRN (21:21)
[2018-12-25] MEDS: Metoprolol Succinate XL TAB* 50 MG PO SCH (21:21)
[2018-12-26 06:43] LABS: Hematocrit 32 % (42-52); Mean Corpuscular HGB Conc 34 g/dL (31-36); Mean Corpuscular Hemoglobin 33 pg (27-31); Mean Corpuscular Volume 95 fL (80-94); Platelet Count 336 10^3/uL (150-450); Red Blood Count 3.39 10^6 /uL (4.18-5.48); Red Cell Distribution Width 14 % (10.5-15); White Blood Count 9.4 10^3/uL (3.5-10.8)
[2018-12-26 07:02] LABS: Albumin 3.7 g/dL (3.2-5.2); BUN/Creatinine Ratio 24.7 (8-20); Calcium 9.2 mg/dL (8.6-10.3); EGFR African American 101.1 (>60); EGFR Non-African American 83.6 (>60); Globulin 3.7 g/dL (2-4); Magnesium 1.9 mg/dL (1.9-2.7); Phosphorus 3.6 mg/dL (2.5-5.0); Potassium 4.1 mmol/L (3.5-5.0); Total Bilirubin 0.5 mg/dL (0.2-1.0); Total Protein 7.4 g/dL (6.4-8.9)
[2018-12-26] MEDS: Tamsulosin CAP* 0.4 MG PO SCH (08:44)
[2018-12-26] MEDS: Amoxicillin/Clavulanate TAB* 500 MG PO SCH ×2 (08:44→21:56)
[2018-12-26] MEDS: Cyanocobalamin TAB* 500 MCG PO SCH (08:44)
[2018-12-26] MEDS: Potassium Chlor TAB* 10 MEQ TAB.ER PO SCH (08:44)
[2018-12-26] MEDS: Polyethylene Glycol 3350* 17 GM PACKET PO SCH ×2 (08:45→22:00)
[2018-12-26] MEDS: Magnesium Oxide TAB* 400 MG PO SCH (08:45)
[2018-12-26] MEDS: Enoxaparin(*) 40 MG/0.4 ML SYR SUBCUT SCH (08:45)
--- NOTE | 2018-12-26 13:58 | PN ---
Subjective Date of Service: 12/26/18 Interval History: Pt seen and examined. Meds and labs reviewed. CC: N/A ROS: Denied ROMERO/dizziness, F/C, N/V, CP, SOB, increased cough, sputum production , abd pain, diarrhea, constipation, dysuria, myalgias, arthralgias, throat pain , and new skin lesions. The rest of the 14 point ROS are unremarkable. PHYSICAL EXAM: GEN APPEARANCE: Awake, not in acute distress HEENT: NC/AT, PERRLA, moist oral mucosa, (-) throat erythema NECK: Soft, supple, (-) cervical LAD, (-)JVD HEART: S1S2 WNL, RRR, No MRG CHEST: CTA, BL, GAE, No W/R/R ABD: Soft, ND/NT, NABS 4x Q EXT: No C/C/RLE w/vacuum pump covered in KAYLEEN bandage w/ external fixators SKIN: Warm to touch PSYCH: No active psychosis, hallucinations, depression, SI/HI Objective Active Medications: Acetaminophen (Tylenol Tab*) 650 mg PO Q4H PRN PRN Reason: FEVER/PAIN Last Admin: 12/24/18 08:06 Dose: 650 mg Amoxicillin/Clavulanate Potassium (Augmentin Tab*) 500 mg PO BID [facility] Last Admin: 12/26/18 08:44 Dose: 500 mg Cyanocobalamin (Vitamin B12 Tab*) 1,000 mcg PO DAILY [facility] Last Admin: 12/26/18 08:44 Dose: 1,000 mcg Enoxaparin Sodium (Lovenox(*)) 40 mg SUBCUT Q24H [facility] Last Admin: 12/26/18 08:45 Dose: 40 mg Heparin Sodium (Porcine) (Heparin Flush Picc/Ml/Cvc(*)) 1 - 3 ml FLUSH 0600, 1800 [facility]; Protocol Last Admin: 12/26/18 06:32 Dose: 1 ml Magnesium Oxide (Magox 400 Tab*) 400 mg PO DAILY [facility] Last Admin: 12/26/18 08:45 Dose: 400 mg Metoprolol Succinate (Toprol Xl Tab*) 50 mg PO BEDTIME [facility] Last Admin: 12/25/18 21:21 Dose: 50 mg Morphine Sulfate (Morphine Inj (Syringe))*) 1 mg IV ONCE PRN PRN Reason: PAIN - SEVERE Last Admin: 12/20/18 12:47 Dose: 1 mg Oxycodone HCl (Roxycodone Tab*) 5 mg PO Q4H PRN PRN Reason: PAIN Last Admin: 12/25/18 21:21 Dose: 5 mg Polyethylene Glycol/Electrolytes (Miralax*) 17 gm PO 0800,2100 [facility] Last Admin: 12/26/18 08:45 Dose: Not Given Potassium Chloride (Klor Con Er Tab*) 10 meq PO DAILY [facility] Last Admin: 12/26/18 08:44 Dose: 10 meq Senna (Senokot Tab*) 2 tab PO BEDTIME PRN PRN Reason: NO DAYTIME BOWEL MOVEMENT Last Admin: 12/12/18 01:46 Dose: 2 tab Tamsulosin HCl (Flomax Cap*) 0.4 mg PO DAILY [facility] Last Admin: 12/26/18 08:44 Dose: 0.4 mg Vital Signs - 8 hr 12/26/18 12/26/18 08:00 09:30 Temperature 97.8 F Pulse Rate 79 Respiratory 17 16 Rate Blood Pressure 107/62 (mmHg) O2 Sat by Pulse 97 Oximetry Oxygen Devices in Use Now: None Result Diagrams: 12/26/18 06:28 12/26/18 06:28 Assess/Plan/Problems-Billing Assessment: 73M admitted for right ankle open fracture 2+ weeks old, did not seek medical attention at the time of the injury, also had possible SBO, now resolved. Getting q3d VAC changes while on IV vancomycin. Has external hardware in place. Placed on SWING on 12/11/18 - Patient Problems (1) Open fracture Current Visit: No Status: Acute Priority: High Code(s): T14.8XXA - OTHER INJURY OF UNSPECIFIED BODY REGION, INITIAL ENCOUNTER SNOMED Code(s): 133278934 Comment: - Right ankle. Dr. Del Toro performed open reduction, external fixation . Recultured intraoperatively, growing MRSA, and enterococcus. Returned to OR 11/30 for and 12/04. - Continue wound vac -as q3 days -Continue Augmentin 500 mg PO BID while external hardware is in place -WBC and CRP down trending Needs CBC, CMP, CRP weekly while on antibiotics. ID following (2) Macrocytosis Current Visit: No Status: Acute Code(s): D75.89 - OTHER SPECIFIED DISEASES OF BLOOD AND BLOOD-FORMING ORGANS SNOMED Code(s): 230425178 Comment: -MCV 100 - B12 in low normal range (231). Methylmalonic acid level borderline - continue B12 po. (3) Urinary retention Current Visit: No Status: Acute Code(s): R33.9 - RETENTION OF URINE, UNSPECIFIED SNOMED Code(s): 530780597 Comment: -Continue Flomax; w/stern cath (4) DVT prophylaxis Current Visit: No Status: Acute Priority: Low Code(s): FWZ0694 - SNOMED Code(s): 245932033 Comment: - lovenox 40 mg SQ daily restarted Status and Disposition: Swing status
[2018-12-26] MEDS: Morphine INJ* 2 MG/ML 1 ML SYRINGE (TWO MG - NEW SYRINGE VERSION) IV PRN (16:15)
--- NOTE | 2018-12-26 17:34 | PN ---
Progress Note - Progress Note Date of Service: 12/26/18 SOAP: Subjective: []Pt seen at bedside with 2 family members present. He feels well without complaints, pain is well controlled. Denies any feeling of fever, chills, CP, SOB, dizziness or nausea. Objective: []General: Appears well, NAD. RLE: 5cc 2% lidocaine injected into vac sponge. Vac removed, wound appears to be healing quite well now measuring 4.7x1.4x0.5 cm. There is granulation tissue at the base without any purulence or surrounding erythema, no surrounding maceration. New vac placed, good suction achieved. Pin sites clean and dry without erythema, new xeroform and 4x4s placed. Flexion and extension of MTPs intact, neurovascularly intact distally. Assessment: []Right ankle open fracture with ex fix and wound VAC Plan: [] Augmentin per ID Cont PT/OT, NWB RLE On lovenox for DVT prophy New VAC applied 12/26, plan VAC change q 3 days Vital Signs Temp 97.6 F 12/27/18 10:16 Pulse 66 12/26/18 14:44 Resp 16 12/27/18 13:36 BP 98/57 12/27/18 10:16 Pulse Ox 100 12/27/18 10:16 Intake & Output 12/26/18 12/27/18 12/27/18 18:59 06:59 18:59 Intake Total 1440 400 960 Output Total 800 2200 1400 Balance 640 -1800 -440 Intake: Oral 1440 400 960 Output: Urine 700 Lopez 800 2200 700 Other: Estimated Void Large Large Date of Last Bowel 12/24/18 12/27/18 Movement # Bowel Movements 0 0 1 Estimated Stool Amount Large Laboratory Last Values WBC 9.4 10^3/uL (3.5-10.8) 12/26/18 06:28 RBC 3.39 10^6 /uL (4.18-5.48) L 12/26/18 06:28 Hgb 11.0 g/dL (14.0-18.0) L 12/26/18 06:28 Hct 32 % (42-52) L 12/26/18 06:28 MCV 95 fL (80-94) H 12/26/18 06:28 MCH 33 pg (27-31) H 12/26/18 06:28 MCHC 34 g/dL (31-36) 12/26/18 06:28 RDW 14 % (10.5-15) 12/26/18 06:28 Plt Count 336 10^3/uL (150-450) 12/26/18 06:28 MPV 7.0 fL (7.4-10.4) L 12/26/18 06:28 Neut % (Auto) 55.1 % 12/19/18 06:00 Lymph % (Auto) 18.1 % 12/19/18 06:00 [place] % (Auto) 14.6 % 12/19/18 06:00 Eos % (Auto) 9.1 % 12/19/18 06:00 Baso % (Auto) 3.1 % 12/19/18 06:00 Absolute Neuts (auto) 3.4 10^3/ul (1.5-7.7) 12/19/18 06:00 Absolute Lymphs (auto) 1.1 10^3/ul (1.0-4.8) 12/19/18 06:00 Absolute Monos (auto) 0.9 10^3/ul (0-0.8) H 12/19/18 06:00 Absolute Eos (auto) 0.6 10^3/ul (0-0.6) 12/19/18 06:00 Absolute Basos (auto) 0.2 10^3/ul (0-0.2) 12/19/18 06:00 Absolute Nucleated RBC 0.0 10^3/ul 12/19/18 06:00 Nucleated RBC % 0.0 12/19/18 06:00 Sodium 135 mmol/L (135-145) 12/26/18 06:28 Potassium 4.1 mmol/L (3.5-5.0) 12/26/18 06:28 Chloride 102 mmol/L (101-111) 12/26/18 06:28 Carbon Dioxide 26 mmol/L (22-32) 12/26/18 06:28 Anion Gap 7 mmol/L (2-11) 12/26/18 06:28 BUN 22 mg/dL (6-24) 12/26/18 06:28 Creatinine 0.89 mg/dL (0.67-1.17) 12/26/18 06:28 Est GFR ( Amer) 101.1 (>60) 12/26/18 06:28 Est GFR (Non-Af Amer) 83.6 (>60) 12/26/18 06:28 BUN/Creatinine Ratio 24.7 (8-20) H 12/26/18 06:28 Glucose 85 mg/dL (70-100) 12/26/18 06:28 Calcium 9.2 mg/dL (8.6-10.3) 12/26/18 06:28 Phosphorus 3.6 mg/dL (2.5-5.0) 12/26/18 06:28 Magnesium 1.9 mg/dL (1.9-2.7) 12/26/18 06:28 Total Bilirubin 0.50 mg/dL (0.2-1.0) 12/26/18 06:28 AST 15 U/L (13-39) 12/26/18 06:28 ALT 19 U/L (7-52) 12/26/18 06:28 Alkaline Phosphatase 59 U/L (34-104) 12/26/18 06:28 C-Reactive Protein 25.90 mg/L (<8.01) H 12/19/18 06:00 Total Protein 7.4 g/dL (6.4-8.9) 12/26/18 06:28 Albumin 3.7 g/dL (3.2-5.2) 12/26/18 06:28 Globulin 3.7 g/dL (2-4) 12/26/18 06:28 Albumin/Globulin Ratio 1.0 (1-3) 12/26/18 06:28 Vancomycin Trough 16.4 mcg/mL 12/21/18 08:49
[2018-12-26] MEDS: Metoprolol Succinate XL TAB* 50 MG PO SCH (21:56)
[2018-12-26] MEDS: oxyCODONE TAB* 5 MG TAB PO PRN (21:56)
[2018-12-27] MEDS: Enoxaparin(*) 40 MG/0.4 ML SYR SUBCUT SCH (08:18)
[2018-12-27] MEDS: Amoxicillin/Clavulanate TAB* 500 MG PO SCH ×2 (08:19→20:34)
[2018-12-27] MEDS: Polyethylene Glycol 3350* 17 GM PACKET PO SCH ×2 (08:19→20:34)
[2018-12-27] MEDS: Magnesium Oxide TAB* 400 MG PO SCH (08:19)
[2018-12-27] MEDS: Tamsulosin CAP* 0.4 MG PO SCH (08:19)
[2018-12-27] MEDS: Cyanocobalamin TAB* 500 MCG PO SCH (08:19)
[2018-12-27] MEDS: Potassium Chlor TAB* 10 MEQ TAB.ER PO SCH (08:19)
[2018-12-27] MEDS: Acetaminophen TAB* 325 MG PO PRN ×2 (08:29→20:33)
[2018-12-27] MEDS: oxyCODONE TAB* 5 MG TAB PO PRN ×2 (08:29→20:32)
[2018-12-27] MEDS: Metoprolol Succinate XL TAB* 50 MG PO SCH (20:34)
[2018-12-28] MEDS: Enoxaparin(*) 40 MG/0.4 ML SYR SUBCUT SCH (07:40)
[2018-12-28] MEDS: Tamsulosin CAP* 0.4 MG PO SCH (07:41)
[2018-12-28] MEDS: Polyethylene Glycol 3350* 17 GM PACKET PO SCH ×2 (07:41→20:16)
[2018-12-28] MEDS: Cyanocobalamin TAB* 500 MCG PO SCH (07:41)
[2018-12-28] MEDS: Potassium Chlor TAB* 10 MEQ TAB.ER PO SCH (07:41)
[2018-12-28] MEDS: Magnesium Oxide TAB* 400 MG PO SCH (07:41)
[2018-12-28] MEDS: Amoxicillin/Clavulanate TAB* 500 MG PO SCH ×2 (07:41→20:16)
[2018-12-28] MEDS: Metoprolol Succinate XL TAB* 50 MG PO SCH (20:16)
[2018-12-28] MEDS: oxyCODONE TAB* 5 MG TAB PO PRN (20:16)
[2018-12-28] MEDS: Acetaminophen TAB* 325 MG PO PRN (20:17)
[2018-12-29] MEDS: Cyanocobalamin TAB* 500 MCG PO SCH (08:55)
[2018-12-29] MEDS: Magnesium Oxide TAB* 400 MG PO SCH (08:55)
[2018-12-29] MEDS: Potassium Chlor TAB* 10 MEQ TAB.ER PO SCH (08:55)
[2018-12-29] MEDS: Amoxicillin/Clavulanate TAB* 500 MG PO SCH ×2 (08:55→20:57)
[2018-12-29] MEDS: Enoxaparin(*) 40 MG/0.4 ML SYR SUBCUT SCH (08:55)
[2018-12-29] MEDS: Tamsulosin CAP* 0.4 MG PO SCH (08:55)
[2018-12-29] MEDS: Polyethylene Glycol 3350* 17 GM PACKET PO SCH ×2 (08:56→20:56)
--- NOTE | 2018-12-29 11:06 | PN ---
Progress Note - Progress Note Date of Service: 12/29/18 SOAP: Subjective: Pt seen at bedside for right ankle re-evaluation. States that he is doing very well. Anxious to know plan going forward. Denies CP/SOB, f/c, n/v Objective: Vital Signs: Temp Pulse Resp BP Pulse Ox 98.2 F 74 18 109/49 100 12/28/18 16:49 12/28/18 16:49 12/29/18 08:03 12/28/18 16:49 12/28/18 16:49 Gen: A&Ox3 NAD at rest RLE: Wound VAC removed, good granulation tissue to bed. Wound measures 46mm x 17mm x 2mm deep. No purulent d/c. Calf soft/NT, N/V intact Assessment: S/P right ankle open fracture dislocation with ex-fix and wound VAC Plan: Wound VAC reapplied today Cont NWB Cont abx per ID Repeat wound VAC change Tuesday
[2018-12-29] MEDS: Senna TAB PO PRN (20:56)
[2018-12-29] MEDS: Acetaminophen TAB* 325 MG PO PRN (20:56)
[2018-12-29] MEDS: Metoprolol Succinate XL TAB* 50 MG PO SCH (20:56)
[2018-12-29] MEDS: oxyCODONE TAB* 5 MG TAB PO PRN (20:57)
[2018-12-30] MEDS: Polyethylene Glycol 3350* 17 GM PACKET PO SCH ×2 (09:14→21:09)
[2018-12-30] MEDS: Potassium Chlor TAB* 10 MEQ TAB.ER PO SCH (09:16)
[2018-12-30] MEDS: Magnesium Oxide TAB* 400 MG PO SCH (09:16)
[2018-12-30] MEDS: Cyanocobalamin TAB* 500 MCG PO SCH (09:16)
[2018-12-30] MEDS: Tamsulosin CAP* 0.4 MG PO SCH (09:16)
[2018-12-30] MEDS: Amoxicillin/Clavulanate TAB* 500 MG PO SCH ×2 (09:16→21:09)
[2018-12-30] MEDS: Enoxaparin(*) 40 MG/0.4 ML SYR SUBCUT SCH (09:17)
[2018-12-30] MEDS: Metoprolol Succinate XL TAB* 50 MG PO SCH (21:09)
[2018-12-30] MEDS: oxyCODONE TAB* 5 MG TAB PO PRN (21:11)
[2018-12-30] MEDS: Acetaminophen TAB* 325 MG PO PRN (21:11)
[2018-12-31] MEDS: Polyethylene Glycol 3350* 17 GM PACKET PO SCH ×2 (07:51→21:12)
[2018-12-31] MEDS: Magnesium Oxide TAB* 400 MG PO SCH (07:52)
[2018-12-31] MEDS: Tamsulosin CAP* 0.4 MG PO SCH (07:52)
[2018-12-31] MEDS: Cyanocobalamin TAB* 500 MCG PO SCH (07:52)
[2018-12-31] MEDS: Amoxicillin/Clavulanate TAB* 500 MG PO SCH ×2 (07:52→21:12)
[2018-12-31] MEDS: Potassium Chlor TAB* 10 MEQ TAB.ER PO SCH (07:52)
[2018-12-31] MEDS: Enoxaparin(*) 40 MG/0.4 ML SYR SUBCUT SCH (07:52)
[2018-12-31] MEDS: oxyCODONE TAB* 5 MG TAB PO PRN (21:12)
[2018-12-31] MEDS: Acetaminophen TAB* 325 MG PO PRN (21:12)
[2018-12-31] MEDS: Metoprolol Succinate XL TAB* 50 MG PO SCH (21:12)
[2019-01-01] MEDS: Polyethylene Glycol 3350* 17 GM PACKET PO SCH ×2 (09:08→21:05)
[2019-01-01] MEDS: Cyanocobalamin TAB* 500 MCG PO SCH (09:10)
[2019-01-01] MEDS: Amoxicillin/Clavulanate TAB* 500 MG PO SCH ×2 (09:10→21:00)
[2019-01-01] MEDS: Potassium Chlor TAB* 10 MEQ TAB.ER PO SCH (09:10)
[2019-01-01] MEDS: Tamsulosin CAP* 0.4 MG PO SCH (09:11)
[2019-01-01] MEDS: Magnesium Oxide TAB* 400 MG PO SCH (09:11)
[2019-01-01] MEDS: Enoxaparin(*) 40 MG/0.4 ML SYR SUBCUT SCH (09:11)
[2019-01-01] MEDS: Acetaminophen TAB* 325 MG PO PRN (21:00)
[2019-01-01] MEDS: Metoprolol Succinate XL TAB* 50 MG PO SCH (21:00)
[2019-01-02 06:18] LABS: Hematocrit 34 % (42-52); Hemoglobin 11.3 g/dL (14.0-18.0); Platelet Count 411 10^3/uL (150-450)
[2019-01-02 06:41] LABS: EGFR African American 97.3 (>60); EGFR Non-African American 80.4 (>60)
[2019-01-02] MEDS: Polyethylene Glycol 3350* 17 GM PACKET PO SCH ×2 (09:34→21:54)
[2019-01-02] MEDS: Tamsulosin CAP* 0.4 MG PO SCH (09:36)
[2019-01-02] MEDS: Potassium Chlor TAB* 10 MEQ TAB.ER PO SCH (09:36)
[2019-01-02] MEDS: Amoxicillin/Clavulanate TAB* 500 MG PO SCH ×2 (09:36→21:54)
[2019-01-02] MEDS: Magnesium Oxide TAB* 400 MG PO SCH (09:36)
[2019-01-02] MEDS: Cyanocobalamin TAB* 500 MCG PO SCH (09:37)
[2019-01-02] MEDS: Enoxaparin(*) 40 MG/0.4 ML SYR SUBCUT SCH (09:37)
[2019-01-02] MEDS ORDERED: Morphine INJ* 2 MG/ML 1 ML SYRINGE (TWO MG - NEW SYRINGE VERSION) IV PRN (11:46)
--- NOTE | 2019-01-02 14:17 | PN ---
Progress Note - Progress Note Date of Service: 01/02/19 Note: I saw and examined carmela today. He is now almost 6 weeks from his initial surgery and placement of the ex-Fix. He continues to get vac changes every 3 days. He reports no pain. He is very happy with his progress. I took down the vac and his wound is looking great. There is no longer any tunneling anteriorly. It is superficial throughout. The bed of granulation is 4 cm x 1.5 cm. It is nice healthy pink granulation tissue. No purulence or erythema. No malodor. I placed a new wound VAC. His pin sites all appeared good and there is no evidence of loosening. His pin sites were redressed. For now, we will continue with the VAC changes every 3 days. I would like to obtain new x- rays. Trae Del Toro MD
[2019-01-02] MEDS: Metoprolol Succinate XL TAB* 50 MG PO SCH (21:57)
[2019-01-02] MEDS: Acetaminophen TAB* 325 MG PO PRN (22:26)
[2019-01-02] MEDS: oxyCODONE TAB* 5 MG TAB PO PRN (22:27)
--- NOTE | 2019-01-03 09:08 | PN ---
Progress Note - Progress Note Date of Service: 01/03/19 SOAP: Subjective: CC: Right ankle infection after an open fracture HPI: Mr. Fenton is a 73 yo male with no significant PMH who presented to the emergency room on 11/20/18 for an open right ankle fracture that occurred 2-3 weeks prior to his presentation to the hospital. He states that he is doing well and has no concerns or questions. Eating and drinking well. Denies fever, chills, shortness of breath, nausea, vomiting, or diarrhea. Indwelling urinary catheter for urinary retention was removed last week, no issues with urination since removal. Objective: Vital Signs - 8 hr 01/03/19 07:35 Temperature 97.9 F Pulse Rate 63 Respiratory 16 Rate Blood Pressure 111/65 (mmHg) O2 Sat by Pulse 96 Oximetry Physical Exam: General: NAD, sitting up in a chair Neurological: Alert and Oriented x 4 HEENT: No thrush, Moist MM Cardiovascular: Heart rate regular Respiratory: Lung sounds clear Abdominal: Bowel sounds present; ABD soft, non tender, and non distended Skin: No rash, KAYLEEN wrap intact to the right ankle with external fixator in place Laboratory Last Values WBC 9.4 10^3/uL (3.5-10.8) 12/26/18 06:28 RBC 3.39 10^6 /uL (4.18-5.48) L 12/26/18 06:28 Hgb 11.3 g/dL (14.0-18.0) L 01/02/19 06:10 Hct 34 % (42-52) L 01/02/19 06:10 MCV 95 fL (80-94) H 12/26/18 06:28 MCH 33 pg (27-31) H 12/26/18 06:28 MCHC 34 g/dL (31-36) 12/26/18 06:28 RDW 14 % (10.5-15) 12/26/18 06:28 Plt Count 411 10^3/uL (150-450) 01/02/19 06:10 MPV 7.0 fL (7.4-10.4) L 01/02/19 06:10 Neut % (Auto) 55.1 % 12/19/18 06:00 Lymph % (Auto) 18.1 % 12/19/18 06:00 [place] % (Auto) 14.6 % 12/19/18 06:00 Eos % (Auto) 9.1 % 12/19/18 06:00 Baso % (Auto) 3.1 % 12/19/18 06:00 Absolute Neuts (auto) 3.4 10^3/ul (1.5-7.7) 12/19/18 06:00 Absolute Lymphs (auto) 1.1 10^3/ul (1.0-4.8) 12/19/18 06:00 Absolute Monos (auto) 0.9 10^3/ul (0-0.8) H 12/19/18 06:00 Absolute Eos (auto) 0.6 10^3/ul (0-0.6) 12/19/18 06:00 Absolute Basos (auto) 0.2 10^3/ul (0-0.2) 12/19/18 06:00 Absolute Nucleated RBC 0.0 10^3/ul 12/19/18 06:00 Nucleated RBC % 0.0 12/19/18 06:00 Sodium 135 mmol/L (135-145) 12/26/18 06:28 Potassium 4.1 mmol/L (3.5-5.0) 12/26/18 06:28 Chloride 102 mmol/L (101-111) 12/26/18 06:28 Carbon Dioxide 26 mmol/L (22-32) 12/26/18 06:28 Anion Gap 7 mmol/L (2-11) 12/26/18 06:28 BUN 26 mg/dL (6-24) H 01/02/19 06:10 Creatinine 0.92 mg/dL (0.67-1.17) 01/02/19 06:10 Est GFR ( Amer) 97.3 (>60) 01/02/19 06:10 Est GFR (Non-Af Amer) 80.4 (>60) 01/02/19 06:10 BUN/Creatinine Ratio 24.7 (8-20) H 12/26/18 06:28 Glucose 85 mg/dL (70-100) 12/26/18 06:28 Calcium 9.2 mg/dL (8.6-10.3) 12/26/18 06:28 Phosphorus 3.6 mg/dL (2.5-5.0) 12/26/18 06:28 Magnesium 1.9 mg/dL (1.9-2.7) 12/26/18 06:28 Total Bilirubin 0.50 mg/dL (0.2-1.0) 12/26/18 06:28 AST 15 U/L (13-39) 12/26/18 06:28 ALT 19 U/L (7-52) 12/26/18 06:28 Alkaline Phosphatase 59 U/L (34-104) 12/26/18 06:28 C-Reactive Protein 25.90 mg/L (<8.01) H 12/19/18 06:00 Total Protein 7.4 g/dL (6.4-8.9) 12/26/18 06:28 Albumin 3.7 g/dL (3.2-5.2) 12/26/18 06:28 Globulin 3.7 g/dL (2-4) 12/26/18 06:28 Albumin/Globulin Ratio 1.0 (1-3) 12/26/18 06:28 Vancomycin Trough 16.4 mcg/mL 12/21/18 08:49 Assessment: 1. Open right ankle fracture with acute osteomyelitis. Wound cultures obtained on admission showing MSSA and Strep Agalactiae (Group B). S/P wound debridement , open reduction and external fixation placement, on 11/23/18. Wound cultures obtained while in the OR on 11/23/18 showing MRSA, and no fungal organisms. S/P debridement of ankle joint and replacement of VAC dressing, on 11/27/18. Repeat cultures obtained 11/27/18 in surgery, showing Enterococcus Faecalis. Afebrile. No leukocytosis. CRP is trending down. 2. Urinary retention. Resolved. Plan: Completed a 28 day course of IV Vancomycin on 12/21/18. Continue Augmentin 500 mg PO BID, continue abx while external hardware is in place.
[2019-01-03] MEDS: Enoxaparin(*) 40 MG/0.4 ML SYR SUBCUT SCH (09:14)
[2019-01-03] MEDS: Polyethylene Glycol 3350* 17 GM PACKET PO SCH ×2 (09:15→22:26)
[2019-01-03] MEDS: Tamsulosin CAP* 0.4 MG PO SCH (09:15)
[2019-01-03] MEDS: Cyanocobalamin TAB* 500 MCG PO SCH (09:15)
[2019-01-03] MEDS: Potassium Chlor TAB* 10 MEQ TAB.ER PO SCH (09:15)
[2019-01-03] MEDS: Magnesium Oxide TAB* 400 MG PO SCH (09:15)
[2019-01-03] MEDS: Amoxicillin/Clavulanate TAB* 500 MG PO SCH ×2 (09:15→22:21)
--- NOTE | 2019-01-03 16:59 | PN ---
Subjective Date of Service: 01/03/19 Interval History: Pt seen and examined. Meds and labs reviewed. CC: N/A ROS: Denied ROMERO/dizziness, F/C, N/V, CP, SOB, increased cough, sputum production , abd pain, diarrhea, constipation, dysuria, myalgias, arthralgias, throat pain , and new skin lesions. The rest of the 14 point ROS are unremarkable. PHYSICAL EXAM: GEN APPEARANCE: Awake, not in acute distress HEENT: NC/AT, PERRLA, moist oral mucosa, (-) throat erythema NECK: Soft, supple, (-) cervical LAD, (-)JVD HEART: S1S2 WNL, RRR, No MRG CHEST: CTA, BL, GAE, No W/R/R ABD: Soft, ND/NT, NABS 4x Q EXT: No C/C/RLE w/vacuum pump covered in KAYLEEN bandage w/ external fixators SKIN: Warm to touch PSYCH: No active psychosis, hallucinations, depression, SI/H Objective Active Medications: Acetaminophen (Tylenol Tab*) 650 mg PO Q4H PRN PRN Reason: FEVER/PAIN Last Admin: 01/02/19 22:26 Dose: 650 mg Amoxicillin/Clavulanate Potassium (Augmentin Tab*) 500 mg PO BID [facility] Last Admin: 01/03/19 09:15 Dose: 500 mg Cyanocobalamin (Vitamin B12 Tab*) 1,000 mcg PO DAILY [facility] Last Admin: 01/03/19 09:15 Dose: 1,000 mcg Enoxaparin Sodium (Lovenox(*)) 40 mg SUBCUT Q24H [facility] Last Admin: 01/03/19 09:14 Dose: 40 mg Heparin Sodium (Porcine) (Heparin Flush Picc/Ml/Cvc(*)) 1 - 3 ml FLUSH 0600, 1800 [facility]; Protocol Last Admin: 01/03/19 06:25 Dose: 1 ml Magnesium Oxide (Magox 400 Tab*) 400 mg PO DAILY [facility] Last Admin: 01/03/19 09:15 Dose: 400 mg Metoprolol Succinate (Toprol Xl Tab*) 50 mg PO BEDTIME [facility] Last Admin: 01/02/19 21:57 Dose: 50 mg Morphine Sulfate (Morphine Inj (Syringe))*) 1 mg IV ONCE PRN PRN Reason: PAIN - SEVERE Oxycodone HCl (Roxycodone Tab*) 5 mg PO Q6H PRN PRN Reason: PAIN Last Admin: 01/02/19 22:27 Dose: 5 mg Polyethylene Glycol/Electrolytes (Miralax*) 17 gm PO 0800,2100 [facility] Last Admin: 01/03/19 09:15 Dose: 17 gm Potassium Chloride (Klor Con Er Tab*) 10 meq PO DAILY [facility] Last Admin: 01/03/19 09:15 Dose: 10 meq Senna (Senokot Tab*) 2 tab PO BEDTIME PRN PRN Reason: NO DAYTIME BOWEL MOVEMENT Last Admin: 12/29/18 20:56 Dose: 2 tab Tamsulosin HCl (Flomax Cap*) 0.4 mg PO DAILY [facility] Last Admin: 01/03/19 09:15 Dose: 0.4 mg Oxygen Devices in Use Now: None Result Diagrams: 01/02/19 06:10 01/02/19 06:10 Assess/Plan/Problems-Billing Assessment: 73M admitted for right ankle open fracture 2+ weeks old, did not seek medical attention at the time of the injury, also had possible SBO, now resolved. Getting q3d VAC changes while on IV vancomycin. Has external hardware in place. Placed on SWING on 12/11/18 - Patient Problems (1) Open fracture Current Visit: No Status: Acute Priority: High Code(s): T14.8XXA - OTHER INJURY OF UNSPECIFIED BODY REGION, INITIAL ENCOUNTER SNOMED Code(s): 030415905 Comment: - Right ankle. Dr. Del Toro performed open reduction, external fixation . Recultured intraoperatively, growing MRSA, and enterococcus. Returned to OR 11/30 for 3rd and 4th 12/04. - Continue wound vac -as q3 days Completed a 28 day course of Vancomycin on 12/21/18. -Continue Augmentin 500 mg PO BID while external hardware is in place -WBC and CRP down trending -Needs CBC, CMP, CRP weekly while on antibiotics. ID following (2) Macrocytosis Current Visit: No Status: Acute Code(s): D75.89 - OTHER SPECIFIED DISEASES OF BLOOD AND BLOOD-FORMING ORGANS SNOMED Code(s): 223826478 Comment: -MCV 100 - B12 in low normal range (231). Methylmalonic acid level borderline - continue B12 po. (3) Urinary retention Current Visit: No Status: Acute Code(s): R33.9 - RETENTION OF URINE, UNSPECIFIED SNOMED Code(s): 810015633 Comment: -Continue Flomax (4) DVT prophylaxis Current Visit: No Status: Acute Priority: Low Code(s): NZS1733 - SNOMED Code(s): 124940253 Comment: - lovenox 40 mg SQ daily restarted Status and Disposition: Swing status
[2019-01-03] MEDS: Acetaminophen TAB* 325 MG PO PRN (22:21)
[2019-01-03] MEDS: oxyCODONE TAB* 5 MG TAB PO PRN (22:21)
[2019-01-03] MEDS: Metoprolol Succinate XL TAB* 50 MG PO SCH (22:22)
[2019-01-04] MEDS: Polyethylene Glycol 3350* 17 GM PACKET PO SCH ×2 (09:14→20:59)
[2019-01-04] MEDS: Potassium Chlor TAB* 10 MEQ TAB.ER PO SCH (09:14)
[2019-01-04] MEDS: Cyanocobalamin TAB* 500 MCG PO SCH (09:14)
[2019-01-04] MEDS: Enoxaparin(*) 40 MG/0.4 ML SYR SUBCUT SCH (09:14)
[2019-01-04] MEDS: Magnesium Oxide TAB* 400 MG PO SCH (09:15)
[2019-01-04] MEDS: Tamsulosin CAP* 0.4 MG PO SCH (09:15)
[2019-01-04] MEDS: Amoxicillin/Clavulanate TAB* 500 MG PO SCH ×2 (09:15→20:59)
[2019-01-04] MEDS: Acetaminophen TAB* 325 MG PO PRN (20:58)
[2019-01-04] MEDS: Metoprolol Succinate XL TAB* 50 MG PO SCH (20:59)
[2019-01-05] MEDS: Amoxicillin/Clavulanate TAB* 500 MG PO SCH ×2 (08:54→21:26)
[2019-01-05] MEDS: Potassium Chlor TAB* 10 MEQ TAB.ER PO SCH (08:54)
[2019-01-05] MEDS: Cyanocobalamin TAB* 500 MCG PO SCH (08:54)
[2019-01-05] MEDS: Tamsulosin CAP* 0.4 MG PO SCH (08:54)
[2019-01-05] MEDS: Enoxaparin(*) 40 MG/0.4 ML SYR SUBCUT SCH (08:55)
[2019-01-05] MEDS: Magnesium Oxide TAB* 400 MG PO SCH (08:55)
[2019-01-05] MEDS: Polyethylene Glycol 3350* 17 GM PACKET PO SCH ×2 (08:55→21:27)
--- NOTE | 2019-01-05 13:29 | PN ---
Progress Note - Progress Note Date of Service: 01/05/19 Note: Patient sitting OOB in chair. Comfortable. Dressings removed. ~[id number] granulating wound anterior medial ankle noted. no purulence. 4x4 w NaCL placed , 4x4 , Kerlex and KAYLEEN applied. External fixation pins are benign s/p ex fix open ankle fracture. Continue daily wet to dry dressing changes and oral antibiotics
[2019-01-05] MEDS: Acetaminophen TAB* 325 MG PO PRN (21:26)
[2019-01-05] MEDS: Metoprolol Succinate XL TAB* 50 MG PO SCH (21:30)
[2019-01-05] MEDS: oxyCODONE TAB* 5 MG TAB PO PRN (22:07)
[2019-01-06] MEDS: Enoxaparin(*) 40 MG/0.4 ML SYR SUBCUT SCH (09:50)
[2019-01-06] MEDS: Tamsulosin CAP* 0.4 MG PO SCH (09:51)
[2019-01-06] MEDS: Cyanocobalamin TAB* 500 MCG PO SCH (09:51)
[2019-01-06] MEDS: Magnesium Oxide TAB* 400 MG PO SCH (09:51)
[2019-01-06] MEDS: Amoxicillin/Clavulanate TAB* 500 MG PO SCH ×2 (09:51→20:58)
[2019-01-06] MEDS: Potassium Chlor TAB* 10 MEQ TAB.ER PO SCH (09:52)
[2019-01-06] MEDS: Polyethylene Glycol 3350* 17 GM PACKET PO SCH ×2 (09:52→21:08)
[2019-01-06] MEDS: Metoprolol Succinate XL TAB* 50 MG PO SCH (20:58)
[2019-01-06] MEDS: Acetaminophen TAB* 325 MG PO PRN (20:59)
[2019-01-06] MEDS: oxyCODONE TAB* 5 MG TAB PO PRN (21:00)
[2019-01-07] MEDS: Polyethylene Glycol 3350* 17 GM PACKET PO SCH ×2 (07:11→21:10)
[2019-01-07] MEDS: Magnesium Oxide TAB* 400 MG PO SCH (07:12)
[2019-01-07] MEDS: Potassium Chlor TAB* 10 MEQ TAB.ER PO SCH (07:12)
[2019-01-07] MEDS: Enoxaparin(*) 40 MG/0.4 ML SYR SUBCUT SCH (07:12)
[2019-01-07] MEDS: Cyanocobalamin TAB* 500 MCG PO SCH (07:12)
[2019-01-07] MEDS: Tamsulosin CAP* 0.4 MG PO SCH (07:12)
[2019-01-07] MEDS: Amoxicillin/Clavulanate TAB* 500 MG PO SCH ×2 (07:12→21:24)
--- NOTE | 2019-01-07 11:25 | PN ---
Progress Note - Progress Note Date of Service: 01/07/19 SOAP: Subjective: Pt seen at bedside for right ankle re-evaluation. States that he is doing very well. Denies CP/SOB, f/c, n/v Objective: Vital Signs Temp 97.8 F 01/07/19 07:48 Pulse 55 01/07/19 07:48 Resp 20 01/07/19 07:48 BP 115/63 01/07/19 07:48 Pulse Ox 99 01/07/19 07:48 Intake & Output 01/06/19 01/07/19 01/07/19 18:59 06:59 18:59 Intake Total 2040 200 960 Output Total 2600 2040 Balance -560 -1840 960 Intake: Oral 2040 200 960 Output: Urine 2600 2040 Other: Estimated Void Large Date of Last Bowel 01/06/19 Movement # Bowel Movements 1 0 Estimated Stool Amount Small # Voids 2 Gen: A&Ox3 NAD at rest RLE: Dressing changed today, good granulation tissue to bed. No purulent d/c. Calf soft/NT, N/V intact. Pin sites were cleaned, xeraform applied Assessment: S/P right ankle open fracture dislocation with ex-fix Plan: Dressing changed today, will continue wet to dry Cont NWB Cont abx per ID
[2019-01-07] MEDS: Metoprolol Succinate XL TAB* 50 MG PO SCH (21:24)
[2019-01-07] MEDS: oxyCODONE TAB* 5 MG TAB PO PRN (21:24)
[2019-01-07] MEDS: Acetaminophen TAB* 325 MG PO PRN (21:24)
[2019-01-08] MEDS: Amoxicillin/Clavulanate TAB* 500 MG PO SCH ×2 (09:19→20:10)
[2019-01-08] MEDS: Enoxaparin(*) 40 MG/0.4 ML SYR SUBCUT SCH (09:19)
[2019-01-08] MEDS: Polyethylene Glycol 3350* 17 GM PACKET PO SCH ×2 (09:19→20:03)
[2019-01-08] MEDS: Magnesium Oxide TAB* 400 MG PO SCH (09:20)
[2019-01-08] MEDS: Potassium Chlor TAB* 10 MEQ TAB.ER PO SCH (09:20)
[2019-01-08] MEDS: Tamsulosin CAP* 0.4 MG PO SCH (09:20)
[2019-01-08] MEDS: Cyanocobalamin TAB* 500 MCG PO SCH (09:20)
--- NOTE | 2019-01-08 10:48 | PN ---
Progress Note - Progress Note Date of Service: 01/08/19 SOAP: Subjective: Pt seen at bedside for right ankle re-evaluation. States that he is doing very well. Denies CP/SOB, f/c, n/v Objective: Vital Signs Temp 97.7 F 01/08/19 07:50 Pulse 59 01/08/19 07:50 Resp 16 01/08/19 08:00 BP 118/62 01/08/19 07:50 Pulse Ox 97 01/08/19 07:50 Intake & Output 01/07/19 01/08/19 01/08/19 18:59 06:59 18:59 Intake Total 1920 0 Output Total 0 1500 Balance 1920 0 -1500 Intake: Oral 1920 0 Output: Urine 0 1500 Other: Estimated Void Large Date of Last Bowel 01/07/2019 unknown Movement # Bowel Movements 0 # Voids 1 Gen: A&Ox3 NAD at rest RLE: Dressing changed today, good granulation tissue to bed. No purulent d/c. Calf soft/NT, N/V intact. Pin sites were cleaned, xeraform applied Assessment: S/P right ankle open fracture dislocation with ex-fix Plan: Dressing changed today, will continue wet to dry Cont NWB Cont abx per ID
[2019-01-08] MEDS: Metoprolol Succinate XL TAB* 50 MG PO SCH (20:10)
[2019-01-08] MEDS: oxyCODONE TAB* 5 MG TAB PO PRN (20:10)
[2019-01-08] MEDS: Acetaminophen TAB* 325 MG PO PRN (20:11)
[2019-01-09] MEDS: Enoxaparin(*) 40 MG/0.4 ML SYR SUBCUT SCH (07:42)
[2019-01-09] MEDS: Cyanocobalamin TAB* 500 MCG PO SCH (07:42)
[2019-01-09] MEDS: Polyethylene Glycol 3350* 17 GM PACKET PO SCH ×2 (07:42→21:25)
[2019-01-09] MEDS: Amoxicillin/Clavulanate TAB* 500 MG PO SCH ×2 (07:43→21:24)
[2019-01-09] MEDS: Potassium Chlor TAB* 10 MEQ TAB.ER PO SCH (07:43)
[2019-01-09] MEDS: Tamsulosin CAP* 0.4 MG PO SCH (07:43)
[2019-01-09] MEDS: Magnesium Oxide TAB* 400 MG PO SCH (07:43)
--- NOTE | 2019-01-09 09:19 | PN ---
Progress Note - Progress Note Date of Service: 01/09/19 SOAP: Subjective: CC: Right ankle infection after an open fracture HPI: Mr. Fenton is a 73 yo male with no significant PMH who presented to the emergency room on 11/20/18 for an open right ankle fracture that occurred 2-3 weeks prior to his presentation to the hospital. He states that he is doing well and has no concerns or questions. Eating and drinking well. Denies fever, chills, shortness of breath, nausea, vomiting, diarrhea, or urinary symptoms. He is getting daily wet to dry dressing changes to the right ankle wound per orthopedics. Objective: Vital Signs 01/09/19 07:50 Temperature 97.6 F Pulse Rate 57 Respiratory 18 Rate Blood Pressure 117/65 (mmHg) Blood Pressure 77 Mean O2 Sat by Pulse 99 Oximetry Patient on Room Yes Air Physical Exam: General: NAD, sitting up in a chair Neurological: Alert and Oriented x4 HEENT: Moist MM, no thrush Cardiovascular: Heart rate regular Respiratory: Lung sounds clear to auscultation bilateral Abdominal: Bowel sounds present; ABD soft, non tender and non distended Skin: No rash. External fixator in place to the left ankle. Assessment: 1. Open right ankle fracture with acute osteomyelitis. Wound cultures obtained on admission showing MSSA and Strep Agalactiae (Group B). S/P wound debridement , open reduction and external fixation placement, on 11/23/18. Wound cultures obtained while in the OR on 11/23/18 showing MRSA, and no fungal organisms. S/P debridement of ankle joint and replacement of VAC dressing, on 11/27/18. Repeat cultures obtained 11/27/18 in surgery, showing Enterococcus Faecalis. Afebrile. No leukocytosis. CRP is trending down. Plan: Completed a 28 day course of IV Vancomycin on 12/21/18. Continue Augmentin 500 mg PO BID, continue abx while external hardware is in place. Will check labs tomorrow; CMP, CBC, and CRP.
--- NOTE | 2019-01-09 15:30 | PN ---
Progress Note - Progress Note Date of Service: 01/09/19 SOAP: Subjective: [Pt seen at bedside for right ankle re-evaluation. States that he is doing very well. Denies CP/SOB, f/c, n/v Objective: Vital Signs Temp 97.6 F 01/09/19 07:50 Pulse 57 01/09/19 07:50 Resp 18 01/09/19 08:00 BP 117/65 01/09/19 07:50 Pulse Ox 99 01/09/19 07:50 Intake & Output 01/08/19 01/09/19 01/09/19 18:59 06:59 18:59 Intake Total 1370 0 1080 Output Total 1500 975 Balance -130 -975 1080 Intake: Oral 1370 0 1080 Output: Urine 1500 975 Other: Date of Last Bowel unknown [id number] Movement # Bowel Movements 1 0 0 Estimated Stool Amount Medium # Voids 2 Gen: A&Ox3 NAD at rest RLE: Dressing changed today, good granulation tissue to bed. No purulent d/c. Calf soft/NT, N/V intact. Pin sites were cleaned, xeraform applied Assessment: S/P right ankle open fracture dislocation with ex-fix Plan: Dressing changed today, will continue wet to dry Cont NWB Cont abx per ID Possibly back to the OR on Thrusday
[2019-01-09] MEDS: Acetaminophen TAB* 325 MG PO PRN (21:24)
[2019-01-09] MEDS: Metoprolol Succinate XL TAB* 50 MG PO SCH (21:25)
[2019-01-09] MEDS: oxyCODONE TAB* 5 MG TAB PO PRN (21:25)
[2019-01-10 06:19] LABS: ABS Basophils 0.1 10^3/ul (0-0.2); ABS Eosinophils 0.4 10^3/ul (0-0.6); ABS Lymphocytes 1.5 10^3/ul (1.0-4.8); ABS Neutrophils 4.7 10^3/ul (1.5-7.7); Eosinophil % 4.6 %; Hematocrit 31 % (42-52); Hemoglobin 10.3 g/dL (14.0-18.0); Lymphocyte % 19.2 %; Mean Corpuscular HGB Conc 34 g/dL (31-36); Mean Corpuscular Hemoglobin 32 pg (27-31); Mean Corpuscular Volume 96 fL (80-94); Mean Platelet Volume 7.2 fL (7.4-10.4); Platelet Count 271 10^3/uL (150-450); Red Blood Count 3.19 10^6 /uL (4.18-5.48); Red Cell Distribution Width 15 % (10.5-15); White Blood Count 7.7 10^3/uL (3.5-10.8)
[2019-01-10 06:31] LABS: Albumin 3.6 g/dL (3.2-5.2); Albumin/Globulin Ratio 1.2 (1-3); BUN/Creatinine Ratio 29.9 (8-20); C Reactive Protein 6.31 mg/L (<8.01); Calcium 9.1 mg/dL (8.6-10.3); EGFR African American 91.5 (>60); EGFR Non-African American 75.7 (>60); Globulin 3.1 g/dL (2-4); Potassium 4.2 mmol/L (3.5-5.0); Total Bilirubin 0.3 mg/dL (0.2-1.0); Total Protein 6.7 g/dL (6.4-8.9)
--- NOTE | 2019-01-10 08:27 | PN ---
Progress Note - Progress Note Date of Service: 01/10/19 Note: I saw Miguel this morning. I changed wet to dry dressing and wound continues to improve. We discussed removal of ex-fix tomorrow and transition to a cast. he could likely d/c home shortly thereafter with weekly office visits to change cast and check on wounds. he was agreeable to this plan. NPO at midnight for OR tomorrow. Trae Del Toro MD
--- NOTE | 2019-01-10 09:00 | PN ---
Subjective Date of Service: 01/10/19 Interval History: Mr. Fenton is sitting up in the chair eating breakfast when I see him this morning. He is in good spirits and has no complaints. He denies pain. Has been walking to the hallways with PT. Seen by Dr. Del Toro this morning who plans to remove the external fixator tomorrow and place a cast, and Mr. Fenton is very happy about this. No constipation. Objective Active Medications: Acetaminophen (Tylenol Tab*) 650 mg PO Q4H PRN PRN Reason: FEVER/PAIN Last Admin: 01/09/19 21:24 Dose: 650 mg Amoxicillin/Clavulanate Potassium (Augmentin Tab*) 500 mg PO BID [facility] Last Admin: 01/09/19 21:24 Dose: 500 mg Cyanocobalamin (Vitamin B12 Tab*) 1,000 mcg PO DAILY [facility] Last Admin: 01/09/19 07:42 Dose: 1,000 mcg Enoxaparin Sodium (Lovenox(*)) 40 mg SUBCUT Q24H [facility] Last Admin: 01/09/19 07:42 Dose: 40 mg Heparin Sodium (Porcine) (Heparin Flush Picc/Ml/Cvc(*)) 1 - 3 ml FLUSH 0600, 1800 [facility]; Protocol Last Admin: 01/10/19 05:57 Dose: 1 ml Magnesium Oxide (Magox 400 Tab*) 400 mg PO DAILY [facility] Last Admin: 01/09/19 07:43 Dose: 400 mg Metoprolol Succinate (Toprol Xl Tab*) 50 mg PO BEDTIME [facility] Last Admin: 01/09/19 21:25 Dose: 50 mg Oxycodone HCl (Roxycodone Tab*) 5 mg PO Q6H PRN PRN Reason: PAIN Last Admin: 01/09/19 21:25 Dose: 5 mg Polyethylene Glycol/Electrolytes (Miralax*) 17 gm PO 0800,2100 [facility] Last Admin: 01/09/19 21:25 Dose: 17 gm Potassium Chloride (Klor Con Er Tab*) 10 meq PO DAILY [facility] Last Admin: 01/09/19 07:43 Dose: 10 meq Senna (Senokot Tab*) 2 tab PO BEDTIME PRN PRN Reason: NO DAYTIME BOWEL MOVEMENT Last Admin: 12/29/18 20:56 Dose: 2 tab Tamsulosin HCl (Flomax Cap*) 0.4 mg PO DAILY [facility] Last Admin: 01/09/19 07:43 Dose: 0.4 mg Vital Signs - 8 hr 01/10/19 01/10/19 07:38 08:00 Temperature 97.5 F Pulse Rate 61 Respiratory 16 16 Rate Blood Pressure 138/70 (mmHg) O2 Sat by Pulse 100 Oximetry Oxygen Devices in Use Now: None Appearance: alert, well appearing Eyes: No Scleral Icterus Ears/Nose/Mouth/Throat: NL Teeth, Lips, Gums Neck: NL Appearance and Movements; NL JVP Respiratory: Symmetrical Chest Expansion and Respiratory Effort, Clear to Auscultation Cardiovascular: NL Sounds; No Murmurs; No JVD, RRR Abdominal: NL Sounds; No Tenderness; No Distention Lymphatic: No Cervical Adenopathy Extremities: - - R ankle in ex-fix with estefanía wrap, good cap refill, sensation in tact Neurological: Alert and Oriented x 3 Result Diagrams: 01/10/19 06:00 01/10/19 06:00 Assess/Plan/Problems-Billing Assessment: 73M admitted for right ankle open fracture 2+ weeks old, required 3 trips to the OR during his hospitalization. Placed on SWING on 12/11/18 for IV antibiotics, now with plan for OR tomorrow to remove ex-fix - Patient Problems (1) Open fracture Current Visit: No Status: Acute Priority: High Code(s): T14.8XXA - OTHER INJURY OF UNSPECIFIED BODY REGION, INITIAL ENCOUNTER SNOMED Code(s): 852803382 Comment: Right ankle. Dr. Del Toro performed open reduction, external fixation 11/23/18. Recultured intraoperatively, growing MRSA, and enterococcus. Returned to OR 11/30 and again on 12/04. Plan for OR tomorrow to remove ex-fix and place cast (2) Wound cellulitis Current Visit: No Status: Acute Code(s): L03.90 - CELLULITIS, UNSPECIFIED SNOMED Code(s): 108538574 Comment: Completed a 28 day course of Vancomycin on 12/21/18. Continue Augmentin 500 mg PO BID while external hardware is in place WBC and CRP down trending --CRP normal this morning ID following (3) Anemia Current Visit: No Status: Acute Priority: Medium Code(s): D64.9 - ANEMIA, UNSPECIFIED SNOMED Code(s): 731011503 Comment: likely multifactorial, due to chronic disease, post-op B12 low-normal, on supplement iron studies show chronic disease (4) Constipation Current Visit: No Status: Acute Code(s): K59.00 - CONSTIPATION, UNSPECIFIED SNOMED Code(s): 54788093 Comment: now resolved (5) Urinary retention Current Visit: No Status: Acute Code(s): R33.9 - RETENTION OF URINE, UNSPECIFIED SNOMED Code(s): 568673517 Comment: resolved, continue flomax (6) Sinus arrhythmia Current Visit: No Status: Resolved Code(s): I49.8 - OTHER SPECIFIED CARDIAC ARRHYTHMIAS SNOMED Code(s): 35718168 Comment: TTE showed normal LVEF and no valve disease Status and Disposition: Swing status
[2019-01-10] MEDS: Polyethylene Glycol 3350* 17 GM PACKET PO SCH ×2 (09:47→20:22)
[2019-01-10] MEDS: Tamsulosin CAP* 0.4 MG PO SCH (09:48)
[2019-01-10] MEDS: Magnesium Oxide TAB* 400 MG PO SCH (09:48)
[2019-01-10] MEDS: Cyanocobalamin TAB* 500 MCG PO SCH (09:48)
[2019-01-10] MEDS: Potassium Chlor TAB* 10 MEQ TAB.ER PO SCH (09:48)
[2019-01-10] MEDS: Enoxaparin(*) 40 MG/0.4 ML SYR SUBCUT SCH (09:48)
[2019-01-10] MEDS: Amoxicillin/Clavulanate TAB* 500 MG PO SCH ×2 (09:48→20:21)
[2019-01-10] MEDS: Metoprolol Succinate XL TAB* 50 MG PO SCH (20:21)
[2019-01-10] MEDS: Acetaminophen TAB* 325 MG PO PRN (20:21)
[2019-01-10] MEDS: oxyCODONE TAB* 5 MG TAB PO PRN (20:21)
[2019-01-11] MEDS ORDERED: Bupivacaine 0.5%* 50 ML VIAL ONE (07:28)
[2019-01-11] MEDS: Cyanocobalamin TAB* 500 MCG PO SCH (10:38)
[2019-01-11] MEDS: Magnesium Oxide TAB* 400 MG PO SCH (10:38)
[2019-01-11] MEDS: Tamsulosin CAP* 0.4 MG PO SCH (10:38)
[2019-01-11] MEDS: Amoxicillin/Clavulanate TAB* 500 MG PO SCH ×2 (10:38→23:05)
[2019-01-11] MEDS: Potassium Chlor TAB* 10 MEQ TAB.ER PO SCH (10:38)
[2019-01-11] MEDS: Polyethylene Glycol 3350* 17 GM PACKET PO SCH ×2 (10:39→23:04)
--- NOTE | 2019-01-11 11:42 | OP ---
Operative Report - Blank - Operative Report Date of Operation: 01/11/19 Note: PATIENT: Sreedhar Fenton DATE OF : 1945 DATE OF SURGERY: 01/11/2019 SURGEON: Trae Del Toro MD PRINT LINE INSPECTOR: MAI [place], whos assistance was necessary for positioning, retraction, help with instrumentation. ANESTHESIOLOGIST: Dr. Cristobal PREOPERATIVE DIAGNOSIS: Right ankle external fixator status post open reduction of an open ankle fracture with multiple I&Ds POSTOPERATIVE DIAGNOSIS: Right ankle external fixator status post open reduction of an open ankle fracture with multiple I&Ds OPERATION: 1. Right ankle removal of external fixator 2. Right short leg cast application ANESTHESIA: General IMPLANTS: none TOURNIQUET TIME: none SPECIMENS: none ESTIMATED BLOOD LOSS: minimal COMPLICATIONS: none STATUS: Stable from the operating room to the recovery room and then back to hospital floor. INDICATIONS FOR PROCEDURE: Miguel had a 3 week old open ankle fracture dislocation s/p multiple I&Ds and placement of an external fixator. He has had extensive wound care with great improvement of the wound. The nature and risks of surgery were reviewed in careful detail. Our discussions regarding the risks of surgery included, but were not limited to, infection, wound problems, nerve injury, neuroma, RSD, persistent symptoms, blood clot, need for further surgery, failure of the surgery, and even the remote chance of catastrophic complication, including loss of limb. DESCRIPTION OF PROCEDURE: The patient was seen in the preoperative holding unit and informed written consent was obtained. The appropriate extremity was marked. The patient was then brought to the operating room and carefully positioned on the operating room table. Anesthesia was induced. All bony prominences were padded with great care. A chlorhexidine based pre-scrub was performed followed by a betadine prep and drape in standard sterile fashion. A surgical safety pause was then conducted in which we confirmed the appropriate patient, extremity, planned procedure, availability of equipment, indication and administration of prophylactic antibiotics, and DVT prophylaxis in the form of a compression boot on the non-surgical extremity. I began by using a wrench to remove the ex-fix connectors and a drill to remove the pins. The pin sites were curetted and then irrigated with sterile saline. I then gently debrided any fibrinous material from the medial ankle wound and irrigated. I then placed a saline wet-to-dry dressing at the ankle wound and xeroform at the pin sites. A sterile dressing was applied followed by a short leg fiberglass cast with the ankle in neutral. The patient was then awakened from anesthesia and transferred to the recovery room in stable condition. There were no complications. All needle and sponge counts were correct at the end of the case. ATTESTATION: I attest I was present and scrubbed and performed the critical portions of the procedure myself. POSTOPERATIVE PLAN: He will follow-up in 1 week for a wound check. Non-weight bearing in the right lower extremity.
[2019-01-11] MEDS: oxyCODONE TAB* 5 MG TAB PO PRN (23:05)
[2019-01-11] MEDS: Metoprolol Succinate XL TAB* 50 MG PO SCH (23:06)
[2019-01-11] MEDS: Acetaminophen TAB* 325 MG PO PRN (23:10)
[2019-01-12] MEDS: Cyanocobalamin TAB* 500 MCG PO SCH (08:56)
[2019-01-12] MEDS: Tamsulosin CAP* 0.4 MG PO SCH (08:56)
[2019-01-12] MEDS: Potassium Chlor TAB* 10 MEQ TAB.ER PO SCH (08:56)
[2019-01-12] MEDS: Amoxicillin/Clavulanate TAB* 500 MG PO SCH (08:56)
[2019-01-12] MEDS: Magnesium Oxide TAB* 400 MG PO SCH (08:56)
[2019-01-12] MEDS: Polyethylene Glycol 3350* 17 GM PACKET PO SCH (08:56)
[2019-01-12] MEDS ORDERED: Enoxaparin(*) 40 MG/0.4 ML SYR SUBCUT SCH (09:00)
[2019-01-12 10:43] VITALS: BP 127/60
--- NOTE | 2019-01-12 12:05 | PN ---
Progress Note - Progress Note Date of Service: 01/12/19 Note: Patient seen OOB in chair. He is doing well. Worked with PT this am and they reported to me that he was able to maintain NWB status on LLE. He will have a knee walker at home to utilize as well and has good family support. VSS, left LE cast is in good repair, comfortable, toes well perfused, sensation intact distally POD #1 ex fix removal and cast application left ankle. Discharge home NWB LLE today, continue with po Augmentin until follow up with Zeinab Archer PA-C next Tuesday in clinic. He is requesting his external fixation hardware, which Dr. Del Toro approved yesterday.
== END 2019-01-12 16:10 | disposition home or self-care (01) | DRG 540 ==
LOC: SSU 14:43 → MED 12-12 10:36
PROVIDERS: ADMIT Hospitalist; ATTEND Internal Medicine
PROC: 05HY33Z Insertion of Infusion Device into Upper Vein, Percutaneous Approach (ICD-10-PCS; principal; 2018-12-18)
PROC: 2W0QX6Z Change Pressure Dressing on Right Lower Leg (ICD-10-PCS; 2019-01-02)
PROC: 0SPFX5Z Removal of External Fixation Device from Right Ankle Joint, External Approach (ICD-10-PCS; 2019-01-11)
PROC: 2W3SX2Z Immobilization of Right Foot using Cast (ICD-10-PCS; 2019-01-11)
DX: M86.171 Other acute osteomyelitis, right ankle and foot (principal); L03.115 Cellulitis of right lower limb; S82.891D Other fracture of right lower leg, subsequent encounter for closed fracture with routine healing; X58.XXXD Exposure to other specified factors, subsequent encounter; D75.89 Other specified diseases of blood and blood-forming organs; R33.9 Retention of urine, unspecified; D50.0 Iron deficiency anemia secondary to blood loss (chronic); D63.8 Anemia in other chronic diseases classified elsewhere; Z83.3 Family history of diabetes mellitus; Z82.49 Family history of ischemic heart disease and other diseases of the circulatory system
CPT/HCPCS: 36415; 80053; 80202; 82565; 83735; 84100; 84520; 85014; 85018; 85025; 85027; 85049; 86140; A9270-GY; C1751; G8978-GP-CJ; G8978-GP-CL; G8979-GP-CI; J1650; J2270; J3370; J3490

== ENCOUNTER → 2019-01-11 07:31 | Day surgery (SDC) | payer MEDICARE ==
[~2019-01-11 07:31] MED LIST: Acetaminophen TAB* 325 MG PO PRN; Amoxicillin/Clavulanate TAB* 500 MG PO SCH; Buffered Lidocaine 1% SYRIN* 1 ML/SYRINGE INTRADERM ONE; Dexamethasone IV* 4 MG/ML 1 ML (4 MG) ONE; DiMENhydriNATE IV* 50 MG/ML VIAL IV PUSH PRN; EPHEDrine (Pressors)* 50 MG/ML VIAL ONE; Famotidine IV* 10 MG/ML 2 ML (20 mg) ONE; HYDROcodone/ACETAMIN 5-325 MG* 1 TAB PO PRN; Lactated Ringers 1000 ML Bag* 1,000 ML IV SCH; Lidocaine 2% PF * 5 ML VIAL ONE; Midazolam* 1 MG/ML 2 ML VIAL (2 MG) ONE; Naloxone* 0.4 MG/ML 1 ML VIAL IV PRN; Ondansetron INJ* 2 MG/ML VIAL IV PRN; PROCHLORPERAZINE INJ 5 MG/ML 2 ML VIAL IV PRN; Potassium Chlor TAB* 10 MEQ TAB.ER PO SCH; Propofol* 10 MG/ML 20 ML BTL ONE; Tamsulosin CAP* 0.4 MG PO SCH; ceFAZolin 2 GM PREMIX in ORs 2 GM/50 ML BAG IVPB ONE; fentaNYL* 50 MCG/ML 2 ML VIAL (100 MCG VIAL) IV PRN; fentaNYL* 50 MCG/ML 2 ML VIAL (100 MCG VIAL) ONE
[2019-01-11 09:22] VITALS: BP 135/68
== END | disposition home or self-care (01) ==
LOC: OR 07:31
PROVIDERS: ATTEND Orthopaedic Surgery
DX: Z45.89 Encounter for adjustment and management of other implanted devices (principal); S82.841E Displaced bimalleolar fracture of right lower leg, subsequent encounter for open fracture type I or II with routine healing; W22.8XXD Striking against or struck by other objects, subsequent encounter; Y92.9 Unspecified place or not applicable
CPT/HCPCS: 88300; J0690; J1100; J2250; J2704; J3010